=== PATIENT | female | born 1975 | race Hispanic/Latino ===

== ENCOUNTER 2020-04-19 16:53 | Inpatient (IN) | payer OTHER ==
[~2020-04-19] VITALS: Ht 157.5 cm; Wt 90.7 kg
[2020-04-19 17:20] LABS: BASOPHILS % 0.4 % (0.0-1.0); EOSINOPHILS % 0.3 % (0.0-6.0); HEMATOCRIT 37.7 % (34.2-44.1); HEMOGLOBIN 12.4 g/dL (12.0-16.0); LYMPHOCYTES # (AUTO) 2.2 (1.0-3.2); LYMPHOCYTES % 30.2 % (18.0-39.1); MEAN CORPUSCULAR HEMOGLOBIN 25.8 pg (28-32); MEAN CORPUSCULAR HGB CONC 32.9 g/dL (31-35); MEAN CORPUSCULAR VOLUME 78.4 fL (81-99); MONOCYTES # (AUTO) 0.4 (0.2-0.8); MONOCYTES % 5.7 % (4.4-11.3); NEUTROPHILS # (AUTO) 4.6 (2.1-6.9); PLATELET COUNT 366 x10e3/uL (140-360); RED BLOOD COUNT 4.81 x10e6/uL (3.6-5.1); RED CELL DISTRIBUTION WIDTH 13.4 % (11.7-14.4)
[2020-04-19 17:29] LABS: CLARITY,URINE HAZY (CLEAR); COLOR,URINE YELLOW (YELLOW); KETONES,URINE >=160 (NEGATIVE); LEUKOCYTE ESTERASE ,URINE SMALL (NEGATIVE); NITRITE,URINE NEGATIVE (NEGATIVE); PROTEIN,URINE DIPSTICK 1+ (NEGATIVE)
[2020-04-19 17:30] LABS: AMPHETAMINES SCREEN,URINE NEGATIVE (NEGATIVE); BENZODIAZEPINES SCREEN,URINE NEGATIVE (NEGATIVE); PHENCYCLIDINE SCREEN,URINE NEGATIVE (NEGATIVE)
[2020-04-19 17:31] LABS: ALANINE AMINOTRANSFERASE 30 IU/L (0-55); ALBUMIN 3.5 g/dL (3.5-5.0); ALBUMIN/GLOBULIN RATIO 0.7 (0.8-2.0); ALKALINE PHOSPHATASE 121 IU/L (40-150); ANION GAP 17.5 mmol/L (8-16); BLOOD UREA NITROGEN 11 mg/dL (7-26); BUN/CREATININE RATIO 14 (6-25); CALCIUM 9.2 mg/dL (8.4-10.2); CARBON DIOXIDE 17 mmol/L (22-29); CHLORIDE 102 mmol/L (98-107); CREATININE, SERUM 0.79 mg/dL (0.57-1.11); EST GLOMERULAR FILTRATION RATE > 60 ML/MIN (60-); GLUCOSE 271 mg/dL (74-118); POTASSIUM 3.5 mmol/L (3.5-5.1); SODIUM 133 mmol/L (136-145); URINE UROBILINOGEN 1 mg/dL (0.2 - 1)
[2020-04-19 17:32] LABS: BILIRUBIN,URINE SMALL (NEGATIVE)
[2020-04-19 17:33] LABS: MAGNESIUM 1.8 MG/DL (1.3-2.1)
[2020-04-19] MEDS ORDERED: SODIUM CHLORIDE 0.9% 1000ML 1,000 ML IV STA (17:33)
[2020-04-19] MEDS ORDERED: ONDANSETRON HCL INJ 2MG/ML 2ML 2 MG/ML VIAL IV STA (17:33)
[2020-04-19] MEDS ORDERED: KETOROLAC TROMETHAMINE 30 MG/ML VIAL IV STA (17:33)
[2020-04-19] MEDS ORDERED: METOCLOPRAMIDE HCL 10 MG/2ML VIAL IV ONE (18:15)
[2020-04-19 18:21] LABS: BACTERIA,URINE MODERATE /HPF; EPITHELIAL CELLS,URINE MODERATE /LPF; MUCUS,URINE MODERATE (RARE)
[2020-04-19] MEDS ORDERED: IOPAMIDOL 370 MG/ML 200 ML INFUS..BTL INJ ONE (18:26)
[2020-04-19] MEDS ORDERED: SODIUM CHLORIDE 0.9% 50ML 50 ML ONE (18:26)
[2020-04-19] MEDS ORDERED: CEFTRIAXONE SOD 1 GM/NS 50 ML 50 ML IV ONE (19:00)
[2020-04-19] MEDS ORDERED: HYDROMORPHONE 1MG/1ML INJ IV STA (19:49)
[2020-04-19] MEDS ORDERED: DEXTROSE 50% SYRINGE 50 ML IV PRN (20:15)
[2020-04-19] MEDS: INSULIN REGULAR, HUMAN 100 UNIT/1 ML 3ML VIAL SQ SCH (21:06)
[2020-04-19 21:49] VITALS: BP 134/93
[2020-04-19 22:03] VITALS: BP 134/93
[2020-04-19 22:20] VITALS: BP 134/93
[2020-04-19] MEDS ORDERED: LANTUS 3ML100 UNITS/ SC ×2 (22:35)
[2020-04-19] MEDS ORDERED: METFORMIN HCL500 MG PO (22:35)
[2020-04-19] MEDS: SODIUM CHLORIDE 0.9% 1000ML 1,000 ML IV SCH (22:35)
[2020-04-19] MEDS ORDERED: XANAX2 MG PO (22:35)
[2020-04-19] MEDS ORDERED: LISINOPRIL10 MG PO (22:35)
[2020-04-19] MEDS: ONDANSETRON HCL INJ 2MG/ML 2ML 2 MG/ML VIAL IV PRN (23:39)
[2020-04-19] MEDS: HYDROMORPHONE 1MG/1ML INJ IV PRN (23:39)
[2020-04-20 04:00] VITALS: BP 120/79
[2020-04-20] MEDS: HYDROMORPHONE 1MG/1ML INJ IV PRN ×3 (05:00→13:21)
[2020-04-20] MEDS: ONDANSETRON HCL INJ 2MG/ML 2ML 2 MG/ML VIAL IV PRN ×4 (05:00→17:03)
[2020-04-20 05:26] LABS: BASOPHILS % 0.7 % (0.0-1.0); EOSINOPHILS # (AUTO) 0.1 (0.0-0.4); EOSINOPHILS % 1.2 % (0.0-6.0); HEMATOCRIT 32.5 % (34.2-44.1); HEMOGLOBIN 10.2 g/dL (12.0-16.0); LYMPHOCYTES # (AUTO) 2.2 (1.0-3.2); LYMPHOCYTES % 52.6 % (18.0-39.1); MEAN CORPUSCULAR HEMOGLOBIN 25.7 pg (28-32); MEAN CORPUSCULAR HGB CONC 31.4 g/dL (31-35); MEAN CORPUSCULAR VOLUME 81.9 fL (81-99); MONOCYTES # (AUTO) 0.5 (0.2-0.8); MONOCYTES % 11.3 % (4.4-11.3); NEUTROPHILS # (AUTO) 1.4 (2.1-6.9); NEUTROPHILS % 33.7 % (38.7-80.0); PLATELET COUNT 253 x10e3/uL (140-360); RED BLOOD COUNT 3.97 x10e6/uL (3.6-5.1); RED CELL DISTRIBUTION WIDTH 13.6 % (11.7-14.4)
[2020-04-20] MEDS: SODIUM CHLORIDE 0.9% 1000ML 1,000 ML IV SCH ×2 (05:39→12:58)
[2020-04-20 05:50] LABS: ALANINE AMINOTRANSFERASE 20 IU/L (0-55); ALBUMIN 2.7 g/dL (3.5-5.0); ALBUMIN/GLOBULIN RATIO 0.7 (0.8-2.0); ALKALINE PHOSPHATASE 89 IU/L (40-150); ANION GAP 11.5 mmol/L (8-16); BLOOD UREA NITROGEN 6 mg/dL (7-26); BUN/CREATININE RATIO 9 (6-25); CALCIUM 8.2 mg/dL (8.4-10.2); CARBON DIOXIDE 24 mmol/L (22-29); CHLORIDE 106 mmol/L (98-107); CREATININE, SERUM 0.68 mg/dL (0.57-1.11); EST GLOMERULAR FILTRATION RATE > 60 ML/MIN (60-); GLUCOSE 119 mg/dL (74-118); POTASSIUM 3.5 mmol/L (3.5-5.1); SODIUM 138 mmol/L (136-145)
[2020-04-20] MEDS: INSULIN REGULAR, HUMAN 100 UNIT/1 ML 3ML VIAL SQ SCH ×3 (07:30→16:11)
[2020-04-20 08:00] VITALS: BP 119/84
[2020-04-20 08:49] VITALS: BP 119/84
[2020-04-20 12:00] VITALS: BP 120/82
[2020-04-20 16:00] VITALS: BP 132/87
[2020-04-20] MEDS ORDERED: REGLAN10 MG PO (17:28)
[2020-04-20] MEDS ORDERED: CEFUROXIME500 MG PO (17:49)
[2020-04-20] MEDS ORDERED: CEFTRIAXONE SOD 1 GM/NS 50 ML 50 ML IV SCH (20:00)
== END 2020-04-20 21:15 | disposition home or self-care (01) | DRG 699 ==
LOC: ER 17:07 → ERHOLD 20:05 → MED/SURG2 21:48
PROVIDERS: ADMIT Internal Medicine; ATTEND Internal Medicine
DX: N28.1 Cyst of kidney, acquired (principal); N39.0 Urinary tract infection, site not specified; J44.9 Chronic obstructive pulmonary disease, unspecified; F41.9 Anxiety disorder, unspecified; K21.9 Gastro-esophageal reflux disease without esophagitis; F31.9 Bipolar disorder, unspecified; E11.43 Type 2 diabetes mellitus with diabetic autonomic (poly)neuropathy; K31.84 Gastroparesis; Z79.899 Other long term (current) drug therapy; E66.9 Obesity, unspecified; Z68.36 Body mass index [BMI] 36.0-36.9, adult; Z11.59 Encounter for screening for other viral diseases; E83.51 Hypocalcemia; R31.29 Other microscopic hematuria
CPT/HCPCS: 36415; 74177; 80053; 80307; 81001; 82948; 83690; 83735; 85025; 96361; 99284; J0696; J1170; J1817; J1885; J2405; J2765; J7030; Q9967; U0002

== ENCOUNTER 2020-04-21 16:06 | Observation (INO) | payer MEDICARE, OTHER ==
[~2020-04-21] VITALS: Ht 157.5 cm; Wt 78.9 kg
[~2020-04-21 16:06] MED LIST: CEFUROXIME500 MG PO; LANTUS 3ML100 UNITS/ SC; LISINOPRIL10 MG PO; METFORMIN HCL500 MG PO; REGLAN10 MG PO; XANAX2 MG PO
[2020-04-21] MEDS ORDERED: SODIUM CHLORIDE 0.9% 1000ML 1,000 ML IV STA (16:10)
[2020-04-21] MEDS ORDERED: ONDANSETRON HCL INJ 2MG/ML 2ML 2 MG/ML VIAL IV ONE (16:10)
--- NOTE | 2020-04-21 16:10 | Emergency Department Note ---
History of Present Illnes History of Present Illness History of Present Illness This is a 44 year old female presents to the ED after continued N/V . Patient previously admited to [facility] and [facility] . Admits to not f/u as previously instructed Historian: Patient Arrival Mode: Car Onset (how long ago): week(s) Radiation: Reports non-radiation Severity: moderate Onset quality: gradual Duration (how long): week(s) Timing of current episode: constant Progression: worsening Chronicity: recurrent Context: Reports recent illness Exacerbating factors: eating Associated symptoms: Reports nausea/vomiting Treatments prior to arrival: none Previous service: tests performed, one or more referrals, re-evaluation Past Medical/Family History Physician Review I have reviewed the patient's past medical and family history. Any updates have been documented here. Past Medical History Recent Fever: No Clinical Suspicion of Infectio: Yes New/Unexplained Change in Ment: No Past Medical History: Hypertension, Diabetes, COPD, Anxiety, Depression Past Surgical History: Cholecysctectomy, Hysterectomy Social History Smoking Cessation: Never Smoker Alcohol Use: None Any Illegal Drug Use: No Review of Systems Review of Systems Constitutional: Reports no symptoms EENTM: Reports no symptoms Cardiovascular: Reports no symptoms Respiratory: Reports no symptoms Gastrointestinal: Reports nausea, Reports vomiting Genitourinary: Reports no symptoms Musculoskeletal: Reports no symptoms Integumentary: Reports no symptoms Neurological: Reports no symptoms Psychological: Reports no symptoms Endocrine: Reports no symptoms Hematological/Lymphatic: Reports no symptoms Physical Exam Related Data Allergies: Coded Allergies: No Known Allergies (Unverified , 04/19/20) Triage Vital Signs Vital Signs Date Time Temp Pulse Resp B/P (MAP) Pulse Ox O2 Delivery O2 Flow Rate FiO2 04/21/20 16:10 97.8 88 20 169/107 100 Room Air Vital signs reviewed: Yes Physical Exam CONSTITUTIONAL Constitutional: Present ill appearing HENT HENT: Present normocephalic, Present atraumatic, Present oropharynx clear/moist, Present nose normal HENT L/R: Present left ext ear normal, Present right ext ear normal EYES Eyes: Reports PERRL, Reports conjunctivae normal NECK Neck: Present ROM normal PULMONARY Pulmonary: Present effort normal, Present breath sounds normal CARDIOVASCULAR Cardiovascular: Present regular rhythm, Present heart sounds normal, Present capillary refill normal, Present normal rate GASTROINTESTINAL Abdominal: Present soft, Present nontender, Present bowel sounds normal GENITOURINARY Genitourinary: Present exam deferred SKIN Skin: Present warm, Present dry MUSCULOSKELETAL Musculoskeletal: Present ROM normal NEUROLOGICAL Neurological: Present alert, Present oriented x 3, Present no gross motor or sensory deficits PSYCHOLOGICAL Psychological: Present mood/affect normal, Present judgement normal Results Laboratory Lab results reviewed: Yes Imaging Imaging results reviewed: Yes Impressions [place] [id number] Patient Name: MIGDALIA QUINN MR #: [id number] : 1975 Age/Sex: 44/F Req #: [id number] Adm Physician: Ordered by: KELLY NUR DO Report #: [id number] Location: ER Room/Bed: Procedure: [id number] CT/CT ABDOMEN/PELVIS W Exam Date: 04/21/20 Exam Time: 1700 REPORT STATUS: Signed EXAM: CT Abdomen and Pelvis WITH contrast INDICATION: Abdominal pain. COMPARISON: CT of the abdomen/pelvis on 04/19/2020 TECHNIQUE: Abdomen and pelvis were scanned utilizing a multidetector helical scanner from the lung base to the pubic symphysis after administration of IV contrast. Coronal and sagittal reformations were obtained. Routine protocol was performed. Scan was performed when during portal venous phase. IV CONTRAST: 100 mL of Isovue 370 ORAL CONTRAST: None COMPLICATIONS: None RADIATION DOSE: Total DLP: 561 mGy*cm Estimated effective dose: (DLP x 0.015 x size factor) mSv CTDIvol has been reviewed. It is below the limits set by the Radiation Protocol Committee (RPC). Dose modulation, iterative reconstruction, and/or weight based adjustment of the mA/kV was utilized to reduce the radiation dose to as low as reasonably achievable. FINDINGS: LINES and TUBES: None. LOWER THORAX: Redemonstration of right lung base consolidation, likely scarring versus atelectasis. Atherosclerotic calcification of the coronary vessels. HEPATOBILIARY: No focal hepatic lesions. No biliary ductal dilation. GALLBLADDER: There are cholecystectomy clips. SPLEEN: No splenomegaly. PANCREAS: No focal masses or ductal dilatation. ADRENALS: No adrenal nodules KIDNEYS/URETERS: No interval change in complex cyst that extends extrarenally with peripheral enhancement. The extrarenal component with peripheral enhancement measures approximately 2.1 x 1.6 cm, unchanged in size. There is also minimal nonspecific perinephric fat stranding on the right. Kidneys enhance symmetrically. No hydronephrosis. No stones. GI TRACT: There is a small hiatal hernia. No abnormal distention, wall thickening, or evidence of bowel obstruction. Appendix is normal. PELVIC ORGANS/BLADDER: Unremarkable. LYMPH NODES: No lymphadenopathy. VESSELS: Scattered mild arterial vascular calcifications. PERITONEUM / RETROPERITONEUM: No free air or fluid. BONES: Unremarkable. SOFT TISSUES: No interval change in subcutaneous abdominal wall nodules, probably injection related. IMPRESSION: 1. No acute abdominopelvic abnormality identified. 2. No interval change in irregular complex cystic lesion in the upper pole of the right kidney with extrarenal extension. This finding is indeterminate although considerations include complex cyst versus abscess. Consider nonemergent urology referral for further evaluation and management. 3. Atherosclerotic calcification of the coronary vessels. Signed by: Tanmay Adams MD on 04/21/2020 6:00 PM Dictated By: TANMAY ADAMS MD 99 Transcribed By: ABIGAIL on 04/21/201799 COPY TO: KELLY NUR DO~ Assessment & Plan Medical Decision Making MDM Diff Dx : gastroenteritis, gastroparesis, DKA, appendicitis Assessment & Plan Final Impression: (1) Dehydration (2) Intractable vomiting Depart Disposition: ADMITTED Home Meds Active Scripts Cephalexin Monohydrate (KEFLEX) 500 Mg Capsule, 1000 MG PO TID for 30 Days Prov:FLORENCIA JAY [employer]IST 04/22/20 Pantoprazole Sodium* (PROTONIX) 40 Mg Tablet.dr, 40 MG PO BIDAC for 30 Days, TAB Prov:FLORENCIA JYA [employer] SPECIALIST 04/22/20 Ondansetron (ONDANSETRON ODT) 8 Mg Tab.rapdis, 8 MG PO Q8HR PRN for NAUSEA, #30 Prov:PIERREELIEZERFLORENCIA M [employer] SPECIALIST 04/22/20 Metoclopramide Hcl (REGLAN) 10 Mg Tablet, 10 MG PO ACHS for 30 Days, TAB Prov:FLORENCIA JAY Berenice [employer] SPECIALIST 04/22/20 Reported Medications Insulin Glargine (LANTUS 3ML PEN) 100 Units/1 Ml Inj, 30 UNITS SC HS 04/19/20 Insulin Glargine (LANTUS 3ML PEN) 100 Units/1 Ml Inj, 30 UNITS SC ACB 04/19/20 Lisinopril (LISINOPRIL) 10 Mg Tablet, 10 MG PO DAILY, #30 TAB 04/19/20 Metformin Hcl (METFORMIN HCL) 500 Mg Tablet, 1000 MG PO BIDWM, #60 TAB 04/19/20 Alprazolam (XANAX) 2 Mg Tablet, 2 MG PO Q6H PRN for ANXIETY 04/19/20 Discontinued Scripts Cefuroxime Axetil (CEFUROXIME) 500 Mg Tablet, 500 MG PO BID for 7 Days, #14 TAB 0 Refills Prov:DION FABIAN NP 04/20/20 KELLY NRU DO Apr 21, 2020 16:10
[2020-04-21] MEDS ORDERED: MORPHINE SULFATE INJ 4 MG/ML INJ 1ML IV ONE (16:22)
[2020-04-21 16:50] LABS: BASOPHILS % 0.6 % (0.0-1.0); EOSINOPHILS % 0.4 % (0.0-6.0); HEMATOCRIT 36.4 % (34.2-44.1); HEMOGLOBIN 11.9 g/dL (12.0-16.0); LYMPHOCYTES # (AUTO) 2.1 (1.0-3.2); LYMPHOCYTES % 41.9 % (18.0-39.1); MEAN CORPUSCULAR HGB CONC 32.7 g/dL (31-35); MEAN CORPUSCULAR VOLUME 79.5 fL (81-99); MONOCYTES # (AUTO) 0.3 (0.2-0.8); MONOCYTES % 5.6 % (4.4-11.3); NEUTROPHILS # (AUTO) 2.5 (2.1-6.9); NEUTROPHILS % 51.1 % (38.7-80.0); PLATELET COUNT 264 x10e3/uL (140-360); RED BLOOD COUNT 4.58 x10e6/uL (3.6-5.1); RED CELL DISTRIBUTION WIDTH 13.9 % (11.7-14.4)
[2020-04-21] MEDS: PIPER-TAZ 3.375 GM 50 ML IV SCH ×2 (16:50→22:45)
--- OUTSIDE RECORDS SUMMARY | 2020-04-21 16:50 | XMS REPORT | Clinical Summary ---
Author Author [facility] Organization [facility] Address Unknown Phone Unavailable Care Team Providers Care Wood Machinist Name Role Phone Shelbie York PCP Allergies No Known Allergies Medications End Date Status Medication Sig Dispensed Refills Start Date Active blood glucose meter Use as 1 Kit 0 (PRECISION XTRA directed.. 8 GLUCOMETER)Indications: Type 2 diabetes mellitus with complication, with long-term current use of insulin Active FLUoxetine (PROZAC) 20 mg Take 3 90 capsule 2 capsuleIndications: PTSD capsules by 9 (post-traumatic stress mouth daily. disorder), Moderate episode of recurrent major depressive disorder Active blood glucose meter Use as 1 Kit 0 (PRECISION XTRA directed.. 9 GLUCOMETER)Indications: Type 2 diabetes mellitus with complication, with long-term current use of insulin Active lancets 28 Use 2 times 100 Each 1 gaugeIndications: Type 2 daily. 0 diabetes mellitus with complication, with long-term current use of insulin Active cetirizine (ZYRTEC) 10 mg Take 1 tablet 30 tablet 3 tabletIndications: by mouth 0 Environmental allergies daily. Active albuterol 90 Inhale 2 8.5 g 1 mcg/actuation Puffs by 0 inhalerIndications: SOB mouth 4 times (shortness of breath) daily as needed for Shortness of Breath. Active insulin aspart U-100 Inject 28 26 Pen 1 01/14 (NOVOLOG FLEXPEN) 100 Units under 0 unit/mL (3 mL) the skin 3 penIndications: Type 2 times daily diabetes mellitus with with meals. complication, with long-term current use of insulin Active linaGLIPtin (TRADJENTA) 5 Take 1 tablet 90 tablet 1 mg tabletIndications: by mouth 0 Type 2 diabetes mellitus daily. with complication, with long-term current use of insulin Active insulin detemir U-100 Inject 50 96 mL 1 01/01 (LEVEMIR) 100 unit/mL Units under 0 injectionIndications: the skin 2 Type 2 diabetes mellitus times daily. with complication, with long-term current use of insulin Active INSULIN SYRINGE 0.5 mL Use to inject 100 Each 2 0 30GX5/16" (MONOJECT medication 2 0 ULTRACOMFORT INSULIN SYR times daily. 0.5ML 30GX5/16") Use a new syringe-needleIndications syringe each : Type 2 diabetes time. mellitus with complication, with long-term current use of insulin Active estradioL (ESTRACE) 0.5 Take 1 tablet 30 tablet 0 mg tabletIndications: Hot by mouth 0 flashes due to menopause daily. Active QUEtiapine (SEROQUEL) 100 Take 0.5 45 tablet 2 mg tabletIndications: tablets by 0 Bipolar 2 disorder, major mouth every depressive episode, PTSD morning AND 1 (post-traumatic stress tablet at disorder) bedtime nightly. Active hydrOXYzine (ATARAX) 50 Take one half 90 tablet 1 mg tabletIndications: to one tablet 0 Panic disorder with NEEDED for agoraphobia anxiety up to three times per day.. Active gabapentin (NEURONTIN) Take 1 90 capsule 1 300 mg capsule by 0 capsuleIndications: mouth 3 times Neuropathy daily. Active lisinopriL (PRINIVIL) 10 Take 1 tablet 90 tablet 0 mg tabletIndications: by mouth 0 Essential hypertension, daily. benign Active nystatin (NYSTOP) 100,000 Apply to 15 g 0 unit/gram topical affected area 0 powderIndications: 4 times Intertrigo daily. Active dexlansoprazole Take 1 30 capsule 1 (DEXILANT) 30 mg delayed capsule by 0 release mouth daily. capsuleIndications: Gastroesophageal reflux disease, esophagitis presence not specified Active pravastatin (PRAVACHOL) Take 1 tablet 90 tablet 0 40 mg tabletIndications: by mouth at 0 Hyperlipidemia, bedtime unspecified nightly. hyperlipidemia type Active blood glucose (PRECISION Check blood 100 Each 1 0 XTRA TEST STRIPS) test glucose 2 0 stripsIndications: Type 2 times daily. diabetes mellitus with complication, with long-term current use of insulin Active lancets 28 Check blood 100 Each 1 gaugeIndications: Type 2 glucose 2 0 diabetes mellitus with times daily. complication, with long-term current use of insulin Active pen needle, diabetic 31 Inject under 100 Each 2 0 gauge x 3/16" the skin 3 0 needlesIndications: Type times daily. 2 diabetes mellitus with complication, with long-term current use of insulin Active ibuprofen (MOTRIN) 800 mg Take 1 tablet 30 tablet 1 tabletIndications: Right by mouth 0 shoulder pain, every 8 hours unspecified chronicity as needed for Pain. Active metFORMIN (GLUCOPHAGE) Take 1 tablet 180 tablet 2 0 1,000 mg by mouth 2 0 tabletIndications: Type 2 times daily diabetes mellitus with (with meals). complication, with long-term current use of insulin Active acetaminophen-codeine Take 1 tablet 15 tablet 0 (TYLENOL/CODEINE #3) by mouth 0 300-30 mg per daily as tabletIndications: Low needed for back pain with Pain. right-sided sciatica, unspecified back pain laterality, unspecified chronicity 05/17/2019 Discontinued (Reorder) blood glucose meter Use as 1 Kit 0 (PRECISION XTRA directed.. 8 GLUCOMETER)Indications: Type 2 diabetes mellitus with complication, with long-term current use of insulin 02/17/2020 Discontinued (Alternate ther apy) ziprasidone (GEODON) 40 Take 1 60 capsule 1 mg capsuleIndications: capsule by 9 Bipolar 2 disorder, major mouth 2 times depressive episode daily (with meals). 05/15/2019 Discontinued (Reorder) linaGLIPtin (TRADJENTA) 5 Take 1 tablet 90 tablet 1 mg tabletIndications: by mouth 9 Type 2 diabetes mellitus daily. with complication, with long-term current use of insulin 10/03/2019 Discontinued (Reorder) metFORMIN (GLUCOPHAGE) Take 1 tablet 180 tablet 2 0 1,000 mg by mouth 2 9 tabletIndications: Type 2 times daily diabetes mellitus with (with meals). complication, with long-term current use of insulin 05/15/2019 Discontinued (Reorder) lancets 28 Use 2 times 100 Each 1 gaugeIndications: Type 2 daily. 9 diabetes mellitus with complication, with long-term current use of insulin 02/17/2020 Discontinued (Alternate ther apy) ziprasidone (GEODON) 80 Take 1 30 capsule 2 mg capsuleIndications: capsule by 9 Bipolar 2 disorder, major mouth at depressive episode bedtime nightly Take with meals. 02/17/2020 Discontinued (Alternate ther apy) busPIRone (BUSPAR) 10 mg Take 1 tablet 90 tablet 2 tabletIndications: by mouth 3 9 Bipolar 2 disorder, major times daily. depressive episode, Moderate episode of recurrent major depressive disorder 01/22/2020 Discontinued (Reorder) INSULIN SYRINGE 0.5 mL Use to inject 100 Each 2 0 30GX5/16" (MONOJECT medication 2 9 ULTRACOMFORT INSULIN SYR times daily. 0.5ML 30GX5/16") Use a new syringe-needleIndications syringe each : Type 2 diabetes time. mellitus with complication, with long-term current use of insulin 10/03/2019 Discontinued (Reorder) pen needle, diabetic 31 Inject under 100 Each 2 0 gauge x 3/16" the skin 3 9 needlesIndications: Type times daily. 2 diabetes mellitus with complication, with long-term current use of insulin 02/17/2020 Discontinued (Alternate ther apy) lamoTRIgine (LAMICTAL) 25 Weeks 1 and 42 tablet 0 mg tabletIndications: 2: take 1 9 Bipolar 2 disorder tablet (25 mg) by mouth once daily Weeks 3 and 4: take 2 tablets (50 mg) by mouth once daily 10/03/2019 Discontinued (Reorder) lisinopril (PRINIVIL) 10 Take 1 tablet 90 tablet 0 mg tabletIndications: by mouth 9 Essential hypertension, daily. benign 05/15/2019 Discontinued (Reorder) blood glucose (PRECISION Check blood 50 Each 2 0 XTRA TEST STRIPS) test glucose 2 9 stripsIndications: Type 2 times daily. diabetes mellitus with Need to complication, with complete labs long-term current use of for future insulin refills. 05/13/2019 Discontinued (Therapy comple linda) acetaminophen-codeine Take 1 tablet 40 tablet 0 (TYLENOL/CODEINE #3) by mouth 2 9 300-30 mg per times daily tabletIndications: Right as needed for shoulder pain, Pain. unspecified chronicity 12/17/2019 Discontinued (Reorder) cetirizine (ZYRTEC) 10 mg Take 1 tablet 30 tablet 3 tabletIndications: by mouth 9 Environmental allergies daily. 03/17/2020 Discontinued (Reorder) pravastatin (PRAVACHOL) Take 1 tablet 90 tablet 1 40 mg tabletIndications: by mouth at 9 Hyperlipidemia, bedtime unspecified nightly. hyperlipidemia type 05/15/2019 Discontinued (Reorder) gabapentin (NEURONTIN) Take 1 60 capsule 1 300 mg capsule by 9 capsuleIndications: mouth 2 times Neuropathy daily. 04/28/2019 Discontinued (Reorder) dexlansoprazole Take 1 30 capsule 1 (DEXILANT) 30 mg delayed capsule by 9 release mouth daily. capsuleIndications: Gastroesophageal reflux disease, esophagitis presence not specified 01/14/2020 Discontinued (Reorder) insulin aspart U-100 Inject 28 26 Pen 1 03/18 (NOVOLOG FLEXPEN) 100 Units under 9 unit/mL (3 mL) the skin 3 penIndications: Type 2 times daily diabetes mellitus with with meals. complication, with long-term current use of insulin 05/08/2019 Discontinued (Reorder) insulin detemir U-100 Inject 45 90 mL 1 03/03 (LEVEMIR) 100 unit/mL Units under 9 injectionIndications: the skin 2 Type 2 diabetes mellitus times daily. with complication, with long-term current use of insulin 06/27/2019 Discontinued (Reorder) ibuprofen (MOTRIN) 800 mg Take 1 tablet 30 tablet 1 tabletIndications: Right by mouth 9 shoulder pain, every 8 hours unspecified chronicity as needed for Pain. 03/17/2020 Discontinued (Reorder) blood glucose (PRECISION 2 times 100 Each 1 1 XTRA TEST STRIPS) test daily. 9 stripsIndications: Type 2 diabetes mellitus with complication, with long-term current use of insulin 03/17/2020 Discontinued (Reorder) lancets 28 2 times 100 Each 1 gaugeIndications: Type 2 daily. 9 diabetes mellitus with complication, with long-term current use of insulin 05/13/2019 Discontinued (Therapy comple linda) cyclobenzaprine Take 1 tablet 60 tablet 0 04/10/20 1 (FLEXERIL) 10 mg by mouth 3 9 tabletIndications: TMJ times daily syndrome as needed for Muscle Spasms. 06/17/2019 Discontinued (Reorder) dexlansoprazole Take 1 30 capsule 1 (DEXILANT) 30 mg delayed capsule by 9 release mouth daily. capsuleIndications: Gastroesophageal reflux disease, esophagitis presence not specified 01/22/2020 Discontinued (Reorder) insulin detemir U-100 Inject 50 96 mL 1 (LEVEMIR) 100 unit/mL Units under 9 injectionIndications: the skin 2 Type 2 diabetes mellitus times daily. with complication, with long-term current use of insulin 05/15/2019 benzonatate (TESSALON Take 1 20 capsule 0 PERLES) 100 mg capsule by 9 capsuleIndications: mouth 3 times Bronchitis, not specified daily as as acute or chronic needed for Cough. 05/15/2019 amoxicillin-clavulanate Take 1 tablet 14 tablet 0 (AUGMENTIN) 875-125 mg by mouth 2 9 per tabletIndications: times daily Bronchitis, not specified for 7 days. as acute or chronic 12/17/2019 Discontinued (Reorder) albuterol 90 Inhale 2 8.5 g 1 mcg/actuation Puffs by 9 inhalerIndications: SOB mouth 4 times (shortness of breath) daily as needed for Shortness of Breath. 02/06/2020 Discontinued (Therapy comple linda) codeine-guaiFENesin Take 5 mL by 120 mL 0 05/13 (CHERATUSSIN AC) 10-100 mouth 3 times 9 mg/5 mL syrupIndications: daily as Cough needed for Cough. 01/22/2020 Discontinued (Reorder) linaGLIPtin (TRADJENTA) 5 Take 1 tablet 90 tablet 1 mg tabletIndications: by mouth 9 Type 2 diabetes mellitus daily. with complication, with long-term current use of insulin 10/03/2019 Discontinued (Reorder) gabapentin (NEURONTIN) Take 1 60 capsule 1 300 mg capsule by 9 capsuleIndications: mouth 2 times Neuropathy daily. 10/04/2019 Discontinued (Duplicate Orde r) blood glucose (PRECISION Check blood 50 Each 2 1 XTRA TEST STRIPS) test glucose 2 9 stripsIndications: Type 2 times daily. diabetes mellitus with Need to complication, with complete labs long-term current use of for future insulin refills. 12/16/2019 Discontinued (Reorder) lancets 28 Use 2 times 100 Each 1 gaugeIndications: Type 2 daily. 9 diabetes mellitus with complication, with long-term current use of insulin 08/22/2019 Discontinued (Reorder) dexlansoprazole Take 1 30 capsule 1 (DEXILANT) 30 mg delayed capsule by 9 release mouth daily. capsuleIndications: Gastroesophageal reflux disease, esophagitis presence not specified 12/17/2019 Discontinued (Reorder) ibuprofen (MOTRIN) 800 mg Take 1 tablet 30 tablet 1 tabletIndications: Right by mouth 9 shoulder pain, every 8 hours unspecified chronicity as needed for Pain. 10/01/2019 Discontinued (Reorder) dexlansoprazole Take 1 30 capsule 1 (DEXILANT) 30 mg delayed capsule by 0 release mouth daily. capsuleIndications: Gastroesophageal reflux disease, esophagitis presence not specified 12/13/2019 Discontinued (Reorder) dexlansoprazole Take 1 30 capsule 1 (DEXILANT) 30 mg delayed capsule by 0 release mouth daily. capsuleIndications: Gastroesophageal reflux disease, esophagitis presence not specified 03/19/2020 Discontinued (Reorder) metFORMIN (GLUCOPHAGE) Take 1 tablet 180 tablet 2 0 1,000 mg by mouth 2 0 tabletIndications: Type 2 times daily diabetes mellitus with (with meals). complication, with long-term current use of insulin 03/17/2020 Discontinued (Reorder) pen needle, diabetic 31 Inject under 100 Each 2 0 gauge x 09/15" the skin 3 0 needlesIndications: Type times daily. 2 diabetes mellitus with complication, with long-term current use of insulin 12/17/2019 Discontinued (Reorder) lisinopriL (PRINIVIL) 10 Take 1 tablet 90 tablet 0 mg tabletIndications: by mouth 0 Essential hypertension, daily. benign 01/14/2020 Discontinued (Reorder) gabapentin (NEURONTIN) Take 1 60 capsule 1 300 mg capsule by 0 capsuleIndications: mouth 2 times Neuropathy daily. 01/22/2020 Discontinued (Reorder) dexlansoprazole Take 1 30 capsule 1 (DEXILANT) 30 mg delayed capsule by 0 release mouth daily. capsuleIndications: Gastroesophageal reflux disease, esophagitis presence not specified 03/17/2020 Discontinued (Reorder) ibuprofen (MOTRIN) 800 mg Take 1 tablet 30 tablet 1 tabletIndications: Right by mouth 0 shoulder pain, every 8 hours unspecified chronicity as needed for Pain. 01/22/2020 Discontinued (Reorder) lisinopriL (PRINIVIL) 10 Take 1 tablet 90 tablet 0 mg tabletIndications: by mouth 0 Essential hypertension, daily. benign 02/19/2020 Discontinued (Reorder) gabapentin (NEURONTIN) Take 1 60 capsule 1 300 mg capsule by 0 capsuleIndications: mouth 2 times Neuropathy daily. 02/19/2020 Discontinued (Reorder) lisinopriL (PRINIVIL) 10 Take 1 tablet 90 tablet 0 mg tabletIndications: by mouth 0 Essential hypertension, daily. benign 01/22/2020 tropicamide (MYDRIACYL) Instill 1 15 mL 0 0.5 % ophthalmic Drop in each 0 solutionIndications: Type eye once as 2 diabetes mellitus with needed for up complication, with to 1 dose long-term current use of (for poor insulin retina scan image). 03/04/2020 Discontinued (Reorder) dexlansoprazole Take 1 30 capsule 1 (DEXILANT) 30 mg delayed capsule by 0 release mouth daily. capsuleIndications: Gastroesophageal reflux disease, esophagitis presence not specified 02/17/2020 valACYclovir (VALTREX) 1 Take 1 tablet 14 tablet 0 g tabletIndications: by mouth 2 0 Genital herpes simplex, times daily unspecified site for 7 days. 02/19/2020 Discontinued (Therapy comple linda) Cyclobenzaprine Take 1 tablet 30 tablet 0 02/06/20 2 (FLEXERIL) 5 mg by mouth 0 tabletIndications: nightly at Thoracic back pain, bedtime as unspecified back pain needed for laterality, unspecified Muscle chronicity Spasms. 03/18/2020 lamoTRIgine (LAMICTAL) 25 Take 1 tablet 60 tablet 1 mg tabletIndications: by mouth 0 Bipolar 2 disorder, major daily for 14 depressive episode, PTSD days, THEN 2 (post-traumatic stress tablets daily disorder) for 16 days. 02/19/2020 Discontinued (Reorder) gabapentin (NEURONTIN) Take 1 90 capsule 1 300 mg capsule by 0 capsuleIndications: mouth 3 times Neuropathy daily. 02/19/2020 Discontinued (Reorder) lisinopriL (PRINIVIL) 10 Take 1 tablet 90 tablet 0 mg tabletIndications: by mouth 0 Essential hypertension, daily. benign 02/19/2020 Discontinued (Reorder) methocarbamoL Take 1 tablet 60 tablet 1 (ROBAXIN-750) 750 mg by mouth 3 0 tabletIndications: times daily. Thoracic back pain, unspecified back pain laterality, unspecified chronicity 02/26/2020 benzonatate (TESSALON Take 1 20 capsule 0 01/31 PERLES) 100 mg capsule by 0 capsuleIndications: Cough mouth 3 times daily as needed for up to 7 days for Cough. 03/04/2020 Discontinued (Reorder) lisinopriL (PRINIVIL) 10 Take 1 tablet 90 tablet 0 mg tabletIndications: by mouth 0 Essential hypertension, daily. benign 03/19/2020 Discontinued (Therapy comple linda) methocarbamoL Take 1 tablet 60 tablet 1 (ROBAXIN-750) 750 mg by mouth 3 0 tabletIndications: times daily. Thoracic back pain, unspecified back pain laterality, unspecified chronicity 03/04/2020 Discontinued (Reorder) dexlansoprazole Take 1 30 capsule 1 (DEXILANT) 30 mg delayed capsule by 0 release mouth daily. capsuleIndications: Gastroesophageal reflux disease, esophagitis presence not specified Status Hospital, Clinic, or Ordered Dose Route Frequency Start End Date Other Facility Date Administered Medication Ended albuterol (PROVENTIL) 2.5 2.5 mg IN ONCE 05/13/20 mg /3 mL (0.083 %) 19 9 nebulized solution 2.5 mgIndications: SOB (shortness of breath) Active Problems Problem Noted Date Type 2 diabetes mellitus with complication, with long -term current use of 09/07/2017 insulin Essential hypertension, benign 09/07/2017 Anxiety 09/07/2017 Depression 09/07/2017 Encounters Care Team Description Date Type Specialty Patrick Baldwin RN 04/02/2020 Patient Patient Education Education Rukhsana Fox LD 03/24/2020 Nutrition Nutrition Shelbie York DO Essential hypertension, benign (Primary Dx); Type 2 diabetes mellitus with complication, with long-term current use of insulin; Neuropathy; Low back pain with right-sided sciatica, unspecified back pain laterality, unspecified chronicity 03/19/2020 Telephonic Family Practice Encounter Patrick Baldwin RN 03/19/2020 Patient Patient Education Education Shelbie York DO Medications 03/17/2020 Refill Family Practice Shelbie York DO Medications 03/17/2020 Refill [facility] 03/06/2020 E-Visit Rukhsana Fox LD 03/06/2020 Nutrition Nutrition Shelbie York DO Hoarseness (Primary Dx); Essential hypertension, benign; Gastroesophageal reflux disease, esophagitis presence not specified; Cough; Dysphagia, unspecified type; Intertrigo 03/04/2020 Telephonic Family Practice Encounter Shelbie York DO Medications 03/04/2020 Orders Only [facility] 03/04/2020 Patient Patient Education Education Shelbie York DO Medications 03/04/2020 Refill [facility] Rukhsana Fox, NADINE 02/26/2020 Nutrition Nutrition Shelbie York DO Type 2 diabetes mellitus with complicati on, with long-term current use of insulin (Primary Dx); Neuropathy; Essential hypertension, benign; Thoracic back pain, unspecified back pain laterality, unspecified chronicity; Cough 02/19/2020 Telephonic Family Practice Encounter Patrick Baldwin RN 02/18/2020 Patient Patient Education Education Allison William MD 02/18/2020 E-Visit Family Practice Perla Magallanes MD Bipolar 2 disorder, major depressive epi sode (Primary Dx); PTSD (post-traumatic stress disorder); Panic disorder with agoraphobia; Anxiety 02/17/2020 Telephonic Psychiatry Encounter Perla Magallanes MD 02/17/2020 Orders Only Psychiatry Shelbie York DO Gastroesophageal reflux disease, esophag itis presence not specified (Primary Dx); Dysuria; Rib pain on right side; Thoracic back pain, unspecified back pain laterality, unspecified chronicity; Type 2 diabetes mellitus with complication, with long-term current use of insulin 02/06/2020 Telephonic Family Practice Encounter Shelbie York DO Medications 02/06/2020 Refill Family Practice [facility] 02/03/2020 E-Visit Rukhsana Fox LD 01/30/2020 Nutrition Nutrition Jocelyn Rice MD Vaginal itching (Primary Dx); Urinary frequency; Genital sore 01/29/2020 E-Visit Family Practice Monica Jane 01/29/2020 Nutrition Nutrition [facility] 01/27/2020 E-Visit Shelbie York DO Type 2 diabetes mellitus with complicati on, with long-term current use of insulin (Primary Dx); Essential hypertension, benign; Preventative health care; Hot flashes due to menopause; Gastroesophageal reflux disease, esophagitis presence not specified; Low libido 01/22/2020 Telephonic Family Practice Encounter Camille Dennison 01/16/2020 Patient Patient Education Education Shelbie York DO Medications 01/15/2020 Refill Family Practice Shelbie York DO Medications 01/14/2020 Refill [facility] Shelbie York, Medications 01/13/2020 Refill Family Practice Shelbie York, Medications 12/19/2019 Refill Family Practice Shelbie York, Medications 12/17/2019 Refill Family Practice Shelbie York, Medications 12/17/2019 Refill Family Practice Neo Natarajan Jr., MD Medications 12/17/2019 Refill Family Practice Shelbie York, Medications 12/16/2019 Refill Family Practice Shelbie York, Medications 12/13/2019 Refill Family Practice Shelbie York, Medications 11/14/2019 Refill Family Practice Shelbie York, Medications 11/06/2019 Refill Family Practice Patrick Baldwin RN Uncontrolled blood glucose (Primary Dx) 10/30/2019 Patient Patient Education Education Monica Jane 10/29/2019 Nutrition Nutrition Jaylen, Shelbie, DO Medications 10/16/2019 Refill Family Practice Jaylen, Shelbie, DO Medications 10/10/2019 Refill Family Practice Jaylen, Shelbie, DO Medications 10/07/2019 Refill [facility] Stefania Cleveland LD 10/07/2019 Nutrition Nutrition Jaylen, Shelbie, DO Medications 10/03/2019 Refill [facility] Jaylen, Shelbie, DO Medications 10/03/2019 Refill [facility] Neo Natarajan Jr., MD Medications 10/03/2019 Refill Family Practice Priserina, Monica 10/02/2019 Nutrition Nutrition Sloan Yorka, DO Medications 10/01/2019 Refill [facility] Sloan Yorka, DO Medications 08/22/2019 Refill [facility] Patrick Baldwin RN 07/24/2019 Patient Patient Education Education Shelbie York, Medications 06/27/2019 Refill [facility] Jaylen, Shelbie, DO Medications 06/27/2019 Refill [facility] Neo Natarajan Jr., MD Medications 06/17/2019 Refill [facility] Lucinda, Monica 06/11/2019 Nutrition Roger De La Torre III, MD Medications 05/17/2019 Refill Family Practice Sloan Yorka, DO Medications 05/15/2019 Refill [facility] Neo Natarajan Jr., MD Medications 05/15/2019 Refill [facility] Jaylen, Shelbie, DO Medications 05/15/2019 Refill [facility] Bisigerald, Monica 05/14/2019 Nutrition Nutrition Shelbie York, 05/13/2019 Ancillary Radiology Procedure Shelbie York DO Cough (Primary Dx); SOB (shortness of breath); Needs flu shot; Type 2 diabetes mellitus with complication, with long-term current use of insulin; Essential hypertension, benign 05/13/2019 Office Visit Family [facility] Tash Tirado, [facility] Type 2 diabetes mellitus with complicati on, with long- term current use of insulin (Primary Dx) 05/13/2019 Office Visit Clinical Pharmacy Shelbie York DO Type 2 diabetes mellitus with complicati on, with long-term current use of insulin (Primary Dx); Dietary counseling for Above / Below Normal BMI; Exercise counseling for Above Normal BMI Only!; Bronchitis, not specified as acute or chronic; Blood in stool 05/08/2019 Office Visit Family Practice Shelbie York DO 05/08/2019 Orders Only Family Practice Patrick Baldwin RN 05/02/2019 Patient Patient Education Education Patrick Baldwin RN Uncontrolled blood glucose (Primary Dx) 05/02/2019 Patient Patient Education Education Shelbie York DO Medications 04/28/2019 Refill Family Practice after 04/21/2019 Immunizations Name Administration Dates Next Due Influenza Vaccine, 09/07/2017 (Deferred: Unava ilable-Patient to Seasonal, Injectable return for vaccine later - NONE IN STOCK AT THIS TIME) Influenza, Injectable, 05/13/2019 (Deferred: Other - patient feeling sick Quadrivalent today) Influenza, 05/09/2018 Vaccine<FLUCELVAX>(Multi- Dose) PPV 23 (Pneumococcal 10/16/2017 Polysaccharide 23 Valent) Tdap (Tetanus Toxoid, 09/07/2017 Reduced Diphtheria Toxoid And Acellular Pertussis, Absorbed) Family History Medical History Relation Name Comments Diabetes Mother Hypertension Mother Relation Name Status Comments Brother Alive Father Alive Mother Alive Social History Date Tobacco Use Types Packs/Day Years Used Former Smoker Smokeless Tobacco: Never Used Tobacco Cessation: Counseling Given: Yes Drinks/Week oz/Week Comments Alcohol Use No Food Insecurity Answer Date Recorded Within the past 12 months, you worried that your Never divina e 11/01/2018 food would run out before you got money to buy more. Within the past 12 months, the food you bought Never true 11/01/2018 just didn't last and you didn't have mo shelly to get more. Sex Assigned at Date Recorded Not on file Industry Job Start Date Occupation Not on file Not on file Not on file Travel End Travel History Travel Start No recent travel history available. Last Filed Vital Signs Reading Time Taken Comments Vital Sign 114/78 05/13/2019 10:49 AM SALES PROCESS MANAGER Blood Pressure 92 05/13/2019 10:49 AM SALES PROCESS MANAGER Pulse 36.8 C (98.3 F) 05/13/2019 10:49 AM SALES PROCESS MANAGER Temperature 18 05/13/2019 10:49 AM SALES PROCESS MANAGER Respiratory Rate 100% 05/13/2019 12:31 PM SALES PROCESS MANAGER Room Air Oxygen Saturation - - Inhaled Oxygen Concentration 95.3 kg (210 lb) 05/13/2019 10:49 AM SALES PROCESS MANAGER Weight 157.5 cm (5' 2") 05/13/2019 10:49 AM SALES PROCESS MANAGER Height 38.41 05/13/2019 10:49 AM SALES PROCESS MANAGER Body Mass Index Plan of Treatment Care Team Description Date Type Specialty Referral#[id number] 05/22/2020 Office Visit Gynecology Health Maintenance Due Date Last Done Comments DM Foot Exam (Yearly) 08/27/2019 08/27/2018, 09/07/2017 Breast Cancer Scrn 11/13/2019 11/12/2018, (Yearly) 10/16/2017 DM Retinal Exam (Yearly) 11/13/2019 11/12/2018, 10/16/2017 IMM Influenza Seasonal 04/02/2020 05/09/2018 Oct to August (>/= 19 yrs) DM HGBA1C (Yearly) 05/08/2020 05/08/2019, 01/30/2019, 05/09/2018, Additional history exists Goals Goal Patient Associated Recent Progress Patient-Stat Aut hor Goal Type Problems ed? Use plate model Diet On track (06/11/2019 No Maria Esther kowalski, 10:28 AM SALES PROCESS MANAGER) Monica Note: Eat 2-3 CHO portions per meal I will read food labels to eat General On track (02/26/2020 Yes [place], the right amount of CHO at 8:50 AM CDT) Monica mealtimes Eat Healthy Lifestyle No Liyah Queen LVN Note: Patient is trying to eat more healthy rather than eating out or frying foods. Patient is trying to eat more vegetables and fruit. Liyah Queen HOUSEKEEPING COORDINATOR [id number] Increase Physical Activity Lifestyle On track (05/14/2019 No [place], 5:10 PM SALES PROCESS MANAGER) Lyndsay Eat Healthy Lifestyle No Gabriela Rider Note: Pt. States is drinking more water like 10 cups per day and stop to drink cokes or any kind of sodas[place] [id number] Take medications as prescribed Self No Yuridia Cintron management Take medications as prescribed Self No Yuridia Cintron management Exercise Regularly Self On track (06/11/2019 No renaldo Osorio 10:28 AM SALES PROCESS MANAGER) Roger Thapa III, MD HBA1C < 7 Treatment No Roger Osorio III, MD Procedures Comments Procedure Name Priority Date/Time Associated Diag nosis XRAY CHEST 2 VIEWS KANA 05/13/2019 Cough 1:18 PM SALES PROCESS MANAGER NONINVASV OXYGEN Routine 05/13/2019 Cough SATUR;SINGLE 12:08 PM SALES PROCESS MANAGER VITAMIN B12 Routine 05/08/2019 Type 2 diabetes mellitus 4:09 PM SALES PROCESS MANAGER with complication, with long-term current use of insulin CBC Routine 05/08/2019 Blood in stool 4:09 PM SALES PROCESS MANAGER CBC/DIFF Routine 05/08/2019 Blood in stool 4:09 PM SALES PROCESS MANAGER URIC ACID Routine 05/08/2019 Type 2 diabetes mellitus 4:09 PM SALES PROCESS MANAGER with complication, with long-term current use of insulin LIPID PROFILE Routine 05/08/2019 Type 2 diabetes mellitus 4:09 PM SALES PROCESS MANAGER with complication, with long-term current use of insulin COMPREHENSIVE METABOLIC Routine 05/08/2019 Type 2 diabetes mellitus PANEL 4:09 PM SALES PROCESS MANAGER with complication, with long-term current use of insulin HEMOGLOBIN A1C Routine 05/08/2019 Type 2 diabetes mellitus 4:09 PM SALES PROCESS MANAGER with complication, with long-term current use of insulin after 04/21/2019 Results * XRAY CHEST 2 VIEWS (05/13/2019 1:18 PM SALES PROCESS MANAGER) Specimen Impressions Performed At IMPRESSION: [facility] No acute thoracic abnormality. Dictated By: Paul Farley MD, 05/13/2019 2:42 PM I have reviewed the study and agree wit h the findings in this report. Signed By: Ritu Muniz MD, 05/13/2019 3:12 PM Narrative Performed At EXAMINATION: XRAY CHEST 2 VIEWS [facility] INDICATION: cough, SOB COMPARISON: Chest radiograph from 2018. FINDINGS: PA and lateral views TUBES and LINES: None LUNGS: Lungs are well inflated. No cons olidations or edema. PLEURA: No effusions. No pneumothorax. HEART AND MEDIASTINUM: Normal for techn ique. BONES AND SOFT TISSUES: The bones are u nremarkable. Soft tissues are unremarkable. UPPER ABDOMEN: No free air under the di aphragm. Procedure Note Interface, Rad/Mammog In - 05/13/2019 3:17 PM SALES PROCESS MANAGER EXAMINATION: XRAY CHEST 2 VIEWS INDICATION: cough, SOB COMPARISON: Chest radiograph from 01/30/2019. FINDINGS: PA and lateral views TUBES and LINES: None LUNGS: Lungs are well inflated. No consolidations or edema. PLEURA: No effusions. No pneumothorax. HEART AND MEDIASTINUM: Normal for technique. BONES AND SOFT TISSUES: The bones are unremarkable. Soft tissues are unremarkable. UPPER ABDOMEN: No free air under the diaphragm. IMPRESSION IMPRESSION: No acute thoracic abnormality. Dictated By: Paul Farley MD, 05/13/2019 2:42 PM I have reviewed the study and agree with the findings in this report. Signed By: Ritu Muniz MD, 05/13/2019 3:12 PM Performing Organization Address City/State/Zipcode Ph one Number SMS * CBC/Diff (05/08/2019 4:09 PM SALES PROCESS MANAGER) WBC 9.3 4.5 - 11.0 K/uL [facility] RBC 4.60 4.20 - 5.40 M/uL [facility] Hemoglobin 12.6 12.0 - 16.0 g/dL [facility] Hematocrit 39.7 37.0 - 47.0 % [facility] MCV 86.3 82.0 - 92.0 fL [facility] MCH 27.4 27.0 - 32.0 pg [facility] MCHC 31.7 (L) 32.0 - 36.0 g/dL [facility] RDW 39.1 36.4 - 46.3 fL [facility] Platelet 232 150 - 400 K/uL [facility] Mean Platelet 12.6 (H) 9.4 - 12.4 fL [facility] Volume [facility] Percent NRBC 0.0 % [facility] Neutrophil 60.2 34.0 - 70.0 % [facility] Lymphs 31.5 20.0 - 50.0 % [facility] Monocytes 6.3 5.0 - 12.0 % [facility] Eos 1.5 0.7 - 5.0 % [facility] Basos 0.2 0.1 - 1.2 % [facility] Immature 0.3 0.0 - 0.5 % [facility] Granulocytes [facility] Neutrophils 5.59 1.56 - 6.13 K/uL [facility] (Absolute) [facility] Lymphs 2.93 1.18 - 3.74 K/uL [facility] (Absolute) [facility] Monocytes(Absol 0.59 (H) 0.24 - 0.36 K/uL [facility] [place] Eos (Absolute) 0.14 0.04 - 0.36 K/uL [facility] Baso (Absolute) 0.02 0.01 - 0.08 K/uL [facility] Immature Grans 0.03 0.00 - 0.03 K/uL [facility] (Abs) [facility] Absolute NRBC 0.00 K/uL [facility] Specimen Blood Performing Organization Address [facility] Ph one Number [facility] [address] [place] [address] [phone] * Hemoglobin A1C (05/08/2019 4:09 PM SALES PROCESS MANAGER) Hemoglobin A1c 8.0 (H) 4.3 - 6.1 % [facility] Estimated 183 (H) 70 - 110 mg/dL [facility] Average Glucose LAB[facility]ORY Specimen Blood Performing Organization Address [facility] one Number [facility] [address] [place] [address] * Comprehensive Metabolic Panel (05/08/2019 4:09 PM SALES PROCESS MANAGER) Sodium 139 136 - 145 mmol/L [facility] Potassium 4.3 3.5 - 5.1 mmol/L [facility] Chloride 104 98 - 107 mmol/L [facility] CO2 26 21 - 31 mmol/L [facility] Glucose 161 (H) 70 - 110 mg/dL [facility] Calcium 10.1 8.6 - 10.3 mg/dL [facility] Urea Nitrogen 12.0 7.0 - 25.0 mg/dL [facility] Creatinine 0.7 0.6 - 1.2 mg/dL [facility] Alkaline 102 34 - 104 U/L [facility] Phosphatase [facility]ORY ALT 40 7 - 52 U/L [facility] AST 34 13 - 39 U/L [facility] Bilirubin, 0.3 0.2 - 1.2 mg/dL [facility] Total [facility] Total Protein 7.2 6.0 - 8.3 g/dL [facility] GFR, Estimated 90 >=90 mL/min/1.73 m2 [facility] Albumin 4.0 3.7 - 5.3 g/dL [facility] Anion Gap 9 5 - 16 mmol/L [facility] Specimen Blood Performing Organization Address [facility] one Number [facility] [address] [place] [address] * Vitamin B12 (05/08/2019 4:09 PM SALES PROCESS MANAGER) Vitamin B12 296 See comment pg/mL [facility] Comment: [facility] Normal: 180-914 pg/mL Intermittent: 145-180 pg/mL Deficient: <=145.0 pg/mL Specimen Blood Performing Organization Address [facility] one Number [facility] [address] [place] [address] * Uric Acid (05/08/2019 4:09 PM SALES PROCESS MANAGER) Pathologist [facility] Uric Acid 3.5 2.3 - 6.6 mg/dL [facility] Specimen Blood Performing Organization Address [facility] one Number [facility] [address] [place], [place] [id number] * Lipid Profile (05/08/2019 4:09 PM SALES PROCESS MANAGER) Cholesterol 163.0 <=200.0 mg/dL [facility] Triglyceride 136 <150 mg/dL [facility] HDL 47.0 See Reference Range [facility] Narrative. mg/dL LABORATORY LDL 89 <100 mg/dL [facility] Comment: [facility] Optimal: < 100.0 mg/dL Near Optimal: 120-129 mg/dL Borderline: 130-159 mg/dL High: 160-189 mg/dL Very High: >=190 mg/dL Patient No [facility] Fasting? LABORAT[facility] Specimen Blood Narrative Performed At Patient is not fasting. For a triglyceride result gre ater than 440 mg/dL, [facility] consider re-testing when the patient is in a fasting state. Performing Organization Address [facility] one Number [facility] [address] [place], [place] [id number] [phone] after 04/21/2019 Insurance Type Payer Benefit Subscriber ID Effective Phone Address Plan / Dates Group [facility] xxxxxxxxx 2020-[id number] CHOICE [facility] [id number]
--- OUTSIDE RECORDS SUMMARY | 2020-04-21 16:52 | XMS REPORT | Continuity of Care Document ---
Author Author [facility] t Organization [facility] Address [address] [place] [address] Phone Unavailable Care Team Providers Care Senior Sql Developer Name Role Phone NONSTAFF PCP Unavailable Marla HARMON Attphys Unavailable Odalys LOCKE Attphys Unavailable MARBIN YORK Attphys Unavailable Denny THOMAS, Mireya Nguyen Attphys Unavailable Ruddy MCCOY, Rukhsana Attphys Unavailable Doctor, [facility] Attphys Unavailable Curtis Dennison Attphys Unavailable Stewart BUTLER, Suzie Cooper Attphys Ko Rice MD Attphys Monica Jane Attphys Unavailable Delgado BUTLER, Neo Attphys Stefania Monroe Attphys Unavailable Alanis Osorio MD Attphys [facility] Payers Payer Name Policy Type Policy Number Effective Date Expiration Date S ource [facility] MARY [id number] 2020 0 0:00:00 2078 00:00:00 [facility] [id number] [address] xxxxxxxxx 2020 00:00:00 2078 23:59:59 [facility] Problems Condition Name Condition Details Condition Category Status Onset Date Resolution Date Last Treatment Date Treating Clinician Comments Source Type 2 diabetes mellitus with complicati on, with long-term current use of insulin Type 2 diabetes mellitus with complicati on, with long-term current use of insulin Disease Active 2017-09-07 00:00:00 [facility] Essential hypertension, benign Essential hypertension, benign Disea se Active 2017-09-07 00:00:00 Yrn kelsey Anxiety Anxiety Disease Active 2017-09-07 00:00:00 [facility] Depression Depression Disease Active 2017-09-07 00:00:00 [facility] Intractable vomiting Problem Active [facility] Urinary tract infection Problem Active [facility] Diabetes mellitus Problem Active [facility] Renal abscess Problem Active [facility] Allergies, Adverse Reactions, Alerts Allergy Name Allergy Type Status Severity Reaction(s) Onset Date Inacti ve Date Treating Clinician Comments Source No Known Allergies DA Active U 2020-01-01 00:00:00 [facility] No Known Allergies DA Active U 2019-03-01 00:00:00 [facility] No Known Allergies DA Active U 2018-07-27 00:00:00 [facility] No Known Allergies DA Active U 2018-06-16 00:00:00 [facility] No Known Allergies DA Active U 2018-02-12 00:00:00 [facility] No Known Allergies DA Active U 2016-06-23 00:00:00 [facility] Family History Family Member Diagnosis Comments Start Date Stop Date Source Natural mother Diabetes [facility] Natural mother Hypertension [facility] tarun Social History Social Habit Start Date Stop Date Quantity Comments Source Sex Assigned At [facility] Alcohol intake 2020-03-19 00:00:00 2020-03-19 00:00:00 Current non-drinker of alcohol (finding) [facility] History SDOH Food Worry 2018-11-01 00:00:00 2018-11-01 00:00:00 1 [facility] History SDOH Food Scarcity 2018-11-01 00:00:00 2018-11-01 00:00:00 1 [facility] Smoking Status Start Date Stop Date Source Former smoker 2020-03-19 00:00:00 2020-03-19 00:00:00 [facility] ealt Medications Ordered Medication Name Filled Medication Name Start Date Stop Da te Current Medication? Ordering Clinician Indication Dosage Frequency Signature (SIG) Comments Components Source Cefuroxime Axetil (Cefuroxime) 500 Mg TABLET Cefuroxim e Axetil (Cefuroxime) 500 Mg TABLET 2020-04-20 17:49:00 Yes 500 Twice A Day [facility] Metoclopramide Hcl (Reglan) 10 Mg TABLET Metoclopramid e Hcl (Reglan) 10 Mg TABLET 2020-04-20 17:28:00 Yes 10 Before Meals And At Bedtime [facility] metFORMIN (GLUCOPHAGE) 1,000 mg tablet 2020-03-19 00:00:00 Yes Type 2 diabetes mellitus with complication, with long-term current use of insulin 1000mg Take 1 tablet by mouth 2 times daily (with meals). [facility] acetaminophen-codeine (TYLENOL/CODEINE #3) 300-30 mg per tab let 2020-03-19 00:00:00 Yes Low back pain wi th right-sided sciatica, unspecified back pain laterality, unspecified chronicity 1{tbl} Take 1 tablet by mouth daily as needed for Pain. [facility] pravastatin (PRAVACHOL) 40 mg tablet 2020-03-17 00:00:00 Yes Hyperlipidemia, unspecified hyperlipidemia type 40mg Take 1 tablet by mouth at bedtime nightly. [facility] blood glucose (PRECISION XTRA TEST STRIPS) test strips 2020-03-17 00:00:00 Yes Type 2 diabetes mellitus wit h complication, with long-term current use of insulin Q.5D Check blood glucose 2 times daily. [facility] lancets 28 gauge 2020-03-17 00:00:00 Yes Type 2 diabetes mellitus with complication, with long-term current use of insulin Q.5D Check blood glucose 2 times daily. [facility] pen needle, diabetic 31 gauge x 3/16" needles 2020-03-17 00: 00:00 Yes Type 2 diabetes mellitus with complication, with long-term current use of insulin Inject under the skin 3 times daily. [facility] [place] ibuprofen (MOTRIN) 800 mg tablet 2020-03-17 00:00:00 Yes Right shoulder pain, unspecified chronicity 800mg Take 1 tabl et by mouth every 8 hours as needed for Pain. [facility] lisinopriL (PRINIVIL) 10 mg tablet 2020-03-04 00:00:00 Yes Essential hypertension, benign 10mg QD Take 1 tablet by mouth daily. [facility] [place] nystatin (NYSTOP) 100,000 unit/gram topical powder 2020-03 00:00:00 Yes Intertrigo Apply to affected area 4 times daily. [facility] [place] dexlansoprazole (DEXILANT) 30 mg delayed release capsule 2020-03-04 00:00:00 Yes Gastroesophageal reflux disease, esophagi tis presence not specified 30mg QD Take 1 capsule by mouth daily. [facility] [place] dexlansoprazole (DEXILANT) 30 mg delayed release capsule 2020-03-04 00:00:00 2020-03-04 00:00:00 No Gastroesophageal ref lux disease, esophagitis presence not specified 30mg QD Take 1 capsule by mouth daily. [facility] gabapentin (NEURONTIN) 300 mg capsule 2020-02-19 00:00:00 Yes Neuropathy 300mg Take 1 capsule by mouth 3 times daily. [facility] methocarbamoL (ROBAXIN-750) 750 mg tablet 02-18 00:00:00 2020-03-19 00:00:00 No Thoracic back pain, unspecified back pain laterality, unspecified chronicity 750mg Take 1 tablet by mouth 3 times daily. [facility] lisinopriL (PRINIVIL) 10 mg tablet 2020-02-19 00:00:00 00:00:00 No Essential hypertension, benign 10mg QD Take 1 tablet by mo uth daily. [facility] benzonatate (TESSALON PERLES) 100 mg capsule 00:00:00 2020-02-26 23:59:00 No Cough 100mg Take 1 capsule by mouth 3 times daily as needed for up to 7 days for Cough. [facility] gabapentin (NEURONTIN) 300 mg capsule 2020-02-19 00:00 :00 2020-02-19 00:00:00 No Neuropathy 300mg Take 1 capsule by mouth 3 times daily . [facility] lisinopriL (PRINIVIL) 10 mg tablet 2020-02-19 00:00:00 202 00:00:00 No Essential hypertension, benign 10mg QD Take 1 tablet by mo [facility] daily. [facility] methocarbamoL (ROBAXIN-750) 750 mg tablet 02-18 00:00:00 2020-02-19 00:00:00 No Thoracic back pain, unspecified back pain laterality, unspecified chronicity 750mg Take 1 tablet by mouth 3 times daily. [facility] QUEtiapine (SEROQUEL) 100 mg tablet 2020-02-17 00:00:00 Yes PTSD (post- traumatic stress disorder) Take 0.5 tabl ets by mouth every morning AND 1 tablet at bedtime nightly. [facility] hydrOXYzine (ATARAX) 50 mg tablet 2020-02-17 00:00:00 Yes Panic disorder with agoraphobia Take one half to one tablet NEEDED for anxiety up to three times per day.. [facility] lamoTRIgine (LAMICTAL) 25 mg tablet 2020-02-17 00:00:0 0 2020-03-18 23:59:00 No PTSD (post-traumatic stress disorder) Take 1 tablet by mouth daily for 14 days, THEN 2 tablets daily for 16 days. [facility] Cyclobenzaprine (FLEXERIL) 5 mg tablet 6 00:00:00 2020-02-19 00:00:00 No Thoracic back pain, unspecified back pain laterality, unspecified chronicity 5mg Take 1 tablet by shanika nightly at bedtime as needed for Muscle Spasms. [facility] valACYclovir (VALTREX) 1 g tablet 2020-01-30 00:00:00 2019 23:59:00 No Genital herpes simplex, unspecified site 1000mg Q.5D Take 1 tablet by mouth 2 times daily for 7 days. [facility] linaGLIPtin (TRADJENTA) 5 mg tablet 2020-01-22 00:00:00 Yes Type 2 diabetes mellitus with complication, with long-term current use of insulin 5mg QD Take 1 tablet by mouth daily. [facility] insulin detemir U-100 (LEVEMIR) 100 unit/mL injection 2020-01-22 00:00:00 Yes Type 2 diabetes mellitus wit h complication, with long-term current use of insulin 50U Q.5D Inject 50 Units under the skin 2 times daily. [facility] INSULIN SYRINGE 0.5 mL 30GX5/16" (MONOJE CT ULTRACOMFORT INSULIN SYR 0.5ML 30GX5/16") syringe-needle 2020-01-22 00:00:00 Yes Type 2 diabetes mellitus with complication, with long-term current use of insulin Q.5 D Use to inject medication 2 times daily. Use a new syringe each time. [facility] estradioL (ESTRACE) 0.5 mg tablet 2020-01-22 00:00:00 Yes Hot flashes due to menopause .5mg QD Take 1 tablet by mouth daily. [facility] dexlansoprazole (DEXILANT) 30 mg delayed release capsule 2020-01-22 00:00:00 2020-03-04 00:00:00 No Gastroesophageal ref lux disease, esophagitis presence not specified 30mg QD Take 1 capsule by mouth daily. [facility] lisinopriL (PRINIVIL) 10 mg tablet 2020-01-22 00:00:00 00:00:00 No Essential hypertension, benign 10mg QD Take 1 tablet by mo [facility] daily. [facility] tropicamide (MYDRIACYL) 0.5 % ophthalmic solution 2020-01-22 00:00:00 2020-01-22 23:59:00 No Type 2 diabetes kadie itus with complication, with long- term current use of insulin 1[drp] Instill 1 Dr op in each eye once as needed for up to 1 dose (for poor retina scan image). [facility] insulin aspart U-100 (NOVOLOG FLEXPEN) 100 unit/mL (3 mL) pe n 2020-01-15 00:00:00 Yes Type 2 diabetes mellitus with complication, with long-term current use of insulin 28U [id number] Inject 28 Unit s under the skin 3 times daily with meals. [facility] gabapentin (NEURONTIN) 300 mg capsule 2020-01-15 00:00 :00 2020-02-19 00:00:00 No Neuropathy 300mg Q.5D Take 1 capsule by mouth 2 times daily . [facility] cetirizine (ZYRTEC) 10 mg tablet 2019-12-18 00:00:00 Yes Environmental allergies 10mg QD Take 1 tablet by mouth daily. [facility] albuterol 90 mcg/actuation inhaler 2019-12-18 00:00:00 Yes SOB (shortness of breath) 2{puff} Inhale 2 Puffs by mo uth 4 times daily as needed for Shortness of Breath. [facility] ibuprofen (MOTRIN) 800 mg tablet 2019-12-18 00:00:00 2020-03 00:00:00 No Right shoulder pain, unspecified chronicity 800mg Take 1 tablet by mouth every 8 hours as needed for Pain. [facility] lisinopriL (PRINIVIL) 10 mg tablet 2019-12-18 00:00:00 00:00:00 No Essential hypertension, benign 10mg QD Take 1 tablet by mo uth daily. [facility] lancets 28 gauge 2019-12-17 00:00:00 Yes Type 2 diabetes mellitus with complication, with long-term current use of insulin Q.5D Us e 2 times daily. [facility] dexlansoprazole (DEXILANT) 30 mg delayed release capsule 2019-12-13 00:00:00 2020-01-22 00:00:00 No Gastroesophageal ref lux disease, esophagitis presence not specified 30mg QD Take 1 capsule by mouth daily. [facility] metFORMIN (GLUCOPHAGE) 1,000 mg tablet 6 00:00:00 2020-03-19 00:00:00 No Type 2 diabetes kadie itus with complication, with long-term current use of insulin 1000mg Take 1 tablet by mouth 2 times daily (with meal s). [facility] pen needle, diabetic 31 gauge x 3/16" needles 20 20-10-05 00:00:00 2020-03-17 00:00:00 No Type 2 diabetes kadie itus with complication, with long-term current use of insulin Inject under the skin 3 times daily. [facility] gabapentin (NEURONTIN) 300 mg capsule 2019-10-07 00:00 :00 2020-01-14 00:00:00 No Neuropathy 300mg Q.5D Take 1 capsule by mouth 2 times daily . [facility] lisinopriL (PRINIVIL) 10 mg tablet 2019-10-07 00:00:00 00:00:00 No Essential hypertension, benign 10mg QD Take 1 tablet by mo ut daily. [facility] dexlansoprazole (DEXILANT) 30 mg delayed release capsule 2019-10-02 00:00:00 2019-12-13 00:00:00 No Gastroesophageal ref lux disease, esophagitis presence not specified 30mg QD Take 1 capsule by mouth daily. [facility] dexlansoprazole (DEXILANT) 30 mg delayed release capsule 2019-08-26 00:00:00 2019-10-01 00:00:00 No Gastroesophageal ref lux disease, esophagitis presence not specified 30mg QD Take 1 capsule by mouth daily. [facility] ibuprofen (MOTRIN) 800 mg tablet 2019-06-28 00:00:00 2019-12 00:00:00 No Right shoulder pain, unspecified chronicity 800mg Take 1 tablet by mouth every 8 hours as needed for Pain. [facility] dexlansoprazole (DEXILANT) 30 mg delayed release capsule 2019-06-19 00:00:00 2019-08-22 00:00:00 No Gastroesophageal ref lux disease, esophagitis presence not specified 30mg QD Take 1 capsule by mouth daily. [facility] lancets 28 gauge 2019-05-22 00:00:00 2019-12-16 00:00:00 No Type 2 diabetes mellitus with complication, with long-term current use of insulin Q.5D Use 2 times daily. [facility] blood glucose (PRECISION XTRA TEST STRIPS) test strips 2019-05-22 00:00:00 2019-10-04 00:00:00 No Type 2 diabetes kadie itus with complication, with long- term current use of insulin Q.5D Check blood glucose 2 times daily. Need to complete labs for future refills. [facility] blood glucose meter (PRECISION XTRA GLUCOMETER) 2019-05-20 0 0:00:00 Yes Type 2 diabetes mellitus with complication, with long-term current use of insulin Use as directed.. [facility] linaGLIPtin (TRADJENTA) 5 mg tablet 2019-05-16 00:00:0 0 2020-01-22 00:00:00 No Type 2 diabetes mellitus wit h complication, with long-term current use of insulin 5mg QD Take 1 tablet by mouth daily. [facility] gabapentin (NEURONTIN) 300 mg capsule 2019-05-16 00:00 :00 2019-10-03 00:00:00 No Neuropathy 300mg Q.5D Take 1 capsule by mouth 2 times daily . [facility] albuterol (PROVENTIL) 2.5 mg /3 mL (0.083 %) nebulized solut ion 2.5 mg 2019-05-13 12:15:00 2019-05-13 12:31:00 No SOB (shortness of br eath) 2.5mg [facility] codeine-guaiFENesin (CHERATUSSIN AC) 10-100 mg/5 mL syrup 2019-05-13 00:00:00 2020-02-06 00:00:00 No Cough 5mL Take 5 mL by mouth 3 times daily as needed for Cough. [facility] albuterol 90 mcg/actuation inhaler 2019-05-13 00:00:00 00:00:00 No SOB (shortness of breath) 2{puff} Inhale 2 Puffs by mouth 4 times daily as needed for Shortness of Breath. [facility] insulin detemir U-100 (LEVEMIR) 100 unit/mL injection 2019-05-08 00:00:00 2020-01-22 00:00:00 No Type 2 diabetes kadie itus with complication, with long- term current use of insulin 50U Q.5D Inject 50 Un its under the skin 2 times daily. [facility] benzonatate (TESSALON PERLES) 100 mg capsule 201 03-13-06 00:00:00 2019-05-15 23:59:00 No Bronchitis, not specified as acute or chronic 1 00mg Take 1 capsule by mouth 3 times daily as needed for Cough. [facility] amoxicillin-clavulanate (AUGMENTIN) 875-125 mg per tablet 2019-05-08 00:00:00 2019-05-15 23:59:00 No Bronchitis, not specified as acute or chronic 1{tbl} Q.5D Take 1 tablet by mouth 2 times daily for 7 days. [facility] dexlansoprazole (DEXILANT) 30 mg delayed release capsule 2019-04-30 00:00:00 2019-06-17 00:00:00 No Gastroesophageal ref lux disease, esophagitis presence not specified 30mg QD Take 1 capsule by mouth daily. [facility] cyclobenzaprine (FLEXERIL) 10 mg tablet 00:00:00 2019-05-13 00:00:00 No TMJ syndrome 10mg Take 1 table t by mouth 3 times daily as needed for Muscle Spasms. [facility] blood glucose (PRECISION XTRA TEST STRIPS) test strips 2019-04-08 00:00:00 2020-03-17 00:00:00 No Type 2 diabetes kadie itus with complication, with long- term current use of insulin Q.5D 2 times daily. [facility] lancets 28 gauge 2019-04-08 00:00:00 2020-03-17 00:00:00 No Type 2 diabetes mellitus with complication, with long-term current use of insulin Q.5D 2 times daily. [facility] ibuprofen (MOTRIN) 800 mg tablet 2019-04-08 00:00:00 2019-06 00:00:00 No Right shoulder pain, unspecified chronicity 800mg Take 1 tablet by mouth every 8 hours as needed for Pain. [facility] insulin aspart U-100 (NOVOLOG FLEXPEN) 100 unit/mL (3 mL) pe n 2019-03-18 00:00:00 2020-01-14 00:00:00 No Type 2 diabe adonay mellitus with complication, with long-term current use of insulin 28U [id number] Inject 28 Units under the skin 3 times daily with meals. [facility] insulin detemir U-100 (LEVEMIR) 100 unit/mL injection 2019-03-18 00:00:00 2019-05-08 00:00:00 No Type 2 diabetes kadie itus with complication, with long- term current use of insulin 45U Q.5D Inject 45 Un its under the skin 2 times daily. [facility] gabapentin (NEURONTIN) 300 mg capsule 2019-03-11 00:00 :00 2019-05-15 00:00:00 No Neuropathy 300mg Q.5D Take 1 capsule by mouth 2 times daily . [facility] dexlansoprazole (DEXILANT) 30 mg delayed release capsule 2019-03-11 00:00:00 2019-04-28 00:00:00 No Gastroesophageal ref lux disease, esophagitis presence not specified 30mg QD Take 1 capsule by mouth daily. [facility] pravastatin (PRAVACHOL) 40 mg tablet 2019-03-07 00:00: 00 2020-03-17 00:00:00 No Hyperlipidemia, unspecified hyperlipidemia type 40mg Take 1 tablet by mouth at bedtime nightly. [facility] cetirizine (ZYRTEC) 10 mg tablet 2019-03-05 00:00:00 2019-12 00:00:00 No Environmental allergies 10mg QD Take 1 tablet by mouth daily. [facility] acetaminophen-codeine (TYLENOL/CODEINE #3) 300-30 mg per tab let 2019-02-18 00:00:00 2019-05-13 00:00:00 No Right shoulder pain, unspecified chronicity 1{tbl} Take 1 tablet by mouth 2 times daily as needed for Bruno n. [facility] lisinopril (PRINIVIL) 10 mg tablet 2019-01-30 00:00:00 00:00:00 No Essential hypertension, benign 10mg QD Take 1 tablet by mo [facility] daily. [facility] blood glucose (PRECISION XTRA TEST STRIPS) test strips 2019-01-30 00:00:00 2019-05-15 00:00:00 No Type 2 diabetes kadie itus with complication, with long- term current use of insulin Q.5D Check blood glucose 2 times daily. Need to complete labs for future refills. [facility] lamoTRIgine (LAMICTAL) 25 mg tablet 2019-01-14 00:00:0 0 2020-02-17 00:00:00 No Bipolar 2 disorder Weeks 1 a nd 2: take 1 tablet (25 mg) by mouth once dailyWeeks 3 and 4: take 2 tablets (50 mg) by mouth once daily [facility] INSULIN SYRINGE 0.5 mL 30GX5/16" (MONOJE CT ULTRACOMFORT INSULIN SYR 0.5ML 30GX5/16") syringe-needle 2018-12-19 00:00:00 2020-01-22 00:00:00 No Type 2 diabetes mellitus with complication, with long-term current use of insulin Q.5D Use to inject medication 2 times daily. Use a new syringe each t deniz. [facility] pen needle, diabetic 31 gauge x 3/16" needles 20 19-12-18 00:00:00 2019-10-03 00:00:00 No Type 2 diabetes kadie itus with complication, with long-term current use of insulin Inject under the skin 3 times daily. [facility] FLUoxetine (PROZAC) 20 mg capsule 2018-11-30 00:00:00 Yes Moderate episode of recurrent major depressive disorder 60mg QD Take 3 c apsules by mouth daily. [facility] ziprasidone (GEODON) 80 mg capsule 2018-11-30 00:00:00 00:00:00 No Bipolar 2 disorder, major depressive episode 80mg Take 1 capsule by mouth at bedtime nightly Take with meals. [facility] busPIRone (BUSPAR) 10 mg tablet 2018-11-30 00:00:00 00:00:00 No Moderate episode of recurrent major depressive disorder 10mg Take 1 tablet by mouth 3 times daily. [facility] lancets 28 gauge 2018-08-23 00:00:00 2019-05-15 00:00:00 No Type 2 diabetes mellitus with complication, with long-term current use of insulin Q.5D Use 2 times daily. [facility] metFORMIN (GLUCOPHAGE) 1,000 mg tablet 4 00:00:00 2019-10-03 00:00:00 No Type 2 diabetes kadie itus with complication, with long-term current use of insulin 1000mg Take 1 tablet by mouth 2 times daily (with meal s). [facility] ziprasidone (GEODON) 40 mg capsule 2018-07-04 00:00:00 00:00:00 No Bipolar 2 disorder, major depressive episode 40mg Take 1 capsule by mouth 2 times daily (with meals). [facility] linaGLIPtin (TRADJENTA) 5 mg tablet 2018-07-04 00:00:0 0 2019-05-15 00:00:00 No Type 2 diabetes mellitus wit h complication, with long-term current use of insulin 5mg QD Take 1 tablet by mouth daily. [facility] blood glucose meter (PRECISION XTRA GLUCOMETER) 2018-05-09 0 0:00:00 Yes Type 2 diabetes mellitus with complication, with long-term current use of insulin Use as directed.. [facility] blood glucose meter (PRECISION XTRA GLUCOMETER) 2018-02-08 00:00:00 2019-05-17 00:00:00 No Type 2 diabetes kadie itus with complication, with long-term current use of insulin Use as directed.. [facility] Alprazolam (Xanax) 2 Mg TABLET Alprazolam (Xanax) 2 Mg TABLET Yes 2 Every 6 Hours as needed for Anxiety [facility] Insulin Glargine (Lantus 3ML Pen) 100 Units/1 Ml INJ I nsulin Glargine (Lantus 3ML Pen) 100 Units/1 Ml INJ Yes 30 Before Ly akfast [facility] Insulin Glargine (Lantus 3ML Pen) 100 Units/1 Ml INJ I nsulin Glargine (Lantus 3ML Pen) 100 Units/1 Ml INJ Yes 30 Bedtime [facility] Lisinopril Lisinopril Yes 10 Daily [facility] Metformin Hcl Metformin Hcl Yes 1000 Twice Daily With Meals [facility] Immunizations Ordered Immunization Name Filled Immunization Name Date Status Comments Source Influenza, Vaccine<FLUCELVAX>(Multi-Dose) 2018-05-09 00:00 :00 Completed [facility] PPV 23 (Pneumococcal Polysaccharide 23 Valent) 2017-10 00:00:00 Completed [facility] Tdap (Tetanus Toxoid, Reduced Diphtheria Toxoid And Acellular Pertussis, Absorbed) 2017-09-07 00:00:00 Completed [facility] Vital Signs Vital Name Observation Time Observation Value Comments Source Body Temperature 2020-04-20 16:00:00 97.9 [degF] [facility] BMI (Body Mass Index) 2020-04-19 22:15:00 36.6 kg/m2 [facility] Weight 2020-04-19 16:57:00 200 [lb_av] [facility] Oxygen saturation in Arterial blood by Pulse oximetry 2018-07 12:31:00 100 /min Room Air [facility] Systolic blood pressure 2019-05-13 10:49:00 114 mm[Hg] [facility] Diastolic blood pressure 2019-05-13 10:49:00 78 mm[Hg] [facility] Heart rate 2019-05-13 10:49:00 92 /min [facility] Body temperature 2019-05-13 10:49:00 36.83 Iza Carter is [facility] Respiratory rate 2019-05-13 10:49:00 18 /min [facility] is [facility] Body height 2019-05-13 10:49:00 157.5 cm [facility] Body weight 2019-05-13 10:49:00 95.255 kg [facility] BMI 2019-05-13 10:49:00 38.41 kg/m2 [facility] Procedures Procedure Date / Time Performed Performing Clinician [facility] e Computed tomography of abdomen and pelvis with contrast 00:00:00 [facility] XRAY CHEST 2 VIEWS 2019-05-13 13:18:10 Marbin York NONINVASV OXYGEN SATUR;SINGLE 2019-05-13 12:08:50 Marbin York [facility] HEMOGLOBIN A1C 2019-05-08 16:09:00 Marbin York [facility] COMPREHENSIVE METABOLIC PANEL 2019-05-08 16:09:00 Marbin York [facility] LIPID PROFILE 2019-05-08 16:09:00 Marbin York URIC ACID 2019-05-08 16:09:00 Marbin York [facility] CBC/DIFF 2019-05-08 16:09:00 Marbin York [facility] CBC 2019-05-08 16:09:00 Marbin York [facility] VITAMIN B12 2019-05-08 16:09:00 Marbin York [facility] Plan of Care Planned Activity Planned Date Details Comments Source Scheduled Test 2020-05-08 00:00:00 Hemoglobin A1c estela surement (procedure) [code = 90597148] [facility] [place] Test 2020-04-02 00:00:00 IMM Influenza Seas onal Apr to August (>/= 19 yrs) [code = IMM Influenza Seasonal Apr to August (>/= 19 yrs)] [facility] [place] Test 2019-11-13 00:00:00 Breast Cancer Scrn (Yearly) [code = Breast Cancer Scrn (Yearly)] [facility] [place] Scheduled Test 2019-11-13 00:00:00 DM Retinal Exam (Y early) [code = DM Retinal Exam (Yearly)] [facility] [place] Scheduled Test 2019-08-27 00:00:00 DM Foot Exam (Year ly) [code = DM Foot Exam (Yearly)] [facility] Urinary Tract Infection - Women [facility] Encounters Start Date/Time End Date/Time Encounter Type Admission Type Att[facility] Care Department Encounter ID Source 2020-05-22 00:00:00 2020-05-22 00:00:00 Outpatient [facility] [id number] [facility] 2020-04-19 20:05:00 2020-04-20 21:15:00 Discharged Inpatient 1 BILLY HARMON [facility] [id number] I [facility] 2020-04-20 00:00:00 2020-04-20 00:00:00 Outpatient KODY LOCKE [facility] [id number] [facility] 2020-04-16 00:00:00 2020-04-16 00:00:00 Outpatient MARBIN YORK [facility] [id number] [facility] 2020-04-13 00:00:00 2020-04-13 00:00:00 Outpatient KODY LOCKE [facility] [id number] [facility] 2020-04-02 00:00:00 2020-04-02 00:00:00 Outpatient MARBIN YORK [facility] [id number] [facility] 2020-04-02 00:00:00 2020-04-02 00:00:00 Outpatient MARBIN YORK [facility] [id number] [facility] 2020-03-19 07:33:43 2020-03-19 11:10:05 Outpatient MARBIN YORK [facility] [id number] [facility] 2020-03-12 00:00:00 2020-03-12 00:00:00 Outpatient [facility] [id number] [facility] 2020-03-04 07:21:00 2020-03-04 09:03:04 Outpatient MARBIN YORK [facility] [id number] [facility] 2020-03-04 00:00:00 2020-03-04 00:00:00 Outpatient [facility] [id number] [facility] 2020-02-19 07:29:26 2020-02-19 09:40:53 Outpatient MARBIN YORK [facility] [id number] [facility] 2020-02-17 07:36:44 2020-02-17 11:14:10 Outpatient KODY LOCKE [facility] [id number] [facility] 2020-02-06 07:22:39 2020-02-06 11:09:25 Outpatient MARBIN YORK [facility] [id number] [facility] 2020-01-29 00:00:00 2020-01-29 00:00:00 Outpatient [facility] [id number] [facility] 2020-01-22 07:28:21 2020-01-22 07:28:21 Outpatient [facility] [id number] [facility] 2020-01-16 00:00:00 2020-01-16 00:00:00 Outpatient [facility] [id number] [facility] 2019-11-15 00:00:00 2019-11-15 00:00:00 Outpatient [facility] [id number] [facility] 2019-11-15 00:00:00 2019-11-15 00:00:00 Outpatient [facility] [id number] [facility] 2019-11-05 00:00:00 2019-11-05 00:00:00 Outpatient [facility] [id number] [facility] 2019-09-26 00:00:00 2019-09-26 00:00:00 Outpatient [facility] [id number] [facility] 2019-08-05 00:00:00 2019-08-05 00:00:00 Outpatient [facility] [id number] [facility] 2019-07-08 00:00:00 2019-07-08 00:00:00 Outpatient [facility] [id number] [facility] 2019-07-01 00:00:00 2019-07-01 00:00:00 Outpatient [facility] [id number] [facility] 2019-07-01 00:00:00 2019-07-01 00:00:00 Outpatient [facility] [id number] [facility] 2019-06-07 00:00:00 2019-06-07 00:00:00 Outpatient [facility] [id number] [facility] 2019-05-13 13:10:23 2019-05-13 13:10:23 Outpatient [facility] [id number] [facility] 2019-05-13 10:48:40 2019-05-13 10:48:40 Outpatient [facility] [id number] [facility] 2019-05-13 10:25:21 2019-05-13 10:25:21 Outpatient [facility] [id number] [facility] 2019-05-08 16:07:26 2019-05-08 16:07:26 Outpatient [facility] [id number] [facility] 2019-05-08 15:09:50 2019-05-08 15:09:50 Outpatient [facility] [id number] [facility] 2019-05-08 00:00:00 2019-05-08 00:00:00 Outpatient [facility] [id number] [facility] 2019-05-02 00:00:00 2019-05-02 00:00:00 Outpatient [facility] [id number] [facility] 2019-04-08 00:00:00 2019-04-08 00:00:00 Outpatient [facility] [id number] [facility] 2019-04-04 00:00:00 2019-04-04 00:00:00 Outpatient [facility] [id number] [facility] 2019-03-18 13:45:13 2019-03-18 13:45:13 Outpatient [facility] [id number] [facility] 2019-03-14 00:00:00 2019-03-14 00:00:00 Outpatient [facility] [id number] [facility] 2019-02-28 00:00:00 2019-02-28 00:00:00 Outpatient [facility] [id number] [facility] 2019-02-18 07:56:26 2019-02-18 07:56:26 Outpatient [facility] [id number] [facility] 2019-02-12 00:00:00 2019-02-12 00:00:00 Outpatient [facility] [id number] [facility] 2019-02-08 00:00:00 2019-02-08 00:00:00 Outpatient [facility] [id number] [facility] 2019-02-04 00:00:00 2019-02-04 00:00:00 Outpatient [facility] [id number] [facility] 2019-01-30 09:12:56 2019-01-30 09:12:56 Outpatient [facility] [id number] [facility] 2019-01-30 08:42:24 2019-01-30 08:42:24 Outpatient [facility] [id number] [facility] 2019-01-30 07:47:54 2019-01-30 07:47:54 Outpatient [facility] [id number] [facility] 2019-01-30 00:00:00 2019-01-30 00:00:00 Outpatient [facility] [id number] [facility] 2019-01-23 00:00:00 2019-01-23 00:00:00 Outpatient [facility] [id number] [facility] 2019-01-09 00:00:00 2019-01-09 00:00:00 Outpatient [facility] [id number] [facility] 2018-11-28 00:00:00 2018-11-28 00:00:00 Outpatient [facility] [id number] [facility] 2018-11-12 10:37:09 2018-11-12 10:37:09 Outpatient [facility] [id number] [facility] 2018-11-12 10:26:17 2018-11-12 10:26:17 Outpatient [facility] [id number] [facility] 2018-11-09 00:00:00 2018-11-09 00:00:00 Outpatient [facility] [id number] [facility] 2018-11-09 00:00:00 2018-11-09 00:00:00 Outpatient [facility] [id number] [facility] 2018-11-09 00:00:00 2018-11-09 00:00:00 Outpatient [facility] [id number] [facility] 2018-11-01 15:33:13 2018-11-01 15:33:13 Outpatient [facility] [id number] [facility] 2018-11-01 15:15:26 2018-11-01 15:15:26 Outpatient [facility] [id number] [facility] 2018-09-13 00:00:00 2018-09-13 00:00:00 Outpatient [facility] [id number] [facility] 2018-08-28 00:00:00 2018-08-28 00:00:00 Outpatient [facility] [id number] [facility] 2018-08-27 11:09:27 2018-08-27 11:09:27 Outpatient [facility] [id number] [facility] 2018-07-19 00:00:00 2018-07-19 00:00:00 Outpatient [facility] [id number] [facility] 2018-06-21 10:13:22 2018-06-21 10:13:22 Outpatient [facility] [id number] [facility] 2018-06-21 10:08:38 2018-06-21 10:08:38 Outpatient [facility] [id number] [facility] 2018-06-21 08:45:57 2018-06-21 08:45:57 Outpatient [facility] [id number] [facility] 2018-06-21 00:00:00 2018-06-21 00:00:00 Outpatient [facility] [id number] [facility] 2018-06-12 00:00:00 2018-06-12 00:00:00 Outpatient [facility] [id number] [facility] 2018-06-12 00:00:00 2018-06-12 00:00:00 Outpatient [facility] [id number] [facility] 2018-05-29 00:00:00 2018-05-29 00:00:00 Outpatient [facility] [id number] [facility] 2018-05-17 14:16:47 2018-05-17 14:16:47 Outpatient [facility] [id number] [facility] 2018-05-09 09:12:15 2018-05-09 09:12:15 Outpatient [facility] [id number] [facility] 2018-05-09 09:10:49 2018-05-09 09:10:49 Outpatient [facility] [id number] [facility] 2018-05-09 07:54:56 2018-05-09 07:54:56 Outpatient [facility] [id number] [facility] 2018-04-19 08:03:40 2018-04-19 08:03:40 Outpatient [facility] [id number] [facility] 2018-04-19 00:00:00 2018-04-19 00:00:00 Outpatient [facility] [id number] [facility] 2018-04-19 00:00:00 2018-04-19 00:00:00 Outpatient [facility] [id number] [facility] 2018-04-16 00:00:00 2018-04-16 00:00:00 Outpatient [facility] [id number] [facility] 2018-03-26 00:00:00 2018-03-26 00:00:00 Outpatient [facility] [id number] [facility] 2018-03-07 00:00:00 2018-03-07 00:00:00 Outpatient [facility] [id number] [facility] 2018-02-22 08:02:37 2018-02-22 08:02:37 Outpatient [facility] [id number] [facility] 2018-02-06 00:00:00 2018-02-06 00:00:00 Outpatient [facility] [id number] [facility] 2018-02-06 00:00:00 2018-02-06 00:00:00 Outpatient [facility] [id number] [facility] 2018-01-23 00:00:00 2018-01-23 00:00:00 Outpatient [facility] [id number] [facility] 2017-12-29 00:00:00 2017-12-29 00:00:00 Outpatient [facility] [id number] [facility] 2017-12-27 00:00:00 2017-12-27 00:00:00 Outpatient [facility] [id number] [facility] 2017-12-26 00:00:00 2017-12-26 00:00:00 Outpatient [facility] [id number] [facility] 2017-12-04 14:23:54 2017-12-04 14:23:54 Outpatient [facility] [id number] [facility] 2017-12-04 13:42:23 2017-12-04 13:42:23 Outpatient [facility] [id number] [facility] 2017-12-04 08:15:44 2017-12-04 08:15:44 Outpatient [facility] [id number] [facility] 2017-11-21 08:44:10 2017-11-21 08:44:10 Outpatient [facility] [id number] [facility] 2017-11-16 00:00:00 2017-11-16 00:00:00 Outpatient [facility] [id number] [facility] 2017-11-14 00:00:00 2017-11-14 00:00:00 Outpatient [facility] [id number] [facility] 2017-11-13 14:24:39 2017-11-13 14:24:39 Outpatient [facility] [id number] [facility] 2017-11-06 00:00:00 2017-11-06 00:00:00 Outpatient [facility] [id number] [facility] 2017-10-25 00:00:00 2017-10-25 00:00:00 Outpatient [facility] [id number] [facility] 2017-10-25 00:00:00 2017-10-25 00:00:00 Outpatient [facility] [id number] [facility] 2017-10-24 09:06:27 2017-10-24 09:06:27 Outpatient [facility] [id number] [facility] 2017-10-24 09:05:30 2017-10-24 09:05:30 Outpatient [facility] [id number] [facility] 2017-10-24 08:25:23 2017-10-24 08:25:23 Outpatient [facility] [id number] [facility] 2017-10-18 07:59:04 2017-10-18 07:59:04 Outpatient [facility] [id number] [facility] 2017-10-17 00:00:00 2017-10-17 00:00:00 Outpatient [facility] [id number] [facility] 2017-10-16 10:50:41 2017-10-16 10:50:41 Outpatient [facility] [id number] [facility] 2017-10-16 09:51:35 2017-10-16 09:51:35 Outpatient [facility] [id number] [facility] 2017-10-16 08:08:59 2017-10-16 08:08:59 Outpatient [facility] [id number] [facility] 2017-10-16 08:05:33 2017-10-16 08:05:33 Outpatient [facility] [id number] [facility] 2017-09-22 00:00:00 2017-09-22 00:00:00 Outpatient [facility] [id number] [facility] 2017-09-07 15:02:16 2017-09-07 15:02:16 Outpatient [facility] [id number] [facility] 2017-09-07 14:13:25 2017-09-07 14:13:25 Outpatient [facility] [id number] [facility] Results Test Description Test Time Test Comments Results Result Comments Source Capillary blood glucose measurement by glucometer (mas s/volume) 2020-04-20 15:25:00 Test Item Bedside Glucose (test code = 94735-7) 135 70-120 Meter ID: [id number] [facility] TXerum or plasma sodium measurement (moles/volume)2020-04-20 05:06:00* Test Item Value Reference Range Interpretation Comments Sodium Level (test code = 2951-2) 138 136-[address] [facility], TXerum or plasma potassium measurement (moles/volume)2020-04-20 05:06:00* Test Item Value Reference Range Interpretation Comments Potassium Level (test code = 2823-3) 3.5 3.5-5.[address] [facility], TXerum or plasma chloride measurement (moles/volume)2020-04-20 05:06:00* Test Item Value Reference Range Interpretation Comments Chloride Level (test code = 2075-0) 106 98-[address] [facility], TXerum or plasma carbon dioxide, total measurement (moles/volume)2020-04-20 05:06:00* Test Item Value Reference Range Interpretation Comments Carbon Dioxide Level (test code = 2028-9) 24 22-[address] [facility], TXerum or plasma anion [id number] 05:06:00* Test Item Value Reference Range Interpretation Comments Anion Gap (test code = 66647-7) 11.5 8-[address] [facility], TXerum or plasma urea nitrogen measurement (mass/volume)2020-04-20 05:06:00* Test Item Value Reference Range Interpretation Comments Blood Urea Nitrogen (test code = 3094-0) 6 7- [facility], TXerum or plasma creatinine measurement (mass/volume)2020-04-20 05:06:00* Test Item Value Reference Range Interpretation Comments Creatinine (test code = 2160-0) 0.68 0.57-1.[address] [facility], TXerum or plasma urea nitrogen/creatinine mass haspb3343-55-83 05:06:00* Test Item Value Reference Range Interpretation Comments BUN/Creatinine Ratio (test code = 3097-3) 9 6-25 [facility] (GFR) mdfhhbqtvoddc7861-60-78 05:06:00* Test Item Value Reference Range Interpretation Comments Estimat Glomerular Filtration Rate (test code = 814194184) > 60 >60 Ranges were taken from the National Kidney Disease Education Program and the [facility] literature.Reference ranges:60 or greater: Elrizn05-58 ( for 3 consecutive months): Chronic kidney disease 15 or less: Kidney failureMethodist [facility]San HospitalGlucose npwantzbzle6514-27-72 05:06:00* Test Item Value Reference Range Interpretation Comments Glucose Level (test code = NDK7123) 119 74-[address] [facility], TXerum or plasma calcium measurement (mass/volume)2020-04-20 05:06:00* Test Item Value Reference Range Interpretation Comments Calcium Level (test code = 92995-4) 8.2 8.4-10.[address] [facility], TXerum or plasma total bilirubin measurement (mass/volume)2020-04-20 05:06:00* Test Item Value Reference Range Interpretation Comments Total Bilirubin (test code = 1975-2) 0.2 0.2-1.2 [facility] HospitalFluoroscopic procedure less than one hour cgnyuows5825-99-68 05:06:00* Test Item Value Reference Range Interpretation Comments Aspartate Amino Transf (AST/SGOT) (test code = Aspartate Amino Transf (AST/SGOT)) 19 5-[address] [facility], TXerum or plasma alanine aminotransferase measurement (enzymatic activity/volume)2020-04-20 05:06:00* Test Item Value Reference Range Interpretation Comments Alanine Aminotransferase (ALT/SGPT) (test code = 1742-6) 20 0-[address] [facility], TXerum or plasma protein measurement (mass/volume)2020-04-20 05:06:00* Test Item Value Reference Range Interpretation Comments Total Protein (test code = 2885-2) 6.6 6.5-8.[address] [facility], TXerum or plasma albumin measurement (mass/volume)2020-04-20 05:06:00* Test Item Value Reference Range Interpretation Comments Albumin (test code = 1751-7) 2.7 3.5-5.0 [facility] globulin measurement (mass/volume) 2020-04-20 05:06:00* Test Item Value Reference Range Interpretation Comments Globulin (test code = 84371-8) 3.9 2.3-3.[address] [facility], TXerum or plasma albumin/globulin mass dgdtt9271-97-27 05:06:00* Test Item Value Reference Range Interpretation Comments Albumin/Globulin Ratio (test code = 1759-0) 0.7 0.8-2.[address] [facility], TXerum or plasma alkaline phosphatase measurement (enzymatic activity/volume)2020-04-20 05:06:00* Test Item Value Reference Range Interpretation Comments Alkaline Phosphatase (test code = 6768-6) 89 40-150 [facility] leukocytes automated count (number/volume)2020-04-20 04:57:00* Test Item Value Reference Range Interpretation Comments White Blood Count (test code = 6690-2) 4.26 4.8-10.8 [facility] erythrocytes automated count (number/volume)2020-04-20 04:57:00* Test Item Value Reference Range Interpretation Comments Red Blood Count (test code = 789-8) 3.97 3.6-5.1 [facility] hemoglobin measurement (moles/volume)2020-04-20 04:57:00* Test Item Value Reference Range Interpretation Comments Hemoglobin (test code = 20951-1) 10.2 12.0-16.0 [facility] HospitalAutomated blood hematocrit (volume fraction)2020-04-20 04:57:00* Test Item Value Reference Range Interpretation Comments Hematocrit (test code = 4544-3) 32.5 34.2-44.1 [facility] HospitalAutomated erythrocyte mean corpuscular wgczkp2534-42-66 04:57:00* Test Item Value Reference Range Interpretation Comments Mean Corpuscular Volume (test code = 787-2) 81.9 81-99 [facility] HospitalAutomated erythrocyte mean corpuscular hemoglobin (mass per erythrocyte)2020-04-20 04:57:00* Test Item Value Reference Range Interpretation Comments Mean Corpuscular Hemoglobin (test code = 785-6) 25.7 28-32 [facility] HospitalAutom[facility] erythrocyte mean corpuscular hemoglobin concentration measurement (mass/volume)2020-04-20 04:57:00* Test Item Value Reference Range Interpretation Comments Mean Corpuscular Hemoglobin Concent (test code = 786-4) 31.4 31-35 [facility] HospitalRDW PmpLl-Ytj9614-52-19 04:57:00* Test Item Value Reference Range Interpretation Comments Red Cell Distribution Width (test code = 39377-4) 13.6 11.7 -14.4 [facility] Hospital[facility] blood platelet count (count/volume)2020-04-20 04:57:00* Test Item Value Reference Range Interpretation Comments Platelet Count (test code = 777-3) 253 140-360 [facility] HospitalAutom[facility] blood segmented neutrophil count as percentage of total puoqtsutlv2344-91-59 04:57:00* Test Item Value Reference Range Interpretation Comments Neutrophils (%) (Auto) (test code = 66688-0) 33.7 38.7-80.0 [facility] Hospital[facility] blood lymphocyte count as percentage ot total puyjqpvoim5931-04-70 04:57:00* Test Item Value Reference Range Interpretation Comments Lymphocytes (%) (Auto) (test code = 736-9) 52.6 18.0-39.1 [facility] HospitalAutom[facility] blood monocyte count as percentage of total gwvjllpleb1605-25-14 04:57:00* Test Item Value Reference Range Interpretation Comments Monocytes (%) (Auto) (test code = 5905-5) 11.3 4.4-11.3 [facility] Hospital[facility] blood eosinophil count as percentage of total osggykiiqm5679-45-66 04:57:00* Test Item Value Reference Range Interpretation Comments Eosinophils (%) (Auto) (test code = 713-8) 1.2 0.0-6.0 [facility] Hospital[facility] blood basophil count as percentage of total qhcxqzgrzy3882-23-69 04:57:00* Test Item Value Reference Range Interpretation Comments Basophils (%) (Auto) (test code = 706-2) 0.7 0.0-1.0 [facility] HospitalFluoroscopic procedure less than one hour lqgizubs6857-89-40 04:57:00* Test Item Value Reference Range Interpretation Comments IM GRANULOCYTES % (test code = IM GRANULOCYTES %) 0.5 0.0- 1.0 [facility] HospitalAutom[facility] blood neutrophil count 2020-04-20 04:57:00* Test Item Value Reference Range Interpretation Comments Neutrophils # (Auto) (test code = 751-8) 1.4 2.1-6.9 [facility] lymphocytes count (number/volume) 2020-04-20 04:57:00* Test Item Value Reference Range Interpretation Comments Lymphocytes # (Auto) (test code = 00503-5) 2.2 1.0-3.2 [facility] HospitalBlood monocytes automated count (number/volume)2020-04-20 04:57:00* Test Item Value Reference Range Interpretation Comments Monocytes # (Auto) (test code = 742-7) 0.5 0.2-0.8 [facility] blood eosinophil count 2020-04-20 04:57:00* Test Item Value Reference Range Interpretation Comments Eosinophils # (Auto) (test code = 711-2) 0.1 0.0-0.4 [facility] HospitalAutom[facility] blood basophil count (count/volume)2020-04-20 04:57:00* Test Item Value Reference Range Interpretation Comments Basophils # (Auto) (test code = 704-7) 0.0 0.0-0.1 [facility] HospitalFluoroscopic procedure less than one hour ryhghwjg9134-80-75 04:57:00* Test Item Value Reference Range Interpretation Comments Absolute Immature Granulocyte (auto (adonay t code = Absolute Immature Granulocyte (auto) 0.02 0-0.1 [facility] HospitalCT [facility]BD[facility]/PELVIS [id number] 19:11:00 [facility] 1975 Sex: F [place] [address] Patient Name: MIGDALIA QUINN MR #: [id number] : 1975 Age/Sex: 44/F Req #: [id number] [facility] Physician: Ordered by: BILLY HARMON MD Report #: [id number] Location: ER Room/Bed: Procedure: [id number] CT/CT ABDOMEN/PELVIS W Exam D ate: 04/19/20 Exam Time: 1824 REPORT STATUS: Signed EXAM: CT Abdomen and Pelvis WITH contrast INDICATION: ABD PAIN [id number] 1824 Y COMPARISO N: None. TECHNIQUE: Abdomen and pelvis were scanned utilizing a multidetector helical scanner from the lung base to the pubic symphysis after administration of IV contrast. Coronal and sagittal reformations were obtained. Dose modulat ion, iterative reconstruction, and/or weight based adjustment of the mA/kV was utilized to reduce the radiation dose to as low as reasonably achievable. R outine protocol was performed. Scan was performed when during portal venous ph ase. IV CONTRAST: 100 mL of Isovue-300 ORAL CONTRAST: None COMPLICATIONS: None RADIATION DOSE: Total DLP: 735.05 mGy*cm Estimated effective dose: (DLP x 0.015 x size factor) mSv C TDIvol has been reviewed. It is below the limits set by the Radiation Protocol Committee (RPC). FINDINGS: LINES and TUBES: None. LOWER THORAX: Small posterior right base focal consolidation, likely scarring/atelectasis. HEPATOBILIARY: No focal hepatic lesions. Fat deposition along the fa lciform ligament. No biliary ductal dilation. GALLBLADDER: Surgically abse nt. SPLEEN: No splenomegaly. PANCREAS: No focal masses or ductal dila tation. ADRENALS: No adrenal nodules KIDNEYS/URETERS: Minimal ri ght renal superior pole focal hypoenhancement along with a complex cysts that extends extrarenal. The extrarenal peripherally enhancing component measures 2 .1 x 1.6 cm (series 2, image 26). Minimal right perinephric fat stranding. No hydronephrosis. Left renal subcentimeter hypodensities are too small to alessandro cterize. No stones. GI TRACT: No abnormal distention, wall thickening, or evidence of bowel obstruction. Appendix is normal. Small hiatal hernia. PELVIC ORGANS/BLADDER: Unremarkable. LYMPH NODES: No lymphadenopathy. VESSELS: There is mild atherosclerotic disease in the aorta and major arter ial branches. PERITONEUM / RETROPERITONEUM: No free air or fluid. PAWEL REG: Unremarkable. SOFT TISSUES: Subcutaneous abdominal wall nodules, proba kaylee injection related. IMPRESSION: 1. Irregular right brandee al superior pole cystic lesion with extrarenal extension is suspicious for an abscess. 2. Otherwise, no acute inflammatory process in the abdomen/pelvis. 3. Focal posterior right lung base consolidation is probably atelectasis/sca rring. However, developing pneumonia cannot be excluded in the appropriate cli nical context. Signed by: Dr. Pebbles Downey MD on 04/19/2020 7:20 PM Dictated By: PEBBLES DOWNEY MD 19 COPY TO: ALLEN ALEGRE,BILLY Gutiérrez MD Urine color [id number] 16:59:00* Test Item Value Reference Range Interpretation Comments Urine Color (test code = 5778-6) YELLOW YELLOW [facility] [id number] 16:59:00* Test Item Value Reference Range Interpretation Comments Urine Clarity (test code = 54633-0) HAZY CLEAR [facility] [place], [place] gravity of Urine by Test strip 2020-04-19 16:59:00* Test Item Value Reference Range Interpretation Comments Urine Specific [place] (test code = 5811-5) 1.025 1.010-1.02 5 [facility] measurement by automated test [id number] 16:59:00* Test Item Value Reference Range Interpretation Comments Urine pH (test code = 76158-3) 7 5-7 [facility] esterase detection by zeledpaw9301-63-63 16:59:00* Test Item Value Reference Range Interpretation Comments Urine Leukocyte Esterase (test code = 5799-2) SMALL NEGATIVE [facility] nitrite [id number] 16:59:00* Test Item Value Reference Range Interpretation Comments Urine Nitrite (test code = 76264-9) NEGATIVE NEGATIVE [facility] protein measurement by test strip (mass/volume)2020-04-19 16:59:00* Test Item Value Reference Range Interpretation Comments Urine Protein (test code = 5804-0) 1+ NEGATIVE [facility] glucose [id number] 16:59:00* Test Item Value Reference Range Interpretation Comments Urine Glucose (UA) (test code = 2349-9) 1+ NEGATIVE [facility] ketones detection by automated test [id number] 16:59:00* Test Item Value Reference Range Interpretation Comments Urine Ketones (test code = 97724-8) >=160 NEGATIVE [facility] opiates screening [id number] 16:59:00* Test Item Value Reference Range Interpretation Comments Urine Opiates Screen (test code = 85300-2) POSITIVE NEGATIVE This test provides only a screen. Positive results should be repeated by a confi rmatory test.[facility] screen, urine 2020-04-19 16:59:00* Test Item Value Reference Range Interpretation Comments Urine Barbiturates Screen (test code = 879215513) NEGATIVE NEGA TIVE [facility] phencyclidine detection by screening [id number] 16:59:00* Test Item Value Reference Range Interpretation Comments Urine Phencyclidine Screen (test code = 83261-3) NEGATIVE NEGAT RONEL [facility] amphetamines detection by screen method > 1000 [id number] 16:59:00* Test Item Value Reference Range Interpretation Comments Urine Amphetamines Screen (test code = 69049-3) NEGATIVE NEGATI VE [facility] HospitalFluoroscopic procedure less than one hour wycixhba0614-31-17 16:59:00* Test Item Value Reference Range Interpretation Comments Urine Methamphetamines Screen (test code = Urine Metha mphetamines Screen) NEGATIVE NEGATIVE [facility] benzodiazepines detection by screening [id number] 16:59:00* Test Item Value Reference Range Interpretation Comments Urine Benzodiazepines Screen (test code = 59839-0) NEGATIVE NEG ATIVE [facility] cocaine measurement (mass/volume) 2020-04-19 16:59:00* Test Item Value Reference Range Interpretation Comments Urine Cocaine Screen (test code = 3398-5) NEGATIVE NEGATIVE [facility] cannabinoids detection by screening hwwnvp7743-83-56 16:59:00* Test Item Value Reference Range Interpretation Comments Urine Cannabinoids Screen (test code = 46760-0) NEGATIVE NEGATI VE THESE RESULTS ARE FOR MEDICAL TREATMENT ONLYTHIS REPORT CONTAINS UNCONFIR MED SCREENING RESULTS*POSITIVE RESULTS WILL BE CONFIRMED BY REFERENCE LAB UPON R EQUEST CUT-OFFDRUG CLASS CONCENTRATION ng/mLAmphetamines 1000Methamphetamines 1000Cocaine 300Opiate 300Phencyc lidine 25Cannabinoid 50Barbiturates 300Benzodiazepine 300Methadone 300[facility] urobilinogen measurement by test strip (mass/volume)2020-04-19 16:59:00* Test Item Value Reference Range Interpretation Comments Urine Urobilinogen (test code = 15794-6) 1 0.2-1 [facility] total bilirubin measurement (mass/volume)2020-04-19 16:59:00* Test Item Value Reference Range Interpretation Comments Urine Bilirubin (test code = 1978-6) SMALL NEGATIVE [facility] erythrocytes lrrfrfsnn3885-03-47 16:59:00* Test Item Value Reference Range Interpretation Comments Urine Blood (test code = 30153-2) TRACE NEGATIVE [facility] HospitalAutomated urine sediment leukocyte count by microscopy (number/high power field)2020-04-19 16:59:00* Test Item Value Reference Range Interpretation Comments Urine WBC (test code = 5821-4) 11-20 0-5 [facility]rythrocytes detection in urine sediment by light cjksjstclg0603-87-11 16:59:00* Test Item Value Reference Range Interpretation Comments Urine RBC (test code = 72168-3) 6-10 0-5 [facility] HospitalBacteria detection in urine sediment by light akjszjxcvt3305-69-10 16:59:00* Test Item Value Reference Range Interpretation Comments Urine Bacteria (test code = 42171-9) MODERATE NONE [facility] HospitalEpithelial cells detection in urine sediment by light puskmgvpxl3830-77-04 16:59:00* Test Item Value Reference Range Interpretation Comments Urine Epithelial Cells (test code = 24786-7) MODERATE NONE [facility] HospitalMucus detection in urine sediment by light tamneikovc2654-11-77 16:59:00* Test Item Value Reference Range Interpretation Comments Urine Mucus (test code = 8247-9) MODERATE RARE [facility] [place], TXerum or plasma magnesium measurement (mass/volume)2020-04-19 16:59:00* Test Item Value Reference Range Interpretation Comments Magnesium Level (test code = 67539-7) 1.8 1.3-2.[address] [facility] [place], TXerum or plasma lipase measurement (enzymatic activity/volume)2020-04-19 16:59:00* Test Item Value Reference Range Interpretation Comments Lipase (test code = 3040-3) 29 8-78 [facility] HospitalGLUBED2020-10-16 12:07:00* Test Item Value Reference Range Interpretation Comments GLUBED (test code = GLUBED) 143 mg/dL 74-106 H Performed by certified plate and frame filter operator at [facility] [id number] 08:47:00* Test Item Value Reference Range Interpretation Comments GLUBED (test code = GLUBED) 195 mg/dL 74-106 H Performed by certified plate and frame filter operator at [facility] BASIC METABOLIC [id number] 03:48:00* Test Item Value Reference Range Interpretation Comments SODIUM (test code = NA) 136 mmol/L 136-145 N POTASSIUM (test code = K) 3.9 mmol/L 3.5-5.1 N CHLORIDE (test code = CL) 106.0 mmol/L 98-107 N CARBON DIOXIDE (test code = CO2) 22.0 mmol/L 21-32 N ANION GAP (test code = GAP) 11.9 10-20 N GLUCOSE (test code = GLU) 216 mg/dL 74-106 H BLOOD UREA NITROGEN (test code = BUN) 8 mg/dL 7-18 N GLOMERULAR FILTRATION RATE (test code = GFR) > 60 mL/min >=60 Estimated GFR by using Modified MDRD formula.Chronic kidney disease is defined as either kidney damageor GFR <60 mL/min/1.73 m2 for >3 months. CREATININE (test code = CREAT) 0.50 mg/dL 0.55-1.02 L Note change in reference range due to change in reagent. BUN/CREATININE RATIO (test code = BUN/CREA) 16.0 10-20 N CALCIUM (test code = CA) 8.4 mg/dL 8.5-10.1 L [id number] 03:48:00* Test Item Value Reference Range Interpretation Comments LIPASE (test code = LIP) 147 U/L 73.0-393.0 N [id number] 03:48:00* Test Item Value Reference Range Interpretation Comments MAGNESIUM (test code = MAG) 2.4 mg/dL 1.8-2.4 N BASIC METABOLIC [id number] 03:36:00* Test Item Value Reference Range Interpretation Comments SODIUM (test code = NA) 136 mmol/L 136-145 N POTASSIUM (test code = K) 3.9 mmol/L 3.5-5.1 N CHLORIDE (test code = CL) 106.0 mmol/L 98-107 N CARBON DIOXIDE (test code = CO2) mmol/L 21-32 ANION GAP (test code = GAP) 10-20 GLUCOSE (test code = GLU) mg/dL 74-106 BLOOD UREA NITROGEN (test code = BUN) mg/dL 7-18 GLOMERULAR FILTRATION RATE (test code = GFR) mL/min >=60 CREATININE (test code = CREAT) mg/dL 0.55-1.02 BUN/CREATININE RATIO (test code = BUN/CREA) 10-20 CALCIUM (test code = CA) mg/dL 8.5-10.1 [id number] 03:36:00* Test Item Value Reference Range Interpretation Comments LIPASE (test code = LIP) U/L 73.0-393.0 [id number] 03:36:00* Test Item Value Reference Range Interpretation Comments MAGNESIUM (test code = MAG) mg/dL 1.8-2.4 CBC W/AUTO [id number] 03:20:00* Test Item Value Reference Range Interpretation Comments WHITE BLOOD CELL (test code = WBC) 5.4 K/mm3 4.5-12.5 N RED BLOOD CELL (test code = RBC) 4.28 mill/mm3 3.7-5.2 N HEMOGLOBIN (test code = HGB) 11.1 gram/dL 11.5-15.5 L HEMATOCRIT (test code = HCT) 36.1 % 36.0-46.0 N MEAN CELL VOLUME (test code = MCV) 84.3 fL 80-98 N MEAN CELL HGB (test code = MCH) 25.9 picogram 27.0-33.0 L MEAN CELL HGB CONCETRATION (test code = MCHC) 30.7 gram/dL 33.0-36. 0 L RED CELL DISTRIBUTION WIDTH (test code = RDW) 13.1 % 11.6-16. 2 N RED CELL DISTRIBUTION WIDTH SD (test code = RDW-SD) 39.7 fL 37 .0-51.0 N PLATELET COUNT (test code = PLT) 300 K/mm3 150-450 N MEAN PLATELET VOLUME (test code = MPV) 10.2 fL 6.7-11.0 N NEUTROPHIL % (test code = NT%) 58.2 % 39.0-69.0 N IMMATURE GRANULOCYTE % (test code = IG%) 0.2 % 0.0-5.0 N LYMPHOCYTE % (test code = LY%) 33.8 % 25.0-55.0 N MONOCYTE % (test code = MO%) 6.5 % 0.0-10.0 N EOSINOPHIL % (test code = EO%) 0.9 % 0.0-5.0 N BASOPHIL % (test code = BA%) 0.4 % 0.0-1.0 N NUCLEATED RBC % (test code = NRBC%) 0.0 % 0-0 N NEUTROPHIL # (test code = NT#) 3.16 K/mm3 1.8-7.7 N IMMATURE GRANULOCYTE # (test code = IG#) 0.01 x10 3/uL 0-0.03 N LYMPHOCYTE # (test code = LY#) 1.83 K/mm3 1.0-5.0 N MONOCYTE # (test code = MO#) 0.35 K/mm3 0-0.8 N EOSINOPHIL # (test code = EO#) 0.05 K/mm3 0.0-0.5 N BASOPHIL # (test code = BA#) 0.02 K/mm3 0.0-0.2 N NUCLEATED RBC # (test code = NRBC#) 0.00 K/mm3 0.0-0.1 N MANUAL DIFF REQUIRED (test code = MDIFF) NO [id number] 20:24:00* Test Item Value Reference Range Interpretation Comments GLUBED (test code = GLUBED) 175 mg/dL 74-106 H Performed by certified plate and frame filter operator at [facility] [id number] 16:30:00* Test Item Value Reference Range Interpretation Comments GLUBED (test code = GLUBED) 291 mg/dL 74-106 H Performed by certified plate and frame filter operator at [facility] [id number] 12:21:00* Test Item Value Reference Range Interpretation Comments GLUBED (test code = GLUBED) 233 mg/dL 74-106 H Performed by certified plate and frame filter operator at [facility] - CTA CHEST FOR [id number] 12:13:00 [facility]Name: MIGDALIA QUINN : 1975 Sex: F Name: IRVIN QUINN [facility] : 1975 Age/S: 44 / F [address] Unit #: [id number] [place]: [place] [address] Phys: Charli Dears MD Acct: [id number] Dis Date: Status: ADM IN PHONE #: [phone] Exam Date: 04/16/2020 1155 FAX #: [phone] Reason: up per abd/chest pain, prolonged immobility, SOB EXAMS: CPT CODE: [id number] [place] [id number] REASON FOR EXAM: upper abd/chest pain, prolo nged immobility, SOB EXAM ORDER DATE: 04/16/2020 9:50 AM Ordering M.D.: Charli Deras MD PROCEDURE: - CTA CHEST F OR PE Comparison:CT of the abdomen and pelvis the previous afterno on includes the lung bases Axial CT images of the chest were obtained with IV contrast. Reconstructed sagittal and coronal images of t he chest were provided for interpretation. Dose reduction techniques were applied. FINDINGS: Visualized neck: Normal Airways, Lungs and Pleura: There is subsegmental atelectasis along the minor fissure. Additionally there is subsegmental atelectasis appears nodular laterally (3/18) and contains a small focus of air. Trace right-sided pleural effusion with mild subsegmental atelectasis of the rig ht lower lobe is present. Left lower lobe nodule is unchanged from the pre vious exam. There is mild bronchial wall thickening in the right lower lob e Heart, great vessels, pulmonary vessels, mediastinum: No pulmona ry embolus. Mild atherosclerotic disease in the aortic arch. Lymph nodes: No axillary, internal mammary, or mediastinal adenopathy. Th ere are a few prominent hilar lymph nodes on the right side. Muscu loskeletal/chest wall: Degenerative changes are seen throughout the thorac ic spine Visualized upper abdomen: No significant change from CT o f the abdomen and pelvis the previous day IMPRESSI ON: No pulmonary embolus. Subsegmental atelectasis along the min or fissure of the right lung with nodular appearance of the lateral aspe ct of the atelectatic lung. PAGE 1 Signed Report (CONTINUED) Name: MIGDALIA QUINN [facility] Marni ast : 1975 Age/S: 44 / F [address] [facility]: [id number] Loc: [place] [address] Phys: Charli Deras MD Acct: [id number] Dis Date: Status: ADM IN PHONE #: [phone] Exam Date: 04/16/2020 1155 FAX #: [phone] Reason: upper abd/chest pain, prolonged immo bility, SOB EXAMS: CPT CODE: [id number] [place] [address] < Continued> There is also small focus of air which is suspicious for a septic embolus in this region. Redemonstration of small right- sided pleural effusion with mild subsegmental atelectasis of the underlying right lung. Septic embolus in the left lower lobe is unchanged from the prior exam. Prominent lymph node in the right hilum may be reactive. There is also mild bronchial wall thickening in the right lower lobe which may represent an infectious process. Location: [facility] at 1213 Reported and signed by: Faraz Rossi MD CC: Charli Deras MD Technologist:Devin Medina RT(R),(MR),(CT) CTDI: DLP: Trnscb Date/Time: 04/16/2020 (1213) [email or web address] Orig Print D/T: S: 04/16/2020 (1216) PAGE 2 Signed Report [id number] 08:09:00* Test Item Value Reference Range Interpretation Comments GLUBED (test code = GLUBED) 171 mg/dL 74-106 H Performed by certified plate and frame filter operator at [facility] COMPREHENSIVE METABOLIC [id number] 06:02:00* Test Item Value Reference Range Interpretation Comments SODIUM (test code = NA) 138 mmol/L 136-145 N POTASSIUM (test code = K) 4.0 mmol/L 3.5-5.1 N CHLORIDE (test code = CL) 107.0 mmol/L 98-107 N CARBON DIOXIDE (test code = CO2) 24.0 mmol/L 21-32 N ANION GAP (test code = GAP) 11.0 10-20 N GLUCOSE (test code = GLU) 200 mg/dL 74-106 H BLOOD UREA NITROGEN (test code = BUN) 4 mg/dL 7-18 L GLOMERULAR FILTRATION RATE (test code = GFR) > 60 mL/min >=60 Estimated GFR by using Modified MDRD formula.Chronic kidney disease is defined as either kidney damageor GFR <60 mL/min/1.73 m2 for >3 months. CREATININE (test code = CREAT) 0.50 mg/dL 0.55-1.02 L Note change in reference range due to change in reagent. BUN/CREATININE RATIO (test code = BUN/CREA) 8.0 10-20 L TOTAL PROTEIN (test code = PROT) 8.0 gram/dL 6.4-8.2 N ALBUMIN (test code = ALB) 2.4 g/dL 3.4-5.0 L GLOBULIN (test code = GLOB) 5.6 gram/dL 2.7-4.2 H ALBUMIN/GLOBULIN RATIO (test code = A/G) 0.4 0.75-1.50 L CALCIUM (test code = CA) 8.8 mg/dL 8.5-10.1 N BILIRUBIN TOTAL (test code = BILT) 0.20 mg/dL 0.0-1.0 N SGOT/AST (test code = AST) 24 IUnit/L 15-37 N SGPT/ALT (test code = ALT) 28 IUnit/L 12-78 N ALKALINE PHOSPHATASE TOTAL (test code = ALKP) 120 IUnit/L 45-117 H Note change in reference range due to change in reagent. LIPID PROFILE (CORONARY RISK)2020-04-16 06:02:00* Test Item Value Reference Range Interpretation Comments TRIGLYCERIDES (test code = TRIG) 121 mg/dL 20-150 N CHOLESTEROL (test code = CHOL) 140 mg/dL 0-200 N CHOLESTEROL/HDL RATIO (test code = CHOLHDL) 5.0 RATIO 0-4.9 H RISK ASSOCIATED WITH CHOL/HDL RATIOS: Risk Male Female1/2 AVERAGE 3.43 3.27AVERAGE 4.97 4.442X AVERAGE 9.55 7.053X AVERAGE 23.39 11.04 REFERENCE VALUE IS RELATED TO RISK LEVELS ASRECOMMENDED BY THE SHAI. HEART, LUNG, AND BLOOD INST. HDL CHOLESTEROL (test code = HDL) 28 mg/dL 40-60 L LIPOPROTEIN LDL (test code = LDL) 100 mg/dL 100-129 N Reference Interval: mg/dL mmol/L Optimal <100 <2.6Near/above optimal 100-129 2.6- 3.3Borderline High 130-159 3.4-4.1High 160-189 4.1-4.9Very High >=190 >=4.9========= This LDL result is a direct measurement.========= [id number] 05:56:00* Test Item Value Reference Range Interpretation Comments GLYCOSYLATED HEMOGLOBIN (HA1C) (test code = GLYHGB) 11.3 % HbA1 SUGGESTED DIAGNOSIS: HbA1C (%) Diabetic >6.4Prediabetes 5.7 - 6.4Normal <5.7 ESTIMATED AVERAGE GLUCOSE (test code = EAG) 278 MG/DL CBC W/AUTO [id number] 05:51:00* Test Item Value Reference Range Interpretation Comments WHITE BLOOD CELL (test code = WBC) 6.1 K/mm3 4.5-12.5 N RED BLOOD CELL (test code = RBC) 4.10 mill/mm3 3.7-5.2 N HEMOGLOBIN (test code = HGB) 10.8 gram/dL 11.5-15.5 L HEMATOCRIT (test code = HCT) 34.2 % 36.0-46.0 L MEAN CELL VOLUME (test code = MCV) 83.4 fL 80-98 N MEAN CELL HGB (test code = MCH) 26.3 picogram 27.0-33.0 L MEAN CELL HGB CONCETRATION (test code = MCHC) 31.6 gram/dL 33.0-36. 0 L RED CELL DISTRIBUTION WIDTH (test code = RDW) 13.2 % 11.6-16. 2 N RED CELL DISTRIBUTION WIDTH SD (test code = RDW-SD) 39.6 fL 37 .0-51.0 N PLATELET COUNT (test code = PLT) 309 K/mm3 150-450 N MEAN PLATELET VOLUME (test code = MPV) 10.6 fL 6.7-11.0 N NEUTROPHIL % (test code = NT%) 58.8 % 39.0-69.0 N IMMATURE GRANULOCYTE % (test code = IG%) 0.5 % 0.0-5.0 N LYMPHOCYTE % (test code = LY%) 31.9 % 25.0-55.0 N MONOCYTE % (test code = MO%) 7.6 % 0.0-10.0 N EOSINOPHIL % (test code = EO%) 0.7 % 0.0-5.0 N BASOPHIL % (test code = BA%) 0.5 % 0.0-1.0 N NUCLEATED RBC % (test code = NRBC%) 0.0 % 0-0 N NEUTROPHIL # (test code = NT#) 3.56 K/mm3 1.8-7.7 N IMMATURE GRANULOCYTE # (test code = IG#) 0.03 x10 3/uL 0-0.03 N LYMPHOCYTE # (test code = LY#) 1.93 K/mm3 1.0-5.0 N MONOCYTE # (test code = MO#) 0.46 K/mm3 0-0.8 N EOSINOPHIL # (test code = EO#) 0.04 K/mm3 0.0-0.5 N BASOPHIL # (test code = BA#) 0.03 K/mm3 0.0-0.2 N NUCLEATED RBC # (test code = NRBC#) 0.00 K/mm3 0.0-0.1 N MANUAL DIFF REQUIRED (test code = MDIFF) NO COMPREHENSIVE METABOLIC [id number] 05:51:00* Test Item Value Reference Range Interpretation Comments SODIUM (test code = NA) 138 mmol/L 136-145 N POTASSIUM (test code = K) 4.0 mmol/L 3.5-5.1 N CHLORIDE (test code = CL) 107.0 mmol/L 98-107 N CARBON DIOXIDE (test code = CO2) mmol/L 21-32 ANION GAP (test code = GAP) 10-20 GLUCOSE (test code = GLU) mg/dL 74-106 BLOOD UREA NITROGEN (test code = BUN) mg/dL 7-18 GLOMERULAR FILTRATION RATE (test code = GFR) mL/min >=60 CREATININE (test code = CREAT) mg/dL 0.55-1.02 BUN/CREATININE RATIO (test code = BUN/CREA) 10-20 TOTAL PROTEIN (test code = PROT) gram/dL 6.4-8.2 ALBUMIN (test code = ALB) g/dL 3.4-5.0 GLOBULIN (test code = GLOB) gram/dL 2.7-4.2 ALBUMIN/GLOBULIN RATIO (test code = A/G) 0.75-1.50 CALCIUM (test code = CA) mg/dL 8.5-10.1 BILIRUBIN TOTAL (test code = BILT) mg/dL 0.0-1.0 SGOT/AST (test code = AST) IUnit/L 15-37 SGPT/ALT (test code = ALT) IUnit/L 12-78 ALKALINE PHOSPHATASE TOTAL (test code = ALKP) IUnit/L 45-117 LIPID PROFILE (CORONARY RISK)2020-04-16 05:51:00* Test Item Value Reference Range Interpretation Comments TRIGLYCERIDES (test code = TRIG) mg/dL 20-150 CHOLESTEROL (test code = CHOL) mg/dL 0-200 CHOLESTEROL/HDL RATIO (test code = CHOLHDL) RATIO 0-4.9 HDL CHOLESTEROL (test code = HDL) mg/dL 40-60 LIPOPROTEIN LDL (test code = LDL) mg/dL 100-129 [id number] 20:57:00* Test Item Value Reference Range Interpretation Comments GLUBED (test code = GLUBED) 269 mg/dL 74-106 H Performed by certified plate and frame filter operator at [facility] [id number] 19:52:00* Test Item Value Reference Range Interpretation Comments ALCOHOL (test code = ALC) 3 mg/dL 0.0-3.0 N -- INTERPRETIVE DATA NOTE: POSITIVE SCREENING RESULTS SHOULD BE CONSIDERED PRESUMPTIVE.WHEN COLLECTED FOR MEDICAL PURPOSES ONLY. SPECIMEN WILL NOTBE COLLECTED BY CHAIN OF CUSTODY.IF A CONFIRMATION OF POSITIVE RESULTS IS DESIRED, ACONFIRMATION TEST MUST BE REQUESTED BY THE PHYSICIAN AT ANADDITIONAL CHARGE TO THE PATIENT. LACTIC [id number] 19:49:00* Test Item Value Reference Range Interpretation Comments LACTIC ACID (test code = LACT) 1.2 mmol/L 0.4-1.9 N [id number] 16:49:00* Test Item Value Reference Range Interpretation Comments GLUBED (test code = GLUBED) 231 mg/dL 74-106 H Performed by certified plate and frame filter operator at [facility] COVID 19 Asymptomatic IH [id number] 14:23:00* Test Item Value Reference Range Interpretation Comments COVID 19 Asymptomatic IH AG (test code = COVNONPUIAG) NEGATIVE - CT ABD PELVIS [id number] 12:44:00 [facility]Name: MIGDALIA QUINN : 1975 Sex: F Name: IRVIN QUINN [facility] : 1975 Age/S: 44 / F [address] [facility] Unit #: [id number] Loc: [place] [address] Phys: Carson Longoria DO Acct: [id number] Dis Date: Status: REG ER PHONE #: [phone] Exam Date: 04/15/2020 1155 FAX #: [phone] Reason: ab dpain EXAMS: CPT CODE: [id number] CT ABD PELVIS W/CONT [id number] REASON FOR EXAM: abdpain EXAM ORDER DATE: 04/15/2020 11:30 AM Ordering M.D.: Carson Longoria DO PROCEDURE: Axial CT images were acquired through the abdomen/pelvis at 5 mm intervals. Sagittal and coronal reformatted images were gen erated. Automated exposure control was utilized for this reduction. Phases of contrast: venous and delayed COMPARISON: CT abd omen and pelvis April 2020 FINDINGS: Visualized t horax: There is mild subsegmental atelectasis in the right lower lobe and also in the middle lobe of the right lung. Additionally there is a small r ight-sided pleural effusion. Left lower lobe nodule, previously reported a s septic embolus is unchanged from the previous exam Hepatob iliary system: Prior cholecystectomy. Hepatic parenchyma is within normal limits Pancreas: Normal Spleen: Normal Adrenal glands: Normal Genitourinary system: Exophytic abscess ar ising from the upper pole of the left kidney has recurred appears grossly similar in size to the previous exam. Otherwise normal Gastr ointestinal tract and appendix: Normal Abdominal vascular structur es: Mild atherosclerotic disease of the abdominal aorta Sunita toneum and retroperitoneum: No free fluid or free air. No omental or mese nteric masses. No abnormal lymph nodes. Musculoskeletal structure s and abdominal wall: Mild degenerative PAGE 1 Signed Report (CONTINUED) Name: MIGDALIA QUINN [facility] : 1975 Age/S: 44 / F [address] [facility] Unit #: [id number] [place]: [place] [address] Phys: Carson Longoria DO Acct: [id number] Dis Date: Status: REG ER PHONE #: [phone] Exam Date: 04/15/2020 1155 FAX #: [phone] Reason: abdpain EXAMS: CPT CODE: [id number] CT ABD PELVIS W/CONT 35326 <Continued> change of the spine IMPRESSION: Recurrent abscess in the upper pole of the right kidney appears unchanged from the previous exam and extends superiorly into the perinephric space. Left lower lobe pulmonary nodule is grossly unchanged from prior exam and may represent septic embolus. Continued follow-up is recommended to confirm resolution. Small right- sided pleural effusion with subsegmental atelectasis in the right lung base is unchanged from the previous exam. Location: [facility] at 1244 Reported and signed by: Faraz Rossi MD CC: Carson Longoria DO Technologist:LYUDMILA MUNOZ, RT(R),CT CTDI: DLP: Trnscb Date/Time: 04/15/2020 (4968) [email or web address].[id number] Orig Print D/T: S: 04/15/2020 (3515) PAGE 2 Signed Report - XR CHEST 1 [id number] 12:34:00 [facility] 1975 Sex: F Name: CHEYENNEJAMELVeronica HARRIS [facility] : 1975 Age/S: 44 /F [address] [facility] Unit#:[id number] Loc: [place] [address] Phys: Carson Longoria DO Dis Date: PHONE #: [phone] Status: REG ER FAX #: [phone] Exam Date: 04/15/2020 Reason: CHEST PAIN EXAMS: CPT CODE: [id number] XR CHEST 1 V 81164 REASON FOR EXAM: CHEST PAIN Exam Order Date: 04/15/2020 11:25 AM Ordering MFrances: Carson Longoria DO PROCEDURE: - XR CHEST 1 V COMPARISON: Chest x-ray January 01, 2020 FINDINGS: There is focal subsegmental atelectasis in the mid right lung. The right hemidiaphragm is also elevated. Left lung is clear. Cardiomediastinal silhouette is normal in size for [place]. The mediastinal contours are within normal limits. Musculoskeletal structures are within normal limits. The visualize d upper abdomen is within normal limits. IMPRESSION: Focal subsegmental atelectasis in the mid right lung. Loc ation: [facility] at 1234 Reported and signed by: Faraz Rossi MD CC: Carson Longoria DO Technologist: LYUDMILA VELASQUEZ, RT(R),CT Trnscrpt Data: 04/15/2020 (9564 ) [id number] Orig Print D/T: S: 04/15/2020 (8282) PAGE 1 Signed Report URINALYSIS [id number] 12:02:00* Test Item Value Reference Range Interpretation Comments UA COLOR (test code = COLU) YELLOW YELLOW UA APPEARANCE (test code = APPU) HAZY CLEAR A UA GLUCOSE DIPSTICK (test code = DGLUU) 1000 (3+) mg/dL NEGATIVE A UA BILIRUBIN DIPSTICK (test code = BILU) NEGATIVE mg/dL NEGATIVE UA KETONE DIPSTICK (test code = KETU) 15 (1+) mg/dL NEGATIVE A UA SPECIFIC GRAVITY (test code = SGU) 1.010 1.001-1.035 UA BLOOD DIPSTICK (test code = PARUL) 25 (1+) Alonzo/uL NEGATIVE A UA PH DIPSTICK (test code = JUSTINA) 8.0 5.0-8.0 UA PROTEIN DIPSTICK (test code = PROU) 15 (TRACE) mg/dL Neg-15 A UA UROBILINIOGEN DIPSTICK (test code = URO) norm mg/dL 0.0-0.2 UA NITRITE DIPSTICK (test code = SALOME) NEGATIVE NEGATIVE UA LEUKOCYTE ESTERASE DIPSTICK (test code = LEUU) 25 Al/uL (Tra ce) uL NEGATIVE A UA WBC (test code = WBCU) 6-10 per HPF 0-5 A CO UNT MAY NOT BE ACCURATE TO TO HIGH VOLUME OF EPI CELLS UA RBC (test code = RBCU) 3-5 per HPF 0-5 A UA EPITHELIAL CELLS (test code = EPIU) Many (>10/hpf) per HPF Few A LOADED UA BACTERIA (test code = BACU) FEW per HPF NONE Urine Source? Clean CatchBASIC METABOLIC [id number] 12:02:00* Test Item Value Reference Range Interpretation Comments SODIUM (test code = NA) 134 mmol/L 136-145 L POTASSIUM (test code = K) 3.7 mmol/L 3.5-5.1 N CHLORIDE (test code = CL) 98 mmol/L 101-109 L CARBON DIOXIDE (test code = CO2) 21.5 mmol/L 21-32 N ANION GAP (test code = GAP) 18 mmol/L 10-20 N GLUCOSE (test code = GLU) 288 mg/dL 74-106 H BLOOD UREA NITROGEN (test code = BUN) 10 mg/dL 3-21 N GLOMERULAR FILTRATION RATE (test code = GFR) > 60 mL/min >=60 Estimated GFR by using Modified MDRD formula.Chronic kidney disease is defined as either kidney damageor GFR <60 mL/min/1.73 m2 for >3 months. CREATININE (test code = CREAT) 0.96 mg/dL 0.55-1.3 N BUN/CREATININE RATIO (test code = BUN/CREA) 10.4 10-20 N CALCIUM (test code = CA) 8.5 mg/dL 8.4-10.2 N [id number] 12:02:00* Test Item Value Reference Range Interpretation Comments TROPONIN-I (test code = TROPI) <0.015 ng/mL 0.00-0.056 N URINALYSIS [id number] 11:57:00* Test Item Value Reference Range Interpretation Comments UA COLOR (test code = COLU) YELLOW YELLOW UA APPEARANCE (test code = APPU) HAZY CLEAR A UA GLUCOSE DIPSTICK (test code = DGLUU) 1000 (3+) mg/dL NEGATIVE A UA BILIRUBIN DIPSTICK (test code = BILU) NEGATIVE mg/dL NEGATIVE UA KETONE DIPSTICK (test code = KETU) 15 (1+) mg/dL NEGATIVE A UA SPECIFIC GRAVITY (test code = SGU) 1.010 1.001-1.035 UA BLOOD DIPSTICK (test code = PARUL) 25 (1+) Alonzo/uL NEGATIVE A UA PH DIPSTICK (test code = JUSTINA) 8.0 5.0-8.0 UA PROTEIN DIPSTICK (test code = PROU) 15 (TRACE) mg/dL Neg-15 A UA UROBILINIOGEN DIPSTICK (test code = URO) norm mg/dL 0.0-0.2 UA NITRITE DIPSTICK (test code = SALOME) NEGATIVE NEGATIVE UA LEUKOCYTE ESTERASE DIPSTICK (test code = LEUU) 25 Al/uL (Tra ce) uL NEGATIVE A UA WBC (test code = WBCU) per HPF 0-5 UA RBC (test code = RBCU) per HPF 0-5 UA EPITHELIAL CELLS (test code = EPIU) per HPF Few UA BACTERIA (test code = BACU) per HPF NONE Urine Source? Clean CatchHEPATIC FUNCTION [id number] 11:52:00* Test Item Value Reference Range Interpretation Comments TOTAL PROTEIN (test code = PROT) 8.2 g/dL 6.5-8.4 N ALBUMIN (test code = ALB) 2.6 g/dL 3.4-4.8 L GLOBULIN (test code = GLOB) 5.6 G/DL 1-10 N ALBUMIN/GLOBULIN RATIO (test code = A/G) 0.46 RATIO 0.75-1.50 L BILIRUBIN TOTAL (test code = BILT) 0.30 mg/dL 0.0-1.0 N BILIRUBIN DIRECT (test code = BILD) 0.10 mg/dL 0.0-0.30 N SGOT/AST (test code = AST) 35 U/L 6-32 H SGPT/ALT (test code = ALT) 33 U/L 12-78 N N ote: Change in REFERENCE RANGE due to new reagent method. ALKALINE PHOSPHATASE TOTAL (test code = ALKP) 137 U/L 38-126 H [id number] 11:52:00* Test Item Value Reference Range Interpretation Comments LIPASE (test code = LIP) 310 U/L 128-270 H BASIC METABOLIC [id number] 11:49:00* Test Item Value Reference Range Interpretation Comments SODIUM (test code = NA) 134 mmol/L 136-145 L POTASSIUM (test code = K) 3.7 mmol/L 3.5-5.1 N CHLORIDE (test code = CL) 98 mmol/L 101-109 L CARBON DIOXIDE (test code = CO2) 21.5 mmol/L 21-32 N ANION GAP (test code = GAP) 18 mmol/L 10-20 N GLUCOSE (test code = GLU) 288 mg/dL 74-106 H BLOOD UREA NITROGEN (test code = BUN) 10 mg/dL 3-21 N GLOMERULAR FILTRATION RATE (test code = GFR) > 60 mL/min >=60 Estimated GFR by using Modified MDRD formula.Chronic kidney disease is defined as either kidney damageor GFR <60 mL/min/1.73 m2 for >3 months. CREATININE (test code = CREAT) 0.96 mg/dL 0.55-1.3 N BUN/CREATININE RATIO (test code = BUN/CREA) 10.4 10-20 N CALCIUM (test code = CA) 8.5 mg/dL 8.4-10.2 N [id number] 11:49:00* Test Item Value Reference Range Interpretation Comments TROPONIN-I (test code = TROPI) ng/mL 0-0.045 CBC W/O [id number] 11:44:00* Test Item Value Reference Range Interpretation Comments WHITE BLOOD CELL (test code = WBC) 7.7 K/mm3 4.5-12.5 N RED BLOOD CELL (test code = RBC) 4.27 mill/mm3 3.7-5.2 N HEMOGLOBIN (test code = HGB) 11.2 gram/dL 11.5-15.5 L HEMATOCRIT (test code = HCT) 34.8 % 36.0-46.0 L MEAN CELL VOLUME (test code = MCV) 81.5 fL 80-98 N MEAN CELL HGB (test code = MCH) 26.2 picogram 27.0-33.0 L MEAN CELL HGB CONCETRATION (test code = MCHC) 32.2 gram/dL 33.0-36. 0 L RED CELL DISTRIBUTION WIDTH (test code = RDW) 12.8 % 11.6-16. 2 N RED CELL DISTRIBUTION WIDTH SD (test code = RDW-SD) 38.1 fL 37 .0-51.0 N PLATELET COUNT (test code = PLT) 336 K/mm3 150-450 N MEAN PLATELET VOLUME (test code = MPV) 10.1 fL 6.7-11.0 N - CT GUID [facility] [id number] 13:46:00 Name: MIGDALIA QUINN [facility] : 1975 Age/S: 44 / F [place] Unit #: [id number] Loc: [place] [address] Phys: Charli Deras MD Acct: [id number] Dis Date: Status: ADM IN PHONE #: [phone] Exam Date: 04/13/2020 1152 FAX #: [phone] Reason: ABSCESS EXAMS: CPT CODE: [id number] [facility] [address] CT-GUIDED PERCUTANEOUS ABSCESS ASPIRATION: Location: [facility] HISTORY: ABSCESS. COMPARISON: None. GAME MASTER: Dr. Shaq Leiva LEAVE COORDINATOR: None. MODALITY: CT. CONSCIOUS SEDATION: Intravenous moderate conscious sedation was administered with titrated IV Versed and Fentanyl. Pulse oximetry and cardiac monitoring including blood pressure, heart rate and EKG was monitored by the procedural nurse throughout. SEDATION TIME: 45 minutes. ANESTHESIA: 1 % Lidocaine. MEDICATION: None. APPROACH: Percutaneous ESTIMATED BLOOD LOSS: < 10 cc. SPECIMEN: 4 mL of hakeem pus sent to microbiology for Gram stain, culture and sensitivity. FLUOROSCOPIC TIME: None CONSENT: Details of the procedure, risks, benefits and alternatives including but not limited to pain, bleeding, infection, damage to adjacent organs/vasculature requiring further intervention or surgical repair and adverse medication reactions were explained to the patient. The patient's questions and concerns were answered. The patient acknowledged understanding and grants permission to proceed. Signed informed consent was obtained from the patient and documented on the chart. PAGE 1 Signed Report (CONTINUED) Name: MIGDALIA QUINN [facility] : 1975 Age/S: 44 / F [place] Unit #: [id number] [place]: [place] [address] Phys: Charli Deras MD Acct: [id number] Dis Date: Status: ADM IN PHONE #: [phone] Exam Date: 04/13/2020 1152 FAX #: [phone] Reason: ABSCESS EXAMS: CPT CODE: [id number] CT GUID NDL [facility] [address] <Continued> PROCEDURE: The patient was placed right lateral decubitus on the CT table. The abscess in the right perirenal space was localized and the skin access site was marked. A formal timeout was performed. The patient was sterilely prepped and draped in usual fashion with all elements of maximal sterile barrier technique followed including hat, mask, sterile gloves, and sterile gown. Local anesthesia was obtained with 1% lidocaine. A 18-gauge Chiba needle was advanced into the collection and pus was aspirated. Approximately 4 cc of pus was aspirated. The abscess cavity was irrigated with sterile saline. The Chiba needle was then removed. The aspirated fluid was sent for Gram stain, culture and sensitivity. Postdrainage CT shows right decrease in size in the abscess. The patient tolerated the procedure well and left the room in satisfactory condition without complication. One or more the following dose reduction techniques were used: Automated exposure control, adjustment of mA and/or kV according to patient size, and use of iterative reconstruction technique. IMPRESSION: 1. Successful right renal/perirenal abscess aspiration. at 1346 Reported and signed by: Shaq Leiva M.D. CC: Charli Deras MD Technologist:Jill Newton,RT(R),CT CTDI: DLP: Trnscb Date/Time: 04/13/2020 (4379) [id number] Orig Print D/T: S: 04/13/2020 (2893) PAGE 2 Signed Report [id number] 12:37:00* Test Item Value Reference Range Interpretation Comments GLUBED (test code = GLUBED) 163 mg/dL 74-106 H Performed by certified plate and frame filter operator at [facility] [id number] 20:10:00* Test Item Value Reference Range Interpretation Comments GLUBED (test code = GLUBED) 142 mg/dL 74-106 H Performed by certified plate and frame filter operator at [facility] [id number] 16:04:00* Test Item Value Reference Range Interpretation Comments GLUBED (test code = GLUBED) 117 mg/dL 74-106 H Performed by certified plate and frame filter operator at [facility] [id number] 11:42:00* Test Item Value Reference Range Interpretation Comments GLUBED (test code = GLUBED) 139 mg/dL 74-106 H Performed by certified plate and frame filter operator at [facility] [id number] 07:56:00* Test Item Value Reference Range Interpretation Comments GLUBED (test code = GLUBED) 164 mg/dL 74-106 H Performed by certified plate and frame filter operator at [facility] COMPREHENSIVE METABOLIC [id number] 06:38:00* Test Item Value Reference Range Interpretation Comments SODIUM (test code = NA) 138 mmol/L 136-145 N POTASSIUM (test code = K) 4.4 mmol/L 3.5-5.1 N CHLORIDE (test code = CL) 104.0 mmol/L 98-107 N CARBON DIOXIDE (test code = CO2) 27.0 mmol/L 21-32 N ANION GAP (test code = GAP) 11.4 10-20 N GLUCOSE (test code = GLU) 183 mg/dL 74-106 H BLOOD UREA NITROGEN (test code = BUN) 6 mg/dL 7-18 L GLOMERULAR FILTRATION RATE (test code = GFR) > 60 mL/min >=60 Estimated GFR by using Modified MDRD formula.Chronic kidney disease is defined as either kidney damageor GFR <60 mL/min/1.73 m2 for >3 months. CREATININE (test code = CREAT) 0.40 mg/dL 0.55-1.02 L Note change in reference range due to change in reagent. BUN/CREATININE RATIO (test code = BUN/CREA) 13.6 10-20 N TOTAL PROTEIN (test code = PROT) 6.1 gram/dL 6.4-8.2 L ALBUMIN (test code = ALB) 1.7 g/dL 3.4-5.0 L GLOBULIN (test code = GLOB) 4.4 gram/dL 2.7-4.2 H ALBUMIN/GLOBULIN RATIO (test code = A/G) 0.4 0.75-1.50 L CALCIUM (test code = CA) 7.9 mg/dL 8.5-10.1 L BILIRUBIN TOTAL (test code = BILT) 0.20 mg/dL 0.0-1.0 N SGOT/AST (test code = AST) 32 IUnit/L 15-37 N SGPT/ALT (test code = ALT) 24 IUnit/L 12-78 N ALKALINE PHOSPHATASE TOTAL (test code = ALKP) 115 IUnit/L 45-117 N Note change in reference range due to change in reagent. COMPREHENSIVE METABOLIC [id number] 06:29:00* Test Item Value Reference Range Interpretation Comments SODIUM (test code = NA) 138 mmol/L 136-145 N POTASSIUM (test code = K) 4.4 mmol/L 3.5-5.1 N CHLORIDE (test code = CL) 104.0 mmol/L 98-107 N CARBON DIOXIDE (test code = CO2) mmol/L 21-32 ANION GAP (test code = GAP) 10-20 GLUCOSE (test code = GLU) mg/dL 74-106 BLOOD UREA NITROGEN (test code = BUN) mg/dL 7-18 GLOMERULAR FILTRATION RATE (test code = GFR) mL/min >=60 CREATININE (test code = CREAT) mg/dL 0.55-1.02 BUN/CREATININE RATIO (test code = BUN/CREA) 10-20 TOTAL PROTEIN (test code = PROT) gram/dL 6.4-8.2 ALBUMIN (test code = ALB) g/dL 3.4-5.0 GLOBULIN (test code = GLOB) gram/dL 2.7-4.2 ALBUMIN/GLOBULIN RATIO (test code = A/G) 0.75-1.50 CALCIUM (test code = CA) mg/dL 8.5-10.1 BILIRUBIN TOTAL (test code = BILT) mg/dL 0.0-1.0 SGOT/AST (test code = AST) IUnit/L 15-37 SGPT/ALT (test code = ALT) IUnit/L 12-78 ALKALINE PHOSPHATASE TOTAL (test code = ALKP) IUnit/L 45-117 CBC W/O [id number] 06:27:00* Test Item Value Reference Range Interpretation Comments WHITE BLOOD CELL (test code = WBC) 8.9 K/mm3 4.5-12.5 N RED BLOOD CELL (test code = RBC) 3.68 mill/mm3 3.7-5.2 L HEMOGLOBIN (test code = HGB) 9.8 gram/dL 11.5-15.5 L HEMATOCRIT (test code = HCT) 31.3 % 36.0-46.0 L MEAN CELL VOLUME (test code = MCV) 85.1 fL 80-98 N MEAN CELL HGB (test code = MCH) 26.6 picogram 27.0-33.0 L MEAN CELL HGB CONCETRATION (test code = MCHC) 31.3 gram/dL 33.0-36. 0 L RED CELL DISTRIBUTION WIDTH (test code = RDW) 13.2 % 11.6-16. 2 N PLATELET COUNT (test code = PLT) 337 K/mm3 150-450 N MEAN PLATELET VOLUME (test code = MPV) 10.8 fL 6.7-11.0 N [id number] 20:34:00* Test Item Value Reference Range Interpretation Comments GLUBED (test code = GLUBED) 111 mg/dL 74-106 H Performed by certified plate and frame filter operator at [facility] [id number] 15:43:00* Test Item Value Reference Range Interpretation Comments GLUBED (test code = GLUBED) 183 mg/dL 74-106 H Performed by certified plate and frame filter operator at [facility] [id number] 11:43:00* Test Item Value Reference Range Interpretation Comments GLUBED (test code = GLUBED) 102 mg/dL 74-106 N Performed by certified plate and frame filter operator at [facility] [id number] 07:53:00* Test Item Value Reference Range Interpretation Comments GLUBED (test code = GLUBED) 317 mg/dL 74-106 H Performed by certified plate and frame filter operator at [facility] BASIC METABOLIC [id number] 04:56:00* Test Item Value Reference Range Interpretation Comments SODIUM (test code = NA) 134 mmol/L 136-145 L POTASSIUM (test code = K) 3.2 mmol/L 3.5-5.1 L CHLORIDE (test code = CL) 101.0 mmol/L 98-107 N CARBON DIOXIDE (test code = CO2) 27.0 mmol/L 21-32 N ANION GAP (test code = GAP) 9.2 10-20 L GLUCOSE (test code = GLU) 210 mg/dL 74-106 H BLOOD UREA NITROGEN (test code = BUN) 7 mg/dL 7-18 N GLOMERULAR FILTRATION RATE (test code = GFR) > 60 mL/min >=60 Estimated GFR by using Modified MDRD formula.Chronic kidney disease is defined as either kidney damageor GFR <60 mL/min/1.73 m2 for >3 months. CREATININE (test code = CREAT) 0.60 mg/dL 0.55-1.02 N Note change in reference range due to change in reagent. BUN/CREATININE RATIO (test code = BUN/CREA) 12.5 10-20 N CALCIUM (test code = CA) 8.3 mg/dL 8.5-10.1 L BASIC METABOLIC [id number] 04:53:00* Test Item Value Reference Range Interpretation Comments SODIUM (test code = NA) 134 mmol/L 136-145 L POTASSIUM (test code = K) 3.2 mmol/L 3.5-5.1 L CHLORIDE (test code = CL) 101.0 mmol/L 98-107 N CARBON DIOXIDE (test code = CO2) mmol/L 21-32 ANION GAP (test code = GAP) 10-20 GLUCOSE (test code = GLU) mg/dL 74-106 BLOOD UREA NITROGEN (test code = BUN) mg/dL 7-18 GLOMERULAR FILTRATION RATE (test code = GFR) mL/min >=60 CREATININE (test code = CREAT) mg/dL 0.55-1.02 BUN/CREATININE RATIO (test code = BUN/CREA) 10-20 CALCIUM (test code = CA) mg/dL 8.5-10.1 [id number] 20:41:00* Test Item Value Reference Range Interpretation Comments GLUBED (test code = GLUBED) 173 mg/dL 74-106 H Performed by certified plate and frame filter operator at [facility] [id number] 15:38:00* Test Item Value Reference Range Interpretation Comments GLUBED (test code = GLUBED) 181 mg/dL 74-106 H Performed by certified plate and frame filter operator at [facility] PROTHROMBIN [id number] 11:45:00* Test Item Value Reference Range Interpretation Comments PROTHROMBIN TIME PATIENT (test code = PTP) 14.3 seconds 9.0-14.0 H INTERNATIONAL NORMAL RATIO (test code = INR) 1.3 0.8-1.2 H The therapeutic range for oral anticoagulant therapy formost indications is an international normalized ratio (INR)of between 2.0 and 3.0. The recommended therapeutic INRrange for various clinical situations is listed below: Clinical Situation INR range Pulmonary e mbolism treatment (2.0-3.0)Venous thrombosis treatmentVenous thrombosis prophylaxis (high risk surgery)Prevention of systemic embolism from: Acute myocardial infarction Valvular heart disease Atrial fibrillation Mechanical prosthetic heart valves (2.5-3.5) IS PATIENT ON ANTICOAGULANTS? [id number] 11:41:00* Test Item Value Reference Range Interpretation Comments GLUBED (test code = GLUBED) 281 mg/dL 74-106 H Performed by certified plate and frame filter operator at [facility] COVID 19 Asymptomatic IH [id number] 10:38:00* Test Item Value Reference Range Interpretation Comments COVID 19 Asymptomatic IH AG (test code = COVNONPUIAG) NEGATIVE SPECIMEN COMMENTS: DR LEIVA ORDERED PATIENT HAVING [id number] 09:38:00 * Test Item Value Reference Range Interpretation Comments GLUBED (test code = GLUBED) 259 mg/dL 74-106 H Performed by certified plate and frame filter operator at [facility] CBC W/AUTO [id number] 05:12:00* Test Item Value Reference Range Interpretation Comments WHITE BLOOD CELL (test code = WBC) 10.7 K/mm3 4.5-12.5 N RED BLOOD CELL (test code = RBC) 3.98 mill/mm3 3.7-5.2 N HEMOGLOBIN (test code = HGB) 10.6 gram/dL 11.5-15.5 L HEMATOCRIT (test code = HCT) 32.7 % 36.0-46.0 L MEAN CELL VOLUME (test code = MCV) 82.2 fL 80-98 N MEAN CELL HGB (test code = MCH) 26.6 picogram 27.0-33.0 L MEAN CELL HGB CONCETRATION (test code = MCHC) 32.4 gram/dL 33.0-36. 0 L RED CELL DISTRIBUTION WIDTH (test code = RDW) 13.3 % 11.6-16. 2 N RED CELL DISTRIBUTION WIDTH SD (test code = RDW-SD) 40.2 fL 37 .0-51.0 N PLATELET COUNT (test code = PLT) 351 K/mm3 150-450 RESULT VERIFIED BY REPEAT ANALYSIS MEAN PLATELET VOLUME (test code = MPV) 11.0 fL 6.7-11.0 N NEUTROPHIL % (test code = NT%) 75.1 % 39.0-69.0 H IMMATURE GRANULOCYTE % (test code = IG%) 1.5 % 0.0-5.0 N LYMPHOCYTE % (test code = LY%) 17.4 % 25.0-55.0 L MONOCYTE % (test code = MO%) 5.5 % 0.0-10.0 N EOSINOPHIL % (test code = EO%) 0.2 % 0.0-5.0 N BASOPHIL % (test code = BA%) 0.3 % 0.0-1.0 N NUCLEATED RBC % (test code = NRBC%) 0.0 % 0-0 N NEUTROPHIL # (test code = NT#) 8.00 K/mm3 1.8-7.7 H IMMATURE GRANULOCYTE # (test code = IG#) 0.16 x10 3/uL 0-0.03 H LYMPHOCYTE # (test code = LY#) 1.85 K/mm3 1.0-5.0 N MONOCYTE # (test code = MO#) 0.59 K/mm3 0-0.8 N EOSINOPHIL # (test code = EO#) 0.02 K/mm3 0.0-0.5 N BASOPHIL # (test code = BA#) 0.03 K/mm3 0.0-0.2 N NUCLEATED RBC # (test code = NRBC#) 0.00 K/mm3 0.0-0.1 N MANUAL DIFF REQUIRED (test code = MDIFF) NO BASIC METABOLIC [id number] 05:07:00* Test Item Value Reference Range Interpretation Comments SODIUM (test code = NA) 133 mmol/L 136-145 L POTASSIUM (test code = K) 4.1 mmol/L 3.5-5.1 N CHLORIDE (test code = CL) 100.0 mmol/L 98-107 N CARBON DIOXIDE (test code = CO2) 24.0 mmol/L 21-32 N ANION GAP (test code = GAP) 13.1 10-20 N GLUCOSE (test code = GLU) 296 mg/dL 74-106 H BLOOD UREA NITROGEN (test code = BUN) 2 mg/dL 7-18 L GLOMERULAR FILTRATION RATE (test code = GFR) > 60 mL/min >=60 Estimated GFR by using Modified MDRD formula.Chronic kidney disease is defined as either kidney damageor GFR <60 mL/min/1.73 m2 for >3 months. CREATININE (test code = CREAT) 0.50 mg/dL 0.55-1.02 L Note change in reference range due to change in reagent. BUN/CREATININE RATIO (test code = BUN/CREA) 3.9 10-20 L CALCIUM (test code = CA) 8.4 mg/dL 8.5-10.1 L [id number] 05:07:00* Test Item Value Reference Range Interpretation Comments MAGNESIUM (test code = MAG) 2.3 mg/dL 1.8-2.4 N BASIC METABOLIC [id number] 05:03:00* Test Item Value Reference Range Interpretation Comments SODIUM (test code = NA) 133 mmol/L 136-145 L POTASSIUM (test code = K) 4.1 mmol/L 3.5-5.1 N CHLORIDE (test code = CL) 100.0 mmol/L 98-107 N CARBON DIOXIDE (test code = CO2) mmol/L 21-32 ANION GAP (test code = GAP) 10-20 GLUCOSE (test code = GLU) mg/dL 74-106 BLOOD UREA NITROGEN (test code = BUN) mg/dL 7-18 GLOMERULAR FILTRATION RATE (test code = GFR) mL/min >=60 CREATININE (test code = CREAT) mg/dL 0.55-1.02 BUN/CREATININE RATIO (test code = BUN/CREA) 10-20 CALCIUM (test code = CA) mg/dL 8.5-10.1 [id number] 05:03:00* Test Item Value Reference Range Interpretation Comments MAGNESIUM (test code = MAG) mg/dL 1.8-2.4 LACTIC [id number] 23:30:00* Test Item Value Reference Range Interpretation Comments LACTIC ACID (test code = LACT) 1.1 MMOL/L 0.4-1.9 N - CT ABD PELVIS [id number] 22:06:00 Name: MIGDALIA QUINN [facility] : 1975 Age/S: 44 / F [address] [facility] Unit #: [id number] [place]: [place] [address] Phys: Tyler Gutierrez MD Acct: [id number] Dis Date: Status: REG ER PHONE #: [phone] Exam Date: 04/09/20202149 FAX #: [phone] Reason: Abd pain EXAMS: CPT CODE: [id number] CT ABD PELVIS W/CONT [id number] EXAM: CT of the abdomen and pelvis with contrast; INFORMATION: Abdominal pain, nausea and vomiting; TECHNIQUE AND FINDINGS: CT dose reduction protocol; 5 mm cuts through the abdomen and pelvis during and after intravenous infusion of contrast material. Compared with a recent study from April 02, 2020 there is no a better defined small fluid collection in the upper pole of the right kidney consistent with an abscess. A small fluid collection extends cranially into the perinephric fat. Another new finding is a small right pleural effusion A 1 cm nodular densities seen in the anterior medial aspect of the left lower lobe. This was smaller and barely visible on the previous study. Liver, pancreas, spleen, adrenal glands and left kidney are unremarkable. No pelvic mass lesions. No intraperitoneal fluid. Status post cholecystectomy; no biliary dilatation. IMPRESSION: 1. Small, well-defined abscess in the upper pole of the right kidney with a well defined fluid collection/abscess extending cranially into the perinephric space. 2. New, small right pleural effusion. 3. The small nodule in the left lower lobe suspicious for a septic embolus. Location code: [facility] at 2206 Reported and signed by: Vitor Estrada M.D. CC: Tyler Gutierrez MD Technologist:KAILEY CHUN(R),RDMS,CT CTDI: DLP: Trnscb Date/Time: 04/09/2020 (2205) LacieW Orig Print D/T: S: 04/09/2020 (1015) PAGE 1 Signed Report [id number] 21:29:00* Test Item Value Reference Range Interpretation Comments MAGNESIUM (test code = MAG) 1.7 mg/dL 1.6-2.3 N DRUGS OF ABUSE SCREEN [id number] 21:19:00* Test Item Value Reference Range Interpretation Comments URN COCAINE (test code = COCAURN) NEGATIVE NEGATIVE URN CANNABINOIDS (test code = CANNABURN) NEGATIVE NEGATIVE URN AMPHETAMINE (test code = AMPHETURN) NEGATIVE NEGATIVE URN BARBITURATE (test code = BARBITURN) NEGATIVE NEGATIVE URN BENZODIAZEPINE (test code = BENZOURN) NEGATIVE NEGATIVE URN OPIATES (test code = OPIATURN) NEGATIVE NEGATIVE URN PHENCYCLIDINE (PCP) (test code = PHENCURN) NEGATIVE NEGATIV E URINALYSIS [id number] 21:13:00* Test Item Value Reference Range Interpretation Comments UA COLOR (test code = COLU) YELLOW YELLOW UA APPEARANCE (test code = APPU) HAZY CLEAR A UA GLUCOSE DIPSTICK (test code = DGLUU) 1000 (3+) mg/dL NEGATIVE A UA BILIRUBIN DIPSTICK (test code = BILU) NEGATIVE mg/dL NEGATIVE UA KETONE DIPSTICK (test code = KETU) 150 (4+) mg/dL NEGATIVE A UA SPECIFIC GRAVITY (test code = SGU) 1.005 1.001-1.035 UA BLOOD DIPSTICK (test code = PARUL) 10 (Trace) Alonzo/uL NEGATIVE A UA PH DIPSTICK (test code = JUSTINA) 7.0 5.0-8.0 UA PROTEIN DIPSTICK (test code = PROU) 15 (TRACE) mg/dL Neg-15 A UA UROBILINIOGEN DIPSTICK (test code = URO) 4 mg/dL (2+) mg/dL 0.0 -0.2 A UA NITRITE DIPSTICK (test code = SALOME) NEGATIVE NEGATIVE UA LEUKOCYTE ESTERASE DIPSTICK (test code = LEUU) neg uL NEGA TIVE UA WBC (test code = WBCU) 0-5 per HPF 0-5 UA RBC (test code = RBCU) 0-3 per HPF 0-5 UA EPITHELIAL CELLS (test code = EPIU) Few (2-5/hpf) per HPF Few UA BACTERIA (test code = BACU) FEW per HPF NONE Urine Source? Clean CatchUR HCG [id number] 21:13:00* Test Item Value Reference Range Interpretation Comments UR HCG QUAL (test code = HCGQLU) NEGATIVE This HCGQL test is NOT applicable for MALE patients.Check with nurse about probable order error.If Tumor Marker Test needed, nurse should order test "HCGTU"(Test #[id number]) Urine Source? Clean CatchURINALYSIS [id number] 21:12:00* Test Item Value Reference Range Interpretation Comments UA COLOR (test code = COLU) YELLOW YELLOW UA APPEARANCE (test code = APPU) HAZY CLEAR A UA GLUCOSE DIPSTICK (test code = DGLUU) 1000 (3+) mg/dL NEGATIVE A UA BILIRUBIN DIPSTICK (test code = BILU) NEGATIVE mg/dL NEGATIVE UA KETONE DIPSTICK (test code = KETU) 150 (4+) mg/dL NEGATIVE A UA SPECIFIC GRAVITY (test code = SGU) 1.005 1.001-1.035 UA BLOOD DIPSTICK (test code = PARUL) 10 (Trace) Alonzo/uL NEGATIVE A UA PH DIPSTICK (test code = JUSTINA) 7.0 5.0-8.0 UA PROTEIN DIPSTICK (test code = PROU) 15 (TRACE) mg/dL Neg-15 A UA UROBILINIOGEN DIPSTICK (test code = URO) 4 mg/dL (2+) mg/dL 0.0 -0.2 A UA NITRITE DIPSTICK (test code = SALOME) NEGATIVE NEGATIVE UA LEUKOCYTE ESTERASE DIPSTICK (test code = LEUU) neg uL NEGA TIVE UA WBC (test code = WBCU) per HPF 0-5 UA RBC (test code = RBCU) per HPF 0-5 UA EPITHELIAL CELLS (test code = EPIU) per HPF Few UA BACTERIA (test code = BACU) per HPF NONE Urine Source? Clean CatchUR HCG [id number] 21:12:00* Test Item Value Reference Range Interpretation Comments UR HCG QUAL (test code = HCGQLU) Urine Source? Clean CatchBASIC METABOLIC [id number] 20:12:00* Test Item Value Reference Range Interpretation Comments SODIUM (test code = NA) 131 mmol/L 135-148 L POTASSIUM (test code = K) 2.7 mmol/L 3.5-5.1 LL Re sults called to KATHRYN BUTLER by V.ANN-MARIE.AV1 04/09/20 2012Critical results verified and read back by Nurse? Y CHLORIDE (test code = CL) 94 mmol/L 101-109 L CARBON DIOXIDE (test code = CO2) 19.7 mmol/L 21-32 L ANION GAP (test code = GAP) 20 mmol/L 10-20 N GLUCOSE (test code = GLU) 328 mg/dL 74-106 H BLOOD UREA NITROGEN (test code = BUN) 3 mg/dL 3-21 N GLOMERULAR FILTRATION RATE (test code = GFR) > 60 mL/min >=60 Estimated GFR by using Modified MDRD formula.Chronic kidney disease is defined as either kidney damageor GFR <60 mL/min/1.73 m2 for >3 months. CREATININE (test code = CREAT) 0.76 mg/dL 0.55-1.3 N BUN/CREATININE RATIO (test code = BUN/CREA) 3.9 10-20 L CALCIUM (test code = CA) 9.1 mg/dL 8.4-10.2 N HEPATIC FUNCTION [id number] 20:12:00* Test Item Value Reference Range Interpretation Comments TOTAL PROTEIN (test code = PROT) 8.7 g/dL 6.5-8.4 H ALBUMIN (test code = ALB) 2.2 g/dL 3.4-4.8 L GLOBULIN (test code = GLOB) 6.5 G/DL 1-10 N ALBUMIN/GLOBULIN RATIO (test code = A/G) 0.3 RATIO 0.75-1.50 L BILIRUBIN TOTAL (test code = BILT) 0.50 mg/dL 0.0-1.0 N BILIRUBIN DIRECT (test code = BILD) 0.20 mg/dL 0.0-0.30 N SGOT/AST (test code = AST) 17 U/L 6-32 N SGPT/ALT (test code = ALT) 20 U/L 12-78 N N ote: Change in REFERENCE RANGE due to new reagent method. ALKALINE PHOSPHATASE TOTAL (test code = ALKP) 163 U/L 38-126 H [id number] 20:12:00* Test Item Value Reference Range Interpretation Comments LIPASE (test code = LIP) 283 U/L 128-270 H CBC W/O [id number] 19:58:00* Test Item Value Reference Range Interpretation Comments WHITE BLOOD CELL (test code = WBC) 12.8 K/mm3 4.5-12.5 H RED BLOOD CELL (test code = RBC) 4.59 mill/mm3 3.7-5.2 N HEMOGLOBIN (test code = HGB) 12.0 gram/dL 11.5-15.5 N HEMATOCRIT (test code = HCT) 35.9 % 36.0-46.0 L MEAN CELL VOLUME (test code = MCV) 78.2 fL 80-98 L MEAN CELL HGB (test code = MCH) 26.1 picogram 27.0-33.0 L MEAN CELL HGB CONCETRATION (test code = MCHC) 33.4 gram/dL 33.0-36. 0 N RED CELL DISTRIBUTION WIDTH (test code = RDW) 12.9 % 11.6-16. 2 N RED CELL DISTRIBUTION WIDTH SD (test code = RDW-SD) 36.6 fL 37 .0-51.0 L PLATELET COUNT (test code = PLT) 416 K/mm3 150-450 N MEAN PLATELET VOLUME (test code = MPV) 10.2 fL 6.7-11.0 N [id number] 19:29:00* Test Item Value Reference Range Interpretation Comments GLUBED (test code = GLUBED) 320 mg/dL 74-106 H Performed by certified plate and frame filter operator at [facility] [id number] 11:43:00* Test Item Value Reference Range Interpretation Comments GLUBED (test code = GLUBED) 218 mg/dL 74-106 H Performed by certified plate and frame filter operator at [facility] [id number] 07:58:00* Test Item Value Reference Range Interpretation Comments GLUBED (test code = GLUBED) 216 mg/dL 74-106 H Performed by certified plate and frame filter operator at [facility] BASIC METABOLIC [id number] 05:17:00* Test Item Value Reference Range Interpretation Comments SODIUM (test code = NA) 133 mmol/L 136-145 L POTASSIUM (test code = K) 3.1 mmol/L 3.5-5.1 L CHLORIDE (test code = CL) 101.0 mmol/L 98-107 N CARBON DIOXIDE (test code = CO2) 24.0 mmol/L 21-32 N ANION GAP (test code = GAP) 11.1 10-20 N GLUCOSE (test code = GLU) 226 mg/dL 74-106 H BLOOD UREA NITROGEN (test code = BUN) 6 mg/dL 7-18 L GLOMERULAR FILTRATION RATE (test code = GFR) > 60 mL/min >=60 Estimated GFR by using Modified MDRD formula.Chronic kidney disease is defined as either kidney damageor GFR <60 mL/min/1.73 m2 for >3 months. CREATININE (test code = CREAT) 0.30 mg/dL 0.55-1.02 L Note change in reference range due to change in reagent. BUN/CREATININE RATIO (test code = BUN/CREA) 17.2 10-20 N CALCIUM (test code = CA) 8.5 mg/dL 8.5-10.1 N BASIC METABOLIC [id number] 03:30:00* Test Item Value Reference Range Interpretation Comments SODIUM (test code = NA) 133 mmol/L 136-145 L POTASSIUM (test code = K) 3.1 mmol/L 3.5-5.1 L CHLORIDE (test code = CL) 102.0 mmol/L 98-107 N CARBON DIOXIDE (test code = CO2) 23.0 mmol/L 21-32 N ANION GAP (test code = GAP) 11.1 10-20 N GLUCOSE (test code = GLU) 219 mg/dL 74-106 H BLOOD UREA NITROGEN (test code = BUN) 6 mg/dL 7-18 L GLOMERULAR FILTRATION RATE (test code = GFR) > 60 mL/min >=60 Estimated GFR by using Modified MDRD formula.Chronic kidney disease is defined as either kidney damageor GFR <60 mL/min/1.73 m2 for >3 months. CREATININE (test code = CREAT) 0.50 mg/dL 0.55-1.02 L Note change in reference range due to change in reagent. BUN/CREATININE RATIO (test code = BUN/CREA) 11.7 10-20 N CALCIUM (test code = CA) 8.6 mg/dL 8.5-10.1 N [id number] 03:30:00* Test Item Value Reference Range Interpretation Comments PHOSPHORUS (test code = PHOS) 2.6 mg/dL 2.5-4.9 N [id number] 03:30:00* Test Item Value Reference Range Interpretation Comments MAGNESIUM (test code = MAG) 2.2 mg/dL 1.8-2.4 N CALCIUM [id number] 03:30:00* Test Item Value Reference Range Interpretation Comments CALCIUM IONIZED (test code = MISSY) 1.26 mmol/L 1.12-1.32 N CBC W/AUTO [id number] 03:27:00* Test Item Value Reference Range Interpretation Comments WHITE BLOOD CELL (test code = WBC) 10.2 K/mm3 4.5-12.5 N RED BLOOD CELL (test code = RBC) 3.82 mill/mm3 3.7-5.2 N HEMOGLOBIN (test code = HGB) 10.3 gram/dL 11.5-15.5 L HEMATOCRIT (test code = HCT) 30.7 % 36.0-46.0 L MEAN CELL VOLUME (test code = MCV) 80.4 fL 80-98 N MEAN CELL HGB (test code = MCH) 27.0 picogram 27.0-33.0 N MEAN CELL HGB CONCETRATION (test code = MCHC) 33.6 gram/dL 33.0-36. 0 N RED CELL DISTRIBUTION WIDTH (test code = RDW) 13.9 % 11.6-16. 2 N RED CELL DISTRIBUTION WIDTH SD (test code = RDW-SD) 40.6 fL 37 .0-51.0 N PLATELET COUNT (test code = PLT) 239 K/mm3 150-450 RESULT VERIFIED BY REPEAT ANALYSIS MEAN PLATELET VOLUME (test code = MPV) 11.5 fL 6.7-11.0 H NEUTROPHIL % (test code = NT%) 67.9 % 39.0-69.0 N IMMATURE GRANULOCYTE % (test code = IG%) 2.5 % 0.0-5.0 N LYMPHOCYTE % (test code = LY%) 18.3 % 25.0-55.0 L MONOCYTE % (test code = MO%) 10.2 % 0.0-10.0 H EOSINOPHIL % (test code = EO%) 0.7 % 0.0-5.0 N BASOPHIL % (test code = BA%) 0.4 % 0.0-1.0 N NUCLEATED RBC % (test code = NRBC%) 0.0 % 0-0 N NEUTROPHIL # (test code = NT#) 6.92 K/mm3 1.8-7.7 N IMMATURE GRANULOCYTE # (test code = IG#) 0.25 x10 3/uL 0-0.03 H LYMPHOCYTE # (test code = LY#) 1.86 K/mm3 1.0-5.0 N MONOCYTE # (test code = MO#) 1.04 K/mm3 0-0.8 H EOSINOPHIL # (test code = EO#) 0.07 K/mm3 0.0-0.5 N BASOPHIL # (test code = BA#) 0.04 K/mm3 0.0-0.2 N NUCLEATED RBC # (test code = NRBC#) 0.00 K/mm3 0.0-0.1 N MANUAL DIFF REQUIRED (test code = MDIFF) NO BASIC METABOLIC [id number] 03:24:00* Test Item Value Reference Range Interpretation Comments SODIUM (test code = NA) 133 mmol/L 136-145 L POTASSIUM (test code = K) 3.1 mmol/L 3.5-5.1 L CHLORIDE (test code = CL) 102.0 mmol/L 98-107 N CARBON DIOXIDE (test code = CO2) mmol/L 21-32 ANION GAP (test code = GAP) 10-20 GLUCOSE (test code = GLU) mg/dL 74-106 BLOOD UREA NITROGEN (test code = BUN) mg/dL 7-18 GLOMERULAR FILTRATION RATE (test code = GFR) mL/min >=60 CREATININE (test code = CREAT) mg/dL 0.55-1.02 BUN/CREATININE RATIO (test code = BUN/CREA) 10-20 CALCIUM (test code = CA) mg/dL 8.5-10.1 [id number] 03:24:00* Test Item Value Reference Range Interpretation Comments PHOSPHORUS (test code = PHOS) mg/dL 2.5-4.9 [id number] 03:24:00* Test Item Value Reference Range Interpretation Comments MAGNESIUM (test code = MAG) mg/dL 1.8-2.4 CALCIUM [id number] 03:24:00* Test Item Value Reference Range Interpretation Comments CALCIUM IONIZED (test code = MISSY) 1.26 mmol/L 1.12-1.32 N BASIC METABOLIC [id number] 03:19:00* Test Item Value Reference Range Interpretation Comments SODIUM (test code = NA) mmol/L 136-145 POTASSIUM (test code = K) mmol/L 3.5-5.1 CHLORIDE (test code = CL) mmol/L 98-107 CARBON DIOXIDE (test code = CO2) mmol/L 21-32 ANION GAP (test code = GAP) 10-20 GLUCOSE (test code = GLU) mg/dL 74-106 BLOOD UREA NITROGEN (test code = BUN) mg/dL 7-18 GLOMERULAR FILTRATION RATE (test code = GFR) mL/min >=60 CREATININE (test code = CREAT) mg/dL 0.55-1.02 BUN/CREATININE RATIO (test code = BUN/CREA) 10-20 CALCIUM (test code = CA) mg/dL 8.5-10.1 [id number] 03:19:00* Test Item Value Reference Range Interpretation Comments PHOSPHORUS (test code = PHOS) mg/dL 2.5-4.9 [id number] 03:19:00* Test Item Value Reference Range Interpretation Comments MAGNESIUM (test code = MAG) mg/dL 1.8-2.4 CALCIUM [id number] 03:19:00* Test Item Value Reference Range Interpretation Comments CALCIUM IONIZED (test code = MISSY) 1.26 mmol/L 1.12-1.32 N [id number] 02:13:00* Test Item Value Reference Range Interpretation Comments GLUBED (test code = GLUBED) 205 mg/dL 74-106 H Performed by certified plate and frame filter operator at [facility] [id number] 20:33:00* Test Item Value Reference Range Interpretation Comments GLUBED (test code = GLUBED) 172 mg/dL 74-106 H Performed by certified plate and frame filter operator at [facility] BASIC METABOLIC [id number] 18:14:00* Test Item Value Reference Range Interpretation Comments SODIUM (test code = NA) TEST NOT PERFORMED mmol/L 136-145 RESULT VERIFIED BY REPEAT ANALYSISPreviously reported result: 139 mmol/LEdited by: ROSA on 04/05/20:703644 1813: NA previously reported as: 139 D mmol/L RESULT VERIFIED BY REPEAT ANALYSISV.LAB.SPR 04/05/20 1600 POTASSIUM (test code = K) TEST NOT PERFORMED mmol/L 3.5-5.1 Previously reported result: 3.4 mmol/LEdited by: V.LAB.SPR on 04/05/20:652930 1813: K previously reported as: 3.4 L mmol/L CHLORIDE (test code = CL) TEST NOT PERFORMED mmol/L 98-107 N Previously reported result: 103.0 mmol/LEdited by: V.LAB.SPR on 04/05/20:2297761813: CL previously reported as: 103.0 mmol/L CARBON DIOXIDE (test code = CO2) TEST NOT PERFORMED mmol/L 21-32 N Previously reported result: 25.0 mmol/LEdited by: V.LAB.SPR on 04/05/20:181304/05/201813: CO2 previously reported as: 25.0 mmol/L ANION GAP (test code = GAP) TEST NOT PERFORMED 04-21 N Previously reported result: 14.4 Edited by: [facility].LAB.SPR on 04/05/20:181304/05/201813: ANION GAP previously reported as: 14.4 GLUCOSE (test code = GLU) TEST NOT PERFORMED mg/dL 74-106 Previously reported result: 114 mg/dLEdited by: V.LAB.SPR on 04/05/20:181304/05/201813: GLU previously reported as: 114 H mg/dL BLOOD UREA NITROGEN (test code = BUN) TEST NOT PERFORMED mg/dL 7-18 RESULT VERIFIED BY REPEAT ANALYSISPreviously reported result: 41 mg/dLEdited by: [facility].LAB.SPR on 04/05/20:181304/05/201813: BUN previously reported as: 41 DH mg/dL RESULT VERIFIED BY REPEAT ANALYSIS GLOMERULAR FILTRATION RATE (test code = GFR) TEST NOT PERFORMED mL/ min >=60 Previously reported result: 6 mL/minEdited by: V.LAB.SPR on 04/05/20:181304/05/201813: GFR previously reported as: 6 mL/min CREATININE (test code = CREAT) TEST NOT PERFORMED mg/dL 0.55-1.02 RESULT VERIFIED BY REPEAT ANALYSISPreviously reported result: 7.80 mg/dLEdited by: ChiquitaLAB.SPR on 04/05/20:181304/05/201813: CREAT previously reported as: 7.80 DH mg/dL RESULT VERIFIED BY REPEAT ANALYSIS BUN/CREATININE RATIO (test code = BUN/CREA) TEST NOT PERFORMED 10-2 0 Previously reported result: 5.3 Edited by: ChiquitaLAB.SPR on 04/05/20:181304/05/201813: BUN/CREA previously reported as: 5.3 L CALCIUM (test code = CA) TEST NOT PERFORMED mg/dL 8.5-10.1 Previously reported result: 7.8 mg/dLEdited by: ChiquitaLAB.SPR on 04/05/20:1813: CA previously reported as: 7.8 L mg/dL [id number] 18:14:00* Test Item Value Reference Range Interpretation Comments PHOSPHORUS (test code = PHOS) TEST NOT PERFORMED mg/dL 2.5-4.9 N Previously reported result: 4.9 mg/dLEdited by: ChiquitaLAB.SPR on 04/05/20:181304/05/201813: PHOS previously reported as: 4.9 mg/dL [id number] 18:14:00* Test Item Value Reference Range Interpretation Comments MAGNESIUM (test code = MAG) TEST NOT PERFORMED mg/dL 1.8-2.4 Previously reported result: 1.7 mg/dLEdited by: ChiquitaLAB.SPR on 04/05/20:181304/05/201813: MAG previously reported as: 1.7 L mg/dL CALCIUM [id number] 18:14:00* Test Item Value Reference Range Interpretation Comments CALCIUM IONIZED (test code = MISSY) TEST NOT PERFORMED mmol/L 1.12-1. 32 Previously reported result: 1.09 mmol/LEdited by: ChiquitaLAB.SPR on 04/05/20:1813: CA IONIZED previously reported as: 1.09 L mmol/L CBC W/AUTO [id number] 18:09:00* Test Item Value Reference Range Interpretation Comments WHITE BLOOD CELL (test code = WBC) TEST NOT PERFORMED K/mm3 4.5-12. 5 N Previously reported result: 9.4 K/nw7Rrrxtu by: Juan Luis.LAB.SPR on 04/05/20:1805 WBC previously reported as: 9.4 K/mm3V.LAB.SPR 04/05/20 1600 CORRECTED WBC (test code = CWBC) TEST NOT PERFORMED K/mm3 4.0-13.0 RED BLOOD CELL (test code = RBC) TEST NOT PERFORMED mill/mm3 3.7-5. 2 Previously reported result: 2.99 mill/pw9Uzhuby by: Juan Luis.LAB.SPR on 04/05/20:180604/05/201806: RBC previously reported as: 2.99 L mill/mm3 HEMOGLOBIN (test code = HGB) TEST NOT PERFORMED gram/dL 11.5-15.5 RESULT VERIFIED BY REPEAT ANALYSISPreviously reported result: 8.5 gram/dLEdited by: ChiquitaLAB.SPR on 04/05/20:180604/05/201806: HGB previously reported as: 8.5 DL gram/dL RESULT VERIFIED BY REPEAT ANALYSIS HEMATOCRIT (test code = HCT) TEST NOT PERFORMED % 36.0-46.0 Previously reported result: 27.5 %Edited by: Juan Luis.LAB.SPR on 04/05/20:180604/05/201806: HCT previously reported as: 27.5 L % MEAN CELL VOLUME (test code = MCV) TEST NOT PERFORMED fL 80-98 RESULT VERIFIED BY REPEAT ANALYSISPreviously reported result: 92.0 fLEdited by: ChiquitaLAB.SPR on 04/05/20:180604/05/201806: MCV previously reported as: 92.0 D fL RESULT VERIFIED BY REPEAT ANALYSIS MEAN CELL HGB (test code = MCH) TEST NOT PERFORMED picogram 27.0-33 .0 N Previously reported result: 28.4 picogramEdited by: Juan Luis.LAB.SPR on 04/05/20:180604/05/201806: MCH previously reported as: 28.4 picogram MEAN CELL HGB CONCETRATION (test code = MCHC) TEST NOT PERFO RMED gram/dL 33.0-36.0 Previously reported result: 30.9 gram/dLEdited by: V.LAB.SPR on 04/05/20:180604/05/201806: MCHC previously reported as: 30.9 L gram/dL RED CELL DISTRIBUTION WIDTH (test code = RDW) TEST NOT PERFORMED % 11.6-16.2 Previously reported result: 17.6 %Edited by: ROSA on 04/05/20:180604/05/20 180: RDW previously reported as: 17.6 H % RED CELL DISTRIBUTION WIDTH SD (test code = RDW-SD) TEST NOT PERFORMED fL 37.0-51.0 Previously reported result: 59.5 fLEdited by: CLAUSSPR on 04/05/20:1807: RDW-SD previously reported as: 59.5 H fL PLATELET COUNT (test code = PLT) TEST NOT PERFORMED K/mm3 150-450 RESULT VERIFIED BY REPEAT ANALYSISPreviously reported result: 242 K/kh8Qagqrz by: ROSA on 04/05/20:180704/05/201807: PLT previously reported as: 242 D K/mm3 RESULT VERIFIED BY REPEAT ANALYSIS MEAN PLATELET VOLUME (test code = MPV) TEST NOT PERFORMED fL 6.7-11 .0 Previously reported result: 11.1 fLEdited by: ROSA on 04/05/20:1807: MPV previously reported as: 11.1 H fL NEUTROPHIL % (test code = NT%) TEST NOT PERFORMED % 39.0-69.0 N Previously reported result: 62.4 %Edited by: ROSA on 04/05/20:180704/05/201807: NEUT % previously reported as: 62.4 % IMMATURE GRANULOCYTE % (test code = IG%) TEST NOT PERFORMED % 0.0-5 .0 N Previously reported result: 0.6 %Edited by: CLAUSSPR on 04/05/20:180704/05/201807: IMM GRAN % previously reported as: 0.6 % LYMPHOCYTE % (test code = LY%) TEST NOT PERFORMED % 25.0-55.0 Previously reported result: 9.8 %Edited by: CLAUSSPR on 04/05/20:180804/05/201808: LYMPH % previously reported as: 9.8 L % MONOCYTE % (test code = MO%) TEST NOT PERFORMED % 0.0-10.0 Previously reported result: 15.0 %Edited by: V.LAB.SPR on 04/05/20:374448 180: MONO % previously reported as: 15.0 H % EOSINOPHIL % (test code = EO%) TEST NOT PERFORMED % 0.0-5.0 Previously reported result: 11.6 %Edited by: [facility].LAB.SPR on 04/05/20:180804/05/20 180: EOS % previously reported as: 11.6 H % BASOPHIL % (test code = BA%) TEST NOT PERFORMED % 0.0-1.0 N Previously reported result: 0.6 %Edited by: [facility].LAB.SPR on 04/05/20:180804/05/201808: BASO % previously reported as: 0.6 % NUCLEATED RBC % (test code = NRBC%) TEST NOT PERFORMED % 0-0 N Previously reported result: 0.0 %Edited by: [facility].LAB.SPR on 04/05/20:180804/05/201808: NRBC% previously reported as: 0.0 % NEUTROPHIL # (test code = NT#) TEST NOT PERFORMED K/mm3 1.8-7.7 N Previously reported result: 5.83 K/fl3Sebuop by: [facility].LAB.SPR on 04/05/20:180804/05/201808: NEUT # previously reported as: 5.83 K/mm3 IMMATURE GRANULOCYTE # (test code = IG#) TEST NOT PERFORMED x10 3/u L 0-0.03 Previously reported result: 0.06 x10\\S\\3/uLEdited by: [facility].LAB.SPR on 04/05/20:180804/05/201808: IMM GRAN # previously reported as: 0.06 H x10\\S\\3/uL LYMPHOCYTE # (test code = LY#) TEST NOT PERFORMED K/mm3 1.0-5.0 Previously reported result: 0.92 K/fi2Njwrpm by: [facility].LAB.SPR on 04/05/20:180804/05/201808: LYMPH # previously reported as: 0.92 L K/mm3 MONOCYTE # (test code = MO#) TEST NOT PERFORMED K/mm3 0-0.8 Previously reported result: 1.40 K/wq4Clkfid by: [facility].LAB.SPR on 04/05/20:180804/05/201808: MONO # previously reported as: 1.40 H K/mm3 EOSINOPHIL # (test code = EO#) TEST NOT PERFORMED K/mm3 0.0-0.5 Previously reported result: 1.08 K/wl9Wmkzxf by: [facility].LAB.SPR on 04/05/20: 1809: EOS # previously reported as: 1.08 H K/mm3 BASOPHIL # (test code = BA#) TEST NOT PERFORMED K/mm3 0.0-0.2 N Previously reported result: 0.06 K/[id number] by: V.[facility].SPR on 04/05/20: 1809: BASO # previously reported as: 0.06 K/mm3 NUCLEATED RBC # (test code = NRBC#) TEST NOT PERFORMED K/mm3 0.0-0. 1 N Previously reported result: 0.00 K/kn1Arguxu by: [facility].SPR on 04/05/20:180804/05/20 1809: NRBC# previously reported as: 0.00 K/mm3 [id number] 16:19:00* Test Item Value Reference Range Interpretation Comments GLUBED (test code = GLUBED) 194 mg/dL 74-106 H Performed by certified plate and frame filter operator at [facility] [id number] 11:27:00* Test Item Value Reference Range Interpretation Comments GLUBED (test code = GLUBED) 202 mg/dL 74-106 H Performed by certified plate and frame filter operator at [facility] BASIC METABOLIC [id number] 08:48:00* Test Item Value Reference Range Interpretation Comments SODIUM (test code = NA) 132 mmol/L 136-145 L RESU LT VERIFIED BY REPEAT ANALYSIS POTASSIUM (test code = K) 3.3 mmol/L 3.5-5.1 L CHLORIDE (test code = CL) 101.0 mmol/L 98-107 N CARBON DIOXIDE (test code = CO2) 21.0 mmol/L 21-32 N ANION GAP (test code = GAP) 13.3 10-20 N GLUCOSE (test code = GLU) 217 mg/dL 74-106 H BLOOD UREA NITROGEN (test code = BUN) 5 mg/dL 7-18 L RESULT VERIFIED BY REPEAT ANALYSIS GLOMERULAR FILTRATION RATE (test code = GFR) > 60 mL/min >=60 Estimated GFR by using Modified MDRD formula.Chronic kidney disease is defined as either kidney damageor GFR <60 mL/min/1.73 m2 for >3 months. CREATININE (test code = CREAT) 0.40 mg/dL 0.55-1.02 L RESULT VERIFIED BY REPEAT ANALYSISNote change in reference range due to change in reagent. BUN/CREATININE RATIO (test code = BUN/CREA) 12.5 10-20 N CALCIUM (test code = CA) 8.9 mg/dL 8.5-10.1 N [id number] 08:48:00* Test Item Value Reference Range Interpretation Comments PHOSPHORUS (test code = PHOS) 2.2 mg/dL 2.5-4.9 L [id number] 08:48:00* Test Item Value Reference Range Interpretation Comments MAGNESIUM (test code = MAG) 2.1 mg/dL 1.8-2.4 N CALCIUM [id number] 08:48:00* Test Item Value Reference Range Interpretation Comments CALCIUM IONIZED (test code = MISSY) 1.29 mmol/L 1.12-1.32 N BASIC METABOLIC [id number] 08:25:00* Test Item Value Reference Range Interpretation Comments SODIUM (test code = NA) 132 mmol/L 136-145 L RESU LT VERIFIED BY REPEAT ANALYSIS POTASSIUM (test code = K) 3.3 mmol/L 3.5-5.1 L CHLORIDE (test code = CL) 101.0 mmol/L 98-107 N CARBON DIOXIDE (test code = CO2) mmol/L 21-32 ANION GAP (test code = GAP) 10-20 GLUCOSE (test code = GLU) mg/dL 74-106 BLOOD UREA NITROGEN (test code = BUN) mg/dL 7-18 GLOMERULAR FILTRATION RATE (test code = GFR) mL/min >=60 CREATININE (test code = CREAT) mg/dL 0.55-1.02 BUN/CREATININE RATIO (test code = BUN/CREA) 10-20 CALCIUM (test code = CA) mg/dL 8.5-10.1 [id number] 08:25:00* Test Item Value Reference Range Interpretation Comments PHOSPHORUS (test code = PHOS) mg/dL 2.5-4.9 [id number] 08:25:00* Test Item Value Reference Range Interpretation Comments MAGNESIUM (test code = MAG) mg/dL 1.8-2.4 CALCIUM [id number] 08:25:00* Test Item Value Reference Range Interpretation Comments CALCIUM IONIZED (test code = MISSY) 1.29 mmol/L 1.12-1.32 N BASIC METABOLIC [id number] 08:21:00* Test Item Value Reference Range Interpretation Comments SODIUM (test code = NA) mmol/L 136-145 POTASSIUM (test code = K) mmol/L 3.5-5.1 CHLORIDE (test code = CL) mmol/L 98-107 CARBON DIOXIDE (test code = CO2) mmol/L 21-32 ANION GAP (test code = GAP) 10-20 GLUCOSE (test code = GLU) mg/dL 74-106 BLOOD UREA NITROGEN (test code = BUN) mg/dL 7-18 GLOMERULAR FILTRATION RATE (test code = GFR) mL/min >=60 CREATININE (test code = CREAT) mg/dL 0.55-1.02 BUN/CREATININE RATIO (test code = BUN/CREA) 10-20 CALCIUM (test code = CA) mg/dL 8.5-10.1 [id number] 08:21:00* Test Item Value Reference Range Interpretation Comments PHOSPHORUS (test code = PHOS) mg/dL 2.5-4.9 [id number] 08:21:00* Test Item Value Reference Range Interpretation Comments MAGNESIUM (test code = MAG) mg/dL 1.8-2.4 CALCIUM [id number] 08:21:00* Test Item Value Reference Range Interpretation Comments CALCIUM IONIZED (test code = MISSY) 1.29 mmol/L 1.12-1.32 N [id number] 08:00:00* Test Item Value Reference Range Interpretation Comments GLUBED (test code = GLUBED) 201 mg/dL 74-106 H Performed by certified plate and frame filter operator at [facility] [id number] 05:48:00* Test Item Value Reference Range Interpretation Comments GLUBED (test code = GLUBED) 208 mg/dL 74-106 H Performed by certified plate and frame filter operator at [facility] BASIC METABOLIC [id number] 02:02:00* Test Item Value Reference Range Interpretation Comments SODIUM (test code = NA) 139 mmol/L 136-145 RESU LT VERIFIED BY REPEAT ANALYSIS POTASSIUM (test code = K) 3.4 mmol/L 3.5-5.1 L CHLORIDE (test code = CL) 103.0 mmol/L 98-107 N CARBON DIOXIDE (test code = CO2) 25.0 mmol/L 21-32 N ANION GAP (test code = GAP) 14.4 10-20 N GLUCOSE (test code = GLU) 114 mg/dL 74-106 H BLOOD UREA NITROGEN (test code = BUN) 41 mg/dL 7-18 H RESULT VERIFIED BY REPEAT ANALYSIS GLOMERULAR FILTRATION RATE (test code = GFR) 6 mL/min >=60 Estimated GFR by using Modified MDRD formula.Chronic kidney disease is defined as either kidney damageor GFR <60 mL/min/1.73 m2 for >3 months. CREATININE (test code = CREAT) 7.80 mg/dL 0.55-1.02 H RESULT VERIFIED BY REPEAT ANALYSISNote change in reference range due to change in reagent. BUN/CREATININE RATIO (test code = BUN/CREA) 5.3 10-20 L CALCIUM (test code = CA) 7.8 mg/dL 8.5-10.1 L [id number] 02:02:00* Test Item Value Reference Range Interpretation Comments PHOSPHORUS (test code = PHOS) 4.9 mg/dL 2.5-4.9 N [id number] 02:02:00* Test Item Value Reference Range Interpretation Comments MAGNESIUM (test code = MAG) 1.7 mg/dL 1.8-2.4 L CALCIUM [id number] 02:02:00* Test Item Value Reference Range Interpretation Comments CALCIUM IONIZED (test code = MISSY) 1.09 mmol/L 1.12-1.32 L CBC W/AUTO [id number] 01:56:00* Test Item Value Reference Range Interpretation Comments WHITE BLOOD CELL (test code = WBC) 9.4 K/mm3 4.5-12.5 N RED BLOOD CELL (test code = RBC) 2.99 mill/mm3 3.7-5.2 L HEMOGLOBIN (test code = HGB) 8.5 gram/dL 11.5-15.5 L RESULT VERIFIED BY REPEAT ANALYSIS HEMATOCRIT (test code = HCT) 27.5 % 36.0-46.0 L MEAN CELL VOLUME (test code = MCV) 92.0 fL 80-98 RESULT VERIFIED BY REPEAT ANALYSIS MEAN CELL HGB (test code = MCH) 28.4 picogram 27.0-33.0 N MEAN CELL HGB CONCETRATION (test code = MCHC) 30.9 gram/dL 33.0-36. 0 L RED CELL DISTRIBUTION WIDTH (test code = RDW) 17.6 % 11.6-16. 2 H RED CELL DISTRIBUTION WIDTH SD (test code = RDW-SD) 59.5 fL 37 .0-51.0 H PLATELET COUNT (test code = PLT) 242 K/mm3 150-450 RESULT VERIFIED BY REPEAT ANALYSIS MEAN PLATELET VOLUME (test code = MPV) 11.1 fL 6.7-11.0 H NEUTROPHIL % (test code = NT%) 62.4 % 39.0-69.0 N IMMATURE GRANULOCYTE % (test code = IG%) 0.6 % 0.0-5.0 N LYMPHOCYTE % (test code = LY%) 9.8 % 25.0-55.0 L MONOCYTE % (test code = MO%) 15.0 % 0.0-10.0 H EOSINOPHIL % (test code = EO%) 11.6 % 0.0-5.0 H BASOPHIL % (test code = BA%) 0.6 % 0.0-1.0 N NUCLEATED RBC % (test code = NRBC%) 0.0 % 0-0 N NEUTROPHIL # (test code = NT#) 5.83 K/mm3 1.8-7.7 N IMMATURE GRANULOCYTE # (test code = IG#) 0.06 x10 3/uL 0-0.03 H LYMPHOCYTE # (test code = LY#) 0.92 K/mm3 1.0-5.0 L MONOCYTE # (test code = MO#) 1.40 K/mm3 0-0.8 H EOSINOPHIL # (test code = EO#) 1.08 K/mm3 0.0-0.5 H BASOPHIL # (test code = BA#) 0.06 K/mm3 0.0-0.2 N NUCLEATED RBC # (test code = NRBC#) 0.00 K/mm3 0.0-0.1 N MANUAL DIFF REQUIRED (test code = MDIFF) NO BASIC METABOLIC [id number] 01:10:00* Test Item Value Reference Range Interpretation Comments SODIUM (test code = NA) mmol/L 136-145 POTASSIUM (test code = K) mmol/L 3.5-5.1 CHLORIDE (test code = CL) mmol/L 98-107 CARBON DIOXIDE (test code = CO2) mmol/L 21-32 ANION GAP (test code = GAP) 10-20 GLUCOSE (test code = GLU) mg/dL 74-106 BLOOD UREA NITROGEN (test code = BUN) mg/dL 7-18 GLOMERULAR FILTRATION RATE (test code = GFR) mL/min >=60 CREATININE (test code = CREAT) mg/dL 0.55-1.02 BUN/CREATININE RATIO (test code = BUN/CREA) 10-20 CALCIUM (test code = CA) mg/dL 8.5-10.1 [id number] 01:10:00* Test Item Value Reference Range Interpretation Comments PHOSPHORUS (test code = PHOS) mg/dL 2.5-4.9 [id number] 01:10:00* Test Item Value Reference Range Interpretation Comments MAGNESIUM (test code = MAG) mg/dL 1.8-2.4 CALCIUM [id number] 01:10:00* Test Item Value Reference Range Interpretation Comments CALCIUM IONIZED (test code = MISSY) 1.09 mmol/L 1.12-1.32 L [id number] 00:51:00* Test Item Value Reference Range Interpretation Comments GLUBED (test code = GLUBED) 234 mg/dL 74-106 H Performed by certified plate and frame filter operator at [facility] [id number] 22:09:00* Test Item Value Reference Range Interpretation Comments GLUBED (test code = GLUBED) 252 mg/dL 74-106 H Performed by certified plate and frame filter operator at [facility] [id number] 20:57:00* Test Item Value Reference Range Interpretation Comments GLUBED (test code = GLUBED) 247 mg/dL 74-106 H Performed by certified plate and frame filter operator at [facility] [id number] 18:32:00* Test Item Value Reference Range Interpretation Comments GLUBED (test code = GLUBED) 220 mg/dL 74-106 H Performed by certified plate and frame filter operator at [facility] [id number] 16:21:00* Test Item Value Reference Range Interpretation Comments GLUBED (test code = GLUBED) 174 mg/dL 74-106 H Performed by certified plate and frame filter operator at [facility] [id number] 15:09:00* Test Item Value Reference Range Interpretation Comments GLUBED (test code = GLUBED) 143 mg/dL 74-106 H Performed by certified plate and frame filter operator at [facility] [id number] 14:09:00* Test Item Value Reference Range Interpretation Comments GLUBED (test code = GLUBED) 154 mg/dL 74-106 H Performed by certified plate and frame filter operator at [facility] BASIC METABOLIC [id number] 13:36:00* Test Item Value Reference Range Interpretation Comments SODIUM (test code = NA) 130 mmol/L 136-145 L POTASSIUM (test code = K) 3.1 mmol/L 3.5-5.1 L CHLORIDE (test code = CL) 101.0 mmol/L 98-107 N CARBON DIOXIDE (test code = CO2) 19.0 mmol/L 21-32 L ANION GAP (test code = GAP) 13.1 10-20 N GLUCOSE (test code = GLU) 173 mg/dL 74-106 H BLOOD UREA NITROGEN (test code = BUN) 3 mg/dL 7-18 L GLOMERULAR FILTRATION RATE (test code = GFR) > 60 mL/min >=60 Estimated GFR by using Modified MDRD formula.Chronic kidney disease is defined as either kidney damageor GFR <60 mL/min/1.73 m2 for >3 months. CREATININE (test code = CREAT) 0.30 mg/dL 0.55-1.02 L Note change in reference range due to change in reagent. BUN/CREATININE RATIO (test code = BUN/CREA) 10.0 10-20 N CALCIUM (test code = CA) 8.7 mg/dL 8.5-10.1 N [id number] 13:36:00* Test Item Value Reference Range Interpretation Comments PHOSPHORUS (test code = PHOS) 2.2 mg/dL 2.5-4.9 L [id number] 13:36:00* Test Item Value Reference Range Interpretation Comments MAGNESIUM (test code = MAG) 1.9 mg/dL 1.8-2.4 N CALCIUM [id number] 13:36:00* Test Item Value Reference Range Interpretation Comments CALCIUM IONIZED (test code = MISSY) 1.27 mmol/L 1.12-1.32 N BASIC METABOLIC [id number] 13:33:00* Test Item Value Reference Range Interpretation Comments SODIUM (test code = NA) mmol/L 136-145 POTASSIUM (test code = K) mmol/L 3.5-5.1 CHLORIDE (test code = CL) mmol/L 98-107 CARBON DIOXIDE (test code = CO2) mmol/L 21-32 ANION GAP (test code = GAP) 10-20 GLUCOSE (test code = GLU) mg/dL 74-106 BLOOD UREA NITROGEN (test code = BUN) mg/dL 7-18 GLOMERULAR FILTRATION RATE (test code = GFR) mL/min >=60 CREATININE (test code = CREAT) mg/dL 0.55-1.02 BUN/CREATININE RATIO (test code = BUN/CREA) 10-20 CALCIUM (test code = CA) mg/dL 8.5-10.1 [id number] 13:33:00* Test Item Value Reference Range Interpretation Comments PHOSPHORUS (test code = PHOS) mg/dL 2.5-4.9 [id number] 13:33:00* Test Item Value Reference Range Interpretation Comments MAGNESIUM (test code = MAG) mg/dL 1.8-2.4 CALCIUM [id number] 13:33:00* Test Item Value Reference Range Interpretation Comments CALCIUM IONIZED (test code = MISSY) 1.27 mmol/L 1.12-1.32 N CBC W/AUTO [id number] 13:22:00* Test Item Value Reference Range Interpretation Comments WHITE BLOOD CELL (test code = WBC) 13.9 K/mm3 4.5-12.5 H RED BLOOD CELL (test code = RBC) 4.06 mill/mm3 3.7-5.2 N HEMOGLOBIN (test code = HGB) 10.8 gram/dL 11.5-15.5 L HEMATOCRIT (test code = HCT) 31.5 % 36.0-46.0 L MEAN CELL VOLUME (test code = MCV) 77.6 fL 80-98 L MEAN CELL HGB (test code = MCH) 26.6 picogram 27.0-33.0 L MEAN CELL HGB CONCETRATION (test code = MCHC) 34.3 gram/dL 33.0-36. 0 N RED CELL DISTRIBUTION WIDTH (test code = RDW) 13.5 % 11.6-16. 2 N RED CELL DISTRIBUTION WIDTH SD (test code = RDW-SD) 38.5 fL 37 .0-51.0 N PLATELET COUNT (test code = PLT) 181 K/mm3 150-450 N MEAN PLATELET VOLUME (test code = MPV) 11.7 fL 6.7-11.0 H NEUTROPHIL % (test code = NT%) 73.8 % 39.0-69.0 H IMMATURE GRANULOCYTE % (test code = IG%) 2.5 % 0.0-5.0 N LYMPHOCYTE % (test code = LY%) 13.2 % 25.0-55.0 L MONOCYTE % (test code = MO%) 10.1 % 0.0-10.0 H EOSINOPHIL % (test code = EO%) 0.1 % 0.0-5.0 N BASOPHIL % (test code = BA%) 0.3 % 0.0-1.0 N NUCLEATED RBC % (test code = NRBC%) 0.0 % 0-0 N NEUTROPHIL # (test code = NT#) 10.24 K/mm3 1.8-7.7 H IMMATURE GRANULOCYTE # (test code = IG#) 0.34 x10 3/uL 0-0.03 H LYMPHOCYTE # (test code = LY#) 1.83 K/mm3 1.0-5.0 N MONOCYTE # (test code = MO#) 1.40 K/mm3 0-0.8 H EOSINOPHIL # (test code = EO#) 0.01 K/mm3 0.0-0.5 N BASOPHIL # (test code = BA#) 0.04 K/mm3 0.0-0.2 N NUCLEATED RBC # (test code = NRBC#) 0.00 K/mm3 0.0-0.1 N [id number] 12:43:00* Test Item Value Reference Range Interpretation Comments GLUBED (test code = GLUBED) 180 mg/dL 74-106 H Performed by certified plate and frame filter operator at [facility] [id number] 11:55:00* Test Item Value Reference Range Interpretation Comments GLUBED (test code = GLUBED) 182 mg/dL 74-106 H Performed by certified plate and frame filter operator at [facility] [id number] 10:42:00* Test Item Value Reference Range Interpretation Comments GLUBED (test code = GLUBED) 273 mg/dL 74-106 H Performed by certified plate and frame filter operator at [facility] [id number] 09:53:00* Test Item Value Reference Range Interpretation Comments GLUBED (test code = GLUBED) 254 mg/dL 74-106 H Performed by certified plate and frame filter operator at [facility] COMPREHENSIVE METABOLIC [id number] 09:32:00* Test Item Value Reference Range Interpretation Comments SODIUM (test code = NA) 131 mmol/L 136-145 L POTASSIUM (test code = K) 3.1 mmol/L 3.5-5.1 L CHLORIDE (test code = CL) 101.0 mmol/L 98-107 N CARBON DIOXIDE (test code = CO2) 20.0 mmol/L 21-32 L ANION GAP (test code = GAP) 13.1 10-20 N GLUCOSE (test code = GLU) 159 mg/dL 74-106 H BLOOD UREA NITROGEN (test code = BUN) 3 mg/dL 7-18 L GLOMERULAR FILTRATION RATE (test code = GFR) > 60 mL/min >=60 Estimated GFR by using Modified MDRD formula.Chronic kidney disease is defined as either kidney damageor GFR <60 mL/min/1.73 m2 for >3 months. CREATININE (test code = CREAT) 0.40 mg/dL 0.55-1.02 L Note change in reference range due to change in reagent. BUN/CREATININE RATIO (test code = BUN/CREA) 7.5 10-20 L TOTAL PROTEIN (test code = PROT) 7.1 gram/dL 6.4-8.2 N ALBUMIN (test code = ALB) 2.0 g/dL 3.4-5.0 L GLOBULIN (test code = GLOB) 5.1 gram/dL 2.7-4.2 H ALBUMIN/GLOBULIN RATIO (test code = A/G) 0.4 0.75-1.50 L CALCIUM (test code = CA) 8.6 mg/dL 8.5-10.1 N BILIRUBIN TOTAL (test code = BILT) 0.50 mg/dL 0.0-1.0 N SGOT/AST (test code = AST) 14 IUnit/L 15-37 L SGPT/ALT (test code = ALT) 20 IUnit/L 12-78 N ALKALINE PHOSPHATASE TOTAL (test code = ALKP) 128 IUnit/L 45-117 H Note change in reference range due to change in reagent. [id number] 09:32:00* Test Item Value Reference Range Interpretation Comments PHOSPHORUS (test code = PHOS) 1.6 mg/dL 2.5-4.9 L [id number] 09:32:00* Test Item Value Reference Range Interpretation Comments MAGNESIUM (test code = MAG) 2.0 mg/dL 1.8-2.4 N CALCIUM [id number] 09:32:00* Test Item Value Reference Range Interpretation Comments CALCIUM IONIZED (test code = MISSY) 1.28 mmol/L 1.12-1.32 N COMPREHENSIVE METABOLIC [id number] 09:31:00* Test Item Value Reference Range Interpretation Comments SODIUM (test code = NA) 131 mmol/L 136-145 L POTASSIUM (test code = K) 3.1 mmol/L 3.5-5.1 L CHLORIDE (test code = CL) 101.0 mmol/L 98-107 N CARBON DIOXIDE (test code = CO2) mmol/L 21-32 ANION GAP (test code = GAP) 10-20 GLUCOSE (test code = GLU) mg/dL 74-106 BLOOD UREA NITROGEN (test code = BUN) mg/dL 7-18 GLOMERULAR FILTRATION RATE (test code = GFR) mL/min >=60 CREATININE (test code = CREAT) mg/dL 0.55-1.02 BUN/CREATININE RATIO (test code = BUN/CREA) 10-20 TOTAL PROTEIN (test code = PROT) gram/dL 6.4-8.2 ALBUMIN (test code = ALB) g/dL 3.4-5.0 GLOBULIN (test code = GLOB) gram/dL 2.7-4.2 ALBUMIN/GLOBULIN RATIO (test code = A/G) 0.75-1.50 CALCIUM (test code = CA) mg/dL 8.5-10.1 BILIRUBIN TOTAL (test code = BILT) mg/dL 0.0-1.0 SGOT/AST (test code = AST) IUnit/L 15-37 SGPT/ALT (test code = ALT) IUnit/L 12-78 ALKALINE PHOSPHATASE TOTAL (test code = ALKP) IUnit/L 45-117 [id number] 09:31:00* Test Item Value Reference Range Interpretation Comments PHOSPHORUS (test code = PHOS) mg/dL 2.5-4.9 [id number] 09:31:00* Test Item Value Reference Range Interpretation Comments MAGNESIUM (test code = MAG) mg/dL 1.8-2.4 CALCIUM [id number] 09:31:00* Test Item Value Reference Range Interpretation Comments CALCIUM IONIZED (test code = MISSY) 1.28 mmol/L 1.12-1.32 N COMPREHENSIVE METABOLIC [id number] 09:20:00* Test Item Value Reference Range Interpretation Comments SODIUM (test code = NA) mmol/L 136-145 POTASSIUM (test code = K) mmol/L 3.5-5.1 CHLORIDE (test code = CL) mmol/L 98-107 CARBON DIOXIDE (test code = CO2) mmol/L 21-32 ANION GAP (test code = GAP) 10-20 GLUCOSE (test code = GLU) mg/dL 74-106 BLOOD UREA NITROGEN (test code = BUN) mg/dL 7-18 GLOMERULAR FILTRATION RATE (test code = GFR) mL/min >=60 CREATININE (test code = CREAT) mg/dL 0.55-1.02 BUN/CREATININE RATIO (test code = BUN/CREA) 10-20 TOTAL PROTEIN (test code = PROT) gram/dL 6.4-8.2 ALBUMIN (test code = ALB) g/dL 3.4-5.0 GLOBULIN (test code = GLOB) gram/dL 2.7-4.2 ALBUMIN/GLOBULIN RATIO (test code = A/G) 0.75-1.50 CALCIUM (test code = CA) mg/dL 8.5-10.1 BILIRUBIN TOTAL (test code = BILT) mg/dL 0.0-1.0 SGOT/AST (test code = AST) IUnit/L 15-37 SGPT/ALT (test code = ALT) IUnit/L 12-78 ALKALINE PHOSPHATASE TOTAL (test code = ALKP) IUnit/L 45-117 [id number] 09:20:00* Test Item Value Reference Range Interpretation Comments PHOSPHORUS (test code = PHOS) mg/dL 2.5-4.9 [id number] 09:20:00* Test Item Value Reference Range Interpretation Comments MAGNESIUM (test code = MAG) mg/dL 1.8-2.4 CALCIUM [id number] 09:20:00* Test Item Value Reference Range Interpretation Comments CALCIUM IONIZED (test code = MISSY) 1.28 mmol/L 1.12-1.32 N [id number] 08:56:00* Test Item Value Reference Range Interpretation Comments GLUBED (test code = GLUBED) 155 mg/dL 74-106 H Performed by certified plate and frame filter operator at [facility] [id number] 08:20:00* Test Item Value Reference Range Interpretation Comments GLUBED (test code = GLUBED) 182 mg/dL 74-106 H Performed by certified plate and frame filter operator at [facility] [id number] 07:40:00* Test Item Value Reference Range Interpretation Comments GLUBED (test code = GLUBED) 153 mg/dL 74-106 H Performed by certified plate and frame filter operator at [facility] COMPREHENSIVE METABOLIC [id number] 07:27:00* Test Item Value Reference Range Interpretation Comments SODIUM (test code = NA) 132 mmol/L 136-145 L POTASSIUM (test code = K) 3.1 mmol/L 3.5-5.1 L CHLORIDE (test code = CL) 102.0 mmol/L 98-107 N CARBON DIOXIDE (test code = CO2) 19.0 mmol/L 21-32 L ANION GAP (test code = GAP) 14.1 10-20 N GLUCOSE (test code = GLU) 150 mg/dL 74-106 H BLOOD UREA NITROGEN (test code = BUN) 3 mg/dL 7-18 L GLOMERULAR FILTRATION RATE (test code = GFR) > 60 mL/min >=60 Estimated GFR by using Modified MDRD formula.Chronic kidney disease is defined as either kidney damageor GFR <60 mL/min/1.73 m2 for >3 months. CREATININE (test code = CREAT) 0.40 mg/dL 0.55-1.02 L Note change in reference range due to change in reagent. BUN/CREATININE RATIO (test code = BUN/CREA) 7.5 10-20 L TOTAL PROTEIN (test code = PROT) 6.5 gram/dL 6.4-8.2 N ALBUMIN (test code = ALB) 2.2 g/dL 3.4-5.0 L GLOBULIN (test code = GLOB) 4.3 gram/dL 2.7-4.2 H ALBUMIN/GLOBULIN RATIO (test code = A/G) 0.5 0.75-1.50 L CALCIUM (test code = CA) 8.4 mg/dL 8.5-10.1 L BILIRUBIN TOTAL (test code = BILT) 0.60 mg/dL 0.0-1.0 N SGOT/AST (test code = AST) 18 IUnit/L 15-37 N SGPT/ALT (test code = ALT) 22 IUnit/L 12-78 N ALKALINE PHOSPHATASE TOTAL (test code = ALKP) 132 IUnit/L 45-117 H Note change in reference range due to change in reagent. [id number] 07:23:00* Test Item Value Reference Range Interpretation Comments PHOSPHORUS (test code = PHOS) 1.7 mg/dL 2.5-4.9 L [id number] 07:23:00* Test Item Value Reference Range Interpretation Comments MAGNESIUM (test code = MAG) 2.0 mg/dL 1.8-2.4 N CALCIUM [id number] 07:23:00* Test Item Value Reference Range Interpretation Comments CALCIUM IONIZED (test code = MISSY) 1.29 mmol/L 1.12-1.32 N [id number] 07:19:00* Test Item Value Reference Range Interpretation Comments PHOSPHORUS (test code = PHOS) mg/dL 2.5-4.9 [id number] 07:19:00* Test Item Value Reference Range Interpretation Comments MAGNESIUM (test code = MAG) mg/dL 1.8-2.4 CALCIUM [id number] 07:19:00* Test Item Value Reference Range Interpretation Comments CALCIUM IONIZED (test code = MISSY) 1.29 mmol/L 1.12-1.32 N COMPREHENSIVE METABOLIC [id number] 07:18:00* Test Item Value Reference Range Interpretation Comments SODIUM (test code = NA) 132 mmol/L 136-145 L POTASSIUM (test code = K) 3.1 mmol/L 3.5-5.1 L CHLORIDE (test code = CL) 102.0 mmol/L 98-107 N CARBON DIOXIDE (test code = CO2) mmol/L 21-32 ANION GAP (test code = GAP) 10-20 GLUCOSE (test code = GLU) mg/dL 74-106 BLOOD UREA NITROGEN (test code = BUN) mg/dL 7-18 GLOMERULAR FILTRATION RATE (test code = GFR) mL/min >=60 CREATININE (test code = CREAT) mg/dL 0.55-1.02 BUN/CREATININE RATIO (test code = BUN/CREA) 10-20 TOTAL PROTEIN (test code = PROT) gram/dL 6.4-8.2 ALBUMIN (test code = ALB) g/dL 3.4-5.0 GLOBULIN (test code = GLOB) gram/dL 2.7-4.2 ALBUMIN/GLOBULIN RATIO (test code = A/G) 0.75-1.50 CALCIUM (test code = CA) mg/dL 8.5-10.1 BILIRUBIN TOTAL (test code = BILT) mg/dL 0.0-1.0 SGOT/AST (test code = AST) IUnit/L 15-37 SGPT/ALT (test code = ALT) IUnit/L 12-78 ALKALINE PHOSPHATASE TOTAL (test code = ALKP) IUnit/L 45-117 CBC W/AUTO [id number] 07:01:00* Test Item Value Reference Range Interpretation Comments WHITE BLOOD CELL (test code = WBC) 13.7 K/mm3 4.5-12.5 H RED BLOOD CELL (test code = RBC) 4.27 mill/mm3 3.7-5.2 N HEMOGLOBIN (test code = HGB) 11.4 gram/dL 11.5-15.5 L HEMATOCRIT (test code = HCT) 33.2 % 36.0-46.0 L MEAN CELL VOLUME (test code = MCV) 77.8 fL 80-98 L MEAN CELL HGB (test code = MCH) 26.7 picogram 27.0-33.0 L MEAN CELL HGB CONCETRATION (test code = MCHC) 34.3 gram/dL 33.0-36. 0 N RED CELL DISTRIBUTION WIDTH (test code = RDW) 13.6 % 11.6-16. 2 N RED CELL DISTRIBUTION WIDTH SD (test code = RDW-SD) 38.7 fL 37 .0-51.0 N PLATELET COUNT (test code = PLT) 178 K/mm3 150-450 N MEAN PLATELET VOLUME (test code = MPV) 11.8 fL 6.7-11.0 H NEUTROPHIL % (test code = NT%) 76.8 % 39.0-69.0 H IMMATURE GRANULOCYTE % (test code = IG%) 2.0 % 0.0-5.0 N LYMPHOCYTE % (test code = LY%) 13.0 % 25.0-55.0 L MONOCYTE % (test code = MO%) 7.9 % 0.0-10.0 N EOSINOPHIL % (test code = EO%) 0.1 % 0.0-5.0 N BASOPHIL % (test code = BA%) 0.2 % 0.0-1.0 N NUCLEATED RBC % (test code = NRBC%) 0.0 % 0-0 N NEUTROPHIL # (test code = NT#) 10.48 K/mm3 1.8-7.7 H IMMATURE GRANULOCYTE # (test code = IG#) 0.27 x10 3/uL 0-0.03 H LYMPHOCYTE # (test code = LY#) 1.77 K/mm3 1.0-5.0 N MONOCYTE # (test code = MO#) 1.08 K/mm3 0-0.8 H EOSINOPHIL # (test code = EO#) 0.02 K/mm3 0.0-0.5 N BASOPHIL # (test code = BA#) 0.03 K/mm3 0.0-0.2 N NUCLEATED RBC # (test code = NRBC#) 0.00 K/mm3 0.0-0.1 N [id number] 06:15:00* Test Item Value Reference Range Interpretation Comments GLUBED (test code = GLUBED) 154 mg/dL 74-106 H Performed by certified plate and frame filter operator at [facility] [id number] 04:19:00* Test Item Value Reference Range Interpretation Comments GLUBED (test code = GLUBED) 165 mg/dL 74-106 H Performed by certified plate and frame filter operator at [facility] [id number] 03:26:00* Test Item Value Reference Range Interpretation Comments GLUBED (test code = GLUBED) 165 mg/dL 74-106 H Performed by certified plate and frame filter operator at [facility] COMPREHENSIVE METABOLIC [id number] 02:29:00* Test Item Value Reference Range Interpretation Comments SODIUM (test code = NA) 133 mmol/L 136-145 L POTASSIUM (test code = K) 3.3 mmol/L 3.5-5.1 L CHLORIDE (test code = CL) 105.0 mmol/L 98-107 N CARBON DIOXIDE (test code = CO2) 17.0 mmol/L 21-32 L ANION GAP (test code = GAP) 14.3 10-20 N GLUCOSE (test code = GLU) 174 mg/dL 74-106 H BLOOD UREA NITROGEN (test code = BUN) 4 mg/dL 7-18 L GLOMERULAR FILTRATION RATE (test code = GFR) > 60 mL/min >=60 Estimated GFR by using Modified MDRD formula.Chronic kidney disease is defined as either kidney damageor GFR <60 mL/min/1.73 m2 for >3 months. CREATININE (test code = CREAT) 0.50 mg/dL 0.55-1.02 L Note change in reference range due to change in reagent. BUN/CREATININE RATIO (test code = BUN/CREA) 8.0 10-20 L TOTAL PROTEIN (test code = PROT) 7.1 gram/dL 6.4-8.2 N ALBUMIN (test code = ALB) 2.1 g/dL 3.4-5.0 L GLOBULIN (test code = GLOB) 5.0 gram/dL 2.7-4.2 H ALBUMIN/GLOBULIN RATIO (test code = A/G) 0.4 0.75-1.50 L CALCIUM (test code = CA) 8.6 mg/dL 8.5-10.1 N BILIRUBIN TOTAL (test code = BILT) 0.60 mg/dL 0.0-1.0 N SGOT/AST (test code = AST) 16 IUnit/L 15-37 N SGPT/ALT (test code = ALT) 23 IUnit/L 12-78 N ALKALINE PHOSPHATASE TOTAL (test code = ALKP) 129 IUnit/L 45-117 H Note change in reference range due to change in reagent. [id number] 02:29:00* Test Item Value Reference Range Interpretation Comments PHOSPHORUS (test code = PHOS) 2.1 mg/dL 2.5-4.9 L [id number] 02:29:00* Test Item Value Reference Range Interpretation Comments MAGNESIUM (test code = MAG) 2.0 mg/dL 1.8-2.4 N CALCIUM [id number] 02:29:00* Test Item Value Reference Range Interpretation Comments CALCIUM IONIZED (test code = MISSY) 1.30 mmol/L 1.12-1.32 N COMPREHENSIVE METABOLIC [id number] 02:19:00* Test Item Value Reference Range Interpretation Comments SODIUM (test code = NA) mmol/L 136-145 POTASSIUM (test code = K) mmol/L 3.5-5.1 CHLORIDE (test code = CL) mmol/L 98-107 CARBON DIOXIDE (test code = CO2) mmol/L 21-32 ANION GAP (test code = GAP) 10-20 GLUCOSE (test code = GLU) mg/dL 74-106 BLOOD UREA NITROGEN (test code = BUN) mg/dL 7-18 GLOMERULAR FILTRATION RATE (test code = GFR) mL/min >=60 CREATININE (test code = CREAT) mg/dL 0.55-1.02 BUN/CREATININE RATIO (test code = BUN/CREA) 10-20 TOTAL PROTEIN (test code = PROT) gram/dL 6.4-8.2 ALBUMIN (test code = ALB) g/dL 3.4-5.0 GLOBULIN (test code = GLOB) gram/dL 2.7-4.2 ALBUMIN/GLOBULIN RATIO (test code = A/G) 0.75-1.50 CALCIUM (test code = CA) mg/dL 8.5-10.1 BILIRUBIN TOTAL (test code = BILT) mg/dL 0.0-1.0 SGOT/AST (test code = AST) IUnit/L 15-37 SGPT/ALT (test code = ALT) IUnit/L 12-78 ALKALINE PHOSPHATASE TOTAL (test code = ALKP) IUnit/L 45-117 [id number] 02:19:00* Test Item Value Reference Range Interpretation Comments PHOSPHORUS (test code = PHOS) mg/dL 2.5-4.9 [id number] 02:19:00* Test Item Value Reference Range Interpretation Comments MAGNESIUM (test code = MAG) mg/dL 1.8-2.4 CALCIUM [id number] 02:19:00* Test Item Value Reference Range Interpretation Comments CALCIUM IONIZED (test code = MISSY) 1.30 mmol/L 1.12-1.32 N [id number] 02:01:00* Test Item Value Reference Range Interpretation Comments GLUBED (test code = GLUBED) 193 mg/dL 74-106 H Performed by certified plate and frame filter operator at [facility] CBC W/AUTO [id number] 01:59:00* Test Item Value Reference Range Interpretation Comments WHITE BLOOD CELL (test code = WBC) 14.9 K/mm3 4.5-12.5 H RED BLOOD CELL (test code = RBC) 4.20 mill/mm3 3.7-5.2 N HEMOGLOBIN (test code = HGB) 10.9 gram/dL 11.5-15.5 L HEMATOCRIT (test code = HCT) 32.7 % 36.0-46.0 L MEAN CELL VOLUME (test code = MCV) 77.9 fL 80-98 L MEAN CELL HGB (test code = MCH) 26.0 picogram 27.0-33.0 L MEAN CELL HGB CONCETRATION (test code = MCHC) 33.3 gram/dL 33.0-36. 0 N RED CELL DISTRIBUTION WIDTH (test code = RDW) 13.5 % 11.6-16. 2 N RED CELL DISTRIBUTION WIDTH SD (test code = RDW-SD) 38.4 fL 37 .0-51.0 N PLATELET COUNT (test code = PLT) 164 K/mm3 150-450 N MEAN PLATELET VOLUME (test code = MPV) 12.0 fL 6.7-11.0 H NEUTROPHIL % (test code = NT%) 73.0 % 39.0-69.0 H IMMATURE GRANULOCYTE % (test code = IG%) 1.3 % 0.0-5.0 N LYMPHOCYTE % (test code = LY%) 15.0 % 25.0-55.0 L MONOCYTE % (test code = MO%) 10.2 % 0.0-10.0 H EOSINOPHIL % (test code = EO%) 0.2 % 0.0-5.0 N BASOPHIL % (test code = BA%) 0.3 % 0.0-1.0 N NUCLEATED RBC % (test code = NRBC%) 0.0 % 0-0 N NEUTROPHIL # (test code = NT#) 10.90 K/mm3 1.8-7.7 H IMMATURE GRANULOCYTE # (test code = IG#) 0.19 x10 3/uL 0-0.03 H LYMPHOCYTE # (test code = LY#) 2.23 K/mm3 1.0-5.0 N MONOCYTE # (test code = MO#) 1.52 K/mm3 0-0.8 H EOSINOPHIL # (test code = EO#) 0.03 K/mm3 0.0-0.5 N BASOPHIL # (test code = BA#) 0.04 K/mm3 0.0-0.2 N NUCLEATED RBC # (test code = NRBC#) 0.00 K/mm3 0.0-0.1 N [id number] 01:23:00* Test Item Value Reference Range Interpretation Comments GLUBED (test code = GLUBED) 171 mg/dL 74-106 H Performed by certified plate and frame filter operator at [facility] [id number] 00:08:00* Test Item Value Reference Range Interpretation Comments GLUBED (test code = GLUBED) 155 mg/dL 74-106 H Performed by certified plate and frame filter operator at [facility] [id number] 23:02:00* Test Item Value Reference Range Interpretation Comments GLUBED (test code = GLUBED) 163 mg/dL 74-106 H Performed by certified plate and frame filter operator at [facility] COMPREHENSIVE METABOLIC [id number] 22:32:00* Test Item Value Reference Range Interpretation Comments SODIUM (test code = NA) 132 mmol/L 136-145 L POTASSIUM (test code = K) 3.4 mmol/L 3.5-5.1 L CHLORIDE (test code = CL) 105.0 mmol/L 98-107 N CARBON DIOXIDE (test code = CO2) 16.0 mmol/L 21-32 L ANION GAP (test code = GAP) 14.4 10-20 N GLUCOSE (test code = GLU) 186 mg/dL 74-106 H BLOOD UREA NITROGEN (test code = BUN) 4 mg/dL 7-18 L GLOMERULAR FILTRATION RATE (test code = GFR) > 60 mL/min >=60 Estimated GFR by using Modified MDRD formula.Chronic kidney disease is defined as either kidney damageor GFR <60 mL/min/1.73 m2 for >3 months. CREATININE (test code = CREAT) 0.50 mg/dL 0.55-1.02 L Note change in reference range due to change in reagent. BUN/CREATININE RATIO (test code = BUN/CREA) 8.0 10-20 L TOTAL PROTEIN (test code = PROT) 6.9 gram/dL 6.4-8.2 N ALBUMIN (test code = ALB) 2.0 g/dL 3.4-5.0 L GLOBULIN (test code = GLOB) 4.9 gram/dL 2.7-4.2 H ALBUMIN/GLOBULIN RATIO (test code = A/G) 0.4 0.75-1.50 L CALCIUM (test code = CA) 8.4 mg/dL 8.5-10.1 L BILIRUBIN TOTAL (test code = BILT) 0.60 mg/dL 0.0-1.0 N SGOT/AST (test code = AST) 22 IUnit/L 15-37 N SGPT/ALT (test code = ALT) 22 IUnit/L 12-78 N ALKALINE PHOSPHATASE TOTAL (test code = ALKP) 119 IUnit/L 45-117 H Note change in reference range due to change in reagent. [id number] 22:32:00* Test Item Value Reference Range Interpretation Comments PHOSPHORUS (test code = PHOS) 0.8 mg/dL 2.5-4.9 L [id number] 22:32:00* Test Item Value Reference Range Interpretation Comments MAGNESIUM (test code = MAG) 2.0 mg/dL 1.8-2.4 N CALCIUM [id number] 22:32:00* Test Item Value Reference Range Interpretation Comments CALCIUM IONIZED (test code = MISSY) 1.31 mmol/L 1.12-1.32 N COMPREHENSIVE METABOLIC [id number] 22:11:00* Test Item Value Reference Range Interpretation Comments SODIUM (test code = NA) 132 mmol/L 136-145 L POTASSIUM (test code = K) 3.4 mmol/L 3.5-5.1 L CHLORIDE (test code = CL) 105.0 mmol/L 98-107 N CARBON DIOXIDE (test code = CO2) 16.0 mmol/L 21-32 L ANION GAP (test code = GAP) 14.4 10-20 N GLUCOSE (test code = GLU) 186 mg/dL 74-106 H BLOOD UREA NITROGEN (test code = BUN) 4 mg/dL 7-18 L GLOMERULAR FILTRATION RATE (test code = GFR) > 60 mL/min >=60 Estimated GFR by using Modified MDRD formula.Chronic kidney disease is defined as either kidney damageor GFR <60 mL/min/1.73 m2 for >3 months. CREATININE (test code = CREAT) 0.50 mg/dL 0.55-1.02 L Note change in reference range due to change in reagent. BUN/CREATININE RATIO (test code = BUN/CREA) 8.0 10-20 L TOTAL PROTEIN (test code = PROT) 6.9 gram/dL 6.4-8.2 N ALBUMIN (test code = ALB) 2.0 g/dL 3.4-5.0 L GLOBULIN (test code = GLOB) 4.9 gram/dL 2.7-4.2 H ALBUMIN/GLOBULIN RATIO (test code = A/G) 0.4 0.75-1.50 L CALCIUM (test code = CA) 8.4 mg/dL 8.5-10.1 L BILIRUBIN TOTAL (test code = BILT) 0.60 mg/dL 0.0-1.0 N SGOT/AST (test code = AST) 22 IUnit/L 15-37 N SGPT/ALT (test code = ALT) 22 IUnit/L 12-78 N ALKALINE PHOSPHATASE TOTAL (test code = ALKP) 119 IUnit/L 45-117 H Note change in reference range due to change in reagent. [id number] 22:11:00* Test Item Value Reference Range Interpretation Comments PHOSPHORUS (test code = PHOS) 0.8 mg/dL 2.5-4.9 L [id number] 22:11:00* Test Item Value Reference Range Interpretation Comments MAGNESIUM (test code = MAG) 2.0 mg/dL 1.8-2.4 N CALCIUM [id number] 22:11:00* Test Item Value Reference Range Interpretation Comments CALCIUM IONIZED (test code = MISSY) mmol/L 1.12-1.32 [id number] 22:05:00* Test Item Value Reference Range Interpretation Comments GLUBED (test code = GLUBED) 159 mg/dL 74-106 H Performed by certified plate and frame filter operator at [facility] COMPREHENSIVE METABOLIC [id number] 22:04:00* Test Item Value Reference Range Interpretation Comments SODIUM (test code = NA) 132 mmol/L 136-145 L POTASSIUM (test code = K) 3.4 mmol/L 3.5-5.1 L CHLORIDE (test code = CL) 105.0 mmol/L 98-107 N CARBON DIOXIDE (test code = CO2) mmol/L 21-32 ANION GAP (test code = GAP) 10-20 GLUCOSE (test code = GLU) mg/dL 74-106 BLOOD UREA NITROGEN (test code = BUN) mg/dL 7-18 GLOMERULAR FILTRATION RATE (test code = GFR) mL/min >=60 CREATININE (test code = CREAT) mg/dL 0.55-1.02 BUN/CREATININE RATIO (test code = BUN/CREA) 10-20 TOTAL PROTEIN (test code = PROT) gram/dL 6.4-8.2 ALBUMIN (test code = ALB) g/dL 3.4-5.0 GLOBULIN (test code = GLOB) gram/dL 2.7-4.2 ALBUMIN/GLOBULIN RATIO (test code = A/G) 0.75-1.50 CALCIUM (test code = CA) mg/dL 8.5-10.1 BILIRUBIN TOTAL (test code = BILT) mg/dL 0.0-1.0 SGOT/AST (test code = AST) IUnit/L 15-37 SGPT/ALT (test code = ALT) IUnit/L 12-78 ALKALINE PHOSPHATASE TOTAL (test code = ALKP) IUnit/L 45-117 [id number] 22:04:00* Test Item Value Reference Range Interpretation Comments PHOSPHORUS (test code = PHOS) mg/dL 2.5-4.9 [id number] 22:04:00* Test Item Value Reference Range Interpretation Comments MAGNESIUM (test code = MAG) mg/dL 1.8-2.4 CALCIUM [id number] 22:04:00* Test Item Value Reference Range Interpretation Comments CALCIUM IONIZED (test code = MISSY) mmol/L 1.12-1.32 CBC W/AUTO [id number] 21:59:00* Test Item Value Reference Range Interpretation Comments WHITE BLOOD CELL (test code = WBC) 14.9 K/mm3 4.5-12.5 H RED BLOOD CELL (test code = RBC) 3.98 mill/mm3 3.7-5.2 N HEMOGLOBIN (test code = HGB) 10.7 gram/dL 11.5-15.5 L RESULT VERIFIED BY REPEAT ANALYSIS HEMATOCRIT (test code = HCT) 31.3 % 36.0-46.0 L MEAN CELL VOLUME (test code = MCV) 78.6 fL 80-98 L MEAN CELL HGB (test code = MCH) 26.9 picogram 27.0-33.0 L MEAN CELL HGB CONCETRATION (test code = MCHC) 34.2 gram/dL 33.0-36. 0 N RED CELL DISTRIBUTION WIDTH (test code = RDW) 13.4 % 11.6-16. 2 N RED CELL DISTRIBUTION WIDTH SD (test code = RDW-SD) 38.5 fL 37 .0-51.0 N PLATELET COUNT (test code = PLT) 153 K/mm3 150-450 N MEAN PLATELET VOLUME (test code = MPV) 12.0 fL 6.7-11.0 H NEUTROPHIL % (test code = NT%) 74.3 % 39.0-69.0 H IMMATURE GRANULOCYTE % (test code = IG%) 1.2 % 0.0-5.0 N LYMPHOCYTE % (test code = LY%) 14.3 % 25.0-55.0 L MONOCYTE % (test code = MO%) 9.8 % 0.0-10.0 N EOSINOPHIL % (test code = EO%) 0.1 % 0.0-5.0 N BASOPHIL % (test code = BA%) 0.3 % 0.0-1.0 N NUCLEATED RBC % (test code = NRBC%) 0.0 % 0-0 N NEUTROPHIL # (test code = NT#) 11.04 K/mm3 1.8-7.7 H IMMATURE GRANULOCYTE # (test code = IG#) 0.18 x10 3/uL 0-0.03 H LYMPHOCYTE # (test code = LY#) 2.12 K/mm3 1.0-5.0 N MONOCYTE # (test code = MO#) 1.46 K/mm3 0-0.8 H EOSINOPHIL # (test code = EO#) 0.01 K/mm3 0.0-0.5 N BASOPHIL # (test code = BA#) 0.05 K/mm3 0.0-0.2 N NUCLEATED RBC # (test code = NRBC#) 0.00 K/mm3 0.0-0.1 N MANUAL DIFF REQUIRED (test code = MDIFF) NO [id number] 21:12:00* Test Item Value Reference Range Interpretation Comments GLUBED (test code = GLUBED) 206 mg/dL 74-106 H Performed by certified plate and frame filter operator at [facility] BASIC METABOLIC [id number] 17:35:00* Test Item Value Reference Range Interpretation Comments SODIUM (test code = NA) 133 mmol/L 136-145 L POTASSIUM (test code = K) 3.6 mmol/L 3.5-5.1 N CHLORIDE (test code = CL) 108.0 mmol/L 98-107 H CARBON DIOXIDE (test code = CO2) 14.0 mmol/L 21-32 L ANION GAP (test code = GAP) 14.6 10-20 N GLUCOSE (test code = GLU) 146 mg/dL 74-106 H BLOOD UREA NITROGEN (test code = BUN) 5 mg/dL 7-18 L GLOMERULAR FILTRATION RATE (test code = GFR) > 60 mL/min >=60 Estimated GFR by using Modified MDRD formula.Chronic kidney disease is defined as either kidney damageor GFR <60 mL/min/1.73 m2 for >3 months. CREATININE (test code = CREAT) 0.50 mg/dL 0.55-1.02 L Note change in reference range due to change in reagent. BUN/CREATININE RATIO (test code = BUN/CREA) 10.0 10-20 N CALCIUM (test code = CA) 8.5 mg/dL 8.5-10.1 N [id number] 17:35:00* Test Item Value Reference Range Interpretation Comments PHOSPHORUS (test code = PHOS) 0.9 mg/dL 2.5-4.9 L [id number] 17:35:00* Test Item Value Reference Range Interpretation Comments MAGNESIUM (test code = MAG) 2.0 mg/dL 1.8-2.4 N CALCIUM [id number] 17:35:00* Test Item Value Reference Range Interpretation Comments CALCIUM IONIZED (test code = MISSY) 1.32 mmol/L 1.12-1.32 N BASIC METABOLIC [id number] 17:32:00* Test Item Value Reference Range Interpretation Comments SODIUM (test code = NA) 133 mmol/L 136-145 L POTASSIUM (test code = K) 3.6 mmol/L 3.5-5.1 N CHLORIDE (test code = CL) 108.0 mmol/L 98-107 H CARBON DIOXIDE (test code = CO2) 14.0 mmol/L 21-32 L ANION GAP (test code = GAP) 14.6 10-20 N GLUCOSE (test code = GLU) 146 mg/dL 74-106 H BLOOD UREA NITROGEN (test code = BUN) 5 mg/dL 7-18 L GLOMERULAR FILTRATION RATE (test code = GFR) > 60 mL/min >=60 Estimated GFR by using Modified MDRD formula.Chronic kidney disease is defined as either kidney damageor GFR <60 mL/min/1.73 m2 for >3 months. CREATININE (test code = CREAT) 0.50 mg/dL 0.55-1.02 L Note change in reference range due to change in reagent. BUN/CREATININE RATIO (test code = BUN/CREA) 10.0 10-20 N CALCIUM (test code = CA) 8.5 mg/dL 8.5-10.1 N [id number] 17:32:00* Test Item Value Reference Range Interpretation Comments PHOSPHORUS (test code = PHOS) 0.9 mg/dL 2.5-4.9 L [id number] 17:32:00* Test Item Value Reference Range Interpretation Comments MAGNESIUM (test code = MAG) 2.0 mg/dL 1.8-2.4 N CALCIUM [id number] 17:32:00* Test Item Value Reference Range Interpretation Comments CALCIUM IONIZED (test code = MISSY) mmol/L 1.12-1.32 BASIC METABOLIC [id number] 17:24:00* Test Item Value Reference Range Interpretation Comments SODIUM (test code = NA) 133 mmol/L 136-145 L POTASSIUM (test code = K) 3.6 mmol/L 3.5-5.1 N CHLORIDE (test code = CL) 108.0 mmol/L 98-107 H CARBON DIOXIDE (test code = CO2) mmol/L 21-32 ANION GAP (test code = GAP) 10-20 GLUCOSE (test code = GLU) mg/dL 74-106 BLOOD UREA NITROGEN (test code = BUN) mg/dL 7-18 GLOMERULAR FILTRATION RATE (test code = GFR) mL/min >=60 CREATININE (test code = CREAT) mg/dL 0.55-1.02 BUN/CREATININE RATIO (test code = BUN/CREA) 10-20 CALCIUM (test code = CA) mg/dL 8.5-10.1 [id number] 17:24:00* Test Item Value Reference Range Interpretation Comments PHOSPHORUS (test code = PHOS) mg/dL 2.5-4.9 [id number] 17:24:00* Test Item Value Reference Range Interpretation Comments MAGNESIUM (test code = MAG) mg/dL 1.8-2.4 CALCIUM [id number] 17:24:00* Test Item Value Reference Range Interpretation Comments CALCIUM IONIZED (test code = MISSY) mmol/L 1.12-1.32 BASIC METABOLIC [id number] 17:05:00* Test Item Value Reference Range Interpretation Comments SODIUM (test code = NA) 132 mmol/L 136-145 L POTASSIUM (test code = K) 3.8 mmol/L 3.5-5.1 N CHLORIDE (test code = CL) 105.0 mmol/L 98-107 N CARBON DIOXIDE (test code = CO2) 17.0 mmol/L 21-32 L ANION GAP (test code = GAP) 13.8 10-20 N GLUCOSE (test code = GLU) 166 mg/dL 74-106 H BLOOD UREA NITROGEN (test code = BUN) 10 mg/dL 7-18 N GLOMERULAR FILTRATION RATE (test code = GFR) > 60 mL/min >=60 Estimated GFR by using Modified MDRD formula.Chronic kidney disease is defined as either kidney damageor GFR <60 mL/min/1.73 m2 for >3 months. CREATININE (test code = CREAT) 0.60 mg/dL 0.55-1.02 N Note change in reference range due to change in reagent. BUN/CREATININE RATIO (test code = BUN/CREA) 16.7 10-20 N CALCIUM (test code = CA) 8.4 mg/dL 8.5-10.1 L SPECIMEN COMMENTS: Q4H while on insulin dripSPECIMEN COMMENTS: Q8H while on insu suni dripLIPID PROFILE (CORONARY RISK)2020-04-03 17:05:00* Test Item Value Reference Range Interpretation Comments TRIGLYCERIDES (test code = TRIG) 328 mg/dL 20-150 H CHOLESTEROL (test code = CHOL) 181 mg/dL 0-200 N CHOLESTEROL/HDL RATIO (test code = CHOLHDL) 18.0 RATIO 0-4.9 H RISK ASSOCIATED WITH CHOL/HDL RATIOS: Risk Male Female1/2 AVERAGE 3.43 3.27AVERAGE 4.97 4.442X AVERAGE 9.55 7.053X AVERAGE 23.39 11.04 REFERENCE VALUE IS RELATED TO RISK LEVELS ASRECOMMENDED BY THE [facility]. HEART, LUNG, AND BLOOD INST. HDL CHOLESTEROL (test code = HDL) 10 mg/dL 40-60 L LIPOPROTEIN LDL (test code = LDL) 129 mg/dL 100-129 N RN PERSONNEL, CONTACT PHYSICIAN IMMEDIATELY IF THIS IS A STROKE, AMI OR CAROTID STENOSIS PATIENT WHEN THE LDL >100 (1ST OCCURENCE, THIS ADMISSION) Reference Interval: mg/dL mmol/L Optimal <100 <2.6Near/above optimal 100-129 2.6- 3.3Borderline High 130-159 3.4-4.1High 160-189 4.1-4.9Very High >=190 >=4.9========= This LDL result is a direct measurement.========= SPECIMEN COMMENTS: Q4H while on insulin dripSPECIMEN COMMENTS: Q8H while on insu suni [id number] 17:05:00* Test Item Value Reference Range Interpretation Comments LIPASE (test code = LIP) 816 U/L 73.0-393.0 H SPECIMEN COMMENTS: Q4H while on insulin dripSPECIMEN COMMENTS: Q8H while on insu suni [id number] 17:05:00* Test Item Value Reference Range Interpretation Comments MAGNESIUM (test code = MAG) 2.2 mg/dL 1.8-2.4 N SPECIMEN COMMENTS: Q4H while on insulin dripSPECIMEN COMMENTS: Q8H while on insu suni dripTHYROID STIMULATING [id number] 17:05:00* Test Item Value Reference Range Interpretation Comments THYROID STIMULATING HORMONE (test code = TSH) 1.230 uIU/mL 0.36-3.7 4 N TSH REFERENCE RANGES: EUTHYROID: 0.35 - 4.3 mIU/mL HYPO : > 5.5 mIU/mL HYPER : < 0.35 mIU/mL SPECIMEN COMMENTS: Q4H while on insulin dripSPECIMEN COMMENTS: Q8H while on insu suni dripACETONE [id number] 17:05:00* Test Item Value Reference Range Interpretation Comments ACETONE BLOOD (test code = ACETB) SMALL (~ 20 mg/dL) NEGATIVE SPECIMEN COMMENTS: Q4H while on insulin dripSPECIMEN COMMENTS: Q8H while on insu suni [id number] 16:52:00* Test Item Value Reference Range Interpretation Comments GLUBED (test code = GLUBED) 151 mg/dL 74-106 H Performed by certified plate and frame filter operator at [facility] CALCIUM [id number] 15:43:00* Test Item Value Reference Range Interpretation Comments CALCIUM IONIZED (test code = MISSY) 1.19 mmol/L 1.12-1.32 N BASIC METABOLIC [id number] 15:42:00* Test Item Value Reference Range Interpretation Comments SODIUM (test code = NA) 135 mmol/L 136-145 L POTASSIUM (test code = K) 3.3 mmol/L 3.5-5.1 L CHLORIDE (test code = CL) 109.0 mmol/L 98-107 H CARBON DIOXIDE (test code = CO2) 16.0 mmol/L 21-32 L ANION GAP (test code = GAP) 13.3 10-20 N GLUCOSE (test code = GLU) 112 mg/dL 74-106 H BLOOD UREA NITROGEN (test code = BUN) 6 mg/dL 7-18 L GLOMERULAR FILTRATION RATE (test code = GFR) > 60 mL/min >=60 Estimated GFR by using Modified MDRD formula.Chronic kidney disease is defined as either kidney damageor GFR <60 mL/min/1.73 m2 for >3 months. CREATININE (test code = CREAT) 0.60 mg/dL 0.55-1.02 N Note change in reference range due to change in reagent. BUN/CREATININE RATIO (test code = BUN/CREA) 10.0 10-20 N CALCIUM (test code = CA) 8.5 mg/dL 8.5-10.1 N SPECIMEN COMMENTS: Q4H while on insulin dripSPECIMEN COMMENTS: Q8H while on insu suni [id number] 15:42:00* Test Item Value Reference Range Interpretation Comments MAGNESIUM (test code = MAG) 2.1 mg/dL 1.8-2.4 N SPECIMEN COMMENTS: Q4H while on insulin dripSPECIMEN COMMENTS: Q8H while on insu suni [id number] 15:38:00* Test Item Value Reference Range Interpretation Comments GLUBED (test code = GLUBED) 118 mg/dL 74-106 H Performed by certified plate and frame filter operator at [facility] BASIC METABOLIC [id number] 15:37:00* Test Item Value Reference Range Interpretation Comments SODIUM (test code = NA) 135 mmol/L 136-145 L POTASSIUM (test code = K) 3.3 mmol/L 3.5-5.1 L CHLORIDE (test code = CL) 109.0 mmol/L 98-107 H CARBON DIOXIDE (test code = CO2) mmol/L 21-32 ANION GAP (test code = GAP) 10-20 GLUCOSE (test code = GLU) mg/dL 74-106 BLOOD UREA NITROGEN (test code = BUN) mg/dL 7-18 GLOMERULAR FILTRATION RATE (test code = GFR) mL/min >=60 CREATININE (test code = CREAT) mg/dL 0.55-1.02 BUN/CREATININE RATIO (test code = BUN/CREA) 10-20 CALCIUM (test code = CA) mg/dL 8.5-10.1 SPECIMEN COMMENTS: Q4H while on insulin dripSPECIMEN COMMENTS: Q8H while on insu suni [id number] 15:37:00* Test Item Value Reference Range Interpretation Comments MAGNESIUM (test code = MAG) mg/dL 1.8-2.4 SPECIMEN COMMENTS: Q4H while on insulin dripSPECIMEN COMMENTS: Q8H while on insu snui [id number] 15:05:00* Test Item Value Reference Range Interpretation Comments GLUBED (test code = GLUBED) 109 mg/dL 74-106 H Performed by certified plate and frame filter operator at [facility] BASIC METABOLIC [id number] 13:49:00* Test Item Value Reference Range Interpretation Comments SODIUM (test code = NA) 133 mmol/L 136-145 L POTASSIUM (test code = K) 3.0 mmol/L 3.5-5.1 L CHLORIDE (test code = CL) 108.0 mmol/L 98-107 H CARBON DIOXIDE (test code = CO2) 15.0 mmol/L 21-32 L ANION GAP (test code = GAP) 13.0 10-20 N GLUCOSE (test code = GLU) 408 mg/dL 74-106 H BLOOD UREA NITROGEN (test code = BUN) 6 mg/dL 7-18 L GLOMERULAR FILTRATION RATE (test code = GFR) > 60 mL/min >=60 Estimated GFR by using Modified MDRD formula.Chronic kidney disease is defined as either kidney damageor GFR <60 mL/min/1.73 m2 for >3 months. CREATININE (test code = CREAT) 0.70 mg/dL 0.55-1.02 N Note change in reference range due to change in reagent. BUN/CREATININE RATIO (test code = BUN/CREA) 8.6 10-20 L CALCIUM (test code = CA) 8.0 mg/dL 8.5-10.1 L [id number] 13:49:00* Test Item Value Reference Range Interpretation Comments PHOSPHORUS (test code = PHOS) 0.6 mg/dL 2.5-4.9 L [id number] 13:49:00* Test Item Value Reference Range Interpretation Comments MAGNESIUM (test code = MAG) 1.9 mg/dL 1.8-2.4 N CALCIUM [id number] 13:49:00* Test Item Value Reference Range Interpretation Comments CALCIUM IONIZED (test code = MISSY) mmol/L 1.12-1.32 BASIC METABOLIC [id number] 13:46:00* Test Item Value Reference Range Interpretation Comments SODIUM (test code = NA) 133 mmol/L 136-145 L POTASSIUM (test code = K) 3.0 mmol/L 3.5-5.1 L CHLORIDE (test code = CL) 108.0 mmol/L 98-107 H CARBON DIOXIDE (test code = CO2) mmol/L 21-32 ANION GAP (test code = GAP) 10-20 GLUCOSE (test code = GLU) mg/dL 74-106 BLOOD UREA NITROGEN (test code = BUN) mg/dL 7-18 GLOMERULAR FILTRATION RATE (test code = GFR) mL/min >=60 CREATININE (test code = CREAT) mg/dL 0.55-1.02 BUN/CREATININE RATIO (test code = BUN/CREA) 10-20 CALCIUM (test code = CA) mg/dL 8.5-10.1 [id number] 13:46:00* Test Item Value Reference Range Interpretation Comments PHOSPHORUS (test code = PHOS) mg/dL 2.5-4.9 [id number] 13:46:00* Test Item Value Reference Range Interpretation Comments MAGNESIUM (test code = MAG) mg/dL 1.8-2.4 CALCIUM [id number] 13:46:00* Test Item Value Reference Range Interpretation Comments CALCIUM IONIZED (test code = MISSY) mmol/L 1.12-1.32 [id number] 13:34:00* Test Item Value Reference Range Interpretation Comments GLUBED (test code = GLUBED) 137 mg/dL 74-106 H Performed by certified plate and frame filter operator at [facility] [id number] 13:32:00* Test Item Value Reference Range Interpretation Comments GLUBED (test code = GLUBED) 167 mg/dL 74-106 H Performed by certified plate and frame filter operator at [facility] [id number] 11:35:00* Test Item Value Reference Range Interpretation Comments GLUBED (test code = GLUBED) 207 mg/dL 74-106 H Performed by certified plate and frame filter operator at [facility] [id number] 09:56:00* Test Item Value Reference Range Interpretation Comments GLUBED (test code = GLUBED) 204 mg/dL 74-106 H Performed by certified plate and frame filter operator at [facility] BASIC METABOLIC [id number] 08:49:00* Test Item Value Reference Range Interpretation Comments SODIUM (test code = NA) 132 mmol/L 136-145 L POTASSIUM (test code = K) 3.8 mmol/L 3.5-5.1 N CHLORIDE (test code = CL) 105.0 mmol/L 98-107 N CARBON DIOXIDE (test code = CO2) 17.0 mmol/L 21-32 L ANION GAP (test code = GAP) 13.8 10-20 N GLUCOSE (test code = GLU) 166 mg/dL 74-106 H BLOOD UREA NITROGEN (test code = BUN) 10 mg/dL 7-18 N GLOMERULAR FILTRATION RATE (test code = GFR) > 60 mL/min >=60 Estimated GFR by using Modified MDRD formula.Chronic kidney disease is defined as either kidney damageor GFR <60 mL/min/1.73 m2 for >3 months. CREATININE (test code = CREAT) 0.60 mg/dL 0.55-1.02 N Note change in reference range due to change in reagent. BUN/CREATININE RATIO (test code = BUN/CREA) 16.7 10-20 N CALCIUM (test code = CA) 8.4 mg/dL 8.5-10.1 L SPECIMEN COMMENTS: Q4H while on insulin dripSPECIMEN COMMENTS: Q8H while on insu suni dripLIPID PROFILE (CORONARY RISK)2020-04-03 08:49:00* Test Item Value Reference Range Interpretation Comments TRIGLYCERIDES (test code = TRIG) 328 mg/dL 20-150 H CHOLESTEROL (test code = CHOL) 181 mg/dL 0-200 N CHOLESTEROL/HDL RATIO (test code = CHOLHDL) 18.0 RATIO 0-4.9 H RISK ASSOCIATED WITH CHOL/HDL RATIOS: Risk Male Female1/2 AVERAGE 3.43 3.27AVERAGE 4.97 4.442X AVERAGE 9.55 7.053X AVERAGE 23.39 11.04 REFERENCE VALUE IS RELATED TO RISK LEVELS ASRECOMMENDED BY THE SHAI. HEART, LUNG, AND BLOOD INST. HDL CHOLESTEROL (test code = HDL) 10 mg/dL 40-60 L LIPOPROTEIN LDL (test code = LDL) 129 mg/dL 100-129 N RN PERSONNEL, CONTACT PHYSICIAN IMMEDIATELY IF THIS IS A STROKE, AMI OR CAROTID STENOSIS PATIENT WHEN THE LDL >100 (1ST OCCURENCE, THIS ADMISSION) Reference Interval: mg/dL mmol/L Optimal <100 <2.6Near/above optimal 100-129 2.6- 3.3Borderline High 130-159 3.4-4.1High 160-189 4.1-4.9Very High >=190 >=4.9========= This LDL result is a direct measurement.========= SPECIMEN COMMENTS: Q4H while on insulin dripSPECIMEN COMMENTS: Q8H while on insu suni [id number] 08:49:00* Test Item Value Reference Range Interpretation Comments LIPASE (test code = LIP) 816 U/L 73.0-393.0 H SPECIMEN COMMENTS: Q4H while on insulin dripSPECIMEN COMMENTS: Q8H while on insu suni [id number] 08:49:00* Test Item Value Reference Range Interpretation Comments MAGNESIUM (test code = MAG) 2.2 mg/dL 1.8-2.4 N SPECIMEN COMMENTS: Q4H while on insulin dripSPECIMEN COMMENTS: Q8H while on insu suni dripTHYROID STIMULATING [id number] 08:49:00* Test Item Value Reference Range Interpretation Comments THYROID STIMULATING HORMONE (test code = TSH) 1.230 uIU/mL 0.36-3.7 4 N TSH REFERENCE RANGES: EUTHYROID: 0.35 - 4.3 mIU/mL HYPO : > 5.5 mIU/mL HYPER : < 0.35 mIU/mL SPECIMEN COMMENTS: Q4H while on insulin dripSPECIMEN COMMENTS: Q8H while on insu suni dripACETONE [id number] 08:49:00* Test Item Value Reference Range Interpretation Comments ACETONE BLOOD (test code = ACETB) NEGATIVE SPECIMEN COMMENTS: Q4H while on insulin dripSPECIMEN COMMENTS: Q8H while on insu suni [id number] 08:43:00* Test Item Value Reference Range Interpretation Comments GLYCOSYLATED HEMOGLOBIN (HA1C) (test code = GLYHGB) 11.9 % HbA1 SUGGESTED DIAGNOSIS: HbA1C (%) Diabetic >6.4Prediabetes 5.7 - 6.4Normal <5.7 ESTIMATED AVERAGE GLUCOSE (test code = EAG) 295 MG/DL BASIC METABOLIC [id number] 08:34:00* Test Item Value Reference Range Interpretation Comments SODIUM (test code = NA) 132 mmol/L 136-145 L POTASSIUM (test code = K) 3.8 mmol/L 3.5-5.1 N CHLORIDE (test code = CL) 105.0 mmol/L 98-107 N CARBON DIOXIDE (test code = CO2) mmol/L 21-32 ANION GAP (test code = GAP) 10-20 GLUCOSE (test code = GLU) mg/dL 74-106 BLOOD UREA NITROGEN (test code = BUN) mg/dL 7-18 GLOMERULAR FILTRATION RATE (test code = GFR) mL/min >=60 CREATININE (test code = CREAT) mg/dL 0.55-1.02 BUN/CREATININE RATIO (test code = BUN/CREA) 10-20 CALCIUM (test code = CA) mg/dL 8.5-10.1 SPECIMEN COMMENTS: Q4H while on insulin dripSPECIMEN COMMENTS: Q8H while on insu suni dripLIPID PROFILE (CORONARY RISK)2020-04-03 08:34:00* Test Item Value Reference Range Interpretation Comments TRIGLYCERIDES (test code = TRIG) mg/dL 20-150 CHOLESTEROL (test code = CHOL) mg/dL 0-200 CHOLESTEROL/HDL RATIO (test code = CHOLHDL) RATIO 0-4.9 HDL CHOLESTEROL (test code = HDL) mg/dL 40-60 LIPOPROTEIN LDL (test code = LDL) mg/dL 100-129 SPECIMEN COMMENTS: Q4H while on insulin dripSPECIMEN COMMENTS: Q8H while on insu suni [id number] 08:34:00* Test Item Value Reference Range Interpretation Comments LIPASE (test code = LIP) U/L 73.0-393.0 SPECIMEN COMMENTS: Q4H while on insulin dripSPECIMEN COMMENTS: Q8H while on insu suni [id number] 08:34:00* Test Item Value Reference Range Interpretation Comments MAGNESIUM (test code = MAG) mg/dL 1.8-2.4 SPECIMEN COMMENTS: Q4H while on insulin dripSPECIMEN COMMENTS: Q8H while on insu suni dripTHYROID STIMULATING [id number] 08:34:00* Test Item Value Reference Range Interpretation Comments THYROID STIMULATING HORMONE (test code = TSH) uIU/mL 0.36-3.7 4 SPECIMEN COMMENTS: Q4H while on insulin dripSPECIMEN COMMENTS: Q8H while on insu suni dripACETONE [id number] 08:34:00* Test Item Value Reference Range Interpretation Comments ACETONE BLOOD (test code = ACETB) NEGATIVE SPECIMEN COMMENTS: Q4H while on insulin dripSPECIMEN COMMENTS: Q8H while on insu suni dripCALCIUM [id number] 08:29:00* Test Item Value Reference Range Interpretation Comments CALCIUM IONIZED (test code = MISSY) 1.23 mmol/L 1.12-1.32 N [id number] 07:51:00* Test Item Value Reference Range Interpretation Comments GLUBED (test code = GLUBED) 138 mg/dL 74-106 H Performed by certified plate and frame filter operator at [facility] [id number] 06:20:00* Test Item Value Reference Range Interpretation Comments GLUBED (test code = GLUBED) 93 mg/dL 74-106 N Performed by certified plate and frame filter operator at [facility] [id number] 05:19:00* Test Item Value Reference Range Interpretation Comments GLUBED (test code = GLUBED) 53 mg/dL 74-106 L Performed by certified plate and frame filter operator at [facility] [id number] 05:19:00* Test Item Value Reference Range Interpretation Comments GLUBED (test code = GLUBED) 26 mg/dL 74-106 LL Test performed as P.O.C. by nursing staff.Performed by certified plate and frame filter operator [facility] HospitalNotified Nurse~ [id number] 05:19:00* Test Item Value Reference Range Interpretation Comments GLUBED (test code = GLUBED) 54 mg/dL 74-106 L Performed by certified plate and frame filter operator at [facility] [id number] 03:34:00* Test Item Value Reference Range Interpretation Comments GLUBED (test code = GLUBED) 79 mg/dL 74-106 N Performed by certified plate and frame filter operator at [facility] [id number] 02:38:00* Test Item Value Reference Range Interpretation Comments GLUBED (test code = GLUBED) 119 mg/dL 74-106 H Performed by certified plate and frame filter operator at [facility] BASIC METABOLIC [id number] 01:42:00* Test Item Value Reference Range Interpretation Comments SODIUM (test code = NA) 129 mmol/L 136-145 L POTASSIUM (test code = K) 3.5 mmol/L 3.5-5.1 N CHLORIDE (test code = CL) 97 mmol/L 101-109 L CARBON DIOXIDE (test code = CO2) 10.8 mmol/L 21-32 L ANION GAP (test code = GAP) 25 mmol/L 10-20 H GLUCOSE (test code = GLU) 226 mg/dL 74-106 H BLOOD UREA NITROGEN (test code = BUN) 12 mg/dL 3-21 N GLOMERULAR FILTRATION RATE (test code = GFR) > 60 mL/min >=60 Estimated GFR by using Modified MDRD formula.Chronic kidney disease is defined as either kidney damageor GFR <60 mL/min/1.73 m2 for >3 months. CREATININE (test code = CREAT) 0.71 mg/dL 0.55-1.3 N BUN/CREATININE RATIO (test code = BUN/CREA) 16.9 10-20 N CALCIUM (test code = CA) 7.2 mg/dL 8.4-10.2 L [id number] 01:20:00* Test Item Value Reference Range Interpretation Comments PHOSPHORUS (test code = PHOS) 1.4 mg/dL 2.6-4.7 L [id number] 00:58:00* Test Item Value Reference Range Interpretation Comments GLUBED (test code = GLUBED) 208 mg/dL 74-106 H Performed by certified plate and frame filter operator at [facility] VENOUS BLOOD [id number] 00:51:00* Test Item Value Reference Range Interpretation Comments VENOUS BLOOD GAS PH (test code = PHV) 7.14 7.30-7.40 LL Results called to and read back by Jaimie 00:51 - 04/03/2020; by CARMITA SOTO RRT VENOUS BLOOD GAS PCO2 (test code = PCO2V) 31.0 mm Hg 39.0-51.0 L VENOUS BLOOD GAS PO2 (test code = PO2V) 50.1 mm Hg 30.0-50.0 H VBG HCO3 (test code = HCO3V) 10.2 mmol/L 17.0-30.0 L VBG BASE EXCESS (test code = MANISHA) -17.6 mmol/L -5.0-5.0 LL VENOUS BLOOD GAS FIO2 (test code = FIO2V) 21.0 VENOUS BLOOD GAS SITE (test code = SITEV) OT CALLED [facility] NURSES STATION TO REPORT RESULTS LACTIC [id number] 00:21:00* Test Item Value Reference Range Interpretation Comments LACTIC ACID (test code = LACT) 0.8 MMOL/L 0.4-1.9 N [id number] 00:16:00* Test Item Value Reference Range Interpretation Comments GLUBED (test code = GLUBED) 296 mg/dL 74-106 H Performed by certified plate and frame filter operator at [facility] COVID 19 INHOUSE [id number] 00:01:00* Test Item Value Reference Range Interpretation Comments COVID 19 INHOUSE AG (test code = [id number]) NEGATIVE URINALYSIS [id number] 23:49:00* Test Item Value Reference Range Interpretation Comments UA COLOR (test code = COLU) YELLOW YELLOW UA APPEARANCE (test code = APPU) CLEAR CLEAR UA GLUCOSE DIPSTICK (test code = DGLUU) 1000 (3+) mg/dL NEGATIVE A UA BILIRUBIN DIPSTICK (test code = BILU) NEGATIVE mg/dL NEGATIVE UA KETONE DIPSTICK (test code = KETU) 150 (4+) mg/dL NEGATIVE A UA SPECIFIC GRAVITY (test code = SGU) 1.015 1.001-1.035 UA BLOOD DIPSTICK (test code = PARUL) 250 (4+) Alonzo/uL NEGATIVE A UA PH DIPSTICK (test code = JUSTINA) 5.0 5.0-8.0 UA PROTEIN DIPSTICK (test code = PROU) 100 (2+) mg/dL Neg-15 A UA UROBILINIOGEN DIPSTICK (test code = URO) norm mg/dL 0.0-0.2 UA NITRITE DIPSTICK (test code = SALOME) NEGATIVE NEGATIVE UA LEUKOCYTE ESTERASE DIPSTICK (test code = LEUU) neg uL NEGA TIVE UA WBC (test code = WBCU) 0-5 per HPF 0-5 UA RBC (test code = RBCU) 10-15 per HPF 0-5 A UA EPITHELIAL CELLS (test code = EPIU) None seen per HPF Few UA BACTERIA (test code = BACU) TRACE per HPF NONE Urine Source? Clean CatchDRUGS OF ABUSE SCREEN [id number] 23:49:00* Test Item Value Reference Range Interpretation Comments URN COCAINE (test code = COCAURN) NEGATIVE NEGATIVE URN CANNABINOIDS (test code = CANNABURN) NEGATIVE NEGATIVE URN AMPHETAMINE (test code = AMPHETURN) NEGATIVE NEGATIVE URN BARBITURATE (test code = BARBITURN) NEGATIVE NEGATIVE URN BENZODIAZEPINE (test code = BENZOURN) NEGATIVE NEGATIVE URN OPIATES (test code = OPIATURN) NEGATIVE NEGATIVE URN PHENCYCLIDINE (PCP) (test code = PHENCURN) NEGATIVE NEGATIV E Urine Source? Clean CatchURINALYSIS [id number] 23:48:00* Test Item Value Reference Range Interpretation Comments UA COLOR (test code = COLU) YELLOW YELLOW UA APPEARANCE (test code = APPU) CLEAR CLEAR UA GLUCOSE DIPSTICK (test code = DGLUU) 1000 (3+) mg/dL NEGATIVE A UA BILIRUBIN DIPSTICK (test code = BILU) NEGATIVE mg/dL NEGATIVE UA KETONE DIPSTICK (test code = KETU) 150 (4+) mg/dL NEGATIVE A UA SPECIFIC GRAVITY (test code = SGU) 1.015 1.001-1.035 UA BLOOD DIPSTICK (test code = PARUL) 250 (4+) Alonzo/uL NEGATIVE A UA PH DIPSTICK (test code = JUSTINA) 5.0 5.0-8.0 UA PROTEIN DIPSTICK (test code = PROU) 100 (2+) mg/dL Neg-15 A UA UROBILINIOGEN DIPSTICK (test code = URO) norm mg/dL 0.0-0.2 UA NITRITE DIPSTICK (test code = SALOME) NEGATIVE NEGATIVE UA LEUKOCYTE ESTERASE DIPSTICK (test code = LEUU) neg uL NEGA TIVE UA WBC (test code = WBCU) 0-5 per HPF 0-5 UA RBC (test code = RBCU) 10-15 per HPF 0-5 A UA EPITHELIAL CELLS (test code = EPIU) None seen per HPF Few UA BACTERIA (test code = BACU) TRACE per HPF NONE Urine Source? Clean CatchDRUGS OF ABUSE SCREEN [id number] 23:48:00* Test Item Value Reference Range Interpretation Comments URN COCAINE (test code = COCAURN) NEGATIVE URN CANNABINOIDS (test code = CANNABURN) NEGATIVE URN AMPHETAMINE (test code = AMPHETURN) NEGATIVE URN BARBITURATE (test code = BARBITURN) NEGATIVE URN BENZODIAZEPINE (test code = BENZOURN) NEGATIVE URN OPIATES (test code = OPIATURN) NEGATIVE URN PHENCYCLIDINE (PCP) (test code = PHENCURN) NEGATIV E Urine Source? Clean CatchURINALYSIS [id number] 23:27:00* Test Item Value Reference Range Interpretation Comments UA COLOR (test code = COLU) YELLOW YELLOW UA APPEARANCE (test code = APPU) CLEAR CLEAR UA GLUCOSE DIPSTICK (test code = DGLUU) 1000 (3+) mg/dL NEGATIVE A UA BILIRUBIN DIPSTICK (test code = BILU) NEGATIVE mg/dL NEGATIVE UA KETONE DIPSTICK (test code = KETU) 150 (4+) mg/dL NEGATIVE A UA SPECIFIC GRAVITY (test code = SGU) 1.015 1.001-1.035 UA BLOOD DIPSTICK (test code = PARUL) 250 (4+) Alonzo/uL NEGATIVE A UA PH DIPSTICK (test code = JUSTINA) 5.0 5.0-8.0 UA PROTEIN DIPSTICK (test code = PROU) 100 (2+) mg/dL Neg-15 A UA UROBILINIOGEN DIPSTICK (test code = URO) norm mg/dL 0.0-0.2 UA NITRITE DIPSTICK (test code = SALOME) NEGATIVE NEGATIVE UA LEUKOCYTE ESTERASE DIPSTICK (test code = LEUU) neg uL NEGA TIVE UA WBC (test code = WBCU) per HPF 0-5 UA RBC (test code = RBCU) per HPF 0-5 UA EPITHELIAL CELLS (test code = EPIU) per HPF Few UA BACTERIA (test code = BACU) per HPF NONE Urine Source? Clean CatchDRUGS OF ABUSE SCREEN [id number] 23:27:00* Test Item Value Reference Range Interpretation Comments URN COCAINE (test code = COCAURN) NEGATIVE URN CANNABINOIDS (test code = CANNABURN) NEGATIVE URN AMPHETAMINE (test code = AMPHETURN) NEGATIVE URN BARBITURATE (test code = BARBITURN) NEGATIVE URN BENZODIAZEPINE (test code = BENZOURN) NEGATIVE URN OPIATES (test code = OPIATURN) NEGATIVE URN PHENCYCLIDINE (PCP) (test code = PHENCURN) NEGATIV E Urine Source? Clean [id number] 23:14:00* Test Item Value Reference Range Interpretation Comments ALCOHOL (test code = ALC) < 3 mg/dL 0.0-3.0 N -- INTERPRETIVE DATA NOTE: POSITIVE SCREENING RESULTS SHOULD BE CONSIDERED PRESUMPTIVE.WHEN COLLECTED FOR MEDICAL PURPOSES ONLY. SPECIMEN WILL NOTBE COLLECTED BY CHAIN OF CUSTODY.IF A CONFIRMATION OF POSITIVE RESULTS IS DESIRED, ACONFIRMATION TEST MUST BE REQUESTED BY THE PHYSICIAN AT ANADDITIONAL CHARGE TO THE PATIENT. [id number] 23:10:00* Test Item Value Reference Range Interpretation Comments MAGNESIUM (test code = MAG) 1.9 mg/dL 1.8-2.4 N - CT ABD PELVIS [id number] 23:10:00 Name: MIGDALIA QUINN [facility] : 1975 Age/S: 44 / F [address] [facility] Unit #: [id number] Loc: [place] [address] Phys: Andrei Jansen MD Acct: [id number] Dis Date: Status: REG ER PHONE #: [phone] Exam Date: 04/02/2020 2300 FAX #: [phone] Reason: diffuse abdominal pain, vomiting EXAMS: CPT CODE: [id number] CT ABD PELVIS W/CONT 70107 AFTER HOURS SERVICE ON: 04/02/2020 11:[address] Scan of the Abdomen and Pelvis With Contrast Location Code M12 History: diffuse abdominal pain, vomiting Technique: Axial and reconstructed coronal scans were performed on a helical scanner post IV contrast. Delayed scans were also obtained. One or more of the following dose reduction techniques were used: Automated exposure control, adjustment of the mA and/or kV according to patient size, and/or utilization of iterative reconstruction technique. Findings: LIVER: Liver is hypodense consistent with steatosis. GALLBLADDER/BILIARY: Cholecystectomy. PANCREAS: No significant findings. SPLEEN: No significant findings. ADRENALS: No significant findings. KIDNEYS: There is no hydronephrosis in either kidney. There is significant patchy enhancement in the upper pole of the right kidney consistent with pyelonephritis. On the delayed scan, there is an area of decreased attenuation within the area of abnormal enhancement which may be consistent with a developing renal parenchymal abscess measuring approximately 2.5 cm. There is mild free fluid superior to the right kidney and Morison's pouch. BLADDER: No significant findings. GASTROINTESTINAL: No significant findings. The appendix is unremarkable. OTHER: Uterus is absent. IMPRESSION: Right upper pole pyelonephritis and possible early renal parenchymal abscess measuring 2.5 cm. Mild adjacent free fluid superior to the right kidney. PAGE 1 Signed Report (CONTINUED) Name: MIGDALIA QUINN [facility] : 1975 Age/S: 44 / F [address] [facility] Unit #: [id number] Loc: [place] [address] Phys: Andrei Jansen MD Acct: [id number] Dis Date: Status: REG ER PHONE #: [phone] Exam Date: 04/02/2020 2300 FAX #: [phone] Reason: diffuse abdominal pain, vomiting EXAMS: CPT CODE: [id number] ABD PELVIS W/CONT 13044 <Continued> at 2310 Reported and signed by: Dom Esparza M.D. CC: Andrei Jansen MD Technologist:BILL BENTLEY RT(R),CT CTDI: DLP: Trnscb Date/Time: 04/02/2020 ( 2309) [id number] Orig Print D/T: S: 04/02/2020 (2313) PAGE 2 Signed Report BASIC METABOLIC [id number] 22:43:00* Test Item Value Reference Range Interpretation Comments SODIUM (test code = NA) 125 mmol/L 136-145 L POTASSIUM (test code = K) 3.6 mmol/L 3.5-5.1 N CHLORIDE (test code = CL) 91 mmol/L 101-109 L CARBON DIOXIDE (test code = CO2) 10.4 mmol/L 21-32 L ANION GAP (test code = GAP) 27 mmol/L 10-20 H GLUCOSE (test code = GLU) 355 mg/dL 74-106 H BLOOD UREA NITROGEN (test code = BUN) 15 mg/dL 3-21 N GLOMERULAR FILTRATION RATE (test code = GFR) > 60 mL/min >=60 Estimated GFR by using Modified MDRD formula.Chronic kidney disease is defined as either kidney damageor GFR <60 mL/min/1.73 m2 for >3 months. CREATININE (test code = CREAT) 0.84 mg/dL 0.55-1.3 N BUN/CREATININE RATIO (test code = BUN/CREA) 17.9 10-20 N CALCIUM (test code = CA) 8.5 mg/dL 8.4-10.2 N HEPATIC FUNCTION [id number] 22:43:00* Test Item Value Reference Range Interpretation Comments TOTAL PROTEIN (test code = PROT) 8.2 g/dL 6.5-8.4 N ALBUMIN (test code = ALB) 2.4 g/dL 3.4-4.8 L GLOBULIN (test code = GLOB) 5.8 G/DL 1-10 N ALBUMIN/GLOBULIN RATIO (test code = A/G) 0.41 RATIO 0.75-1.50 L BILIRUBIN TOTAL (test code = BILT) 0.70 mg/dL 0.0-1.0 N BILIRUBIN DIRECT (test code = BILD) 0.20 mg/dL 0.0-0.30 N SGOT/AST (test code = AST) 17 U/L 6-32 N SGPT/ALT (test code = ALT) 27 U/L 12-78 N N ote: Change in REFERENCE RANGE due to new reagent method. ALKALINE PHOSPHATASE TOTAL (test code = ALKP) 132 U/L 38-126 H [id number] 22:43:00* Test Item Value Reference Range Interpretation Comments LIPASE (test code = LIP) 1403 U/L 128-270 H HCG SERUM [id number] 22:43:00* Test Item Value Reference Range Interpretation Comments HCG SERUM QUAL (test code = HCGQL) NEGATIVE NEGATIVE This HCGQL test is NOT applicable for MALE patients.Check with nurse about probable order error.If Tumor Marker Test needed, nurse should order test "HCGTU"(Test #550.51733) BASIC METABOLIC [id number] 22:28:00* Test Item Value Reference Range Interpretation Comments SODIUM (test code = NA) mmol/L 135-148 POTASSIUM (test code = K) mmol/L 3.5-5.1 CHLORIDE (test code = CL) mmol/L 101-109 CARBON DIOXIDE (test code = CO2) mmol/L 21-32 ANION GAP (test code = GAP) mmol/L 10-20 GLUCOSE (test code = GLU) mg/dL 74-106 BLOOD UREA NITROGEN (test code = BUN) mg/dL 3-21 GLOMERULAR FILTRATION RATE (test code = GFR) mL/min >=60 CREATININE (test code = CREAT) mg/dL 0.55-1.3 BUN/CREATININE RATIO (test code = BUN/CREA) 10-20 CALCIUM (test code = CA) mg/dL 8.4-10.2 HEPATIC FUNCTION [id number] 22:28:00* Test Item Value Reference Range Interpretation Comments TOTAL PROTEIN (test code = PROT) gram/dL 6.4-8.2 ALBUMIN (test code = ALB) g/dL 3.4-5.0 GLOBULIN (test code = GLOB) g/dL 2.7-4.2 ALBUMIN/GLOBULIN RATIO (test code = A/G) 0.75-1.50 BILIRUBIN TOTAL (test code = BILT) mg/dL 0.2-1.2 BILIRUBIN DIRECT (test code = BILD) mg/dL 0.0-0.20 SGOT/AST (test code = AST) IUnit/L 15-37 SGPT/ALT (test code = ALT) U/L 10-69 ALKALINE PHOSPHATASE TOTAL (test code = ALKP) IUnit/L 45-117 [id number] 22:28:00* Test Item Value Reference Range Interpretation Comments LIPASE (test code = LIP) Unit/L 144-286 HCG SERUM [id number] 22:28:00* Test Item Value Reference Range Interpretation Comments HCG SERUM QUAL (test code = HCGQL) NEGATIVE NEGATIVE This HCGQL test is NOT applicable for MALE patients.Check with nurse about probable order error.If Tumor Marker Test needed, nurse should order test "HCGTU"(Test #[id number]) CBC W/O [id number] 22:09:00* Test Item Value Reference Range Interpretation Comments WHITE BLOOD CELL (test code = WBC) 14.3 K/mm3 4.5-12.5 H RED BLOOD CELL (test code = RBC) 5.02 mill/mm3 3.7-5.2 N HEMOGLOBIN (test code = HGB) 13.7 gram/dL 11.5-15.5 N HEMATOCRIT (test code = HCT) 39.0 % 36.0-46.0 N MEAN CELL VOLUME (test code = MCV) 77.7 fL 80-98 L MEAN CELL HGB (test code = MCH) 27.3 picogram 27.0-33.0 N MEAN CELL HGB CONCETRATION (test code = MCHC) 35.1 gram/dL 33.0-36. 0 N RED CELL DISTRIBUTION WIDTH (test code = RDW) 13.0 % 11.6-16. 2 N RED CELL DISTRIBUTION WIDTH SD (test code = RDW-SD) 37.0 fL 37 .0-51.0 N PLATELET COUNT (test code = PLT) 167 K/mm3 150-450 N [id number] 21:53:00* Test Item Value Reference Range Interpretation Comments GLUBED (test code = GLUBED) 399 mg/dL 74-106 H Performed by certified plate and frame filter operator at [facility] - XR CHEST 1 [id number] 17:24:00 FAX: Allen Jon [phone] [place]: B St: REG Name: MIGDALIA BUSTAMANTE [facility] : [birth year] Age/S: 44/F [facility] Unit #: [id number] Loc: [place] [address] Phys: Allen Jon NP Acct: [id number] Dis Date: Status: REG ER PHONE #: [phone] Exam Date: 01/01/2020 1711 FAX #: [phone] Reason: SHORTNESS OF BREATH EXAMS: CPT CODE: [id number] XR CHEST 1 V 79465 REASON FOR EXAM: SHORTNESS OF BREATH Exam Order Date: 01/01/2020 4:23 PM Ordering MFrances: Allen Jon NP PROCEDURE: - XR CHEST 1 V COMPARISON: Chest x-ray July 27, 2018 FINDINGS: The lungs are clear. There is no pleural effusion or pneumothorax. Pulmonary vascularity is within normal limits. Cardiomediastinal silhouette is normal in size for technique. The mediastinal contours are within no rmal limits. Musculoskeletal structures are within normal limits. The visualized upper abdomen is within normal limits. IMPRESSION: No acute cardiopulmonary process. Location: [facility] at 1724 Reported and signed by: Faraz Rossi MD CC: Allen Jon NP Technologist: Kisha Estrella RT(R) Trnscrd Date/Time/By: (1724) : By: Bright.RR31 Orig Print D/T: S: 01/01/2020 (4260) PAGE 1 Signed Report XRAY CHEST 2 [id number] 15:12:52IMPRESSION: No acute thoracic abnormality. Dictated By: Paul Farley MD, 05/13/2019 2:42 PM I have reviewed the study and agree with the findings in this report. Signed By: Ritu Muniz MD, 05/13/2019 3:12 PM Interface, Rad/Mammog In - 05/13/2019 3:17 PM CSTEXAMINATION: XRAY CHEST 2 VIEWS INDICATION: cough, SOB COMPARISON: Chest radiograph from 01/30/2019. FINDINGS: PA and lateral viewsTUBES and LINES: NoneLUNGS: Lungs are well inflated. No consolidations or e emanuel. PLEURA: No effusions. No pneumothorax. HEART AND MEDIASTINUM: Normal for technique. BONES AND SOFT TISSUES: The bones are unremarkable. Soft tissues are unremarkable.UPPER ABDOMEN: No free air under the diaphragm. IMPRESSIONIMPRESSIO N: No acute thoracic abnormality.Dictated By: Paul Farley MD, 05/13/2019 2:42 PMI have reviewed the study and agree with the findings in this report.Signed By: Juan Luis Muniz MD, 05/13/2019 3:12 [facility]MSwed[facility]emoglobin A1C 2019-05-09 11:04:00* Test Item Value Reference Range Interpretation Comments Hemoglobin A1c (test code = 4548-4) 8.0 % 4.3-6.1 H Estimated Average Glucose (test code = 22275458) 183 mg/dL 70-11 0 H Lab Interpretation (test code = 49370-9) [facility]normal [facility]uv1397-26-30 08:08:00* Test Item Value Reference Range Interpretation Comments WBC (test code = 6690-2) 9.3 K/uL 4.5-11 RBC (test code = 789-8) 4.60 4.20- 5.40 M/uL Hemoglobin (test code = 718-7) 12.6 g/dL 12-16 Hematocrit (test code = 4544-3) 39.7 % 37-47 MCV (test code = 787-2) 86.3 fL 82-92 MCH (test code = 785-6) 27.4 pg 27-32 MCHC (test code = 786-4) 31.7 g/dL 32-36 L RDW (test code = 25164-1) 39.1 fL 36.4-46.3 Platelet (test code = 777-3) 232 K/uL 150-400 Mean Platelet Volume (test code = 31055-0) 12.6 fL 9.4-12.4 H Percent NRBC (test code = 42676071) 0.0 % Neutrophil (test code = 770-8) 60.2 % 34-70 Lymphs (test code = 736-9) 31.5 % 20-50 Monocytes (test code = 5905-5) 6.3 % 5-12 Eos (test code = 713-8) 1.5 % 0.7-5 Basos (test code = 706-2) 0.2 % 0.1-1.2 Immature Granulocytes (test code = 46165953) 0.3 % 0-0.5 Neutrophils (Absolute) (test code = 65582756) 5.59 K/uL 1.56-6.1 3 Lymphs (Absolute) (test code = 45684646) 2.93 K/uL 1.18-3.74 Monocytes(Absolute) (test code = 46700517) 0.59 K/uL 0.24-0.36 H Eos (Absolute) (test code = 12033839) 0.14 K/uL 0.04-0.36 Baso (Absolute) (test code = 39595950) 0.02 K/uL 0.01-0.08 Immature Grans (Abs) (test code = 27842251) 0.03 K/uL 0-0.03 Absolute NRBC (test code = 28693163) 0.00 K/uL Lab Interpretation (test code = 79298-3) Abnormal [facility] [id number] 06:53:00* Test Item Value Reference Range Interpretation Comments Vitamin B12 (test code = 23245461) 296 pg/mL See comment Normal: 180-914 pg/mLIntermittent: 145-180 pg/mLDeficient: <=145.0 pg/mL [facility] [id number] 06:36:00* Test Item Value Reference Range Interpretation Comments Cholesterol (test code = 2093-3) 163.0 mg/dL <=200.0 Triglyceride (test code = 88159492) 136 mg/dL <150 HDL (test code = 2085-9) 47.0 mg/dL See Reference Range Narrative . LDL (test code = 55619-0) 89 mg/dL <100 Op timal: < 100.0 mg/dLNear Optimal: 120-129 mg/dLBorderline: 130-159 mg/dLHigh: 160-189 mg/dLVery High: >=190 mg/dL Patient Fasting? (test code = 30007043) No ZAK (test code = ZAK) Patient is not fasting. For a triglyceride result greater than 440 mg/dL, consider re-testing when the patient is in a fasting state. [facility] [id number] 06:36:00* Test Item Value Reference Range Interpretation Comments Uric Acid (test code = 76579501) 3.5 mg/dL 2.3-6.6 Lab Interpretation (test code = 70072-2) Normal [facility] Metabolic [id number] 06:36:00* Test Item Value Reference Range Interpretation Comments Sodium (test code = 2951-2) 139 mmol/L 136-145 Potassium (test code = 2823-3) 4.3 mmol/L 3.5-5.1 Chloride (test code = 2075-0) 104 mmol/L 98-107 CO2 (test code = 72575039) 26 mmol/L 21-31 Glucose (test code = 42232591) 161 mg/dL 70-110 H Calcium (test code = 11425725) 10.1 mg/dL 8.6-10.3 Urea Nitrogen (test code = 26037030) 12.0 mg/dL 7-25 Creatinine (test code = 24162550) 0.7 mg/dL 0.6-1.2 Alkaline Phosphatase (test code = 28074509) 102 U/L 34-104 ALT (test code = 16335499) 40 U/L 7-52 AST (test code = 09347923) 34 U/L 13-39 Total Protein (test code = 2885-2) 7.2 g/dL 6-8.3 GFR, Estimated (test code = 34552895) 90 >=90 mL/min/1.73 m2 Albumin (test code = 91223-6) 4.0 g/dL 3.7-5.3 Anion Gap (test code = 69608646) 9 mmol/L 5-16 Lab Interpretation (test code = 21078-2) Abnormal [facility] [id number] 20:03:00* Test Item Value Reference Range Interpretation Comments GLUBED (test code = GLUBED) 381 mg/dL 74-106 H Performed by certified plate and frame filter operator at [facility] [id number] 10:33:00* Test Item Value Reference Range Interpretation Comments GLUBED (test code = GLUBED) 245 mg/dL 74-106 H Performed by certified plate and frame filter operator at [facility] [id number] 06:53:00* Test Item Value Reference Range Interpretation Comments GLUBED (test code = GLUBED) 267 mg/dL 74-106 H Performed by certified plate and frame filter operator at [facility] [id number] 06:53:00* Test Item Value Reference Range Interpretation Comments GLUBED (test code = GLUBED) 322 mg/dL 74-106 H Performed by certified plate and frame filter operator at [facility] [id number] 06:53:00* Test Item Value Reference Range Interpretation Comments GLUBED (test code = GLUBED) 330 mg/dL 74-106 H Performed by certified plate and frame filter operator at [facility] [id number] 06:53:00* Test Item Value Reference Range Interpretation Comments GLUBED (test code = GLUBED) 372 mg/dL 74-106 H Performed by certified plate and frame filter operator at [facility] BASIC METABOLIC [id number] 04:50:00* Test Item Value Reference Range Interpretation Comments SODIUM (test code = NA) 144 mmol/L 136-145 N POTASSIUM (test code = K) 3.8 mmol/L 3.5-5.1 N CHLORIDE (test code = CL) 112.0 mmol/L 98-107 H CARBON DIOXIDE (test code = CO2) 24.0 mmol/L 21-32 N ANION GAP (test code = GAP) 11.8 10-20 N GLUCOSE (test code = GLU) 328 mg/dL 74-106 H BLOOD UREA NITROGEN (test code = BUN) 10 mg/dL 7-18 N GLOMERULAR FILTRATION RATE (test code = GFR) > 60 mL/min >=60 Estimated GFR by using Modified MDRD formula.Chronic kidney disease is defined as either kidney damageor GFR <60 mL/min/1.73 m2 for >3 months. CREATININE (test code = CREAT) 0.80 mg/dL 0.55-1.02 N Note change in reference range due to change in reagent. BUN/CREATININE RATIO (test code = BUN/CREA) 13.1 10-20 N CALCIUM (test code = CA) 8.2 mg/dL 8.5-10.1 L BASIC METABOLIC [id number] 04:42:00* Test Item Value Reference Range Interpretation Comments SODIUM (test code = NA) 144 mmol/L 136-145 N POTASSIUM (test code = K) 3.8 mmol/L 3.5-5.1 N CHLORIDE (test code = CL) 112.0 mmol/L 98-107 H CARBON DIOXIDE (test code = CO2) mmol/L 21-32 ANION GAP (test code = GAP) 10-20 GLUCOSE (test code = GLU) mg/dL 74-106 BLOOD UREA NITROGEN (test code = BUN) mg/dL 7-18 GLOMERULAR FILTRATION RATE (test code = GFR) mL/min >=60 CREATININE (test code = CREAT) mg/dL 0.55-1.02 BUN/CREATININE RATIO (test code = BUN/CREA) 10-20 CALCIUM (test code = CA) mg/dL 8.5-10.1 URINALYSIS [id number] 23:50:00* Test Item Value Reference Range Interpretation Comments UA COLOR (test code = COLU) COLORLESS YELLOW A UA APPEARANCE (test code = APPU) CLEAR CLEAR UA GLUCOSE DIPSTICK (test code = DGLUU) >1000 (4+) mg/dL NEGATIVE UA BILIRUBIN DIPSTICK (test code = BILU) NEGATIVE mg/dL NEGATIVE UA KETONE DIPSTICK (test code = KETU) 10 (1+) mg/dL NEGATIVE A UA SPECIFIC GRAVITY (test code = SGU) 1.016 1.001-1.035 UA BLOOD DIPSTICK (test code = PARUL) 0.03 mg/dL (Trace) mg/dL NEGATI VE A UA PH DIPSTICK (test code = JUSTINA) 5.5 5.0-8.0 UA PROTEIN DIPSTICK (test code = PROU) NEGATIVE mg/dL NEGATIVE UA UROBILINIOGEN DIPSTICK (test code = URO) Normal mg/dL NEGATIVE UA NITRITE DIPSTICK (test code = SALOME) NEGATIVE NEGATIVE UA LEUKOCYTE ESTERASE W REFLEX (test code = LEUUR) NEGATIVE Al/uL NEGATIVE UA WBC (test code = WBCU) 6-10 per HPF 0-5 A UA RBC (test code = RBCU) 0-2 #/HPF 0-5 UA EPITHELIAL CELLS (test code = EPIU) FEW per HPF FEW UA BACTERIA (test code = BACU) FEW #/HPF NONE A Urine Source? Clean CatchDRUGS OF ABUSE SCREEN [id number] 23:50:00* Test Item Value Reference Range Interpretation Comments URN COCAINE (test code = COCAURN) POSITIVE <300 ng/mL A This test provides only a preliminary test result. A morespecific alternate chemical method must be used in order toobtain a confirmed analytical result. Gas chromatography/mass spectrometry (GC/MS) is thepreferred confirmatory method. Other chemical confirmationmethods are available. Clinical consideration and professional judgment should be applied to any drug of abusetest result, particularly when preliminary positive resultsare used.Unconfirmed screening results must not be used fornon-medical purposes (e.g., employment testing, legaltesting). URN CANNABINOIDS (test code = CANNABURN) NEGATIVE <50 ng/mL URN AMPHETAMINE (test code = AMPHETURN) NEGATIVE <1000 ng/mL URN BARBITURATE (test code = BARBITURN) NEGATIVE <200 ng/mL URN BENZODIAZEPINE (test code = BENZOURN) NEGATIVE <200 ng/mL URN OPIATES (test code = OPIATURN) NEGATIVE <300 ng/mL URN PHENCYCLIDINE (PCP) (test code = PHENCURN) NEGATIVE <25 ng/ mL URN METHADONE (test code = METHAURN) NEGATIVE <300 ng/mL Urine Source? Clean CatchBASIC METABOLIC [id number] 23:35:00* Test Item Value Reference Range Interpretation Comments SODIUM (test code = NA) 141 mmol/L 136-145 N POTASSIUM (test code = K) 3.6 mmol/L 3.5-5.1 N CHLORIDE (test code = CL) 107.0 mmol/L 98-107 N CARBON DIOXIDE (test code = CO2) 19.0 mmol/L 21-32 L ANION GAP (test code = GAP) 18.6 10-20 N GLUCOSE (test code = GLU) 349 mg/dL 74-106 H BLOOD UREA NITROGEN (test code = BUN) 10 mg/dL 7-18 N GLOMERULAR FILTRATION RATE (test code = GFR) > 60 mL/min >=60 Estimated GFR by using Modified MDRD formula.Chronic kidney disease is defined as either kidney damageor GFR <60 mL/min/1.73 m2 for >3 months. CREATININE (test code = CREAT) 0.70 mg/dL 0.55-1.02 N Note change in reference range due to change in reagent. BUN/CREATININE RATIO (test code = BUN/CREA) 13.9 10-20 N CALCIUM (test code = CA) 8.8 mg/dL 8.5-10.1 N HEPATIC FUNCTION [id number] 23:35:00* Test Item Value Reference Range Interpretation Comments TOTAL PROTEIN (test code = PROT) 7.3 gram/dL 6.4-8.2 N ALBUMIN (test code = ALB) 3.2 g/dL 3.4-5.0 L GLOBULIN (test code = GLOB) 4.1 gram/dL 2.7-4.2 N ALBUMIN/GLOBULIN RATIO (test code = A/G) 0.8 0.75-1.50 N BILIRUBIN TOTAL (test code = BILT) 0.20 mg/dL 0.0-1.0 N BILIRUBIN DIRECT (test code = BILD) < 0.05 mg/dL 0.0-0.20 N SGOT/AST (test code = AST) 30 IUnit/L 15-37 N SGPT/ALT (test code = ALT) 36 IUnit/L 12-78 N ALKALINE PHOSPHATASE TOTAL (test code = ALKP) 134 IUnit/L 45-117 H Note change in reference range due to change in reagent. HCG SERUM [id number] 23:35:00* Test Item Value Reference Range Interpretation Comments HCG SERUM QUAL (test code = HCGQL) NEGATIVE NEGATIVE This HCGQL test is NOT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
[2020-04-21 17:12] LABS: ALANINE AMINOTRANSFERASE 23 IU/L (0-55); ALBUMIN 3.4 g/dL (3.5-5.0); ALBUMIN/GLOBULIN RATIO 0.7 (0.8-2.0); ALKALINE PHOSPHATASE 104 IU/L (40-150); ANION GAP 18.2 mmol/L (8-16); BLOOD UREA NITROGEN < 5 mg/dL (7-26); CARBON DIOXIDE 19 mmol/L (22-29); CHLORIDE 104 mmol/L (98-107); CREATINE KINASE 11 IU/L (29-168); CREATININE, SERUM 0.74 mg/dL (0.57-1.11); EST GLOMERULAR FILTRATION RATE > 60 ML/MIN (60-); GLUCOSE 210 mg/dL (74-118); POTASSIUM 3.2 mmol/L (3.5-5.1); SODIUM 138 mmol/L (136-145)
[2020-04-21 17:13] LABS: BUN/CREATININE RATIO 7 (6-25)
--- NOTE | 2020-04-21 17:41 | NUR ---
Repeatedly reapply cm and pulse ox, pt will not leave cm in place. Unable to perform EKG d/t pt inability to sit still due to vomiting. Dr. Ferrera notified.
[2020-04-21 17:47] LABS: BILIRUBIN,URINE NEGATIVE (NEGATIVE); CLARITY,URINE CLEAR (CLEAR); COLOR,URINE YELLOW (YELLOW); KETONES,URINE 2+ (NEGATIVE); LEUKOCYTE ESTERASE ,URINE NEGATIVE (NEGATIVE); NITRITE,URINE NEGATIVE (NEGATIVE); PROTEIN,URINE DIPSTICK NEGATIVE (NEGATIVE); URINE UROBILINOGEN 0.2 mg/dL (0.2 - 1)
[2020-04-21 17:47] LABS: ABG HCO3 17 mmol/L (22-26); ABG PCO2 18 mmHg (35-45); ABG PH 7.58 (7.35-7.45); ABG PO2 114 mmHg (80-105); ABG TCO2 18
[2020-04-21 18:02] LABS: BACTERIA,URINE FEW /HPF; EPITHELIAL CELLS,URINE FEW /LPF
--- NOTE | 2020-04-21 18:03 | Diagnostic Imaging Report ---
EXAM: CT Abdomen and Pelvis WITH contrast INDICATION: Abdominal pain. COMPARISON: CT of the abdomen/pelvis on 04/19/2020 TECHNIQUE: Abdomen and pelvis were scanned utilizing a multidetector helical scanner from the lung base to the pubic symphysis after administration of IV contrast. Coronal and sagittal reformations were obtained. Routine protocol was performed. Scan was performed when during portal venous phase. IV CONTRAST: 100 mL of Isovue 370 ORAL CONTRAST: None COMPLICATIONS: None RADIATION DOSE: Total DLP: 561 mGy*cm Estimated effective dose: (DLP x 0.015 x size factor) mSv CTDIvol has been reviewed. It is below the limits set by the Radiation Protocol Committee (RPC). Dose modulation, iterative reconstruction, and/or weight based adjustment of the mA/kV was utilized to reduce the radiation dose to as low as reasonably achievable. FINDINGS: LINES and TUBES: None. LOWER THORAX: Redemonstration of right lung base consolidation, likely scarring versus atelectasis. Atherosclerotic calcification of the coronary vessels. HEPATOBILIARY: No focal hepatic lesions. No biliary ductal dilation. GALLBLADDER: There are cholecystectomy clips. SPLEEN: No splenomegaly. PANCREAS: No focal masses or ductal dilatation. ADRENALS: No adrenal nodules KIDNEYS/URETERS: No interval change in complex cyst that extends extrarenally with peripheral enhancement. The extrarenal component with peripheral enhancement measures approximately 2.1 x 1.6 cm, unchanged in size. There is also minimal nonspecific perinephric fat stranding on the right. Kidneys enhance symmetrically. No hydronephrosis. No stones. GI TRACT: There is a small hiatal hernia. No abnormal distention, wall thickening, or evidence of bowel obstruction. Appendix is normal. PELVIC ORGANS/BLADDER: Unremarkable. LYMPH NODES: No lymphadenopathy. VESSELS: Scattered mild arterial vascular calcifications. PERITONEUM / RETROPERITONEUM: No free air or fluid. BONES: Unremarkable. SOFT TISSUES: No interval change in subcutaneous abdominal wall nodules, probably injection related. IMPRESSION: 1. No acute abdominopelvic abnormality identified. 2. No interval change in irregular complex cystic lesion in the upper pole of the right kidney with extrarenal extension. This finding is indeterminate although considerations include complex cyst versus abscess. Consider nonemergent urology referral for further evaluation and management. 3. Atherosclerotic calcification of the coronary vessels. Signed by: Cherelle Eugene MD on 04/21/2020 6:00 PM
[2020-04-21 18:04] LABS: PREGNANCY TEST, URINE NEGATIVE (NEGATIVE)
--- OUTSIDE RECORDS SUMMARY | 2020-04-21 18:20 | XMS REPORT | Clinical Summary ---
Author Author [facility] Organization [facility] Address Unknown Phone Unavailable Care Team Providers Care Sales Professional Name Role Phone Shelbie York PCP Allergies [...] Practice Shelbie York DO Medications 03/17/2020 Refill [facility] Doctor, [facility] 03/06/2020 E-Visit Rukhsana Fox LD 03/06/2020 Nutrition Nutrition Shelbie York DO Hoarseness (Primary Dx); Essential hypertension, benign; Gastroesophageal reflux disease, esophagitis presence not specified; Cough; Dysphagia, unspecified type; Intertrigo 03/04/2020 Telephonic Family Practice Encounter Shelbie York DO Medications 03/04/2020 Orders Only [facility] 03/04/2020 Patient Patient Education Education Shelbie York DO Medications 03/04/2020 Refill [facility] Rukhsana Fox, NADINE 02/26/2020 Nutrition Nutrition [...] DO Medications 02/06/2020 Refill Family Practice Doctor, [facility] 02/03/2020 E-Visit Rukhsana Fox LD 01/30/2020 Nutrition Nutrition Jocelyn Rice MD Vaginal itching (Primary Dx); Urinary frequency; Genital sore 01/29/2020 E-Visit Family Practice Monica Jane 01/29/2020 Nutrition Nutrition Doctor, [facility] 01/27/2020 E-Visit Shelbie York DO Type [...] Practice Shelbie York DO Medications 01/14/2020 Refill [facility] Shelbie York, Medications 01/13/2020 Refill Family Practice Sheblie York, Medications 12/19/2019 Refill Family Practice Shelbie [...] Practice Jaylen, Shelbie, DO Medications 10/07/2019 Refill [facility] Stefania Cleveland LD 10/07/2019 Nutrition Nutrition Jaylen, Shelbie, DO Medications 10/03/2019 Refill [facility] Jaylen, Shelbie, DO Medications 10/03/2019 Refill [facility] Neo Natarajan Jr., MD Medications 10/03/2019 Refill Family Practice Priserina, Monica 10/02/2019 Nutrition Nutrition Sloan Yorka, DO Medications 10/01/2019 Refill [facility] Sloan Yokra, DO Medications 08/22/2019 Refill [facility] Patrick Baldwin RN 07/24/2019 Patient Patient Education Education Shelbie York, Medications 06/27/2019 Refill [facility] Jaylen, Shelbie, DO Medications 06/27/2019 Refill [facility] Neo Natarajan Jr., MD Medications 06/17/2019 Refill [facility] Lucinda, Monica 06/11/2019 Nutrition Roger De La Torre III, MD Medications 05/17/2019 Refill Family Practice Sloan Yorka, DO Medications 05/15/2019 Refill [facility] Neo Natarajan Jr., MD Medications 05/15/2019 Refill [facility] Jaylen, Shelbie, DO Medications 05/15/2019 Refill [facility] Bisigerald, Monica 05/14/2019 Nutrition Nutrition Shelbie York, 05/13/2019 Ancillary Radiology Procedure Shelbie York DO Cough (Primary Dx); SOB (shortness of breath); Needs flu shot; Type 2 diabetes mellitus with complication, with long-term current use of insulin; Essential hypertension, benign 05/13/2019 Office Visit Family [facility] Tash Tirado, [facility] Type 2 diabetes mellitus with complicati on, [...] Comments Vital Sign 114/78 05/13/2019 10:49 AM [facility] Blood Pressure 92 05/13/2019 10:49 AM [facility] [employer] Pulse 36.8 C (98.3 F) 05/13/2019 10:49 AM [facility] [employer] Temperature 18 05/13/2019 10:49 AM [facility] Respiratory Rate 100% 05/13/2019 12:31 PM [facility] [employer] Room Air Oxygen Saturation - - Inhaled Oxygen Concentration 95.3 kg (210 lb) 05/13/2019 10:49 AM [facility] Weight 157.5 cm (5' 2") 05/13/2019 10:49 AM [facility] Height 38.41 05/13/2019 10:49 AM [facility] Body Mass Index Plan of Treatment Care Team Description Date Type Specialty Referral#[id number] 05/22/2020 Office Visit Gynecology Health Maintenance Due [...] (06/11/2019 No Maria Esther kowalski, 10:28 AM [facility] [employer]) Monica Note: Eat 2-3 CHO portions per [...] eat more vegetables and fruit. 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 States is drinking more water like 10 cups per day and stop to drink cokes or any kind of sodas[place] [address] Take medications as prescribed Self No Yuridia Cintron management Take medications as prescribed Self No Yuridia Cintron management Exercise Regularly Self On track (06/11/2019 No renaldo Osorio 10:28 AM [employer] [employer]) Roger Thapa III, MD HBA1C < 7 Treatment No Roger Osorio III, MD Procedures Comments Procedure Name Priority Date/Time Associated Diag nosis XRAY CHEST 2 VIEWS KANA 05/13/2019 Cough 1:18 PM [facility] NONINVASV OXYGEN Routine 05/13/2019 Cough SATUR;SINGLE 12:08 PM [facility] [employer] VITAMIN B12 Routine 05/08/2019 Type 2 diabetes mellitus 4:09 PM [employer] [employer] with complication, with long-term current use of insulin CBC Routine 05/08/2019 Blood in stool 4:09 PM [facility] [employer] CBC/DIFF Routine 05/08/2019 Blood in stool 4:09 PM [facility] [employer] URIC ACID Routine 05/08/2019 Type 2 diabetes mellitus 4:09 PM [employer] [employer] with complication, with long-term current use of insulin LIPID PROFILE Routine 05/08/2019 Type 2 diabetes mellitus 4:09 PM [employer] [employer] with complication, with long-term current use of insulin COMPREHENSIVE METABOLIC Routine 05/08/2019 Type 2 diabetes mellitus PANEL 4:09 PM [facility] [employer] with complication, with long-term current use of insulin HEMOGLOBIN A1C Routine 05/08/2019 Type 2 diabetes mellitus 4:09 PM [employer] [employer] with complication, with long-term current use of insulin after 04/21/2019 Results * XRAY CHEST 2 VIEWS (05/13/2019 1:18 PM [facility] [employer]) Specimen Impressions Performed At IMPRESSION: [facility] No acute thoracic abnormality. Dictated By: Paul Farley MD, 05/13/2019 2:42 PM I have reviewed the study and agree wit h the findings in this report. Signed By: Ritu Muniz MD, 05/13/2019 3:12 PM Narrative Performed At EXAMINATION: XRAY CHEST 2 VIEWS [facility] INDICATION: cough, SOB COMPARISON: Chest radiograph from [...] Interface, Rad/Mammog In - 05/13/2019 3:17 PM [facility] [employer] EXAMINATION: XRAY CHEST 2 VIEWS INDICATION: cough, [...] Number SMS * CBC/Diff (05/08/2019 4:09 PM [facility] [employer]) WBC 9.3 4.5 - 11.0 K/uL [facility] [...] (H) 0.24 - 0.36 K/uL [facility] Eos (Absolute) 0.14 0.04 - 0.36 K/uL [facility] Baso (Absolute) 0.02 0.01 - 0.08 K/uL [facility] Immature Grans 0.03 0.00 - 0.03 K/uL [facility] (Abs) LABORATORY Absolute NRBC 0.00 K/uL [facility] Specimen Blood Performing Organization Address [facility] Ph one Number [facility] [address] [place] [address] [phone] * Hemoglobin A1C (05/08/2019 4:09 PM [facility]) Hemoglobin A1c 8.0 (H) 4.3 - 6.1 % [facility] Estimated 183 (H) 70 - 110 mg/dL [facility] Average Glucose LABORATORY Specimen Blood Performing Organization Address [facility] one Number [facility] [address] [place] [address] [phone] * Comprehensive Metabolic Panel (05/08/2019 4:09 PM [facility]) Sodium 139 136 - 145 mmol/L [facility] Potassium 4.3 3.5 - 5.1 mmol/L [facility] Chloride 104 98 - 107 mmol/L [facility] CO2 26 21 - 31 mmol/L [facility] Glucose 161 (H) 70 - 110 mg/dL [facility] Calcium 10.1 8.6 - 10.3 mg/dL [facility] Urea Nitrogen 12.0 7.0 - 25.0 mg/dL [facility] Creatinine 0.7 0.6 - 1.2 mg/dL [facility] Alkaline 102 34 - 104 U/L [facility] Phosphatase LABORATORY ALT 40 7 - 52 U/L [facility] AST 34 13 - 39 U/L [facility] Bilirubin, 0.3 0.2 - 1.2 mg/dL [facility] Total LABORATORY Total Protein 7.2 6.0 - 8.3 g/dL [facility] GFR, Estimated 90 >=90 mL/min/1.73 m2 [facility] Albumin 4.0 3.7 - 5.3 g/dL [facility] Anion Gap 9 5 - 16 mmol/L [facility] Specimen Blood Performing Organization Address [facility] one Number [facility] [address] [place] [address] * Vitamin B12 (05/08/2019 4:09 PM [facility]) Vitamin B12 296 See comment pg/mL [facility] Comment: LABORATORY Normal: 180-914 pg/mL Intermittent: 145-180 pg/mL Deficient: <=145.0 pg/mL Specimen Blood Performing Organization Address [facility] one Number [facility] [address] [place] [address] * Uric Acid (05/08/2019 4:09 PM [facility] [employer]) Pathologist [facility] Uric Acid 3.5 2.3 - 6.6 mg/dL [facility] Specimen Blood Performing Organization Address [facility] one Number [facility] [address] [place], [place] [phone] * Lipid Profile (05/08/2019 4:09 PM [facility]) Cholesterol 163.0 <=200.0 mg/dL [facility] Triglyceride 136 <150 mg/dL [facility] HDL 47.0 See Reference Range [facility] Narrative. mg/dL LABORATORY LDL 89 <100 mg/dL [facility] Comment: LABORATORY Optimal: < 100.0 mg/dL Near Optimal: 120-129 mg/dL Borderline: 130-159 mg/dL High: 160-189 mg/dL Very High: >=190 mg/dL Patient No [facility] Fasting? LABORATORY Specimen Blood Narrative Performed At Patient is not fasting. For a triglyceride result gre ater than 440 mg/dL, [facility] consider re-testing when the patient is in a fasting state. Performing Organization Address [facility] one Number [facility] [address] [place], [place] [phone] after 04/21/2019 Insurance Type Payer Benefit Subscriber ID Effective Phone Address Plan / Dates Group [facility] xxxxxxxxx 2020-[address] CHOICE [facility] [id number]
--- OUTSIDE RECORDS SUMMARY | 2020-04-21 18:21 | XMS REPORT | Continuity of Care Document ---
Author Author [facility] t Organization [facility] Address [address] [place] [address] Phone Unavailable Care Team Providers Care Commercial Loan Specialist Name Role Phone NONSTAFF PCP Unavailable KELLY NUR Attphys Unavailable Marla HARMON Attphys Unavailable Odalys LOCKE Attphys Unavailable MARBIN YORK Attphys Unavailable Mireya Baldwin RN Attphys Unavailable Rukhsana Duarte Attphys Unavailable Doctor, [employer] Attphys Unavailable Curtis Dennison Attphys Unavailable Suzie William MD Attphys Ko Rice MD Attphys Monica Jane Attphys Unavailable Neo Natarajan MD Attphys Stefania Monroe Attphys Unavailable Alanis Osorio MD Attphys [facility] Payers Payer Name Policy Type Policy Number Effective Date Expiration Date Renita ortiz [facility] [id number] 2020 0 0:00:00 2078 00:00:00 [id number], [place] [address] xxxxxxxxx 2020 00:00:00 2078 23:59:59 [facility] Problems Condition Name Condition Details Condition Category Status Onset Date Resolution Date Last Treatment Date Treating Clinician Comments Source Type 2 diabetes mellitus with complicati on, with long-term current use of insulin Type 2 diabetes mellitus with complicati on, with long-term current use of insulin Disease Active 2017-09-07 00:00:00 [facility] Essential hypertension, benign Essential hypertension, benign Disea se Active 2017-09-07 00:00:00 Yrn tarun Anxiety Anxiety Disease Active 2017-09-07 00:00:00 [facility] Depression Depression Disease Active 2017-09-07 00:00:00 [facility] Intractable vomiting Problem Active [facility] Urinary tract infection Problem Active [facility] Diabetes mellitus Problem Active [facility] Renal abscess Problem Active [facility] Allergies, Adverse Reactions, Alerts Allergy Name Allergy Type Status Severity Reaction(s) Onset Date Inacti ve Date Treating Clinician Comments Source No Known Allergies DA Active U 2020-01-01 00:00:00 [facility] No Known Allergies DA Active U 2019-03-01 00:00:00 [facility] No Known Allergies DA Active U 2018-07-27 00:00:00 [facility] No Known Allergies DA Active U 2018-06-16 00:00:00 [facility] No Known Allergies DA Active U 2018-02-12 00:00:00 [facility] No Known Allergies DA Active U 2016-06-23 00:00:00 [facility] Family History Family Member Diagnosis Comments Start Date Stop Date Source Natural mother Diabetes [facility] Natural mother Hypertension Yrn tarun Social History Social Habit Start Date Stop Date Quantity Comments Source Sex [facility] Alcohol intake 2020-03-19 00:00:00 2020-03-19 00:00:00 Current non-drinker of alcohol (finding) [facility] History SDOH Food Worry 2018-11-01 00:00:00 2018-11-01 00:00:00 1 [facility] History SDOH Food Scarcity 2018-11-01 00:00:00 2018-11-01 00:00:00 1 [facility] Smoking Status Start Date Stop Date Source Former smoker 2020-03-19 00:00:00 2020-03-19 00:00:00 [facility] ealt Medications Ordered Medication Name Filled Medication Name Start Date Stop Da te Current Medication? Ordering Clinician Indication Dosage Frequency Signature (SIG) Comments Components Source Cefuroxime Axetil (Cefuroxime) 500 Mg TABLET Cefuroxim e Axetil (Cefuroxime) 500 Mg TABLET 2020-04-20 17:49:00 Yes 500 Twice A Day [facility] Metoclopramide Hcl (Reglan) 10 Mg TABLET Metoclopramid e Hcl (Reglan) 10 Mg TABLET 2020-04-20 17:28:00 Yes 10 Before Meals And At Bedtime [facility] metFORMIN (GLUCOPHAGE) 1,000 mg tablet 2020-03-19 00:00:00 Yes Type 2 diabetes mellitus with complication, with long-term current use of insulin 1000mg Take 1 tablet by mouth 2 times daily (with meals). [facility] acetaminophen-codeine (TYLENOL/CODEINE #3) 300-30 mg per tab let 2020-03-19 00:00:00 Yes Low back pain wi th right-sided sciatica, unspecified back pain laterality, unspecified chronicity 1{tbl} Take 1 tablet by mouth daily as needed for Pain. [facility] pravastatin (PRAVACHOL) 40 mg tablet 2020-03-17 00:00:00 Yes Hyperlipidemia, unspecified hyperlipidemia type 40mg Take 1 tablet by mouth at bedtime nightly. [facility] blood glucose (PRECISION XTRA TEST STRIPS) test strips 2020-03-17 00:00:00 Yes Type 2 diabetes mellitus wit h complication, with long-term current use of insulin Q.5D Check blood glucose 2 times daily. [facility] lancets 28 gauge 2020-03-17 00:00:00 Yes Type 2 diabetes mellitus with complication, with long-term current use of insulin Q.5D Check blood glucose 2 times daily. [facility] pen needle, diabetic 31 gauge x 3/16" needles 2020-03-17 00: 00:00 Yes Type 2 diabetes mellitus with complication, with long-term current use of insulin Inject under the skin 3 times daily. [place] [facility] ibuprofen (MOTRIN) 800 mg tablet 2020-03-17 00:00:00 Yes Right shoulder pain, unspecified chronicity 800mg Take 1 tabl et by mouth every 8 hours as needed for Pain. [facility] lisinopriL (PRINIVIL) 10 mg tablet 2020-03-04 00:00:00 Yes Essential hypertension, benign 10mg QD Take 1 tablet by mouth daily. [facility] nystatin (NYSTOP) 100,000 unit/gram topical powder 2020-03 00:00:00 Yes Intertrigo Apply to affected area 4 times daily. [facility] dexlansoprazole (DEXILANT) 30 mg delayed release capsule 2020-03-04 00:00:00 Yes Gastroesophageal reflux disease, esophagi tis presence not specified 30mg QD Take 1 capsule by mouth daily. [facility] dexlansoprazole (DEXILANT) 30 mg delayed release capsule 2020-03-04 00:00:00 2020-03-04 00:00:00 No Gastroesophageal ref lux disease, esophagitis presence not specified 30mg QD Take 1 capsule by mouth daily. [facility] gabapentin (NEURONTIN) 300 mg capsule 2020-02-19 00:00:00 Yes Neuropathy 300mg Take 1 capsule by mouth 3 times daily. [facility] methocarbamoL (ROBAXIN-750) 750 mg tablet 02-18 00:00:00 2020-03-19 00:00:00 No Thoracic back pain, unspecified back pain laterality, unspecified chronicity 750mg Take 1 tablet by mouth 3 times daily. [facility] lisinopriL (PRINIVIL) 10 mg tablet 2020-02-19 00:00:00 00:00:00 No Essential hypertension, benign 10mg QD Take 1 tablet by mo uth daily. [facility] benzonatate (TESSALON PERLES) 100 mg capsule 00:00:00 2020-02-26 23:59:00 No Cough 100mg Take 1 capsule by mouth 3 times daily as needed for up to 7 days for Cough. [facility] gabapentin (NEURONTIN) 300 mg capsule 2020-02-19 00:00 :00 2020-02-19 00:00:00 No Neuropathy 300mg Take 1 capsule by mouth 3 times daily . [facility] lisinopriL (PRINIVIL) 10 mg tablet 2020-02-19 00:00:00 202 00:00:00 No Essential hypertension, benign 10mg QD Take 1 tablet by mo ut daily. [facility] methocarbamoL (ROBAXIN-750) 750 mg tablet 02-18 00:00:00 2020-02-19 00:00:00 No Thoracic back pain, unspecified back pain laterality, unspecified chronicity 750mg Take 1 tablet by mouth 3 times daily. [facility] QUEtiapine (SEROQUEL) 100 mg tablet 2020-02-17 00:00:00 Yes PTSD (post- traumatic stress disorder) Take 0.5 tabl ets by mouth every morning AND 1 tablet at bedtime nightly. [facility] hydrOXYzine (ATARAX) 50 mg tablet 2020-02-17 00:00:00 Yes Panic disorder with agoraphobia Take one half to one tablet NEEDED for anxiety up to three times per day.. [facility] lamoTRIgine (LAMICTAL) 25 mg tablet 2020-02-17 00:00:0 0 2020-03-18 23:59:00 No PTSD (post-traumatic stress disorder) Take 1 tablet by mouth daily for 14 days, THEN 2 tablets daily for 16 days. [facility] Cyclobenzaprine (FLEXERIL) 5 mg tablet 6 00:00:00 2020-02-19 00:00:00 No Thoracic back pain, unspecified back pain laterality, unspecified chronicity 5mg Take 1 tablet by shanika nightly at bedtime as needed for Muscle Spasms. [facility] valACYclovir (VALTREX) 1 g tablet 2020-01-30 00:00:00 2019 23:59:00 No Genital herpes simplex, unspecified site 1000mg Q.5D Take 1 tablet by mouth 2 times daily for 7 days. [facility] linaGLIPtin (TRADJENTA) 5 mg tablet 2020-01-22 00:00:00 Yes Type 2 diabetes mellitus with complication, with long-term current use of insulin 5mg QD Take 1 tablet by mouth daily. [facility] insulin detemir U-100 (LEVEMIR) 100 unit/mL injection 2020-01-22 00:00:00 Yes Type 2 diabetes mellitus wit h complication, with long-term current use of insulin 50U Q.5D Inject 50 Units under the skin 2 times daily. [facility] INSULIN SYRINGE 0.5 mL 30GX5/16" (MONOJE CT ULTRACOMFORT INSULIN SYR 0.5ML 30GX5/16") syringe-needle 2020-01-22 00:00:00 Yes Type 2 diabetes mellitus with complication, with long-term current use of insulin Q.5 D Use to inject medication 2 times daily. Use a new syringe each time. [facility] estradioL (ESTRACE) 0.5 mg tablet 2020-01-22 00:00:00 Yes Hot flashes due to menopause .5mg QD Take 1 tablet by mouth daily. [facility] dexlansoprazole (DEXILANT) 30 mg delayed release capsule 2020-01-22 00:00:00 2020-03-04 00:00:00 No Gastroesophageal ref lux disease, esophagitis presence not specified 30mg QD Take 1 capsule by mouth daily. [facility] lisinopriL (PRINIVIL) 10 mg tablet 2020-01-22 00:00:00 00:00:00 No Essential hypertension, benign 10mg QD Take 1 tablet by [facility] daily. [facility] tropicamide (MYDRIACYL) 0.5 % ophthalmic solution 2020-01-22 00:00:00 2020-01-22 23:59:00 No Type 2 diabetes kadie itus with complication, with long- term current use of insulin 1[drp] Instill 1 Dr op in each eye once as needed for up to 1 dose (for poor retina scan image). [facility] insulin aspart U-100 (NOVOLOG FLEXPEN) 100 unit/mL (3 mL) pe n 2020-01-15 00:00:00 Yes Type 2 diabetes mellitus with complication, with long-term current use of insulin 28U [id number] Inject 28 Unit s under the skin 3 times daily with meals. [facility] gabapentin (NEURONTIN) 300 mg capsule 2020-01-15 00:00 :00 2020-02-19 00:00:00 No Neuropathy 300mg Q.5D Take 1 capsule by mouth 2 times daily . [facility] cetirizine (ZYRTEC) 10 mg tablet 2019-12-18 00:00:00 Yes Environmental allergies 10mg QD Take 1 tablet by mouth daily. [facility] albuterol 90 mcg/actuation inhaler 2019-12-18 00:00:00 Yes SOB (shortness of breath) 2{puff} Inhale 2 Puffs by mo uth 4 times daily as needed for Shortness of Breath. [facility] ibuprofen (MOTRIN) 800 mg tablet 2019-12-18 00:00:00 2020-03 00:00:00 No Right shoulder pain, unspecified chronicity 800mg Take 1 tablet by mouth every 8 hours as needed for Pain. [facility] lisinopriL (PRINIVIL) 10 mg tablet 2019-12-18 00:00:00 00:00:00 No Essential hypertension, benign 10mg QD Take 1 tablet by mo uth daily. [facility] lancets 28 gauge 2019-12-17 00:00:00 Yes Type 2 diabetes mellitus with complication, with long-term current use of insulin Q.5D Us e 2 times daily. [facility] dexlansoprazole (DEXILANT) 30 mg delayed release capsule 2019-12-13 00:00:00 2020-01-22 00:00:00 No Gastroesophageal ref lux disease, esophagitis presence not specified 30mg QD Take 1 capsule by mouth daily. [facility] metFORMIN (GLUCOPHAGE) 1,000 mg tablet 6 00:00:00 2020-03-19 00:00:00 No Type 2 diabetes kadie itus with complication, with long-term current use of insulin 1000mg Take 1 tablet by mouth 2 times daily (with meal s). [facility] pen needle, diabetic 31 gauge x 3/16" needles 20 20-10-05 00:00:00 2020-03-17 00:00:00 No Type 2 diabetes kadie itus with complication, with long-term current use of insulin Inject under the skin 3 times daily. [facility] gabapentin (NEURONTIN) 300 mg capsule 2019-10-07 00:00 :00 2020-01-14 00:00:00 No Neuropathy 300mg Q.5D Take 1 capsule by mouth 2 times daily . [facility] lisinopriL (PRINIVIL) 10 mg tablet 2019-10-07 00:00:00 00:00:00 No Essential hypertension, benign 10mg QD Take 1 tablet by mo uth daily. [facility] dexlansoprazole (DEXILANT) 30 mg delayed release capsule 2019-10-02 00:00:00 2019-12-13 00:00:00 No Gastroesophageal ref lux disease, esophagitis presence not specified 30mg QD Take 1 capsule by mouth daily. [facility] dexlansoprazole (DEXILANT) 30 mg delayed release capsule 2019-08-26 00:00:00 2019-10-01 00:00:00 No Gastroesophageal ref lux disease, esophagitis presence not specified 30mg QD Take 1 capsule by mouth daily. [facility] ibuprofen (MOTRIN) 800 mg tablet 2019-06-28 00:00:00 2019-12 00:00:00 No Right shoulder pain, unspecified chronicity 800mg Take 1 tablet by mouth every 8 hours as needed for Pain. [facility] dexlansoprazole (DEXILANT) 30 mg delayed release capsule 2019-06-19 00:00:00 2019-08-22 00:00:00 No Gastroesophageal ref lux disease, esophagitis presence not specified 30mg QD Take 1 capsule by mouth daily. [facility] lancets 28 gauge 2019-05-22 00:00:00 2019-12-16 00:00:00 No Type 2 diabetes mellitus with complication, with long-term current use of insulin Q.5D Use 2 times daily. [facility] blood glucose (PRECISION XTRA TEST STRIPS) test strips 2019-05-22 00:00:00 2019-10-04 00:00:00 No Type 2 diabetes kadie itus with complication, with long- term current use of insulin Q.5D Check blood glucose 2 times daily. Need to complete labs for future refills. [facility] blood glucose meter (PRECISION XTRA GLUCOMETER) 2019-05-20 0 0:00:00 Yes Type 2 diabetes mellitus with complication, with long-term current use of insulin Use as directed.. [facility] linaGLIPtin (TRADJENTA) 5 mg tablet 2019-05-16 00:00:0 0 2020-01-22 00:00:00 No Type 2 diabetes mellitus wit h complication, with long-term current use of insulin 5mg QD Take 1 tablet by mouth daily. [facility] gabapentin (NEURONTIN) 300 mg capsule 2019-05-16 00:00 :00 2019-10-03 00:00:00 No Neuropathy 300mg Q.5D Take 1 capsule by mouth 2 times daily . [facility] albuterol (PROVENTIL) 2.5 mg /3 mL (0.083 %) nebulized solut ion 2.5 mg 2019-05-13 12:15:00 2019-05-13 12:31:00 No SOB (shortness of br eath) 2.5mg [facility] codeine-guaiFENesin (CHERATUSSIN AC) 10-100 mg/5 mL syrup 2019-05-13 00:00:00 2020-02-06 00:00:00 No Cough 5mL Take 5 mL by mouth 3 times daily as needed for Cough. [facility] albuterol 90 mcg/actuation inhaler 2019-05-13 00:00:00 00:00:00 No SOB (shortness of breath) 2{puff} Inhale 2 Puffs by mouth 4 times daily as needed for Shortness of Breath. [facility]alt insulin detemir U-100 (LEVEMIR) 100 unit/mL injection 2019-05-08 00:00:00 2020-01-22 00:00:00 No Type 2 diabetes kadie itus with complication, with long- term current use of insulin 50U Q.5D Inject 50 Un its under the skin 2 times daily. [facility] benzonatate (TESSALON PERLES) 100 mg capsule 201 03-13-06 00:00:00 2019-05-15 23:59:00 No Bronchitis, not specified as acute or chronic 1 00mg Take 1 capsule by mouth 3 times daily as needed for Cough. [facility] amoxicillin-clavulanate (AUGMENTIN) 875-125 mg per tablet 2019-05-08 00:00:00 2019-05-15 23:59:00 No Bronchitis, not specified as acute or chronic 1{tbl} Q.5D Take 1 tablet by mouth 2 times daily for 7 days. [facility] dexlansoprazole (DEXILANT) 30 mg delayed release capsule 2019-04-30 00:00:00 2019-06-17 00:00:00 No Gastroesophageal ref lux disease, esophagitis presence not specified 30mg QD Take 1 capsule by mouth daily. [facility] cyclobenzaprine (FLEXERIL) 10 mg tablet 00:00:00 2019-05-13 00:00:00 No TMJ syndrome 10mg Take 1 table t by mouth 3 times daily as needed for Muscle Spasms. [facility] blood glucose (PRECISION XTRA TEST STRIPS) test strips 2019-04-08 00:00:00 2020-03-17 00:00:00 No Type 2 diabetes kadie itus with complication, with long- term current use of insulin Q.5D 2 times daily. [facility] lancets 28 gauge 2019-04-08 00:00:00 2020-03-17 00:00:00 No Type 2 diabetes mellitus with complication, with long-term current use of insulin Q.5D 2 times daily. [facility] ibuprofen (MOTRIN) 800 mg tablet 2019-04-08 00:00:00 2019-06 00:00:00 No Right shoulder pain, unspecified chronicity 800mg Take 1 tablet by mouth every 8 hours as needed for Pain. [facility] insulin aspart U-100 (NOVOLOG FLEXPEN) 100 unit/mL (3 mL) pe n 2019-03-18 00:00:00 2020-01-14 00:00:00 No Type 2 diabe adonay mellitus with complication, with long-term current use of insulin 28U Q.[id number] Inject 28 Units under the skin 3 times daily with meals. [facility] insulin detemir U-100 (LEVEMIR) 100 unit/mL injection 2019-03-18 00:00:00 2019-05-08 00:00:00 No Type 2 diabetes kadie itus with complication, with long- term current use of insulin 45U Q.5D Inject 45 Un its under the skin 2 times daily. [facility] gabapentin (NEURONTIN) 300 mg capsule 2019-03-11 00:00 :00 2019-05-15 00:00:00 No Neuropathy 300mg Q.5D Take 1 capsule by mouth 2 times daily . [facility] dexlansoprazole (DEXILANT) 30 mg delayed release capsule 2019-03-11 00:00:00 2019-04-28 00:00:00 No Gastroesophageal ref lux disease, esophagitis presence not specified 30mg QD Take 1 capsule by mouth daily. [facility] pravastatin (PRAVACHOL) 40 mg tablet 2019-03-07 00:00: 00 2020-03-17 00:00:00 No Hyperlipidemia, unspecified hyperlipidemia type 40mg Take 1 tablet by mouth at bedtime nightly. [facility] cetirizine (ZYRTEC) 10 mg tablet 2019-03-05 00:00:00 2019-12 00:00:00 No Environmental allergies 10mg QD Take 1 tablet by mouth daily. [facility] acetaminophen-codeine (TYLENOL/CODEINE #3) 300-30 mg per tab let 2019-02-18 00:00:00 2019-05-13 00:00:00 No Right shoulder pain, unspecified chronicity 1{tbl} Take 1 tablet by mouth 2 times daily as needed for Bruno n. [facility] lisinopril (PRINIVIL) 10 mg tablet 2019-01-30 00:00:00 00:00:00 No Essential hypertension, benign 10mg QD Take 1 tablet by mo ut daily. [facility] blood glucose (PRECISION XTRA TEST STRIPS) test strips 2019-01-30 00:00:00 2019-05-15 00:00:00 No Type 2 diabetes kadie itus with complication, with long- term current use of insulin Q.5D Check blood glucose 2 times daily. Need to complete labs for future refills. [facility] lamoTRIgine (LAMICTAL) 25 mg tablet 2019-01-14 00:00:0 0 2020-02-17 00:00:00 No Bipolar 2 disorder Weeks 1 a nd 2: take 1 tablet (25 mg) by mouth once dailyWeeks 3 and 4: take 2 tablets (50 mg) by mouth once daily [facility] INSULIN SYRINGE 0.5 mL 30GX5/16" (MONOJE CT ULTRACOMFORT INSULIN SYR 0.5ML 30GX5/16") syringe-needle 2018-12-19 00:00:00 2020-01-22 00:00:00 No Type 2 diabetes mellitus with complication, with long-term current use of insulin Q.5D Use to inject medication 2 times daily. Use a new syringe each t deniz. [facility] pen needle, diabetic 31 gauge x 3/16" needles 20 19-12-18 00:00:00 2019-10-03 00:00:00 No Type 2 diabetes kadie itus with complication, with long-term current use of insulin Inject under the skin 3 times daily. [facility] FLUoxetine (PROZAC) 20 mg capsule 2018-11-30 00:00:00 Yes Moderate episode of recurrent major depressive disorder 60mg QD Take 3 c apsules by mouth daily. [facility] ziprasidone (GEODON) 80 mg capsule 2018-11-30 00:00:00 00:00:00 No Bipolar 2 disorder, major depressive episode 80mg Take 1 capsule by mouth at bedtime nightly Take with meals. [facility] busPIRone (BUSPAR) 10 mg tablet 2018-11-30 00:00:00 00:00:00 No Moderate episode of recurrent major depressive disorder 10mg Take 1 tablet by mouth 3 times daily. [facility] lancets 28 gauge 2018-08-23 00:00:00 2019-05-15 00:00:00 No Type 2 diabetes mellitus with complication, with long-term current use of insulin Q.5D Use 2 times daily. [facility] metFORMIN (GLUCOPHAGE) 1,000 mg tablet 4 00:00:00 2019-10-03 00:00:00 No Type 2 diabetes kadie itus with complication, with long-term current use of insulin 1000mg Take 1 tablet by mouth 2 times daily (with meal s). [facility] ziprasidone (GEODON) 40 mg capsule 2018-07-04 00:00:00 00:00:00 No Bipolar 2 disorder, major depressive episode 40mg Take 1 capsule by mouth 2 times daily (with meals). [facility] linaGLIPtin (TRADJENTA) 5 mg tablet 2018-07-04 00:00:0 0 2019-05-15 00:00:00 No Type 2 diabetes mellitus wit h complication, with long-term current use of insulin 5mg QD Take 1 tablet by mouth daily. [facility] blood glucose meter (PRECISION XTRA GLUCOMETER) 2018-05-09 0 0:00:00 Yes Type 2 diabetes mellitus with complication, with long-term current use of insulin Use as directed.. [facility] blood glucose meter (PRECISION XTRA GLUCOMETER) 2018-02-08 00:00:00 2019-05-17 00:00:00 No Type 2 diabetes kadie itus with complication, with long-term current use of insulin Use as directed.. [facility] Alprazolam (Xanax) 2 Mg TABLET Alprazolam (Xanax) 2 Mg TABLET Yes 2 Every 6 Hours as needed for Anxiety [facility] Insulin Glargine (Lantus 3ML Pen) 100 Units/1 Ml INJ I nsulin Glargine (Lantus 3ML Pen) 100 Units/1 Ml INJ Yes 30 Before Ly akfast [facility] Insulin Glargine (Lantus 3ML Pen) 100 Units/1 Ml INJ I nsulin Glargine (Lantus 3ML Pen) 100 Units/1 Ml INJ Yes 30 Bedtime [facility] Lisinopril Lisinopril Yes 10 Daily [facility] Metformin Hcl Metformin Hcl Yes 1000 Twice Daily With Meals [facility] Immunizations Ordered Immunization Name Filled Immunization Name Date Status Comments Source Influenza, Vaccine<FLUCELVAX>(Multi-Dose) 2018-05-09 00:00 :00 Completed [facility] PPV 23 (Pneumococcal Polysaccharide 23 Valent) 2017-10 00:00:00 Completed [facility] Tdap (Tetanus Toxoid, Reduced Diphtheria Toxoid And Acellular Pertussis, Absorbed) 2017-09-07 00:00:00 Completed [facility] Vital Signs Vital Name Observation Time Observation Value Comments Source Body Temperature 2020-04-20 16:00:00 97.9 [degF] [facility] BMI (Body Mass Index) 2020-04-19 22:15:00 36.6 kg/m2 [facility] Weight 2020-04-19 16:57:00 200 [lb_av] [facility] Oxygen saturation in Arterial blood by Pulse oximetry 2018-07 12:31:00 100 /min Room Air [facility] Systolic blood pressure 2019-05-13 10:49:00 114 mm[Hg] [facility] Diastolic blood pressure 2019-05-13 10:49:00 78 mm[Hg] [facility] Heart rate 2019-05-13 10:49:00 92 /min [facility] Body temperature 2019-05-13 10:49:00 36.83 Iza Carter [facility] Respiratory rate 2019-05-13 10:49:00 18 /min Carter is [facility] Body height 2019-05-13 10:49:00 157.5 cm [facility] Body weight 2019-05-13 10:49:00 95.255 kg [facility] BMI 2019-05-13 10:49:00 38.41 kg/m2 [facility] Procedures Procedure Date / Time Performed Performing Clinician Daryl odalys Computed tomography of abdomen and pelvis with contrast 00:00:00 [facility] XRAY CHEST 2 VIEWS 2019-05-13 13:18:10 Marbin York alth NONINVASV OXYGEN SATUR;SINGLE 2019-05-13 12:08:50 Marbin York [facility] HEMOGLOBIN A1C 2019-05-08 16:09:00 Marbin York [facility] COMPREHENSIVE METABOLIC PANEL 2019-05-08 16:09:00 Sloan Yorka [facility] LIPID PROFILE 2019-05-08 16:09:00 [facility] [facility]IC ACID 2019-05-08 16:09:00 Marbin [facility] CBC/DIFF 2019-05-08 16:09:00 Marbin [facility] CBC 2019-05-08 16:09:00 Marbin [facility] VITAMIN B12 2019-05-08 16:09:00 Marbin [facility] Plan of Care Planned Activity Planned Date Details Comments Source Future Scheduled Test 2020-05-08 00:00:00 Hemoglobin A1c estela surement (procedure) [code = 99912965] [facility] Scheduled Test 2020-04-02 00:00:00 IMM Influenza Seas onal Apr to August (>/= 19 yrs) [code = IMM Influenza Seasonal Apr to August (>/= 19 yrs)] [facility] Scheduled Test 2019-11-13 00:00:00 Breast Cancer Scrn (Yearly) [code = Breast Cancer Scrn (Yearly)] [facility] Scheduled Test 2019-11-13 00:00:00 DM Retinal Exam (Y early) [code = DM Retinal Exam (Yearly)] [facility] Scheduled Test 2019-08-27 00:00:00 DM Foot Exam (Year ly) [code = DM Foot Exam (Yearly)] [facility] Urinary Tract Infection - Women [facility] Encounters Start Date/Time End Date/Time Encounter Type Admission Type Attendi [facility] Facility Care Department Encounter ID Source 2020-05-22 00:00:00 2020-05-22 00:00:00 Outpatient [facility] [id number] [facility] 2020-04-19 20:05:00 2020-04-20 21:15:00 Discharged Inpatient 1 BILLY HARMON [facility] [id number] I [facility] 2020-04-20 00:00:00 2020-04-20 00:00:00 Outpatient KODY LOCKE [facility] [id number] [facility] 2020-04-16 00:00:00 2020-04-16 00:00:00 Outpatient MARBIN YORK [facility] [id number] [facility] 2020-04-13 00:00:00 2020-04-13 00:00:00 Outpatient KODY LOCKE [facility] [id number] [facility] 2020-04-02 00:00:00 2020-04-02 00:00:00 Outpatient MARBIN YORK [facility] [id number] [facility] 2020-04-02 00:00:00 2020-04-02 00:00:00 Outpatient MARBIN YORK [facility] [id number] [facility] 2020-03-19 07:33:43 2020-03-19 11:10:05 Outpatient MARBIN YORK [facility] [id number] [facility] 2020-03-12 00:00:00 2020-03-12 00:00:00 Outpatient [facility] [id number] [facility] 2020-03-04 07:21:00 2020-03-04 09:03:04 Outpatient MARBIN YORK [facility] [id number] [facility] 2020-03-04 00:00:00 2020-03-04 00:00:00 Outpatient [facility] [id number] [facility] 2020-02-19 07:29:26 2020-02-19 09:40:53 Outpatient MARBIN YORK [facility] [id number] [facility] 2020-02-17 07:36:44 2020-02-17 11:14:10 Outpatient KODY LOCKE [facility] [id number] [facility] 2020-02-06 07:22:39 2020-02-06 11:09:25 Outpatient MARBIN YORK [facility] [id number] [facility] 2020-01-29 00:00:00 2020-01-29 00:00:00 Outpatient [facility] [id number] [facility] 2020-01-22 07:28:21 2020-01-22 07:28:21 Outpatient [facility] [id number] [facility] 2020-01-16 00:00:00 2020-01-16 00:00:00 Outpatient [facility] [id number] [facility] 2019-11-15 00:00:00 2019-11-15 00:00:00 Outpatient [facility] [id number] [facility] 2019-11-15 00:00:00 2019-11-15 00:00:00 Outpatient [facility] [id number] [facility] 2019-11-05 00:00:00 2019-11-05 00:00:00 Outpatient [facility] [id number] [facility] 2019-09-26 00:00:00 2019-09-26 00:00:00 Outpatient [facility] [id number] [facility] 2019-08-05 00:00:00 2019-08-05 00:00:00 Outpatient [facility] [id number] [facility] 2019-07-08 00:00:00 2019-07-08 00:00:00 Outpatient [facility] [id number] [facility] 2019-07-01 00:00:00 2019-07-01 00:00:00 Outpatient [facility] [id number] [facility] 2019-07-01 00:00:00 2019-07-01 00:00:00 Outpatient [facility] [id number] [facility] 2019-06-07 00:00:00 2019-06-07 00:00:00 Outpatient [facility] [id number] [facility] 2019-05-13 13:10:23 2019-05-13 13:10:23 Outpatient [facility] [id number] [facility] 2019-05-13 10:48:40 2019-05-13 10:48:40 Outpatient [facility] [id number] [facility] 2019-05-13 10:25:21 2019-05-13 10:25:21 Outpatient [facility] [id number] [facility] 2019-05-08 16:07:26 2019-05-08 16:07:26 Outpatient [facility] [id number] [facility] 2019-05-08 15:09:50 2019-05-08 15:09:50 Outpatient [facility] [id number] [facility] 2019-05-08 00:00:00 2019-05-08 00:00:00 Outpatient [facility] [id number] [facility] 2019-05-02 00:00:00 2019-05-02 00:00:00 Outpatient [facility] [id number] [facility] 2019-04-08 00:00:00 2019-04-08 00:00:00 Outpatient [facility] [id number] [facility] 2019-04-04 00:00:00 2019-04-04 00:00:00 Outpatient [facility] [id number] [facility] 2019-03-18 13:45:13 2019-03-18 13:45:13 Outpatient [facility] [id number] [facility] 2019-03-14 00:00:00 2019-03-14 00:00:00 Outpatient [facility] [id number] [facility] 2019-02-28 00:00:00 2019-02-28 00:00:00 Outpatient [facility] [id number] [facility] 2019-02-18 07:56:26 2019-02-18 07:56:26 Outpatient [facility] [id number] [facility] 2019-02-12 00:00:00 2019-02-12 00:00:00 Outpatient [facility] [id number] [facility] 2019-02-08 00:00:00 2019-02-08 00:00:00 Outpatient [facility] [id number] [facility] 2019-02-04 00:00:00 2019-02-04 00:00:00 Outpatient [facility] [id number] [facility] 2019-01-30 09:12:56 2019-01-30 09:12:56 Outpatient [facility] [id number] [facility] 2019-01-30 08:42:24 2019-01-30 08:42:24 Outpatient [facility] [id number] [facility] 2019-01-30 07:47:54 2019-01-30 07:47:54 Outpatient [facility] [id number] [facility] 2019-01-30 00:00:00 2019-01-30 00:00:00 Outpatient [facility] [id number] [facility] 2019-01-23 00:00:00 2019-01-23 00:00:00 Outpatient [facility] [id number] [facility] 2019-01-09 00:00:00 2019-01-09 00:00:00 Outpatient [facility] [id number] [facility] 2018-11-28 00:00:00 2018-11-28 00:00:00 Outpatient [facility] [id number] [facility] 2018-11-12 10:37:09 2018-11-12 10:37:09 Outpatient [facility] [id number] [facility] 2018-11-12 10:26:17 2018-11-12 10:26:17 Outpatient [facility] [id number] [facility] 2018-11-09 00:00:00 2018-11-09 00:00:00 Outpatient [facility] [id number] [facility] 2018-11-09 00:00:00 2018-11-09 00:00:00 Outpatient [facility] [id number] [facility] 2018-11-09 00:00:00 2018-11-09 00:00:00 Outpatient [facility] [id number] [facility] 2018-11-01 15:33:13 2018-11-01 15:33:13 Outpatient [facility] [id number] [facility] 2018-11-01 15:15:26 2018-11-01 15:15:26 Outpatient [facility] [id number] [facility] 2018-09-13 00:00:00 2018-09-13 00:00:00 Outpatient [facility] [id number] [facility] 2018-08-28 00:00:00 2018-08-28 00:00:00 Outpatient [facility] [id number] [facility] 2018-08-27 11:09:27 2018-08-27 11:09:27 Outpatient [facility] [id number] [facility] 2018-07-19 00:00:00 2018-07-19 00:00:00 Outpatient [facility] [id number] [facility] 2018-06-21 10:13:22 2018-06-21 10:13:22 Outpatient [facility] [id number] [facility] 2018-06-21 10:08:38 2018-06-21 10:08:38 Outpatient [facility] [id number] [facility] 2018-06-21 08:45:57 2018-06-21 08:45:57 Outpatient [facility] [id number] [facility] 2018-06-21 00:00:00 2018-06-21 00:00:00 Outpatient [facility] [id number] [facility] 2018-06-12 00:00:00 2018-06-12 00:00:00 Outpatient [facility] [id number] [facility] 2018-06-12 00:00:00 2018-06-12 00:00:00 Outpatient [facility] [id number] [facility] 2018-05-29 00:00:00 2018-05-29 00:00:00 Outpatient [facility] [id number] [facility] 2018-05-17 14:16:47 2018-05-17 14:16:47 Outpatient [facility] [id number] [facility] 2018-05-09 09:12:15 2018-05-09 09:12:15 Outpatient [facility] [id number] [facility] 2018-05-09 09:10:49 2018-05-09 09:10:49 Outpatient [facility] [id number] [facility] 2018-05-09 07:54:56 2018-05-09 07:54:56 Outpatient [facility] [id number] [facility] 2018-04-19 08:03:40 2018-04-19 08:03:40 Outpatient [facility] [id number] [facility] 2018-04-19 00:00:00 2018-04-19 00:00:00 Outpatient [facility] [id number] [facility] 2018-04-19 00:00:00 2018-04-19 00:00:00 Outpatient [facility] [id number] [facility] 2018-04-16 00:00:00 2018-04-16 00:00:00 Outpatient [facility] [id number] [facility] 2018-03-26 00:00:00 2018-03-26 00:00:00 Outpatient [facility] [id number] [facility] 2018-03-07 00:00:00 2018-03-07 00:00:00 Outpatient [facility] [id number] [facility] 2018-02-22 08:02:37 2018-02-22 08:02:37 Outpatient [facility] [id number] [facility] 2018-02-06 00:00:00 2018-02-06 00:00:00 Outpatient [facility] [id number] [facility] 2018-02-06 00:00:00 2018-02-06 00:00:00 Outpatient [facility] [id number] [facility] 2018-01-23 00:00:00 2018-01-23 00:00:00 Outpatient [facility] [id number] [facility] 2017-12-29 00:00:00 2017-12-29 00:00:00 Outpatient [facility] [id number] [facility] 2017-12-27 00:00:00 2017-12-27 00:00:00 Outpatient [facility] [id number] [facility] 2017-12-26 00:00:00 2017-12-26 00:00:00 Outpatient [facility] [id number] [facility] 2017-12-04 14:23:54 2017-12-04 14:23:54 Outpatient [facility] [id number] [facility] 2017-12-04 13:42:23 2017-12-04 13:42:23 Outpatient [facility] [id number] [facility] 2017-12-04 08:15:44 2017-12-04 08:15:44 Outpatient [facility] [id number] [facility] 2017-11-21 08:44:10 2017-11-21 08:44:10 Outpatient [facility] [id number] [facility] 2017-11-16 00:00:00 2017-11-16 00:00:00 Outpatient [facility] [id number] [facility] 2017-11-14 00:00:00 2017-11-14 00:00:00 Outpatient [facility] [id number] [facility] 2017-11-13 14:24:39 2017-11-13 14:24:39 Outpatient [facility] [id number] [facility] 2017-11-06 00:00:00 2017-11-06 00:00:00 Outpatient [facility] [id number] [facility] 2017-10-25 00:00:00 2017-10-25 00:00:00 Outpatient [facility] [id number] [facility] 2017-10-25 00:00:00 2017-10-25 00:00:00 Outpatient [facility] [id number] [facility] 2017-10-24 09:06:27 2017-10-24 09:06:27 Outpatient [facility] [id number] [facility] 2017-10-24 09:05:30 2017-10-24 09:05:30 Outpatient [facility] [id number] [facility] 2017-10-24 08:25:23 2017-10-24 08:25:23 Outpatient [facility] [id number] [facility] 2017-10-18 07:59:04 2017-10-18 07:59:04 Outpatient [facility] [id number] [facility] 2017-10-17 00:00:00 2017-10-17 00:00:00 Outpatient [facility] [id number] [facility] 2017-10-16 10:50:41 2017-10-16 10:50:41 Outpatient [facility] [id number] [facility] 2017-10-16 09:51:35 2017-10-16 09:51:35 Outpatient [facility] [id number] [facility] 2017-10-16 08:08:59 2017-10-16 08:08:59 Outpatient [facility] [id number] [facility] 2017-10-16 08:05:33 2017-10-16 08:05:33 Outpatient [facility] [id number] [facility] 2017-09-22 00:00:00 2017-09-22 00:00:00 Outpatient [facility] [id number] [facility] 2017-09-07 15:02:16 2017-09-07 15:02:16 Outpatient [facility] [id number] [facility] 2017-09-07 14:13:25 2017-09-07 14:13:25 Outpatient [facility] [id number] [facility] Results Test Description Test Time Test Comments Results Result Comments Source CT ABDOMEN/PELVIS W 2020-04-21 17:48:00 [facility] : 1975 Sex: F [place] [id number] Patient Name: MIGDALIA QUINN MR #: [id number] : 1975 Age/Sex: 44/F Req #: [id number] [facility] Physician: Ordered by: KELLY NUR DO Report #: [id number] Location: ER Room/Bed: Procedure: [id number] CT/CT ABDOMEN/PELVIS W Exam Date: 04/21/20 Exam Time: 1700 REPORT STATUS: Signed EXAM: CT Abdomen and Pelvis WITH contrast INDICATION: Abdominal pain. COMPARISON: CT of the abdomen/pelvis on 04/19/2020 TECHNIQUE: Abdomen and pelvis were scanned utilizing a multidetector helical scanner from the lung base to the pubic symphysis after administration of IV contrast. Coronal and sagittal reformations were obtained. Routine protocol was performed. Scan was performed when during portal venous phase. IV CONTRAST: 100 mL of Isovue 370 ORAL CONTRAST: None COMPLICATIONS: None RADIATION DOSE: Total DLP: 561 mGy*cm Estimated effective dose: (DLP x 0.015 x size factor) mSv CTDIvol has been reviewed. It is below the limits set by the Radiation Protocol Committee (RPC). Dose modulation, iterative reconstruction, and/or weight based adjustment of the mA/kV was utilized to reduce the radiation dose to as low as reasonably achievable. FINDINGS: LINES and TUBES: None. LOWER THORAX: Redemonstration of right lung base consolidation, likely scarring versus atelectasis. Atherosclerotic calcification of the coronary vessels. HEPATOBILIARY: No focal hepatic lesions. No biliary ductal dilation. GALLBLADDER: There are cholecystectomy clips. SPLEEN: No splenomegaly. PANCREAS: No focal masses or ductal dilatation. ADRENALS: No adrenal nodules KIDNEYS/URETERS: No interval change in complex cyst that extends extrarenally with peripheral enhancement. The extrarenal component with peripheral enhancement measures approximately 2.1 x 1.6 cm, unchanged in size. There is also minimal nonspecific perinephric fat stranding on the right. Kidneys enhance symmetrically. No hydronephrosis. No stones. GI TRACT: There is a small hiatal hernia. No abnormal distention, wall thickening, or evidence of bowel obstruction. Appendix is normal. PELVIC ORGANS/BLADDER: Unremarkable. LYMPH NODES: No lymphadenopathy. VESSELS: Scattered mild arterial vascular calcifications. PERITONEUM / RETROPERITONEUM: No free air or fluid. BONES: Unremarkable. SOFT TISSUES: No interval change in subcutaneous abdominal wall nodules, probably injection related. IMPRESSION: 1. No acute abdominopelvic abnormality identified. 2. No interval change in irregular complex cystic lesion in the upper pole of the right kidney with extrarenal extension. This finding is indeterminate although considerations include complex cyst versus abscess. Consider nonemergent urology referral for further evaluation and management. 3. Atherosclerotic calcification of the coronary vessels. Signed by: Cherelle Adams MD on 04/21/2020 6:00 PM Dictated By: CHERELLE ADAMS MD 1800 Transcribed By: ABIGAIL on 04/21/20 1800 COPY TO: KELLY NUR DO Capillary blood glucose measurement by glucometer (mas s/volume) 2020-04-20 15:25:00 Test Item Bedside Glucose (test code = 90892-2) 135 70-120 Meter ID: [id number] sodium [facility] (moles/volume)2020-04-20 05:06:00* Test Item Value Reference Range Interpretation Comments Sodium Level (test code = 2951-2) 138 136-145 [facility] potassium measurement (moles/volume)2020-04-20 05:06:00* Test Item Value Reference Range Interpretation Comments Potassium Level (test code = 2823-3) 3.5 3.5-5.1 [facility] chloride measurement (moles/volume)2020-04-20 05:06:00* Test Item Value Reference Range Interpretation Comments Chloride Level (test code = 2075-0) 106 98-107 [facility] carbon dioxide, total measurement (moles/volume)2020-04-20 05:06:00* Test Item Value Reference Range Interpretation Comments Carbon Dioxide Level (test code = 2028-9) 24 22-29 [facility] anion [id number] 05:06:00* Test Item Value Reference Range Interpretation Comments Anion Gap (test code = 00515-6) 11.5 8-16 [facility] urea nitrogen measurement (mass/volume)2020-04-20 05:06:00* Test Item Value Reference Range Interpretation Comments Blood Urea Nitrogen (test code = 3094-0) 6 7-26 [facility] creatinine measurement (mass/volume)2020-04-20 05:06:00* Test Item Value Reference Range Interpretation Comments Creatinine (test code = 2160-0) 0.68 0.57-1.11 [facility] urea nitrogen/creatinine mass [id number] 05:06:00* Test Item Value Reference Range Interpretation Comments BUN/Creatinine Ratio (test code = 3097-3) 9 6-25 [facility]udaEstimated glomerular filtration rate (GFR) fpmjheusqwhhk2372-50-04 05:06:00* Test Item Value Reference Range Interpretation Comments Estimat Glomerular Filtration Rate (test code = 719506996) > 60 >60 Ranges were taken from the National Kidney Disease Education Program and the [facility] Kidney Foundation literature.Reference ranges:60 or greater: Mrjqvo31-68 ( for 3 consecutive months): Chronic kidney disease 15 or less: Kidney failureB[facility] BudaGlucose lrwxyzhutej6864-19-87 05:06:00* Test Item Value Reference Range Interpretation Comments Glucose Level (test code = YNF7030) 119 74-118 [facility] calcium measurement (mass/volume)2020-04-20 05:06:00* Test Item Value Reference Range Interpretation Comments Calcium Level (test code = 91856-4) 8.2 8.4-10.2 [facility] total bilirubin measurement (mass/volume)2020-04-20 05:06:00* Test Item Value Reference Range Interpretation Comments Total Bilirubin (test code = 1975-2) 0.2 0.2-1.2 [facility] BudaFluoroscopic procedure less than one hour phusflon9381-02-05 05:06:00* Test Item Value Reference Range Interpretation Comments Aspartate Amino Transf (AST/SGOT) (test code = Aspartate Amino Transf (AST/SGOT)) 19 5-34 [facility] plasma alanine aminotransferase measurement (enzymatic activity/volume)2020-04-20 05:06:00* Test Item Value Reference Range Interpretation Comments Alanine Aminotransferase (ALT/SGPT) (test code = 1742-6) 20 0-55 [facility] protein measurement (mass/volume)2020-04-20 05:06:00* Test Item Value Reference Range Interpretation Comments Total Protein (test code = 2885-2) 6.6 6.5-8.1 [facility] albumin measurement (mass/volume)2020-04-20 05:06:00* Test Item Value Reference Range Interpretation Comments Albumin (test code = 1751-7) 2.7 3.5-5.0 [facility]udaPlasma globulin measurement (mass/volume) 2020-04-20 05:06:00* Test Item Value Reference Range Interpretation Comments Globulin (test code = 24872-0) 3.9 2.3-3.5 [facility] albumin/globulin mass wwtia9974-20-82 05:06:00* Test Item Value Reference Range Interpretation Comments Albumin/Globulin Ratio (test code = 1759-0) 0.7 0.8-2.0 [facility] alkaline phosphatase measurement (enzymatic activity/volume)2020-04-20 05:06:00* Test Item Value Reference Range Interpretation Comments Alkaline Phosphatase (test code = 6768-6) 89 40-150 [facility] BudaBlood leukocytes automated count (number/volume)2020-04-20 04:57:00* Test Item Value Reference Range Interpretation Comments White Blood Count (test code = 6690-2) 4.26 4.8-10.8 [facility]udaBlood erythrocytes automated count (number/volume)2020-04-20 04:57:00* Test Item Value Reference Range Interpretation Comments Red Blood Count (test code = 789-8) 3.97 3.6-5.1 [facility]udaBlood hemoglobin measurement (moles/volume)2020-04-20 04:57:00* Test Item Value Reference Range Interpretation Comments Hemoglobin (test code = 72527-7) 10.2 12.0-16.0 [facility] BudaAutomated blood hematocrit (volume fraction)2020-04-20 04:57:00* Test Item Value Reference Range Interpretation Comments Hematocrit (test code = 4544-3) 32.5 34.2-44.1 [facility] BudaAutomated erythrocyte mean corpuscular ignumq7401-69-46 04:57:00* Test Item Value Reference Range Interpretation Comments Mean Corpuscular Volume (test code = 787-2) 81.9 81-99 [facility] BudaAutomated erythrocyte mean corpuscular hemoglobin (mass per erythrocyte)2020-04-20 04:57:00* Test Item Value Reference Range Interpretation Comments Mean Corpuscular Hemoglobin (test code = 785-6) 25.7 28-32 [facility] BudaAutomated erythrocyte mean corpuscular hemoglobin concentration measurement (mass/volume)2020-04-20 04:57:00* Test Item Value Reference Range Interpretation Comments Mean Corpuscular Hemoglobin Concent (test code = 786-4) 31.4 31-35 [facility] BudaRDW DxgCi-Pha7654-16-19 04:57:00* Test Item Value Reference Range Interpretation Comments Red Cell Distribution Width (test code = 32489-7) 13.6 11.7 -14.4 [facility] BudaAutomated blood platelet count (count/volume)2020-04-20 04:57:00* Test Item Value Reference Range Interpretation Comments Platelet Count (test code = 777-3) 253 140-360 [facility] BudaAutcaromont healthed blood segmented neutrophil count as percentage of total fuohtzcmea7482-81-31 04:57:00* Test Item Value Reference Range Interpretation Comments Neutrophils (%) (Auto) (test code = 98075-3) 33.7 38.7-80.0 [facility] BudaAutomated blood lymphocyte count as percentage ot total vwnqrrlbbx1708-26-48 04:57:00* Test Item Value Reference Range Interpretation Comments Lymphocytes (%) (Auto) (test code = 736-9) 52.6 18.0-39.1 [facility] BudaAutomated blood monocyte count as percentage of total yqcgzivovi8119-46-60 04:57:00* Test Item Value Reference Range Interpretation Comments Monocytes (%) (Auto) (test code = 5905-5) 11.3 4.4-11.3 [facility] BudaAutomated blood eosinophil count as percentage of total cqpasiqkyi3344-88-28 04:57:00* Test Item Value Reference Range Interpretation Comments Eosinophils (%) (Auto) (test code = 713-8) 1.2 0.0-6.0 [facility] BudaAutomated blood basophil count as percentage of total bjhnufzgip4979-46-69 04:57:00* Test Item Value Reference Range Interpretation Comments Basophils (%) (Auto) (test code = 706-2) 0.7 0.0-1.0 [facility] BudaFluoroscopic procedure less than one hour ipxyquxk7355-78-60 04:57:00* Test Item Value Reference Range Interpretation Comments IM GRANULOCYTES % (test code = IM GRANULOCYTES %) 0.5 0.0- 1.0 [facility] BudaAutomated blood neutrophil count 2020-04-20 04:57:00* Test Item Value Reference Range Interpretation Comments Neutrophils # (Auto) (test code = 751-8) 1.4 2.1-6.9 [facility] BudaBlood lymphocytes count (number/volume) 2020-04-20 04:57:00* Test Item Value Reference Range Interpretation Comments Lymphocytes # (Auto) (test code = 58789-7) 2.2 1.0-3.2 [facility] monocytes automated count (number/volume)2020-04-20 04:57:00* Test Item Value Reference Range Interpretation Comments Monocytes # (Auto) (test code = 742-7) 0.5 0.2-0.8 [facility] blood eosinophil count 2020-04-20 04:57:00* Test Item Value Reference Range Interpretation Comments Eosinophils # (Auto) (test code = 711-2) 0.1 0.0-0.4 [facility] blood basophil count (count/volume)2020-04-20 04:57:00* Test Item Value Reference Range Interpretation Comments Basophils # (Auto) (test code = 704-7) 0.0 0.0-0.1 [facility] BudaFluoroscopic procedure less than one hour ikiakrie2205-89-60 04:57:00* Test Item Value Reference Range Interpretation Comments Absolute Immature Granulocyte (auto (adonay t code = Absolute Immature Granulocyte (auto) 0.02 0-0.1 [facility] [id number] 19:11:00 [facility] : 1975 Sex: F [facility] [address] [address] Patient Name: MIGDALIA QUINN MR #: [id number] : 1975 Age/Sex: 44/F Req #: [id number] Adm Physician: Ordered by: BILLY HARMON MD Report #: [id number] Location: ER Room/Bed: Procedure: [id number] CT/CT ABDOMEN/PELVIS W Exam D ate: 04/19/20 Exam Time: 1824 REPORT STATUS: Signed EXAM: CT Abdomen and Pelvis WITH contrast INDICATION: ABD PAIN 20200419 Y COMPARISO N: None. TECHNIQUE: Abdomen and [...] By: PEBBLES DOWNEY MD 19 COPY TO: BILLY RENEE MD Urine color lccanmognsqrt8513-49-32 16:59:00* Test Item Value Reference Range Interpretation Comments Urine Color (test code = 5778-6) YELLOW YELLOW [facility] nwqyxkw1446-35-15 16:59:00* Test Item Value Reference Range Interpretation Comments Urine Clarity (test code = 86832-2) HAZY CLEAR [facility] Urine by Test strip 2020-04-19 16:59:00* Test Item Value Reference Range Interpretation Comments Urine Specific [place] (test code = 5811-5) 1.025 1.010-1.02 5 [facility] pH measurement by automated test esqkj7850-13-29 16:59:00* Test Item Value Reference Range Interpretation Comments Urine pH (test code = 76956-2) 7 5-7 [facility] leukocyte esterase detection by kuzjmtio7217-79-61 16:59:00* Test Item Value Reference Range Interpretation Comments Urine Leukocyte Esterase (test code = 5799-2) SMALL NEGATIVE [facility]uda[facility] nitrite mzvtupomz8420-55-84 16:59:00* Test Item Value Reference Range Interpretation Comments Urine Nitrite (test code = 01076-6) NEGATIVE NEGATIVE [facility] protein measurement by test strip (mass/volume)2020-04-19 16:59:00* Test Item Value Reference Range Interpretation Comments Urine Protein (test code = 5804-0) 1+ NEGATIVE [facility]uda[facility] glucose yhlhjfciz9119-82-27 16:59:00* Test Item Value Reference Range Interpretation Comments Urine Glucose (UA) (test code = 2349-9) 1+ NEGATIVE [facility]uda[facility] ketones detection by automated test rggpg8401-82-92 16:59:00* Test Item Value Reference Range Interpretation Comments Urine Ketones (test code = 13946-7) >=160 NEGATIVE [facility]udaU[facility] opiates screening mqsr0425-10-87 16:59:00* Test Item Value Reference Range Interpretation Comments Urine Opiates Screen (test code = 15427-5) POSITIVE NEGATIVE This test provides only a screen. Positive results should be repeated by a rhysi joseatory test.[facility]uda[facility] screen, urine 2020-04-19 16:59:00* Test Item Value Reference Range Interpretation Comments Urine Barbiturates Screen (test code = 578144514) NEGATIVE NEGA TIVE [facility]uda[facility] phencyclidine detection by screening ewgabc7687-09-58 16:59:00* Test Item Value Reference Range Interpretation Comments Urine Phencyclidine Screen (test code = 81668-3) NEGATIVE NEGAT RONEL [facility]uda[facility] amphetamines detection by screen method > 1000 ng/aB8251-39-12 16:59:00* Test Item Value Reference Range Interpretation Comments Urine Amphetamines Screen (test code = 88649-2) NEGATIVE NEGATI VE [facility]udaFluoroscopic procedure less than one hour reiswzxi2580-00-30 16:59:00* Test Item Value Reference Range Interpretation Comments Urine Methamphetamines Screen (test code = Urine Metha mphetamines Screen) NEGATIVE NEGATIVE [facility]uda[facility] benzodiazepines detection by screening vjtoza2720-13-53 16:59:00* Test Item Value Reference Range Interpretation Comments Urine Benzodiazepines Screen (test code = 56610-7) NEGATIVE NEG ATIVE [facility]uda[facility] cocaine measurement (mass/volume) 2020-04-19 16:59:00* Test Item Value Reference Range Interpretation Comments Urine Cocaine Screen (test code = 3398-5) NEGATIVE NEGATIVE [facility]uda[facility] cannabinoids detection by screening ivoozr0244-00-25 16:59:00* Test Item Value Reference Range Interpretation Comments Urine Cannabinoids Screen (test code = 27101-9) NEGATIVE NEGATI VE THESE RESULTS ARE FOR MEDICAL TREATMENT ONLYTHIS REPORT CONTAINS UNCONFIR MED SCREENING RESULTS*POSITIVE RESULTS WILL BE CONFIRMED BY REFERENCE LAB UPON R EQUEST CUT-OFFDRUG CLASS CONCENTRATION ng/mLAmphetamines 1000Methamphetamines 1000Cocaine 300Opiate 300Phencyc lidine 25Cannabinoid 50Barbiturates 300Benzodiazepine 300Methadone 300[facility] urobilinogen measurement by test strip (mass/volume)2020-04-19 16:59:00* Test Item Value Reference Range Interpretation Comments Urine Urobilinogen (test code = 19074-0) 1 0.2-1 [facility] total bilirubin measurement (mass/volume)2020-04-19 16:59:00* Test Item Value Reference Range Interpretation Comments Urine Bilirubin (test code = 1978-6) SMALL NEGATIVE [facility]udaU[facility] erythrocytes seoyleyjj9336-19-99 16:59:00* Test Item Value Reference Range Interpretation Comments Urine Blood (test code = 50157-0) TRACE NEGATIVE [facility]udaAutomated urine sediment leukocyte count by microscopy (number/high power field)2020-04-19 16:59:00* Test Item Value Reference Range Interpretation Comments Urine WBC (test code = 5821-4) 11-20 0-5 [facility]udaErythrocytes detection in urine sediment by light wkpqmzvvnm9504-53-83 16:59:00* Test Item Value Reference Range Interpretation Comments Urine RBC (test code = 54984-1) 6-10 0-5 [facility] BudaBacteria detection in urine sediment by light vrsppalxjl3821-94-57 16:59:00* Test Item Value Reference Range Interpretation Comments Urine Bacteria (test code = 62127-0) MODERATE NONE [facility] BudaEpithelial cells detection in urine sediment by light csznqqkyjc0825-86-46 16:59:00* Test Item Value Reference Range Interpretation Comments Urine Epithelial Cells (test code = 32300-2) MODERATE NONE [facility] BudaMucus detection in urine sediment by light vezvrwzjzx1104-66-89 16:59:00* Test Item Value Reference Range Interpretation Comments Urine Mucus (test code = 8247-9) MODERATE RARE [facility] Hospitaler[facility] or plasma magnesium measurement (mass/volume)2020-04-19 16:59:00* Test Item Value Reference Range Interpretation Comments Magnesium Level (test code = 18510-5) 1.8 1.3-2.1 [facility] or plasma lipase measurement (enzymatic activity/volume)2020-04-19 16:59:00* Test Item Value Reference Range Interpretation Comments Lipase (test code = 3040-3) 29 8-78 [facility] BudaGLUBED2020-10-16 12:07:00* Test Item Value Reference Range Interpretation Comments GLUBED (test code = GLUBED) 143 mg/dL 74-106 H Performed by certified mixer crane operator at [facility] APMXIK3056-92-60 08:47:00* Test Item Value Reference Range Interpretation Comments GLUBED (test code = GLUBED) 195 mg/dL 74-106 H Performed by certified mixer crane operator at [facility] BASIC METABOLIC ADVZF5059-01-90 03:48:00* Test Item Value Reference Range Interpretation [...] code = CA) 8.4 mg/dL 8.5-10.1 L [id number] 03:48:00* Test Item Value Reference Range Interpretation Comments LIPASE (test code = LIP) 147 U/L 73.0-393.0 N [id number] 03:48:00* Test Item Value Reference Range Interpretation Comments MAGNESIUM (test code = MAG) 2.4 mg/dL 1.8-2.4 N BASIC METABOLIC [id number] 03:36:00* Test Item Value Reference Range Interpretation [...] CALCIUM (test code = CA) mg/dL 8.5-10.1 CQRPNJ0603-46-95 03:36:00* Test Item Value Reference Range Interpretation Comments LIPASE (test code = LIP) U/L 73.0-393.0 QYLWBLYVY9109-52-45 03:36:00* Test Item Value Reference Range Interpretation Comments MAGNESIUM (test code = MAG) mg/dL 1.8-2.4 CBC W/AUTO [id number] 03:20:00* Test Item Value Reference Range Interpretation [...] DIFF REQUIRED (test code = MDIFF) NO FJNAJX1636-07-21 20:24:00* Test Item Value Reference Range Interpretation Comments GLUBED (test code = GLUBED) 175 mg/dL 74-106 H Performed by certified mixer crane operator at [facility] EDLVCQ7760-26-28 16:30:00* Test Item Value Reference Range Interpretation Comments GLUBED (test code = GLUBED) 291 mg/dL 74-106 H Performed by certified mixer crane operator at [facility] LLPDJA8528-04-87 12:21:00* Test Item Value Reference Range Interpretation Comments GLUBED (test code = GLUBED) 233 mg/dL 74-106 H Performed by certified mixer crane operator at [facility] - CTA CHEST FOR [id number] 12:13:00 [facility] ([facility])Name: MIGDALIA QUINN : 1975 Sex: F Name: IRVIN QUINN [facility] : 1975 Age/S: 44 / F [address] Unit #: [id number] Loc: [place] [address] Phys: Charli Deras MD Acct: [id number] Dis Date: Status: ADM IN PHONE #: [phone] Exam Date: 04/16/2020 1150 FAX #: [phone] Reason: up per abd/chest pain, prolonged immobility, SOB EXAMS: CPT CODE: [id number] [place] [address] REASON FOR EXAM: upper abd/chest pain, prolo [...] 1 Signed Report (CONTINUED) Name: MIGDALIA QUINN [facility] Marni ast : 1975 Age/S: 44 / F [address] Unit #: [id number] Loc: [place] [address] Phys: Charli Deras MD Acct: [id number] Dis Date: Status: ADM IN PHONE #: [phone] Exam Date: 04/16/2020 1155 FAX #: [phone] Reason: upper abd/chest pain, prolonged immo bility, SOB EXAMS: CPT CODE: [id number] [place] [address] < Continued> There is also small focus [...] which may represent an infectious process. Location: [facility] at 1213 Reported and signed by: Faraz Rossi MD CC: Charli Deras MD Technologist:Devin Medina RT(R),(MR),(CT) CTDI: DLP: Trnscb Date/Time: 04/16/2020 (1213) [email or web address] Orig Print D/T: S: 04/16/2020 (1216) PAGE 2 Signed Report [id number] 08:09:00* Test Item Value Reference Range Interpretation Comments GLUBED (test code = GLUBED) 171 mg/dL 74-106 H Performed by certified mixer crane operator at [facility] COMPREHENSIVE METABOLIC [id number] 06:02:00* Test Item Value Reference Range Interpretation [...] This LDL result is a direct measurement.========= [id number] 05:56:00* Test Item Value Reference Range Interpretation Comments GLYCOSYLATED HEMOGLOBIN (HA1C) (test code = GLYHGB) 11.3 % HbA1 SUGGESTED DIAGNOSIS: HbA1C (%) Diabetic >6.4Prediabetes 5.7 - 6.4Normal <5.7 ESTIMATED AVERAGE GLUCOSE (test code = EAG) 278 MG/DL CBC W/AUTO [id number] 05:51:00* Test Item Value Reference Range Interpretation [...] (test code = MDIFF) NO COMPREHENSIVE METABOLIC [id number] 05:51:00* Test Item Value Reference Range Interpretation [...] LDL (test code = LDL) mg/dL 100-129 [id number] 20:57:00* Test Item Value Reference Range Interpretation Comments GLUBED (test code = GLUBED) 269 mg/dL 74-106 H Performed by certified mixer crane operator at [facility] XQWDZGZ7228-82-98 19:52:00* Test Item Value Reference Range Interpretation Comments ALCOHOL (test code = ALC) 3 mg/dL 0.0-3.0 N -- INTERPRETIVE DATA NOTE: POSITIVE SCREENING RESULTS SHOULD BE CONSIDERED PRESUMPTIVE.WHEN COLLECTED FOR MEDICAL PURPOSES ONLY. SPECIMEN WILL NOTBE COLLECTED BY CHAIN OF CUSTODY.IF A CONFIRMATION OF POSITIVE RESULTS IS DESIRED, ACONFIRMATION TEST MUST BE REQUESTED BY THE PHYSICIAN AT ANADDITIONAL CHARGE TO THE PATIENT. LACTIC [id number] 19:49:00* Test Item Value Reference Range Interpretation Comments LACTIC ACID (test code = LACT) 1.2 mmol/L 0.4-1.9 N [id number] 16:49:00* Test Item Value Reference Range Interpretation Comments GLUBED (test code = GLUBED) 231 mg/dL 74-106 H Performed by certified mixer crane operator at [facility] COVID 19 Asymptomatic IH [id number] 14:23:00* Test Item Value Reference Range Interpretation Comments COVID 19 Asymptomatic IH AG (test code = COVNONPUIAG) NEGATIVE - CT ABD PELVIS W/[id number] 12:44:00 [facility])Name: MIGDALIA QUINN : 1975 Sex: F Name: IRVIN QUINN [facility] [place] : 1975 Age/S: 44 / F [address] Unit #: [id number] Loc: [place] [address] Phys: Carson Longoria Acct: [id number] Dis Date: Status: REG ER PHONE #: [phone] Exam Date: 04/15/2020 1150 FAX #: [phone] Reason: ab dpain EXAMS: CPT CODE: [id number] CT ABD PELVIS W/CONT 87418 REASON FOR EXAM: abdpain EXAM ORDER DATE: [...] 1 Signed Report (CONTINUED) Name: MIGDALIA QUINN [facility] : 1975 Age/S: 44 / F [address] Unit #: [id number] Loc: [place] [address] Phys: Carson Longoria Acct: [id number] Dis Date: Status: REG ER PHONE #: [phone] Exam Date: 04/15/2020 1152 FAX #: [phone] Reason: abdpain EXAMS: CPT CODE: [id number] CT ABD PELVIS W/CONT 15530 <Continued> change of the spine IMPRESSION: Recurrent [...] is unchanged from the previous exam. Location: [facility] at 1244 Reported and signed by: Faraz Rossi MD CC: Carson Longoria DO Technologist:LYUDMILA MUNOZ, RT(R),CT CTDI: DLP: Trnscb Date/Time: 04/15/2020 (1864) [email or web address] Orig Print D/T: S: 04/15/2020 (0088) PAGE 2 Signed Report - XR CHEST 1 [id number] 12:34:00 [facility])Name: MIGDALIA QUINN : 1975 Sex: F Name: IRVIN QUINN [facility] [place] : 1975 Age/S: 44 /F [address] Unit#:[id number] Loc: Mireya Cifuentes [address] Phys: Carson Longoria DO Dis Date: PHONE #: [phone] Status: REG ER FAX #: [phone] Exam Date: 04/15/2020 Reason: CHEST PAIN EXAMS: CPT CODE: [id number] XR CHEST 1 V 43836 REASON FOR EXAM: CHEST PAIN Exam Order Date: 04/15/2020 11:25 AM Ordering M.Antonina: Carson Longoria DO PROCEDURE: - XR CHEST [...] Technologist: LYUDMILA VELASQUEZ, RT(R),CT Trnscrpt Data: 04/15/2020 (0974 ) t.SDR.RR31 Orig Print D/T: S: 04/15/2020 (7937) PAGE 1 Signed Report URINALYSIS [id number] 12:02:00* Test Item Value Reference Range Interpretation [...] HPF NONE Urine Source? Clean CatchBASIC METABOLIC [id number] 12:02:00* Test Item Value Reference Range Interpretation [...] code = CA) 8.5 mg/dL 8.4-10.2 N [id number]-[id number] 12:02:00* Test Item Value Reference Range Interpretation Comments TROPONIN-I (test code = TROPI) <0.015 ng/mL 0.00-0.056 N URINALYSIS [id number] 11:57:00* Test Item Value Reference Range Interpretation [...] HPF NONE Urine Source? Clean CatchHEPATIC FUNCTION [id number] 11:52:00* Test Item Value Reference Range Interpretation [...] code = ALKP) 137 U/L 38-126 H [id number] 11:52:00* Test Item Value Reference Range Interpretation Comments LIPASE (test code = LIP) 310 U/L 128-270 H BASIC METABOLIC [id number] 11:49:00* Test Item Value Reference Range Interpretation [...] code = CA) 8.5 mg/dL 8.4-10.2 N ALJEJHUV-[id number] 11:49:00* Test Item Value Reference Range Interpretation Comments TROPONIN-I (test code = TROPI) ng/mL 0-0.045 CBC W/O [id number] 11:44:00* Test Item Value Reference Range Interpretation [...] MPV) 10.1 fL 6.7-11.0 N - [facility] [id number] 13:46:00 Name: MIGDALIA QUINN [facility] : 1975 Age/S: 44 / F [address] Unit #: [id number] Loc: [place] [address] Phys: Charli Deras MD Acct: [id number] Dis Date: Status: ADM IN PHONE #: [phone] Exam Date: 04/13/2020 1152 FAX #: [phone] Reason: ABSCESS EXAMS: CPT CODE: [id number] CT GUID [facility] [address] CT-GUIDED PERCUTANEOUS ABSCESS ASPIRATION: Location: [facility] HISTORY: ABSCESS. COMPARISON: None. MOTOR POWER CONNECTOR: Dr. Shaq Leiva ADMINISTRATIVE ASSISTANT OFFICE MANAGER: None. MODALITY: CT. CONSCIOUS SEDATION: Intravenous moderate [...] 1 Signed Report (CONTINUED) Name: MIGDALIA QUINN [facility] : 1975 Age/S: 44 / F [address] Unit #: [id number] Loc: [place] [address] Phys: Charli Deras MD Acct: [id number] Dis Date: Status: ADM IN PHONE #: [phone] Exam Date: 04/13/2020 115 FAX #: [phone] Reason: ABSCESS EXAMS: CPT CODE: [id number] [facility] [address] <Continued> PROCEDURE: The patient was placed right [...] Leiva M.D. CC: Charli Deras MD Technologist:Jill NewtonRT(R),CT CTDI: DLP: Trnscb Date/Time: 04/13/2020 (7165) [email or web address] Orig Print D/T: S: 04/13/2020 (5688) PAGE 2 Signed Report [id number] 12:37:00* Test Item Value Reference Range Interpretation Comments GLUBED (test code = GLUBED) 163 mg/dL 74-106 H Performed by certified mixer crane operator at [facility] [id number] 20:10:00* Test Item Value Reference Range Interpretation Comments GLUBED (test code = GLUBED) 142 mg/dL 74-106 H Performed by certified mixer crane operator at [facility] [id number] 16:04:00* Test Item Value Reference Range Interpretation Comments GLUBED (test code = GLUBED) 117 mg/dL 74-106 H Performed by certified mixer crane operator at [facility] [id number] 11:42:00* Test Item Value Reference Range Interpretation Comments GLUBED (test code = GLUBED) 139 mg/dL 74-106 H Performed by certified mixer crane operator at [facility] [id number] 07:56:00* Test Item Value Reference Range Interpretation Comments GLUBED (test code = GLUBED) 164 mg/dL 74-106 H Performed by certified mixer crane operator at [facility] COMPREHENSIVE METABOLIC [id number] 06:38:00* Test Item Value Reference Range Interpretation [...] due to change in reagent. COMPREHENSIVE METABOLIC [id number] 06:29:00* Test Item Value Reference Range Interpretation [...] code = ALKP) IUnit/L 45-117 CBC W/O [id number] 06:27:00* Test Item Value Reference Range Interpretation [...] code = MPV) 10.8 fL 6.7-11.0 N [id number] 20:34:00* Test Item Value Reference Range Interpretation Comments GLUBED (test code = GLUBED) 111 mg/dL 74-106 H Performed by certified mixer crane operator at [facility] RAVJLB1791-10-18 15:43:00* Test Item Value Reference Range Interpretation Comments GLUBED (test code = GLUBED) 183 mg/dL 74-106 H Performed by certified mixer crane operator at [facility] [id number] 11:43:00* Test Item Value Reference Range Interpretation Comments GLUBED (test code = GLUBED) 102 mg/dL 74-106 N Performed by certified mixer crane operator at [facility] [id number] 07:53:00* Test Item Value Reference Range Interpretation Comments GLUBED (test code = GLUBED) 317 mg/dL 74-106 H Performed by certified mixer crane operator at [facility] BASIC METABOLIC [id number] 04:56:00* Test Item Value Reference Range Interpretation [...] CA) 8.3 mg/dL 8.5-10.1 L BASIC METABOLIC [id number] 04:53:00* Test Item Value Reference Range Interpretation [...] CALCIUM (test code = CA) mg/dL 8.5-10.1 [id number] 20:41:00* Test Item Value Reference Range Interpretation Comments GLUBED (test code = GLUBED) 173 mg/dL 74-106 H Performed by certified mixer crane operator at [facility] [id number] 15:38:00* Test Item Value Reference Range Interpretation Comments GLUBED (test code = GLUBED) 181 mg/dL 74-106 H Performed by certified mixer crane operator at [facility] PROTHROMBIN [id number] 11:45:00* Test Item Value Reference Range Interpretation [...] heart valves (2.5-3.5) IS PATIENT ON ANTICOAGULANTS? [id number] 11:41:00* Test Item Value Reference Range Interpretation Comments GLUBED (test code = GLUBED) 281 mg/dL 74-106 H Performed by certified mixer crane operator at [facility] COVID 19 Asymptomatic IH [id number] 10:38:00* Test Item Value Reference Range Interpretation Comments COVID 19 Asymptomatic IH AG (test code = COVNONPUIAG) NEGATIVE SPECIMEN COMMENTS: DR LEIVA ORDERED PATIENT HAVING [id number] 09:38:00 * Test Item Value Reference Range Interpretation Comments GLUBED (test code = GLUBED) 259 mg/dL 74-106 H Performed by certified mixer crane operator at [facility] CBC W/AUTO [id number] 05:12:00* Test Item Value Reference Range Interpretation [...] (test code = MDIFF) NO BASIC METABOLIC [id number] 05:07:00* Test Item Value Reference Range Interpretation [...] code = CA) 8.4 mg/dL 8.5-10.1 L [id number] 05:07:00* Test Item Value Reference Range Interpretation Comments MAGNESIUM (test code = MAG) 2.3 mg/dL 1.8-2.4 N BASIC METABOLIC [id number] 05:03:00* Test Item Value Reference Range Interpretation [...] CALCIUM (test code = CA) mg/dL 8.5-10.1 KVCVWVVZF9404-91-04 05:03:00* Test Item Value Reference Range Interpretation Comments MAGNESIUM (test code = MAG) mg/dL 1.8-2.4 LACTIC [id number] 23:30:00* Test Item Value Reference Range Interpretation Comments LACTIC ACID (test code = LACT) 1.1 MMOL/L 0.4-1.9 N - CT ABD PELVIS [id number] 22:06:00 Name: MIGDALIA QUINN [facility] : 1975 Age/S: 44 / F [address] Unit #: [id number] Loc: [place] [address] Phys: Tyler Gutierrez MD Acct: [id number] Dis Date: Status: REG ER PHONE #: [phone] Exam Date: 04/09/20202149 FAX #: [phone] Reason: Abd pain EXAMS: CPT CODE: [id number] CT ABD PELVIS W/CONT 48700 EXAM: CT of the abdomen and pelvis [...] Estrada M.D. CC: Tyler Gutierrez MD Technologist:KAILEY CHUN RT(R),RDMS,CT CTDI: DLP: Trnscb Date/Time: 04/09/2020 (2205) Darlene Orig Print D/T: S: 04/09/2020 (2208) PAGE 1 Signed Report [id number] 21:29:00* Test Item Value Reference Range Interpretation Comments MAGNESIUM (test code = MAG) 1.7 mg/dL 1.6-2.3 N DRUGS OF ABUSE SCREEN [id number] 21:19:00* Test Item Value Reference Range Interpretation [...] code = PHENCURN) NEGATIVE NEGATIV E URINALYSIS [id number] 21:13:00* Test Item Value Reference Range Interpretation [...] HPF NONE Urine Source? Clean CatchUR HCG [id number] 21:13:00* Test Item Value Reference Range Interpretation Comments UR HCG QUAL (test code = HCGQLU) NEGATIVE This HCGQL test is NOT applicable for MALE patients.Check with nurse about probable order error.If Tumor Marker Test needed, nurse should order test "HCGTU"(Test #[id number]) Urine Source? Clean CatchURINALYSIS [id number] 21:12:00* Test Item Value Reference Range Interpretation [...] HPF NONE Urine Source? Clean CatchUR HCG [id number] 21:12:00* Test Item Value Reference Range Interpretation Comments UR HCG QUAL (test code = HCGQLU) Urine Source? Clean CatchBASIC METABOLIC [id number] 20:12:00* Test Item Value Reference Range Interpretation Comments SODIUM (test code = NA) 131 mmol/L 135-148 L POTASSIUM (test code = K) 2.7 mmol/L 3.5-5.1 LL Re sults called to KATHRYN BUTLER by V.LAB.AV1 04/09/20 2012Critical results verified and read back [...] CA) 9.1 mg/dL 8.4-10.2 N HEPATIC FUNCTION [id number] 20:12:00* Test Item Value Reference Range Interpretation [...] code = ALKP) 163 U/L 38-126 H [id number] 20:12:00* Test Item Value Reference Range Interpretation Comments LIPASE (test code = LIP) 283 U/L 128-270 H CBC W/O [id number] 19:58:00* Test Item Value Reference Range Interpretation [...] code = MPV) 10.2 fL 6.7-11.0 N [id number] 19:29:00* Test Item Value Reference Range Interpretation Comments GLUBED (test code = GLUBED) 320 mg/dL 74-106 H Performed by certified mixer crane operator at [facility] [id number] 11:43:00* Test Item Value Reference Range Interpretation Comments GLUBED (test code = GLUBED) 218 mg/dL 74-106 H Performed by certified mixer crane operator at [facility] [id number] 07:58:00* Test Item Value Reference Range Interpretation Comments GLUBED (test code = GLUBED) 216 mg/dL 74-106 H Performed by certified mixer crane operator at [facility] BASIC METABOLIC [id number] 05:17:00* Test Item Value Reference Range Interpretation [...] CA) 8.5 mg/dL 8.5-10.1 N BASIC METABOLIC [id number] 03:30:00* Test Item Value Reference Range Interpretation [...] code = CA) 8.6 mg/dL 8.5-10.1 N [id number] 03:30:00* Test Item Value Reference Range Interpretation Comments PHOSPHORUS (test code = PHOS) 2.6 mg/dL 2.5-4.9 N [id number] 03:30:00* Test Item Value Reference Range Interpretation Comments MAGNESIUM (test code = MAG) 2.2 mg/dL 1.8-2.4 N CALCIUM [id number] 03:30:00* Test Item Value Reference Range Interpretation Comments CALCIUM IONIZED (test code = MISSY) 1.26 mmol/L 1.12-1.32 N CBC W/AUTO [id number] 03:27:00* Test Item Value Reference Range Interpretation [...] (test code = MDIFF) NO BASIC METABOLIC [id number] 03:24:00* Test Item Value Reference Range Interpretation [...] CALCIUM (test code = CA) mg/dL 8.5-10.1 [id number] 03:24:00* Test Item Value Reference Range Interpretation Comments PHOSPHORUS (test code = PHOS) mg/dL 2.5-4.9 [id number] 03:24:00* Test Item Value Reference Range Interpretation Comments MAGNESIUM (test code = MAG) mg/dL 1.8-2.4 CALCIUM [id number] 03:24:00* Test Item Value Reference Range Interpretation Comments CALCIUM IONIZED (test code = MISSY) 1.26 mmol/L 1.12-1.32 N BASIC METABOLIC [id number] 03:19:00* Test Item Value Reference Range Interpretation [...] CALCIUM (test code = CA) mg/dL 8.5-10.1 [id number] 03:19:00* Test Item Value Reference Range Interpretation Comments PHOSPHORUS (test code = PHOS) mg/dL 2.5-4.9 [id number] 03:19:00* Test Item Value Reference Range Interpretation Comments MAGNESIUM (test code = MAG) mg/dL 1.8-2.4 CALCIUM [id number] 03:19:00* Test Item Value Reference Range Interpretation Comments CALCIUM IONIZED (test code = MISSY) 1.26 mmol/L 1.12-1.32 N [id number] 02:13:00* Test Item Value Reference Range Interpretation Comments GLUBED (test code = GLUBED) 205 mg/dL 74-106 H Performed by certified mixer crane operator at [facility] [id number] 20:33:00* Test Item Value Reference Range Interpretation Comments GLUBED (test code = GLUBED) 172 mg/dL 74-106 H Performed by certified mixer crane operator at [facility] BASIC METABOLIC [id number] 18:14:00* Test Item Value Reference Range Interpretation Comments SODIUM (test code = NA) TEST NOT PERFORMED mmol/L 136-145 RESULT VERIFIED BY REPEAT ANALYSISPreviously reported result: 139 mmol/LEdited by: V.LAB.SPR on 04/05/20:804877 1813: NA previously reported as: 139 D mmol/L RESULT VERIFIED BY REPEAT ANALYSISV.LAB.SPR 04/05/20 1600 POTASSIUM (test code = K) TEST NOT PERFORMED mmol/L 3.5-5.1 Previously reported result: 3.4 mmol/LEdited by: V.LAB.SPR on 04/05/20: 1813: K previously reported as: 3.4 L mmol/L CHLORIDE (test code = CL) TEST NOT PERFORMED mmol/L 98-107 N Previously reported result: 103.0 mmol/LEdited by: V.LAB.SPR on 04/05/20: 1814: CL previously reported as: 103.0 mmol/L CARBON DIOXIDE (test code = CO2) TEST NOT PERFORMED mmol/L 21-32 N Previously reported result: 25.0 mmol/LEdited by: UUSEE.LAB.SPR on 04/05/20:181304/05/201813: CO2 previously reported as: 25.0 mmol/L ANION GAP (test code = GAP) TEST NOT PERFORMED 04-21 N Previously reported result: 14.4 Edited by: Juan Luis.LAB.SPR on 04/05/20:181304/05/201813: ANION GAP previously reported as: 14.4 GLUCOSE (test code = GLU) TEST NOT PERFORMED mg/dL 74-106 Previously reported result: 114 mg/dLEdited by: UUSEE.LAB.SPR on 04/05/20:181304/05/201813: GLU previously reported as: 114 H mg/dL BLOOD UREA NITROGEN (test code = BUN) TEST NOT PERFORMED mg/dL 718 RESULT VERIFIED BY REPEAT ANALYSISPreviously reported result: 41 mg/dLEdited by: V.LAB.SPR on 04/05/20:181304/05/201813: BUN previously reported as: 41 DH mg/dL RESULT VERIFIED BY REPEAT ANALYSIS GLOMERULAR FILTRATION RATE (test code = GFR) TEST NOT PERFORMED mL/ min >=60 Previously reported result: 6 mL/minEdited by: UUSEE.LAB.SPR on 04/05/20:181304/05/201813: GFR previously reported as: 6 mL/min CREATININE (test code = CREAT) TEST NOT PERFORMED mg/dL 0.55-1.02 RESULT VERIFIED BY REPEAT ANALYSISPreviously reported result: 7.80 mg/dLEdited by: V.LAB.SPR on 04/05/20:181304/05/201813: CREAT previously reported as: 7.80 [...] CA previously reported as: 7.8 L mg/dL [id number] 18:14:00* Test Item Value Reference Range Interpretation Comments PHOSPHORUS (test code = PHOS) TEST NOT PERFORMED mg/dL 2.5-4.9 N Previously reported result: 4.9 mg/dLEdited by: ChiquitaLAB.SPR on 04/05/20:181304/05/201813: PHOS previously reported as: 4.9 mg/dL [id number] 18:14:00* Test Item Value Reference Range Interpretation Comments MAGNESIUM (test code = MAG) TEST NOT PERFORMED mg/dL 1.8-2.4 Previously reported result: 1.7 mg/dLEdited by: ChiquitaLAB.SPR on 04/05/20:181304/05/201813: MAG previously reported as: 1.7 L mg/dL CALCIUM [id number] 18:14:00* Test Item Value Reference Range Interpretation Comments CALCIUM IONIZED (test code = MISSY) TEST NOT PERFORMED mmol/L 1.12-1. 32 Previously reported result: 1.09 mmol/LEdited by: ChiquitaLAB.SPR on 04/05/20:1813: CA IONIZED previously reported as: 1.09 L mmol/L CBC W/AUTO [id number] 18:09:00* Test Item Value Reference Range Interpretation Comments WHITE BLOOD CELL (test code = WBC) TEST NOT PERFORMED K/mm3 4.5-12. 5 N Previously reported result: 9.4 K/ep5Bupxnj by: ChiquitaLAB.SPR on 04/05/20:1806 WBC previously reported as: 9.4 K/mm3V.LAB.SPR 04/05/20 1600 CORRECTED WBC (test code = CWBC) TEST NOT PERFORMED K/mm3 4.0-13.0 RED BLOOD CELL (test code = RBC) TEST NOT PERFORMED mill/mm3 3.7-5. 2 Previously reported result: 2.99 mill/kp1Lbxywm by: CLAUSSPR on 04/05/2004/05/201806: RBC previously reported as: 2.99 L mill/mm3 HEMOGLOBIN (test code = HGB) TEST NOT PERFORMED gram/dL 11.5-15.5 RESULT VERIFIED BY REPEAT ANALYSISPreviously reported result: 8.5 gram/dLEdited by: ChiquitaLAB.SPR on 04/05/20:180604/05/201806: HGB previously reported as: 8.5 DL gram/dL RESULT VERIFIED BY REPEAT ANALYSIS HEMATOCRIT (test code = HCT) TEST NOT PERFORMED % 36.0-46.0 Previously reported result: 27.5 %Edited by: ChiquitaLAB.SPR on 04/05/20:180604/05/201806: HCT previously reported as: 27.5 [...] N Previously reported result: 28.4 picogramEdited by: CLAUSSPR on 04/05/2004/05/201806: MCH previously reported as: 28.4 picogram MEAN CELL HGB CONCETRATION (test code = MCHC) TEST NOT PERFO RMED gram/dL 33.0-36.0 Previously reported result: 30.9 gram/dLEdited by: ChiquitaLAB.SPR on 04/05/20:180604/05/201806: MCHC previously reported as: 30.9 L gram/dL RED CELL DISTRIBUTION WIDTH (test code = RDW) TEST NOT PERFORMED % 11.6-16.2 Previously reported result: 17.6 %Edited by: CLAUSSPR on 04/05/2004/05/201806: RDW previously reported as: 17.6 H % RED CELL DISTRIBUTION WIDTH SD (test code = RDW-SD) TEST NOT PERFORMED fL 37.0-51.0 Previously reported result: 59.5 fLEdited by: ChiquitaLAB.SPR on 04/05/20:1807: RDW-SD previously reported as: 59.5 H fL PLATELET COUNT (test code = PLT) TEST NOT PERFORMED K/mm3 150-450 RESULT VERIFIED BY REPEAT ANALYSISPreviously reported result: 242 K/ii0Mlkktk by: ChiquitaLAB.SPR on 04/05/20:18004/05/201807: PLT previously reported as: 242 D K/mm3 RESULT VERIFIED BY REPEAT ANALYSIS MEAN PLATELET VOLUME (test code = MPV) TEST NOT PERFORMED fL 6.7-11 .0 Previously reported result: 11.1 fLEdited by: UUSEETteoLAB.SPR on 04/05/20:1807: MPV previously reported as: 11.1 H fL NEUTROPHIL % (test code = NT%) TEST NOT PERFORMED % 39.0-69.0 N Previously reported result: 62.4 %Edited by: UUSEETetoLAB.SPR on 04/05/20:180704/05/201807: NEUT % previously reported as: 62.4 % IMMATURE GRANULOCYTE % (test code = IG%) TEST NOT PERFORMED % 0.0-5 .0 N Previously reported result: 0.6 %Edited by: UUSEETetoLAB.SPR on 04/05/20:180704/05/201807: IMM GRAN % previously reported as: 0.6 % LYMPHOCYTE % (test code = LY%) TEST NOT PERFORMED % 25.0-55.0 Previously reported result: 9.8 %Edited by: UUSEETetoLAB.SPR on 04/05/20:180804/05/201808: LYMPH % previously reported as: 9.8 L % MONOCYTE % (test code = MO%) TEST NOT PERFORMED % 0.0-10.0 Previously reported result: 15.0 %Edited by: UUSEE.LAB.SPR on 04/05/20:9617601808: MONO % previously reported as: 15.0 H % EOSINOPHIL % (test code = EO%) TEST NOT PERFORMED % 0.0-5.0 Previously reported result: 11.6 %Edited by: UUSEETetoLAB.SPR on 04/05/20:180804/05/201808: EOS % previously reported as: 11.6 H % BASOPHIL % (test code = BA%) TEST NOT PERFORMED % 0.0-1.0 N Previously reported result: 0.6 %Edited by: V.LAB.SPR on 04/05/20:180804/05/201808: BASO % previously reported as: 0.6 % NUCLEATED RBC % (test code = NRBC%) TEST NOT PERFORMED % 0-0 N Previously reported result: 0.0 %Edited by: V.LAB.SPR on 04/05/20:180804/05/201808: NRBC% previously reported as: 0.0 % NEUTROPHIL # (test code = NT#) TEST NOT PERFORMED K/mm3 1.8-7.7 N Previously reported result: 5.83 K/xi7Ulbjsg by: Juan Luis.LAB.SPR on 04/05/20:180804/05/201808: NEUT # previously reported as: 5.83 K/mm3 IMMATURE GRANULOCYTE # (test code = IG#) TEST NOT PERFORMED x10 3/u L 0-0.03 Previously reported result: 0.06 x10\\S\\3/uLEdited by: Juan Luis.LAB.SPR on 04/05/20:180804/05/20 180: IMM GRAN # previously reported as: 0.06 H x10\\S\\3/uL LYMPHOCYTE # (test code = LY#) TEST NOT PERFORMED K/mm3 1.0-5.0 Previously reported result: 0.92 K/kx7Buaumq by: ChiquitaLAB.SPR on 04/05/20:180804/05/20 180: LYMPH # previously reported as: 0.92 L K/mm3 MONOCYTE # (test code = MO#) TEST NOT PERFORMED K/mm3 0-0.8 Previously reported result: 1.40 K/rq0Tmivcb by: Juan Luis.LAB.SPR on 04/05/20:180804/05/20 180: MONO # previously reported as: 1.40 H K/mm3 EOSINOPHIL # (test code = EO#) TEST NOT PERFORMED K/mm3 0.0-0.5 Previously reported result: 1.08 K/dh3Lmneyo by: ChiquitaLAB.SPR on 04/05/20: 1809: EOS # previously reported as: 1.08 H K/mm3 BASOPHIL # (test code = BA#) TEST NOT PERFORMED K/mm3 0.0-0.2 N Previously reported result: 0.06 K/zi3Xnbekw by: V.LAB.SPR on 04/05/20: 1809: BASO # previously reported as: 0.06 K/mm3 NUCLEATED RBC # (test code = NRBC#) TEST NOT PERFORMED K/mm3 0.0-0. 1 N Previously reported result: 0.00 K/nk8Fmjhan by: V.LAB.SPR on 04/05/20:180804/05/20 1809: NRBC# previously reported as: 0.00 K/mm3 [id number] 16:19:00* Test Item Value Reference Range Interpretation Comments GLUBED (test code = GLUBED) 194 mg/dL 74-106 H Performed by certified mixer crane operator at [facility] [id number] 11:27:00* Test Item Value Reference Range Interpretation Comments GLUBED (test code = GLUBED) 202 mg/dL 74-106 H Performed by certified mixer crane operator at [facility] BASIC METABOLIC [id number] 08:48:00* Test Item Value Reference Range Interpretation [...] code = CA) 8.9 mg/dL 8.5-10.1 N [id number] 08:48:00* Test Item Value Reference Range Interpretation Comments PHOSPHORUS (test code = PHOS) 2.2 mg/dL 2.5-4.9 L [id number] 08:48:00* Test Item Value Reference Range Interpretation Comments MAGNESIUM (test code = MAG) 2.1 mg/dL 1.8-2.4 N CALCIUM [id number] 08:48:00* Test Item Value Reference Range Interpretation Comments CALCIUM IONIZED (test code = MISSY) 1.29 mmol/L 1.12-1.32 N BASIC METABOLIC [id number] 08:25:00* Test Item Value Reference Range Interpretation [...] CALCIUM (test code = CA) mg/dL 8.5-10.1 [id number] 08:25:00* Test Item Value Reference Range Interpretation Comments PHOSPHORUS (test code = PHOS) mg/dL 2.5-4.9 [id number] 08:25:00* Test Item Value Reference Range Interpretation Comments MAGNESIUM (test code = MAG) mg/dL 1.8-2.4 CALCIUM [id number] 08:25:00* Test Item Value Reference Range Interpretation Comments CALCIUM IONIZED (test code = MISSY) 1.29 mmol/L 1.12-1.32 N BASIC METABOLIC [id number] 08:21:00* Test Item Value Reference Range Interpretation [...] CALCIUM (test code = CA) mg/dL 8.5-10.1 [id number] 08:21:00* Test Item Value Reference Range Interpretation Comments PHOSPHORUS (test code = PHOS) mg/dL 2.5-4.9 [id number] 08:21:00* Test Item Value Reference Range Interpretation Comments MAGNESIUM (test code = MAG) mg/dL 1.8-2.4 CALCIUM [id number] 08:21:00* Test Item Value Reference Range Interpretation Comments CALCIUM IONIZED (test code = MISSY) 1.29 mmol/L 1.12-1.32 N [id number] 08:00:00* Test Item Value Reference Range Interpretation Comments GLUBED (test code = GLUBED) 201 mg/dL 74-106 H Performed by certified mixer crane operator at [facility] [id number] 05:48:00* Test Item Value Reference Range Interpretation Comments GLUBED (test code = GLUBED) 208 mg/dL 74-106 H Performed by certified mixer crane operator at [facility] BASIC METABOLIC [id number] 02:02:00* Test Item Value Reference Range Interpretation [...] code = CA) 7.8 mg/dL 8.5-10.1 L [id number] 02:02:00* Test Item Value Reference Range Interpretation Comments PHOSPHORUS (test code = PHOS) 4.9 mg/dL 2.5-4.9 N [id number] 02:02:00* Test Item Value Reference Range Interpretation Comments MAGNESIUM (test code = MAG) 1.7 mg/dL 1.8-2.4 L CALCIUM [id number] 02:02:00* Test Item Value Reference Range Interpretation Comments CALCIUM IONIZED (test code = MISSY) 1.09 mmol/L 1.12-1.32 L CBC W/AUTO [id number] 01:56:00* Test Item Value Reference Range Interpretation [...] (test code = MDIFF) NO BASIC METABOLIC [id number] 01:10:00* Test Item Value Reference Range Interpretation [...] CALCIUM (test code = CA) mg/dL 8.5-10.1 [id number] 01:10:00* Test Item Value Reference Range Interpretation Comments PHOSPHORUS (test code = PHOS) mg/dL 2.5-4.9 [id number] 01:10:00* Test Item Value Reference Range Interpretation Comments MAGNESIUM (test code = MAG) mg/dL 1.8-2.4 CALCIUM [id number] 01:10:00* Test Item Value Reference Range Interpretation Comments CALCIUM IONIZED (test code = MISSY) 1.09 mmol/L 1.12-1.32 L [id number] 00:51:00* Test Item Value Reference Range Interpretation Comments GLUBED (test code = GLUBED) 234 mg/dL 74-106 H Performed by certified mixer crane operator at [facility] [id number] 22:09:00* Test Item Value Reference Range Interpretation Comments GLUBED (test code = GLUBED) 252 mg/dL 74-106 H Performed by certified mixer crane operator at [facility] [id number] 20:57:00* Test Item Value Reference Range Interpretation Comments GLUBED (test code = GLUBED) 247 mg/dL 74-106 H Performed by certified mixer crane operator at [facility] [id number] 18:32:00* Test Item Value Reference Range Interpretation Comments GLUBED (test code = GLUBED) 220 mg/dL 74-106 H Performed by certified mixer crane operator at [facility] [id number] 16:21:00* Test Item Value Reference Range Interpretation Comments GLUBED (test code = GLUBED) 174 mg/dL 74-106 H Performed by certified mixer crane operator at [facility] [id number] 15:09:00* Test Item Value Reference Range Interpretation Comments GLUBED (test code = GLUBED) 143 mg/dL 74-106 H Performed by certified mixer crane operator at [facility] [id number] 14:09:00* Test Item Value Reference Range Interpretation Comments GLUBED (test code = GLUBED) 154 mg/dL 74-106 H Performed by certified mixer crane operator at [facility] BASIC METABOLIC [id number] 13:36:00* Test Item Value Reference Range Interpretation [...] code = CA) 8.7 mg/dL 8.5-10.1 N [id number] 13:36:00* Test Item Value Reference Range Interpretation Comments PHOSPHORUS (test code = PHOS) 2.2 mg/dL 2.5-4.9 L [id number] 13:36:00* Test Item Value Reference Range Interpretation Comments MAGNESIUM (test code = MAG) 1.9 mg/dL 1.8-2.4 N CALCIUM [id number] 13:36:00* Test Item Value Reference Range Interpretation Comments CALCIUM IONIZED (test code = MISSY) 1.27 mmol/L 1.12-1.32 N BASIC METABOLIC [id number] 13:33:00* Test Item Value Reference Range Interpretation [...] CALCIUM (test code = CA) mg/dL 8.5-10.1 [id number] 13:33:00* Test Item Value Reference Range Interpretation Comments PHOSPHORUS (test code = PHOS) mg/dL 2.5-4.9 [id number] 13:33:00* Test Item Value Reference Range Interpretation Comments MAGNESIUM (test code = MAG) mg/dL 1.8-2.4 CALCIUM [id number] 13:33:00* Test Item Value Reference Range Interpretation Comments CALCIUM IONIZED (test code = MISSY) 1.27 mmol/L 1.12-1.32 N CBC W/AUTO [id number] 13:22:00* Test Item Value Reference Range Interpretation [...] code = NRBC#) 0.00 K/mm3 0.0-0.1 N [id number] 12:43:00* Test Item Value Reference Range Interpretation Comments GLUBED (test code = GLUBED) 180 mg/dL 74-106 H Performed by certified mixer crane operator at [facility] [id number] 11:55:00* Test Item Value Reference Range Interpretation Comments GLUBED (test code = GLUBED) 182 mg/dL 74-106 H Performed by certified mixer crane operator at [facility] [id number] 10:42:00* Test Item Value Reference Range Interpretation Comments GLUBED (test code = GLUBED) 273 mg/dL 74-106 H Performed by certified mixer crane operator at [facility] [id number] 09:53:00* Test Item Value Reference Range Interpretation Comments GLUBED (test code = GLUBED) 254 mg/dL 74-106 H Performed by certified mixer crane operator at [facility] COMPREHENSIVE METABOLIC [id number] 09:32:00* Test Item Value Reference Range Interpretation [...] reference range due to change in reagent. [id number] 09:32:00* Test Item Value Reference Range Interpretation Comments PHOSPHORUS (test code = PHOS) 1.6 mg/dL 2.5-4.9 L [id number] 09:32:00* Test Item Value Reference Range Interpretation Comments MAGNESIUM (test code = MAG) 2.0 mg/dL 1.8-2.4 N CALCIUM [id number] 09:32:00* Test Item Value Reference Range Interpretation Comments CALCIUM IONIZED (test code = MISSY) 1.28 mmol/L 1.12-1.32 N COMPREHENSIVE METABOLIC [id number] 09:31:00* Test Item Value Reference Range Interpretation [...] TOTAL (test code = ALKP) IUnit/L 45-117 [id number] 09:31:00* Test Item Value Reference Range Interpretation Comments PHOSPHORUS (test code = PHOS) mg/dL 2.5-4.9 [id number] 09:31:00* Test Item Value Reference Range Interpretation Comments MAGNESIUM (test code = MAG) mg/dL 1.8-2.4 CALCIUM [id number] 09:31:00* Test Item Value Reference Range Interpretation Comments CALCIUM IONIZED (test code = MISSY) 1.28 mmol/L 1.12-1.32 N COMPREHENSIVE METABOLIC [id number] 09:20:00* Test Item Value Reference Range Interpretation [...] TOTAL (test code = ALKP) IUnit/L 45-117 [id number] 09:20:00* Test Item Value Reference Range Interpretation Comments PHOSPHORUS (test code = PHOS) mg/dL 2.5-4.9 [id number] 09:20:00* Test Item Value Reference Range Interpretation Comments MAGNESIUM (test code = MAG) mg/dL 1.8-2.4 CALCIUM [id number] 09:20:00* Test Item Value Reference Range Interpretation Comments CALCIUM IONIZED (test code = MISSY) 1.28 mmol/L 1.12-1.32 N [id number] 08:56:00* Test Item Value Reference Range Interpretation Comments GLUBED (test code = GLUBED) 155 mg/dL 74-106 H Performed by certified mixer crane operator at [facility] [id number] 08:20:00* Test Item Value Reference Range Interpretation Comments GLUBED (test code = GLUBED) 182 mg/dL 74-106 H Performed by certified mixer crane operator at [facility] [id number] 07:40:00* Test Item Value Reference Range Interpretation Comments GLUBED (test code = GLUBED) 153 mg/dL 74-106 H Performed by certified mixer crane operator at [facility] COMPREHENSIVE METABOLIC [id number] 07:27:00* Test Item Value Reference Range Interpretation [...] reference range due to change in reagent. [id number] 07:23:00* Test Item Value Reference Range Interpretation Comments PHOSPHORUS (test code = PHOS) 1.7 mg/dL 2.5-4.9 L [id number] 07:23:00* Test Item Value Reference Range Interpretation Comments MAGNESIUM (test code = MAG) 2.0 mg/dL 1.8-2.4 N CALCIUM [id number] 07:23:00* Test Item Value Reference Range Interpretation Comments CALCIUM IONIZED (test code = MISSY) 1.29 mmol/L 1.12-1.32 N [id number] 07:19:00* Test Item Value Reference Range Interpretation Comments PHOSPHORUS (test code = PHOS) mg/dL 2.5-4.9 [id number] 07:19:00* Test Item Value Reference Range Interpretation Comments MAGNESIUM (test code = MAG) mg/dL 1.8-2.4 CALCIUM [id number] 07:19:00* Test Item Value Reference Range Interpretation Comments CALCIUM IONIZED (test code = MISSY) 1.29 mmol/L 1.12-1.32 N COMPREHENSIVE METABOLIC [id number] 07:18:00* Test Item Value Reference Range Interpretation [...] code = ALKP) IUnit/L 45-117 CBC W/AUTO [id number] 07:01:00* Test Item Value Reference Range Interpretation [...] code = NRBC#) 0.00 K/mm3 0.0-0.1 N [id number] 06:15:00* Test Item Value Reference Range Interpretation Comments GLUBED (test code = GLUBED) 154 mg/dL 74-106 H Performed by certified mixer crane operator at [facility] [id number] 04:19:00* Test Item Value Reference Range Interpretation Comments GLUBED (test code = GLUBED) 165 mg/dL 74-106 H Performed by certified mixer crane operator at [facility] [id number] 03:26:00* Test Item Value Reference Range Interpretation Comments GLUBED (test code = GLUBED) 165 mg/dL 74-106 H Performed by certified mixer crane operator at [facility] COMPREHENSIVE METABOLIC [id number] 02:29:00* Test Item Value Reference Range Interpretation [...] reference range due to change in reagent. [id number] 02:29:00* Test Item Value Reference Range Interpretation Comments PHOSPHORUS (test code = PHOS) 2.1 mg/dL 2.5-4.9 L [id number] 02:29:00* Test Item Value Reference Range Interpretation Comments MAGNESIUM (test code = MAG) 2.0 mg/dL 1.8-2.4 N CALCIUM [id number] 02:29:00* Test Item Value Reference Range Interpretation Comments CALCIUM IONIZED (test code = MISSY) 1.30 mmol/L 1.12-1.32 N COMPREHENSIVE METABOLIC [id number] 02:19:00* Test Item Value Reference Range Interpretation [...] TOTAL (test code = ALKP) IUnit/L 45-117 [id number] 02:19:00* Test Item Value Reference Range Interpretation Comments PHOSPHORUS (test code = PHOS) mg/dL 2.5-4.9 [id number] 02:19:00* Test Item Value Reference Range Interpretation Comments MAGNESIUM (test code = MAG) mg/dL 1.8-2.4 CALCIUM [id number] 02:19:00* Test Item Value Reference Range Interpretation Comments CALCIUM IONIZED (test code = MISSY) 1.30 mmol/L 1.12-1.32 N [id number] 02:01:00* Test Item Value Reference Range Interpretation Comments GLUBED (test code = GLUBED) 193 mg/dL 74-106 H Performed by certified mixer crane operator at [facility] CBC W/AUTO [id number] 01:59:00* Test Item Value Reference Range Interpretation [...] code = NRBC#) 0.00 K/mm3 0.0-0.1 N [id number] 01:23:00* Test Item Value Reference Range Interpretation Comments GLUBED (test code = GLUBED) 171 mg/dL 74-106 H Performed by certified mixer crane operator at [facility] [id number] 00:08:00* Test Item Value Reference Range Interpretation Comments GLUBED (test code = GLUBED) 155 mg/dL 74-106 H Performed by certified mixer crane operator at [facility] [id number] 23:02:00* Test Item Value Reference Range Interpretation Comments GLUBED (test code = GLUBED) 163 mg/dL 74-106 H Performed by certified mixer crane operator at [facility] COMPREHENSIVE METABOLIC [id number] 22:32:00* Test Item Value Reference Range Interpretation [...] reference range due to change in reagent. [id number] 22:32:00* Test Item Value Reference Range Interpretation Comments PHOSPHORUS (test code = PHOS) 0.8 mg/dL 2.5-4.9 L [id number] 22:32:00* Test Item Value Reference Range Interpretation Comments MAGNESIUM (test code = MAG) 2.0 mg/dL 1.8-2.4 N CALCIUM [id number] 22:32:00* Test Item Value Reference Range Interpretation Comments CALCIUM IONIZED (test code = MISSY) 1.31 mmol/L 1.12-1.32 N COMPREHENSIVE METABOLIC [id number] 22:11:00* Test Item Value Reference Range Interpretation [...] reference range due to change in reagent. [id number] 22:11:00* Test Item Value Reference Range Interpretation Comments PHOSPHORUS (test code = PHOS) 0.8 mg/dL 2.5-4.9 L [id number] 22:11:00* Test Item Value Reference Range Interpretation Comments MAGNESIUM (test code = MAG) 2.0 mg/dL 1.8-2.4 N CALCIUM [id number] 22:11:00* Test Item Value Reference Range Interpretation Comments CALCIUM IONIZED (test code = MISSY) mmol/L 1.12-1.32 [id number] 22:05:00* Test Item Value Reference Range Interpretation Comments GLUBED (test code = GLUBED) 159 mg/dL 74-106 H Performed by certified mixer crane operator at [facility] COMPREHENSIVE METABOLIC [id number] 22:04:00* Test Item Value Reference Range Interpretation [...] TOTAL (test code = ALKP) IUnit/L 45-117 [id number] 22:04:00* Test Item Value Reference Range Interpretation Comments PHOSPHORUS (test code = PHOS) mg/dL 2.5-4.9 [id number] 22:04:00* Test Item Value Reference Range Interpretation Comments MAGNESIUM (test code = MAG) mg/dL 1.8-2.4 CALCIUM [id number] 22:04:00* Test Item Value Reference Range Interpretation Comments CALCIUM IONIZED (test code = MISSY) mmol/L 1.12-1.32 CBC W/AUTO [id number] 21:59:00* Test Item Value Reference Range Interpretation [...] DIFF REQUIRED (test code = MDIFF) NO [id number] 21:12:00* Test Item Value Reference Range Interpretation Comments GLUBED (test code = GLUBED) 206 mg/dL 74-106 H Performed by certified mixer crane operator at [facility] BASIC METABOLIC [id number] 17:35:00* Test Item Value Reference Range Interpretation [...] code = CA) 8.5 mg/dL 8.5-10.1 N [id number] 17:35:00* Test Item Value Reference Range Interpretation Comments PHOSPHORUS (test code = PHOS) 0.9 mg/dL 2.5-4.9 L [id number] 17:35:00* Test Item Value Reference Range Interpretation Comments MAGNESIUM (test code = MAG) 2.0 mg/dL 1.8-2.4 N CALCIUM [id number] 17:35:00* Test Item Value Reference Range Interpretation Comments CALCIUM IONIZED (test code = MISSY) 1.32 mmol/L 1.12-1.32 N BASIC METABOLIC [id number] 17:32:00* Test Item Value Reference Range Interpretation [...] code = CA) 8.5 mg/dL 8.5-10.1 N [id number] 17:32:00* Test Item Value Reference Range Interpretation Comments PHOSPHORUS (test code = PHOS) 0.9 mg/dL 2.5-4.9 L [id number] 17:32:00* Test Item Value Reference Range Interpretation Comments MAGNESIUM (test code = MAG) 2.0 mg/dL 1.8-2.4 N CALCIUM [id number] 17:32:00* Test Item Value Reference Range Interpretation Comments CALCIUM IONIZED (test code = MISSY) mmol/L 1.12-1.32 BASIC METABOLIC [id number] 17:24:00* Test Item Value Reference Range Interpretation [...] CALCIUM (test code = CA) mg/dL 8.5-10.1 [id number] 17:24:00* Test Item Value Reference Range Interpretation Comments PHOSPHORUS (test code = PHOS) mg/dL 2.5-4.9 [id number] 17:24:00* Test Item Value Reference Range Interpretation Comments MAGNESIUM (test code = MAG) mg/dL 1.8-2.4 CALCIUM [id number] 17:24:00* Test Item Value Reference Range Interpretation Comments CALCIUM IONIZED (test code = MISSY) mmol/L 1.12-1.32 BASIC METABOLIC [id number] 17:05:00* Test Item Value Reference Range Interpretation [...] dripSPECIMEN COMMENTS: Q8H while on insu suni [id number] 17:05:00* Test Item Value Reference Range Interpretation Comments LIPASE (test code = LIP) 816 U/L 73.0-393.0 H SPECIMEN COMMENTS: Q4H while on insulin dripSPECIMEN COMMENTS: Q8H while on insu suni [id number] 17:05:00* Test Item Value Reference Range Interpretation Comments MAGNESIUM (test code = MAG) 2.2 mg/dL 1.8-2.4 N SPECIMEN COMMENTS: Q4H while on insulin dripSPECIMEN COMMENTS: Q8H while on insu suni dripTHYROID STIMULATING [id number] 17:05:00* Test Item Value Reference Range Interpretation Comments THYROID STIMULATING HORMONE (test code = TSH) 1.230 uIU/mL 0.36-3.7 4 N TSH REFERENCE RANGES: EUTHYROID: 0.35 - 4.3 mIU/mL HYPO : > 5.5 mIU/mL HYPER : < 0.35 mIU/mL SPECIMEN COMMENTS: Q4H while on insulin dripSPECIMEN COMMENTS: Q8H while on insu suni dripACETONE [id number] 17:05:00* Test Item Value Reference Range Interpretation Comments ACETONE BLOOD (test code = ACETB) SMALL (~ 20 mg/dL) NEGATIVE SPECIMEN COMMENTS: Q4H while on insulin dripSPECIMEN COMMENTS: Q8H while on insu suni [id number] 16:52:00* Test Item Value Reference Range Interpretation Comments GLUBED (test code = GLUBED) 151 mg/dL 74-106 H Performed by certified mixer crane operator at [facility] CALCIUM [id number] 15:43:00* Test Item Value Reference Range Interpretation Comments CALCIUM IONIZED (test code = MISSY) 1.19 mmol/L 1.12-1.32 N BASIC METABOLIC [id number] 15:42:00* Test Item Value Reference Range Interpretation [...] dripSPECIMEN COMMENTS: Q8H while on insu suni [id number] 15:42:00* Test Item Value Reference Range Interpretation Comments MAGNESIUM (test code = MAG) 2.1 mg/dL 1.8-2.4 N SPECIMEN COMMENTS: Q4H while on insulin dripSPECIMEN COMMENTS: Q8H while on insu suni [id number] 15:38:00* Test Item Value Reference Range Interpretation Comments GLUBED (test code = GLUBED) 118 mg/dL 74-106 H Performed by certified mixer crane operator at [facility] BASIC METABOLIC [id number] 15:37:00* Test Item Value Reference Range Interpretation [...] dripSPECIMEN COMMENTS: Q8H while on insu suni [id number] 15:37:00* Test Item Value Reference Range Interpretation Comments MAGNESIUM (test code = MAG) mg/dL 1.8-2.4 SPECIMEN COMMENTS: Q4H while on insulin dripSPECIMEN COMMENTS: Q8H while on insu suni [id number] 15:05:00* Test Item Value Reference Range Interpretation Comments GLUBED (test code = GLUBED) 109 mg/dL 74-106 H Performed by certified mixer crane operator at [facility] BASIC METABOLIC [id number] 13:49:00* Test Item Value Reference Range Interpretation [...] code = CA) 8.0 mg/dL 8.5-10.1 L [id number] 13:49:00* Test Item Value Reference Range Interpretation Comments PHOSPHORUS (test code = PHOS) 0.6 mg/dL 2.5-4.9 L [id number] 13:49:00* Test Item Value Reference Range Interpretation Comments MAGNESIUM (test code = MAG) 1.9 mg/dL 1.8-2.4 N CALCIUM [id number] 13:49:00* Test Item Value Reference Range Interpretation Comments CALCIUM IONIZED (test code = MISSY) mmol/L 1.12-1.32 BASIC METABOLIC [id number] 13:46:00* Test Item Value Reference Range Interpretation [...] CALCIUM (test code = CA) mg/dL 8.5-10.1 [id number] 13:46:00* Test Item Value Reference Range Interpretation Comments PHOSPHORUS (test code = PHOS) mg/dL 2.5-4.9 [id number] 13:46:00* Test Item Value Reference Range Interpretation Comments MAGNESIUM (test code = MAG) mg/dL 1.8-2.4 CALCIUM [id number] 13:46:00* Test Item Value Reference Range Interpretation Comments CALCIUM IONIZED (test code = MISSY) mmol/L 1.12-1.32 [id number] 13:34:00* Test Item Value Reference Range Interpretation Comments GLUBED (test code = GLUBED) 137 mg/dL 74-106 H Performed by certified mixer crane operator at [facility] [id number] 13:32:00* Test Item Value Reference Range Interpretation Comments GLUBED (test code = GLUBED) 167 mg/dL 74-106 H Performed by certified mixer crane operator at [facility] [id number] 11:35:00* Test Item Value Reference Range Interpretation Comments GLUBED (test code = GLUBED) 207 mg/dL 74-106 H Performed by certified mixer crane operator at [facility] [id number] 09:56:00* Test Item Value Reference Range Interpretation Comments GLUBED (test code = GLUBED) 204 mg/dL 74-106 H Performed by certified mixer crane operator at [facility] BASIC METABOLIC [id number] 08:49:00* Test Item Value Reference Range Interpretation [...] dripSPECIMEN COMMENTS: Q8H while on insu suni [id number] 08:49:00* Test Item Value Reference Range Interpretation Comments LIPASE (test code = LIP) 816 U/L 73.0-393.0 H SPECIMEN COMMENTS: Q4H while on insulin dripSPECIMEN COMMENTS: Q8H while on insu suni [id number] 08:49:00* Test Item Value Reference Range Interpretation Comments MAGNESIUM (test code = MAG) 2.2 mg/dL 1.8-2.4 N SPECIMEN COMMENTS: Q4H while on insulin dripSPECIMEN COMMENTS: Q8H while on insu suni dripTHYROID STIMULATING [id number] 08:49:00* Test Item Value Reference Range Interpretation Comments THYROID STIMULATING HORMONE (test code = TSH) 1.230 uIU/mL 0.36-3.7 4 N TSH REFERENCE RANGES: EUTHYROID: 0.35 - 4.3 mIU/mL HYPO : > 5.5 mIU/mL HYPER : < 0.35 mIU/mL SPECIMEN COMMENTS: Q4H while on insulin dripSPECIMEN COMMENTS: Q8H while on insu snui dripACETONE [id number] 08:49:00* Test Item Value Reference Range Interpretation Comments ACETONE BLOOD (test code = ACETB) NEGATIVE SPECIMEN COMMENTS: Q4H while on insulin dripSPECIMEN COMMENTS: Q8H while on insu suni [id number] 08:43:00* Test Item Value Reference Range Interpretation Comments GLYCOSYLATED HEMOGLOBIN (HA1C) (test code = GLYHGB) 11.9 % HbA1 SUGGESTED DIAGNOSIS: HbA1C (%) Diabetic >6.4Prediabetes 5.7 - 6.4Normal <5.7 ESTIMATED AVERAGE GLUCOSE (test code = EAG) 295 MG/DL BASIC METABOLIC [id number] 08:34:00* Test Item Value Reference Range Interpretation [...] dripSPECIMEN COMMENTS: Q8H while on insu suni [id number] 08:34:00* Test Item Value Reference Range Interpretation Comments LIPASE (test code = LIP) U/L 73.0-393.0 SPECIMEN COMMENTS: Q4H while on insulin dripSPECIMEN COMMENTS: Q8H while on insu suni [id number] 08:34:00* Test Item Value Reference Range Interpretation Comments MAGNESIUM (test code = MAG) mg/dL 1.8-2.4 SPECIMEN COMMENTS: Q4H while on insulin dripSPECIMEN COMMENTS: Q8H while on insu suni dripTHYROID STIMULATING [id number] 08:34:00* Test Item Value Reference Range Interpretation Comments THYROID STIMULATING HORMONE (test code = TSH) uIU/mL 0.36-3.7 4 SPECIMEN COMMENTS: Q4H while on insulin dripSPECIMEN COMMENTS: Q8H while on insu suni dripACETONE [id number] 08:34:00* Test Item Value Reference Range Interpretation Comments ACETONE BLOOD (test code = ACETB) NEGATIVE SPECIMEN COMMENTS: Q4H while on insulin dripSPECIMEN COMMENTS: Q8H while on insu suni dripCALCIUM [id number] 08:29:00* Test Item Value Reference Range Interpretation Comments CALCIUM IONIZED (test code = MISSY) 1.23 mmol/L 1.12-1.32 N [id number] 07:51:00* Test Item Value Reference Range Interpretation Comments GLUBED (test code = GLUBED) 138 mg/dL 74-106 H Performed by certified mixer crane operator at [facility] [id number] 06:20:00* Test Item Value Reference Range Interpretation Comments GLUBED (test code = GLUBED) 93 mg/dL 74-106 N Performed by certified mixer crane operator at [facility] [id number] 05:19:00* Test Item Value Reference Range Interpretation Comments GLUBED (test code = GLUBED) 53 mg/dL 74-106 L Performed by certified mixer crane operator at [facility] [id number] 05:19:00* Test Item Value Reference Range Interpretation Comments GLUBED (test code = GLUBED) 26 mg/dL 74-106 LL Test performed as P.O.C. by nursing staff.Performed by certified mixer cr[facility] operator [facility]Notified Nurse~ [id number] 05:19:00* Test Item Value Reference Range Interpretation Comments GLUBED (test code = GLUBED) 54 mg/dL 74-106 L Performed by certified mixer crane operator at [facility] [id number] 03:34:00* Test Item Value Reference Range Interpretation Comments GLUBED (test code = GLUBED) 79 mg/dL 74-106 N Performed by certified mixer crane operator at [facility] [id number] 02:38:00* Test Item Value Reference Range Interpretation Comments GLUBED (test code = GLUBED) 119 mg/dL 74-106 H Performed by certified mixer crane operator at [facility] BASIC METABOLIC [id number] 01:42:00* Test Item Value Reference Range Interpretation [...] code = CA) 7.2 mg/dL 8.4-10.2 L [id number] 01:20:00* Test Item Value Reference Range Interpretation Comments PHOSPHORUS (test code = PHOS) 1.4 mg/dL 2.6-4.7 L [id number] 00:58:00* Test Item Value Reference Range Interpretation Comments GLUBED (test code = GLUBED) 208 mg/dL 74-106 H Performed by certified mixer crane operator at [facility] VENOUS BLOOD [id number] 00:51:00* Test Item Value Reference Range Interpretation [...] SITE (test code = SITEV) OT CALLED [facility] TO REPORT RESULTS LACTIC [id number] 00:21:00* Test Item Value Reference Range Interpretation Comments LACTIC ACID (test code = LACT) 0.8 MMOL/L 0.4-1.9 N [id number] 00:16:00* Test Item Value Reference Range Interpretation Comments GLUBED (test code = GLUBED) 296 mg/dL 74-106 H Performed by certified mixer crane operator at [facility] COVID 19 INHOUSE [id number] 00:01:00* Test Item Value Reference Range Interpretation Comments COVID 19 INHOUSE AG (test code = IQCVF04MPQG) NEGATIVE URINALYSIS [id number] 23:49:00* Test Item Value Reference Range Interpretation [...] Urine Source? Clean CatchDRUGS OF ABUSE SCREEN [id number] 23:49:00* Test Item Value Reference Range Interpretation [...] NEGATIVE NEGATIV E Urine Source? Clean CatchURINALYSIS [id number] 23:48:00* Test Item Value Reference Range Interpretation [...] Urine Source? Clean CatchDRUGS OF ABUSE SCREEN [id number] 23:48:00* Test Item Value Reference Range Interpretation Comments URN COCAINE (test code = COCAURN) NEGATIVE URN CANNABINOIDS (test code = CANNABURN) NEGATIVE URN AMPHETAMINE (test code = AMPHETURN) NEGATIVE URN BARBITURATE (test code = BARBITURN) NEGATIVE URN BENZODIAZEPINE (test code = BENZOURN) NEGATIVE URN OPIATES (test code = OPIATURN) NEGATIVE URN PHENCYCLIDINE (PCP) (test code = PHENCURN) NEGATIV E Urine Source? Clean CatchURINALYSIS [id number] 23:27:00* Test Item Value Reference Range Interpretation [...] Urine Source? Clean CatchDRUGS OF ABUSE SCREEN [id number] 23:27:00* Test Item Value Reference Range Interpretation Comments URN COCAINE (test code = COCAURN) NEGATIVE URN CANNABINOIDS (test code = CANNABURN) NEGATIVE URN AMPHETAMINE (test code = AMPHETURN) NEGATIVE URN BARBITURATE (test code = BARBITURN) NEGATIVE URN BENZODIAZEPINE (test code = BENZOURN) NEGATIVE URN OPIATES (test code = OPIATURN) NEGATIVE URN PHENCYCLIDINE (PCP) (test code = PHENCURN) NEGATIV E Urine Source? Clean [id number] 23:14:00* Test Item Value Reference Range Interpretation Comments ALCOHOL (test code = ALC) < 3 mg/dL 0.0-3.0 N -- INTERPRETIVE DATA NOTE: POSITIVE SCREENING RESULTS SHOULD BE CONSIDERED PRESUMPTIVE.WHEN COLLECTED FOR MEDICAL PURPOSES ONLY. SPECIMEN WILL NOTBE COLLECTED BY CHAIN OF CUSTODY.IF A CONFIRMATION OF POSITIVE RESULTS IS DESIRED, ACONFIRMATION TEST MUST BE REQUESTED BY THE PHYSICIAN AT ANADDITIONAL CHARGE TO THE PATIENT. [id number] 23:10:00* Test Item Value Reference Range Interpretation Comments MAGNESIUM (test code = MAG) 1.9 mg/dL 1.8-2.4 N - CT ABD PELVIS W/[id number] 23:10:00 Name: MIGDALIA QUINN [facility] : 1975 Age/S: 44 / F [address] Unit #: [id number] Loc: [place] [address] Phys: Andrei Jansen MD Acct: [id number] Dis Date: Status: REG ER PHONE #: [phone] Exam Date: 04/02/2020 2300 FAX #: [phone] Reason: diffuse abdominal pain, vomiting EXAMS: CPT CODE: [id number] CT ABD PELVIS W/CONT 94351 AFTER HOURS SERVICE ON: 04/02/2020 11:04 PM [...] 1 Signed Report (CONTINUED) Name: MIGDALIA QUINN [facility] : 1975 Age/S: 44 / F [address] Unit #: [id number] Loc: [place] [address] Phys: Andrei Jansen MD Acct: [id number] Dis Date: Status: REG ER PHONE #: [phone] Exam Date: 04/02/2020 230 FAX #: [phone] Reason: diffuse abdominal pain, vomiting EXAMS: CPT CODE: [id number] ABD PELVIS W/CONT 21091 <Continued> at 2310 Reported and signed by: Dom Esparza M.D. CC: Andrei Jansen MD Technologist:BILL BENTLEY RT(R),CT CTDI: DLP: Trnscb Date/Time: 04/02/2020 ( 2310) [id number] Orig Print D/T: S: 04/02/2020 (2313) PAGE 2 Signed Report BASIC METABOLIC [id number] 22:43:00* Test Item Value Reference Range Interpretation [...] CA) 8.5 mg/dL 8.4-10.2 N HEPATIC FUNCTION [id number] 22:43:00* Test Item Value Reference Range Interpretation [...] code = ALKP) 132 U/L 38-126 H [id number] 22:43:00* Test Item Value Reference Range Interpretation Comments LIPASE (test code = LIP) 1403 U/L 128-270 H HCG SERUM [id number] 22:43:00* Test Item Value Reference Range Interpretation Comments HCG SERUM QUAL (test code = HCGQL) NEGATIVE NEGATIVE This HCGQL test is NOT applicable for MALE patients.Check with nurse about probable order error.If Tumor Marker Test needed, nurse should order test "HCGTU"(Test #550.68406) BASIC METABOLIC [id number] 22:28:00* Test Item Value Reference Range Interpretation [...] code = CA) mg/dL 8.4-10.2 HEPATIC FUNCTION [id number] 22:28:00* Test Item Value Reference Range Interpretation [...] TOTAL (test code = ALKP) IUnit/L 45-117 [id number] 22:28:00* Test Item Value Reference Range Interpretation Comments LIPASE (test code = LIP) Unit/L 144-286 HCG SERUM [id number] 22:28:00* Test Item Value Reference Range Interpretation Comments HCG SERUM QUAL (test code = HCGQL) NEGATIVE NEGATIVE This HCGQL test is NOT applicable for MALE patients.Check with nurse about probable order error.If Tumor Marker Test needed, nurse should order test "HCGTU"(Test #550.21445) CBC W/O [id number] 22:09:00* Test Item Value Reference Range Interpretation [...] code = PLT) 167 K/mm3 150-450 N [id number] 21:53:00* Test Item Value Reference Range Interpretation Comments GLUBED (test code = GLUBED) 399 mg/dL 74-106 H Performed by certified mixer crane operator at [facility] - XR CHEST 1 [id number] 17:24:00 FAX: lAlen Jon [phone] [place]: B St: REG Name: MIGDALIA BUSTAMANTE [facility] : [birth year] Age/S: 44/F [address] Unit #: [id number] Loc: [place] [address] Phys: Allen Jon NP Acct: [id number] Dis Date: Status: REG ER PHONE #: [phone] Exam Date: 01/01/2020 1711 FAX #: [phone] Reason: SHORTNESS OF BREATH EXAMS: CPT CODE: [id number] XR CHEST 1 V 03622 REASON FOR EXAM: SHORTNESS OF BREATH Exam Order Date: 01/01/2020 4:23 PM Ordering M.D.: Allen Jon NP PROCEDURE: - XR CHEST [...] limits. IMPRESSION: No acute cardiopulmonary process. Location: [facility] at 1724 Reported and signed by: Faraz Rossi MD CC: Allen Jon NP Technologist: Kisha Estrella RT(R) Trnscrd Date/Time/By: ([id number]) : By: [email or web address] Orig Print D/T: S: 01/01/2020 (9894) PAGE 1 Signed Report XRAY CHEST 2 [id number] 15:12:52IMPRESSION: No acute thoracic abnormality. Dictated By: [...] By: Juan Luis Muniz MD, 05/13/2019 3:12 PMEastern [facility] HospitalHemoglobin A1C 2019-05-09 11:04:00* Test Item Value Reference Range Interpretation Comments Hemoglobin A1c (test code = 4548-4) 8.0 % 4.3-6.1 H Estimated Average Glucose (test code = 33863566) 183 mg/dL 70-11 0 H Lab Interpretation (test code = 15109-8) [facility]normal [facility]/Nhrc9561-31-34 08:08:00* Test Item Value Reference Range Interpretation [...] g/dL 32-36 L RDW (test code = 03479-5) 39.1 fL 36.4-46.3 Platelet (test code = 777-3) 232 K/uL 150-400 Mean Platelet Volume (test code = 47008-8) 12.6 fL 9.4-12.4 H Percent NRBC (test code = 15299593) 0.0 % Neutrophil (test code = 770-8) 60.2 % 34-70 Lymphs (test code = 736-9) 31.5 % 20-50 Monocytes (test code = 5905-5) 6.3 % 5-12 Eos (test code = 713-8) 1.5 % 0.7-5 Basos (test code = 706-2) 0.2 % 0.1-1.2 Immature Granulocytes (test code = 44376378) 0.3 % 0-0.5 Neutrophils (Absolute) (test code = 24075316) 5.59 K/uL 1.56-6.1 3 Lymphs (Absolute) (test code = 95201460) 2.93 K/uL 1.18-3.74 Monocytes(Absolute) (test code = 97782957) 0.59 K/uL 0.24-0.36 H Eos (Absolute) (test code = 37696596) 0.14 K/uL 0.04-0.36 Baso (Absolute) (test code = 25626886) 0.02 K/uL 0.01-0.08 Immature Grans (Abs) (test code = 04822409) 0.03 K/uL 0-0.03 Absolute NRBC (test code = 22458229) 0.00 K/uL Lab Interpretation (test code = 15530-4) Abnormal [facility] HospitalVitamin [id number] 06:53:00* Test Item Value Reference Range Interpretation Comments Vitamin B12 (test code = 25940271) 296 pg/mL See comment Normal: 180-914 pg/mLIntermittent: 145-180 pg/mLDeficient: <=145.0 pg/mL [facility] HospitalLipid Eznfele3950-33-68 06:36:00* Test Item Value Reference Range Interpretation Comments Cholesterol (test code = 2093-3) 163.0 mg/dL <=200.0 Triglyceride (test code = 07649403) 136 mg/dL <150 HDL (test code = 2085-9) 47.0 mg/dL See Reference Range Narrative . LDL (test code = 58956-2) 89 mg/dL <100 Op timal: < 100.0 mg/dLNear Optimal: 120-129 mg/dLBorderline: 130-159 mg/dLHigh: 160-189 mg/dLVery High: >=190 mg/dL Patient Fasting? (test code = 89539158) No ZAK (test code = ZAK) Patient is not fasting. For a triglyceride result greater than 440 mg/dL, consider re-testing when the patient is in a fasting state. Pool HealthUric Psqa5023-71-11 06:36:00* Test Item Value Reference Range Interpretation Comments Uric Acid (test code = 49679446) 3.5 mg/dL 2.3-6.6 Lab Interpretation (test code = 27720-2) Normal [facility] HospitalCom[facility] Metabolic Gpbgp3872-18-09 06:36:00* Test Item Value Reference Range Interpretation Comments Sodium (test code = 2951-2) 139 mmol/L 136-145 Potassium (test code = 2823-3) 4.3 mmol/L 3.5-5.1 Chloride (test code = 2075-0) 104 mmol/L 98-107 CO2 (test code = 09383711) 26 mmol/L 21-31 Glucose (test code = 43129047) 161 mg/dL 70-110 H Calcium (test code = 08040839) 10.1 mg/dL 8.6-10.3 Urea Nitrogen (test code = 10188015) 12.0 mg/dL 7-25 Creatinine (test code = 35686708) 0.7 mg/dL 0.6-1.2 Alkaline Phosphatase (test code = 31237459) 102 U/L 34-104 ALT (test code = 19963785) 40 U/L 7-52 AST (test code = 76647773) 34 U/L 13-39 Total Protein (test code = 2885-2) 7.2 g/dL 6-8.3 GFR, Estimated (test code = 48956233) 90 >=90 mL/min/1.73 m2 Albumin (test code = 82287-9) 4.0 g/dL 3.7-5.3 Anion Gap (test code = 77641752) 9 mmol/L 5-16 Lab Interpretation (test code = 55033-8) [id number]* Test Item Value Reference Range Interpretation Comments GLUBED (test code = GLUBED) 381 mg/dL 74-106 H Performed by certified mixer crane operator at [facility] [id number] 10:33:00* Test Item Value Reference Range Interpretation Comments GLUBED (test code = GLUBED) 245 mg/dL 74-106 H Performed by certified mixer crane operator at [facility] [id number] 06:53:00* Test Item Value Reference Range Interpretation Comments GLUBED (test code = GLUBED) 267 mg/dL 74-106 H Performed by certified mixer crane operator at [facility] [id number] 06:53:00* Test Item Value Reference Range Interpretation Comments GLUBED (test code = GLUBED) 322 mg/dL 74-106 H Performed by certified mixer crane operator at [facility] [id number] 06:53:00* Test Item Value Reference Range Interpretation Comments GLUBED (test code = GLUBED) 330 mg/dL 74-106 H Performed by certified mixer crane operator at [facility] [id number] 06:53:00* Test Item Value Reference Range Interpretation Comments GLUBED (test code = GLUBED) 372 mg/dL 74-106 H Performed by certified mixer crane operator at [facility] BASIC METABOLIC [id number] 04:50:00* Test Item Value Reference Range Interpretation [...] CA) 8.2 mg/dL 8.5-10.1 L BASIC METABOLIC [id number] 04:42:00* Test Item Value Reference Range Interpretation [...] (test code = CA) mg/dL 8.5-10.1 URINALYSIS [id number] 23:50:00* Test Item Value Reference Range Interpretation [...] Urine Source? Clean CatchDRUGS OF ABUSE SCREEN [id number] 23:50:00* Test Item Value Reference Range Interpretation [...] <300 ng/mL Urine Source? Clean CatchBASIC METABOLIC [id number] 23:35:00* Test Item Value Reference Range Interpretation [...] CA) 8.8 mg/dL 8.5-10.1 N HEPATIC FUNCTION [id number] 23:35:00* Test Item Value Reference Range Interpretation [...] due to change in reagent. HCG SERUM [id number] 23:35:00* Test Item Value Reference Range Interpretation Comments HCG SERUM QUAL (test code = HCGQL) NEGATIVE NEGATIVE This HCGQL test is NOT applicable for MALE patients.Check with nurse about probable order error.If Tumor Marker Test needed, nurse should order test "HCGTU"(Test #550.63132) [id number] 23:35:00* Test Item Value Reference Range Interpretation Comments ACETAMINOPHEN (test code = ACET) < 10 mcg/mL 10-30 L A RANGE OF 10-30 mcg/mL IS A THERAPEUTIC RANGE. TOXIC CONCENTRATIONS: >150 mcg/mL AT 4 HOURS AFTER INGESTION >= 50 mcg/mL AT 12 HOURS AFTER INGESTION [id number] 23:35:00* Test Item Value Reference Range Interpretation Comments SALICYLATE (test code = SRIRAM) < 1.7 mg/dL 2.8-20.0 L [id number] 23:35:00* Test Item Value Reference Range Interpretation [...] ANADDITIONAL CHARGE TO THE PATIENT. BASIC METABOLIC [id number] 23:34:00* Test Item Value Reference Range Interpretation [...] CA) 8.8 mg/dL 8.5-10.1 N HEPATIC FUNCTION [id number] 23:34:00* Test Item Value Reference Range Interpretation [...] due to change in reagent. HCG SERUM [id number] 23:34:00* Test Item Value Reference Range Interpretation Comments HCG SERUM QUAL (test code = HCGQL) NEGATIVE [id number] 23:34:00* Test Item Value Reference Range Interpretation Comments ACETAMINOPHEN (test code = ACET) < 10 mcg/mL 10-30 L A RANGE OF 10-30 mcg/mL IS A THERAPEUTIC RANGE. TOXIC CONCENTRATIONS: >150 mcg/mL AT 4 HOURS AFTER INGESTION >= 50 mcg/mL AT 12 HOURS AFTER INGESTION [id number] 23:34:00* Test Item Value Reference Range Interpretation Comments SALICYLATE (test code = SRIRAM) < 1.7 mg/dL 2.8-20.0 L [id number] 23:34:00* Test Item Value Reference Range Interpretation Comments ALCOHOL (test code = ALC) 149 mg/dL 0.0-3.0 H -- INTERPRETIVE DATA NOTE: POSITIVE SCREENING RESULTS SHOULD BE CONSIDERED PRESUMPTIVE.WHEN COLLECTED FOR MEDICAL PURPOSES ONLY. SPECIMEN WILL NOTBE COLLECTED BY CHAIN OF CUSTODY.IF A CONFIRMATION OF POSITIVE RESULTS IS DESIRED, ACONFIRMATION TEST MUST BE REQUESTED BY THE PHYSICIAN AT ANADDITIONAL CHARGE TO THE PATIENT. [id number] 23:33:00* Test Item Value Reference Range Interpretation Comments MAGNESIUM (test code = MAG) 1.9 mg/dL 1.8-2.4 N URINALYSIS [id number] 23:29:00* Test Item Value Reference Range Interpretation [...] Urine Source? Clean CatchDRUGS OF ABUSE SCREEN [id number] 23:29:00* Test Item Value Reference Range Interpretation [...] <300 ng/mL Urine Source? Clean CatchBASIC METABOLIC [id number] 23:26:00* Test Item Value Reference Range Interpretation [...] code = CA) mg/dL 8.5-10.1 HEPATIC FUNCTION [id number] 23:26:00* Test Item Value Reference Range Interpretation [...] code = ALKP) IUnit/L 45-117 HCG SERUM [id number] 23:26:00* Test Item Value Reference Range Interpretation Comments HCG SERUM QUAL (test code = HCGQL) NEGATIVE [id number] 23:26:00* Test Item Value Reference Range Interpretation Comments ACETAMINOPHEN (test code = ACET) mcg/mL 10-30 [id number] 23:26:00* Test Item Value Reference Range Interpretation Comments SALICYLATE (test code = SRIRAM) mg/dL 2.8-20.0 [id number] 23:26:00* Test Item Value Reference Range Interpretation Comments ALCOHOL (test code = ALC) mg/dL 0-3 CBC W/O [id number] 23:20:00* Test Item Value Reference Range Interpretation [...] MPV) 13.0 fL 6.7-11.0 H CBC W/O [id number] 23:18:00* Test Item Value Reference Range Interpretation [...] (test code = MPV) fL 6.7-11.0 MONO [id number] 09:49:00* Test Item Value Reference Range Interpretation Comments MONO SCREEN (test code = MONO) POSITIVE NEGATIVE A URINALYSIS [id number] 08:51:00* Test Item Value Reference Range Interpretation [...] taking into account the patients history. URINALYSIS [id number] 08:47:00* Test Item Value Reference Range Interpretation [...] HPF 0-5 Urine Source? Clean CatchB-TYPE NATRIURETIC [id number] 08:47:00* Test Item Value Reference Range Interpretation Comments B-TYPE NATRIURETIC PEPTIDE (test code = BNP) 28.89 pgram/mL 0-100 N BASIC METABOLIC [id number] 08:35:00* Test Item Value Reference Range Interpretation [...] CA) 8.8 mg/dL 8.5-10.1 N HEPATIC FUNCTION [id number] 08:35:00* Test Item Value Reference Range Interpretation [...] reference range due to change in reagent. [id number] 08:35:00* Test Item Value Reference Range Interpretation Comments LIPASE (test code = LIP) 65 U/L 73.0-393.0 L HCG SERUM [id number] 08:35:00* Test Item Value Reference Range Interpretation Comments HCG SERUM QUAL (test code = HCGQL) NEGATIVE NEGATIVE This HCGQL test is NOT applicable for MALE patients.Check with nurse about probable order error.If Tumor Marker Test needed, nurse should order test "HCGTU"(Test #550.34678) [id number] 08:35:00* Test Item Value Reference Range Interpretation Comments TROPONIN-I (test code = TROPI) <0.015 ng/mL 0-0.045 N LACTIC [id number] 08:35:00* Test Item Value Reference Range Interpretation Comments LACTIC ACID (test code = LACT) 1.2 mmol/L 0.4-1.9 N BASIC METABOLIC [id number] 08:25:00* Test Item Value Reference Range Interpretation [...] code = CA) mg/dL 8.5-10.1 HEPATIC FUNCTION [id number] 08:25:00* Test Item Value Reference Range Interpretation [...] TOTAL (test code = ALKP) IUnit/L 45-117 [id number] 08:25:00* Test Item Value Reference Range Interpretation Comments LIPASE (test code = LIP) U/L 73.0-393.0 HCG SERUM [id number] 08:25:00* Test Item Value Reference Range Interpretation Comments HCG SERUM QUAL (test code = HCGQL) NEGATIVE NEGATIVE This HCGQL test is NOT applicable for MALE patients.Check with nurse about probable order error.If Tumor Marker Test needed, nurse should order test "HCGTU"(Test #550.53368) [id number] 08:25:00* Test Item Value Reference Range Interpretation Comments TROPONIN-I (test code = TROPI) ng/mL 0-0.045 BASIC METABOLIC [id number] 08:25:00* Test Item Value Reference Range Interpretation [...] code = CA) mg/dL 8.5-10.1 HEPATIC FUNCTION [id number] 08:25:00* Test Item Value Reference Range Interpretation [...] TOTAL (test code = ALKP) IUnit/L 45-117 [id number] 08:25:00* Test Item Value Reference Range Interpretation Comments LIPASE (test code = LIP) U/L 73.0-393.0 HCG SERUM [id number] 08:25:00* Test Item Value Reference Range Interpretation Comments HCG SERUM QUAL (test code = HCGQL) NEGATIVE NEGATIVE This HCGQL test is NOT applicable for MALE patients.Check with nurse about probable order error.If Tumor Marker Test needed, nurse should order test "HCGTU"(Test #550.72068) [id number] 08:25:00* Test Item Value Reference Range Interpretation Comments TROPONIN-I (test code = TROPI) ng/mL 0-0.045 - XR CHEST 1 [id number] 08:21:00 FAX: Antonia Shabazz MD [phone] [place]: St: REG Name: Pamela ALEJANDRAMASTERMIGDALIA [facility] : [birth year] Age/S: 42/F [address] [facility] Unit #: [id number] Loc: [place] [address] Phys: Antonia Shabazz MD Acct: [id number] Dis Date: Status: REG ER PHONE #: [phone] Exam Date: 07/27/2018814 FAX #: [phone] Reason: CODE SEPSIS EXAMS: CPT CODE: [id number] XR CHEST 1 V 63646 HISTORY: Sepsis and body aches. COMPARISON: June [...] By: [email or web address] Orig Print D/T: S: 07/27/2018 (823) PAGE 1 Signed Report CBC W/AUTO [id number] 08:18:00* Test Item Value Reference Range Interpretation [...] (test code = MDIFF) NO POC LACTIC [id number] 08:02:00* Test Item Value Reference Range Interpretation Comments POC LACTIC ACID (test code = POCLAC) 1.16 MMOL/L 0.4-2.2 N - XR HAND 3 + V [id number] 16:48:00 FAX: Jessica Jeong [facility] [place]: B St: DEP FAX: Antonia Shabazz MD [phone] Name: MIGDALIA QUINN [facility] : 1975 Age/S: 42/F [address] Unit #: [id number] Loc: [place] [address] Phys: Jessica Jeong NP Acct: [id number] Dis Date: Status: DEP ER PHONE #: [phone] Exam Date: 02/12/2018 8844 FAX #: [phone] Reason: PAIN S/P CRUSH INJURY EXAMS: CPT CODE: [id number] XR HAND 3 + V RT 84355 CLINICAL HISTORY: PAIN S/P CRUSH INJURY TECHNIQUE: AP, oblique, and lateral views of the right hand COMPARISON: None FINDINGS: No acute fracture or dislocation. Bony trabecular pattern is unremarkable. No cortical destruction or periosteal reaction. Joint spaces are preserved. Regional soft tissues are unremarkable. IMPRESSION: No acute fracture or dislocation of the right hand. at 6687 Reported and signed by: Marielena Tang D.O. CC: Jessica Jeong NP; Antonia Shabazz MD Technologist: Raji Pop RT(R); CHIOMA LEON RT(R) Trnscrd Date/Time/By: 02/12/2018 (6411) : By: [email or web address] Orig Print D/T: S: 02/12/2018 (7717) PAGE 1 Signed Report
[2020-04-21] MEDS: ONDANSETRON HCL INJ 2MG/ML 2ML 2 MG/ML VIAL IV PRN ×2 (18:29→23:00)
[2020-04-21] MEDS ORDERED: SODIUM CHLORIDE 0.9% 50ML 50 ML ONE (18:43)
[2020-04-21] MEDS ORDERED: IOPAMIDOL 370 MG/ML 200 ML INFUS..BTL INJ ONE (18:43)
[2020-04-21] MEDS: SODIUM CHLORIDE 0.9% 1000ML 1,000 ML IV SCH ×2 (19:40→21:00)
[2020-04-21 20:00] VITALS: BP 151/104
[2020-04-21] MEDS ORDERED: DEXTROSE 50% SYRINGE 50 ML IV PRN ×2 (20:00→20:15)
[2020-04-21] MEDS ORDERED: POTASSIUM CHLORIDE 20MEQ/100ML 200 ML IV ONE (20:15)
[2020-04-21] MEDS ORDERED: ACETAMINOPHEN 325 MG TAB PO PRN (20:15)
[2020-04-21] MEDS ORDERED: ACETAMINOPHEN/CODEINE 300MG - 30MG TAB PO PRN (20:15)
[2020-04-21] MEDS ORDERED: HYDRALAZINE HCL 20 MG/ML VIAL IV PRN (20:15)
[2020-04-21 20:21] VITALS: BP 151/104
[2020-04-21 20:35] VITALS: BP 151/104
[2020-04-21] MEDS ORDERED: INSULIN REGULAR, HUMAN 100 UNIT/1 ML 3ML VIAL SQ SCH (21:00)
--- NOTE | 2020-04-21 21:14 | NUR ---
SPOKE TO ORTHOPEDICS PEDIATRIC PHYSICIAN REED REGARDING PATIENT C/O PAIN AND VOMITTING. NEW ORDERS RECEIVED.
[2020-04-21] MEDS ORDERED: MORPHINE SULFATE 2 MG/ML SYR 1ML IV ONE (21:15)
[2020-04-21] MEDS: INSULIN LISPRO 100 UNIT/1 ML 3ML VIAL SQ SCH (21:59)
--- NOTE | 2020-04-21 22:55 | NUR ---
IV START TO R AC. ASEPTIC TECHNIQUE. BLOOD PULLED BACK AND SALINE FLUSH. CDI DRESSING APPLIED. TOLERATED WELL.
[2020-04-22] VITALS: BP 166/105
[2020-04-22] MEDS ORDERED: METOCLOPRAMIDE HCL 10 MG/2ML VIAL IV SCH ×2
[2020-04-22] MEDS: METOCLOPRAMIDE HCL 10 MG/2ML VIAL IV SCH ×3 (00:27→12:11)
--- NOTE | 2020-04-22 00:37 | NUR ---
SPOKE TO DINING ROOM ATTENDANT CAFETERIA REED REGARDING PATIENT C/O PAIN. AWARE REGLAN GIVEN AND SCHEDULED EVERY 6 HOURS. DINING ROOM ATTENDANT CAFETERIA REPORTS TO CONTINUE SCHEDULED REGLAN AND GIVE ZOFRAN NEEDED. REPORTS "NARCOTICS CAN WORSEN GI SYMPTOMS." CALL BACK IN 4 HOURS TO UPDATE.
[2020-04-22 01:25] VITALS: BP 146/96
--- NOTE | 2020-04-22 01:26 | NUR ---
PROVIDED BEDSIDE EDUCATION REGARDING REGLAN AND ZOFRAN. NOTIFIED PATIENT NARCOTICS MAY WORSEN GI SYMPTOMS. VERBALIZES UNDERSTANDING. PATIENT REPORTS "IM FEELING BETTER. I THINK THE REGLAN IS HELPING."
[2020-04-22 04:00] VITALS: BP 140/96
[2020-04-22] MEDS: PIPER-TAZ 3.375 GM 50 ML IV SCH ×2 (04:03→09:01)
[2020-04-22 07:05] LABS: BASOPHILS % 0.7 % (0.0-1.0); EOSINOPHILS % 0.5 % (0.0-6.0); HEMATOCRIT 34.6 % (34.2-44.1); HEMOGLOBIN 11.4 g/dL (12.0-16.0); LYMPHOCYTES # (AUTO) 2.8 (1.0-3.2); LYMPHOCYTES % 64.3 % (18.0-39.1); MEAN CORPUSCULAR HEMOGLOBIN 26.3 pg (28-32); MEAN CORPUSCULAR HGB CONC 32.9 g/dL (31-35); MEAN CORPUSCULAR VOLUME 79.9 fL (81-99); MONOCYTES # (AUTO) 0.4 (0.2-0.8); MONOCYTES % 8.9 % (4.4-11.3); NEUTROPHILS # (AUTO) 1.1 (2.1-6.9); NEUTROPHILS % 25.4 % (38.7-80.0); PLATELET COUNT 233 x10e3/uL (140-360); RED BLOOD COUNT 4.33 x10e6/uL (3.6-5.1); RED CELL DISTRIBUTION WIDTH 14.1 % (11.7-14.4)
--- NOTE | 2020-04-22 07:10 | NUR ---
REPORT GIVEN TO DAYSHIFT NURSE. ALERT AND ORIENTED. RESTING IN BED. NO SIGNS IV INFILTRATION. BED LOCKED AND IN LOW POSITION. CALL LIGHT WITHIN REACH.
[2020-04-22 07:19] VITALS: BP 140/96
[2020-04-22] MEDS ORDERED: PANTOPRAZOLE 40 MG 10ML VIAL IV SCH (07:30)
[2020-04-22] MEDS: INSULIN LISPRO 100 UNIT/1 ML 3ML VIAL SQ SCH ×2 (07:30→12:03)
[2020-04-22 08:45] VITALS: BP 142/107
[2020-04-22] MEDS ORDERED: LISINOPRIL 10 MG TAB PO SCH (09:00)
[2020-04-22] MEDS: ONDANSETRON HCL INJ 2MG/ML 2ML 2 MG/ML VIAL IV PRN (09:11)
[2020-04-22 10:13] LABS: ANION GAP 12.9 mmol/L (8-16); BLOOD UREA NITROGEN < 5 mg/dL (7-26); CALCIUM 8.5 mg/dL (8.4-10.2); CARBON DIOXIDE 22 mmol/L (22-29); CHLORIDE 104 mmol/L (98-107); CREATININE, SERUM 0.73 mg/dL (0.57-1.11); EST GLOMERULAR FILTRATION RATE > 60 ML/MIN (60-); GLUCOSE 203 mg/dL (74-118); SODIUM 136 mmol/L (136-145)
[2020-04-22 10:14] LABS: BUN/CREATININE RATIO 7 (6-25)
[2020-04-22 10:15] LABS: POTASSIUM 2.9 mmol/L (3.5-5.1)
[2020-04-22] MEDS ORDERED: PANTOPRAZOLE SO40 MG PO (11:10)
[2020-04-22] MEDS ORDERED: REGLAN10 MG PO (11:10)
[2020-04-22] MEDS ORDERED: ONDANSETRON ODT8 MG PO (11:10)
[2020-04-22] MEDS ORDERED: KEFLEX500 MG PO (11:18)
[2020-04-22 11:21] VITALS: BP 116/81
[2020-04-22] MEDS ORDERED: POTASSIUM CHLORIDE 20 MEQ TAB CR PO ONE (11:30)
--- NOTE | 2020-04-23 03:23 | Discharge Summary ---
ADMISSION DIAGNOSES: Abdominal pain, hypertension, type 2 diabetes, anxiety, depression, hypokalemia. DISCHARGE DIAGNOSES: Abdominal pain, hypertension, type 2 diabetes, anxiety, depression, hypokalemia. HISTORY: Type 2 diabetes, hypertension, COPD, anxiety, depression, GERD, pancreatitis, bipolar, and PTSD. SURGICAL HISTORY: x3, hysterectomy, tubal ligation, and cholecystectomy. FAMILY HISTORY: The patient's mom, dad and brother had diabetes. SOCIAL HISTORY: Occasional alcohol use. HOSPITAL COURSE: A 44-year-old female admits with complaints of abdominal pain. The pain improved initially with Protonix after just being discharged two days ago, but the pain returned the following day. She was also recently at [facility] and discharged less than a week ago after being readmitted for renal abscess. She is currently taking Keflex 1000 mg t.i.d. for 30 days. Due to the renal abscess that they found. She appears to be pain medication seeking and frequently readmit to different hospitals. On admission, the patient is tolerating a clear liquid diet. She was getting Protonix, Zofran and Reglan just getting a prescription for [place] last week, she is again asking for more pain medicine. I explained to her that it is too soon to get any additional pain medication. Diet was advanced to regular diabetic diet and she is tolerating well. CT of the abdomen and pelvis showed no acute abdominal pelvic abnormalities, irregular complex cystic lesion in the upper pole of the right kidney with extrarenal extension. Urology saw this patient just a couple of days ago and again says that she is safe for discharge. She will discharge home with new prescriptions for Reglan, Zofran, ODT and Protonix. The patient understands that if she needs additional pain medication she needs to follow up with Pain Management and continue taking the antibiotics as prescribed. Dictated by Sienna Lopes NP MD NELA Mejia/DILMA /[id number]
== END 2020-04-22 15:47 | disposition home or self-care (01) ==
LOC: ER 16:48 → ERHOLD 18:06 → MED/SURG3 20:11
PROVIDERS: ADMIT Internal Medicine; ATTEND Internal Medicine
DX: R10.9 Unspecified abdominal pain (principal); I10 Essential (primary) hypertension; E11.9 Type 2 diabetes mellitus without complications; F41.9 Anxiety disorder, unspecified; J44.9 Chronic obstructive pulmonary disease, unspecified; Z11.59 Encounter for screening for other viral diseases; Z76.5 Malingerer [conscious simulation]; F32.9 Major depressive disorder, single episode, unspecified
CPT/HCPCS: 36415 ×2; 36600; 74177; 80048; 80053; 81001; 81025; 82550; 82553; 82805; 82948 ×2; 84484; 85025 ×2; 87086; 93005; 99284; C9113; G0378 ×2; J2270 ×2; J2405 ×2; J2543 ×2; J2765 ×2; J3480; J7030; Q9967; U0002

== ENCOUNTER 2023-01-04 12:57 | Emergency (ER) | payer OTHER ==
[~2023-01-04] VITALS: Ht 157.5 cm; Wt 78.9 kg
[~2023-01-04 12:57] MED LIST changes: +KEFLEX500 MG PO; +ONDANSETRON ODT8 MG PO; +PANTOPRAZOLE SO40 MG PO
[2023-01-04] MEDS ORDERED: ONDANSETRON HCL INJ 2MG/ML 2ML 2 MG/ML VIAL IV STA (13:01)
[2023-01-04] MEDS ORDERED: SODIUM CHLORIDE 0.9% 1000ML 1,000 ML IV STA (13:01)
[2023-01-04] MEDS ORDERED: Morphine 4mg INJECTION 4 MG/ML INJ IV STA (13:01)
[2023-01-04] MEDS ORDERED: SODIUM CHLORIDE 0.9% 1000ML 1,000 ML ONE (13:03)
[2023-01-04 13:06] LABS: BASOPHILS % 0.3 % (0.0-1.0); EOSINOPHILS # (AUTO) 0.1 (0.0-0.4); EOSINOPHILS % 1.3 % (0.0-6.0); HEMATOCRIT 42.3 % (34.2-44.1); HEMOGLOBIN 14.7 g/dL (12.0-16.0); LYMPHOCYTES # (AUTO) 2.6 (1.0-3.2); LYMPHOCYTES % 27.8 % (18.0-39.1); MEAN CORPUSCULAR HEMOGLOBIN 28.2 pg (28-32); MEAN CORPUSCULAR HGB CONC 34.8 g/dL (31-35); MONOCYTES # (AUTO) 0.4 (0.2-0.8); MONOCYTES % 4.2 % (4.4-11.3); NEUTROPHILS # (AUTO) 6.2 (2.1-6.9); NEUTROPHILS % 66.2 % (38.7-80.0); PLATELET COUNT 241 x10e3/uL (140-360); RED BLOOD COUNT 5.22 x10e6/uL (3.6-5.1); RED CELL DISTRIBUTION WIDTH 12.3 % (11.7-14.4)
[2023-01-04 13:28] VITALS: O2SAT 100
[2023-01-04 13:29] LABS: ALBUMIN 3.5 g/dL (3.5-5.0); ALBUMIN/GLOBULIN RATIO 0.9 (0.8-2.0); ANION GAP 14.8 mmol/L (8-16); CALCIUM 9.9 mg/dL (8.4-10.2); CREATININE, SERUM 0.79 mg/dL (0.57-1.11); POTASSIUM 3.8 mmol/L (3.5-5.1)
[2023-01-04] MEDS ORDERED: IOPAMIDOL 370 MG/ML 100 ML INFUS..BTL INJ ONE (13:39)
[2023-01-04] MEDS ORDERED: HALOPERIDOL LACTATE 5 MG/ML VIAL IV ONE (14:00)
[2023-01-04 15:01] LABS: CLARITY,URINE CLEAR (CLEAR); COLOR,URINE YELLOW (YELLOW); KETONES,URINE 1+ (NEGATIVE); LEUKOCYTE ESTERASE ,URINE NEGATIVE (NEGATIVE); NITRITE,URINE NEGATIVE (NEGATIVE); PROTEIN,URINE DIPSTICK NEGATIVE (NEGATIVE); URINE UROBILINOGEN 0.2 mg/dL (0.2 - 1)
[2023-01-04 15:12] LABS: EPITHELIAL CELLS,URINE RARE /LPF
[2023-01-04] MEDS ORDERED: ONDANSETRON ODT4 MG PO (15:30)
[2023-01-04] MEDS ORDERED: DICYCLOMINE HCL20 MG PO (15:30)
== END 2023-01-04 15:56 | disposition home or self-care (01) ==
LOC: ER 13:27
DX: R10.31 Right lower quadrant pain (principal); R11.2 Nausea with vomiting, unspecified; E11.9 Type 2 diabetes mellitus without complications; I10 Essential (primary) hypertension; F41.8 Other specified anxiety disorders; J44.9 Chronic obstructive pulmonary disease, unspecified; K21.9 Gastro-esophageal reflux disease without esophagitis; Z79.4 Long term (current) use of insulin
CPT/HCPCS: 36415; 74177; 80053; 81001; 83690; 85025; 93005; 99284; J1630; J2270; J2405; J7030; Q9967